=== PATIENT | female | born 1925 | race Caucasian/White ===

== ENCOUNTER 2016-10-21 22:19 | Inpatient (IN) | payer MEDICARE, OTHER ==
[~2016-10-21] VITALS: Ht 154.9 cm; Wt 77.6 kg
[~2016-10-21 22:19] MED LIST: ASPI-130 PO; CALC1TAB26 PO; CIPR500T4 PO; COZA50TA PO; ESTR3TAB PO; FISH100020 PO; FLAG500T PO; FLUO20TA20 PO; FURO1TAB93 PO; ONDA4; POTA-267 PO; TAB-TAB PO; TOPR50TA PO; VITA10002 PO; WAL-10TA2 PO
[2016-10-21] MEDS ORDERED: ONDANSETRON HCL 4 MG/2 ML VIAL ONE (22:27)
[2016-10-21 22:32] VITALS: BP 119/73; PULSE 74; RESP 16; TEMP 98.1; O2SAT 91; O2SAT 92
[2016-10-21 22:35] VITALS: RESP 18; O2SAT 98
[2016-10-21 22:35] LABS: AUTOMATED NEUTROPHIL # 11.1 TH/MM3 (1.8-7.7); BASOPHIL # 0.1 TH/MM3 (0-0.2); BASOPHIL % 0.7 % (0.0-2.0); EOSINOPHIL # 0.4 TH/MM3 (0-0.4); EOSINOPHIL % 2.7 % (0.0-4.0); HEMATOCRIT 38.2 % (35.0-46.0); HEMO FLAGS DIFF FINAL; LYMPH % 11.9 % (9.0-44.0); LYMPHOCYTE # 1.7 TH/MM3 (1.0-4.8); MEAN CELL VOLUME 91.9 FL (80.0-100.0); MEAN CORPUSCULAR HEMOGLOBIN 30.5 PG (27.0-34.0); MEAN CORPUSCULAR HGB CONC 33.2 % (32.0-36.0); NEUT % 76.7 % (16.0-70.0); PLATELET COUNT 303 TH/MM3 (150-450); RED BLOOD COUNT 4.16 MIL/MM3 (4.00-5.30); RED CELL DISTRIBUTION WIDTH 13.6 % (11.6-17.2); WHITE BLOOD COUNT 14.4 TH/MM3 (4.0-11.0)
[2016-10-21 22:38] LABS: I-STAT POTASSIUM 4.6 MMOL/L (3.5-4.9); I-STAT SODIUM 139 MMOL/L (138-146)
--- NOTE | 2016-10-21 22:38 | PD ---
HPI Chief Complaint: Cardiac Complaint Time Seen by Provider: 22:22 Travel History International Travel<30 days: No Contact w/Intl Traveler<30days: No Traveled to known affect area: No History of Present Illness HPI The patient is an 89 year old female who presents to the [facility] emergency department with a history of reportedly beginning to not feel well in the afternoon. She is unsure of the exact time. According to ambulance services the patient does have a history of mild dementia. The patient reported to them that she had chest pain and back pain. The patient was called as a STEMI prior to arrival due to ST segment elevation in V2, V3, V4, however the patient was then noted to have a paced rhythm. The patient is unsure why she has a pacemaker. She is unsure how long she has been experiencing chest pain. She reports that she does have shortness of breath and generalized weakness. The patient prior to arrival was given 162 mg of aspirin and nitroglycerin sublingual times one. The patient reports that her only symptom at this point his shortness of breath. She has O2 saturation on room air is 92- 93%. The patient is unsure whether she has any prior history of lung disease. The patient's electronic medical record will be reviewed regarding her chronic medical history. The patient reports feeling nauseated although she denies having any vomiting. 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 The patient additionally has a history of recently diagnosed dementia. Blood Disorders: No Anxiety: No Depression: No Heart Rhythm Problems: Yes (PACEMAKER) Cancer: No Cardiovascular Problems: Yes (PACEMAKER) High Cholesterol: No Chemotherapy: No Chest Pain: No Congestive Heart Failure: No Diabetes: No Diminished Hearing: No Endocrine: No Gastrointestinal Disorders: No GERD: No Glaucoma: No Genitourinary: No Headaches: Yes Hepatitis: No Hiatal Hernia: No Hypertension: Yes Immune Disorder: No Implanted Vascular Access Dvce: Yes Musculoskeletal: No Neurologic: Yes Psychiatric: No Reproductive: Yes (HYSTERECTOMY, RECTOCELE) Respiratory: Yes (SOB) Integumentary: No Myocardial Infarction: No Radiation Therapy: No Thyroid Disease: No Ulcer: No Past Surgical History Narrative Surgical The patient's past surgical history is significant for a hysterectomy, rectocele repair, pacemaker placement, colonoscopy. Abdominal Surgery: Yes (RECTO JAKOB SURGERY) AICD: No Appendectomy: Yes Arteriovenous Shunt: No Body Medical Devices: PACEMAKER Cardiac Surgery: Yes (PACEMAKER) Cholecystectomy: No Ear Surgery: No Endocrine Surgery: No Eye Surgery: No Genitourinary Surgery: No Gynecologic Surgery: Yes (HYSTERECTOMY) Hysterectomy: Yes Insulin Pump: No Joint Replacement: No Oral Surgery: No Pacemaker: Yes (1988) Thoracic Surgery: Yes (PACEMAKER) Other Surgery: Yes (LEFT BREAST CYST,RECTOCELE) Social History Alcohol Use: Yes (1 GLASS WINE WITH DINNER) Tobacco Use: No Substance Use: No Allergies-Medications (Allergen,Severity, Reaction): Coded Allergies: Amlodipine (Verified Allergy, Severe, 10/21/16) Benazepril (Verified Allergy, Severe, 10/21/16) Uncoded Allergies: LOTREL (Allergy, Severe, RASH, 02/17/08) Reported Meds & Prescriptions Reported Meds & Active Scripts Active Active Prescriptions or Reported Medications Unobtainable Review of Systems Except as stated in HPI: all other systems reviewed are Neg General / Constitutional: No: Fever Eyes: No: Visual changes HENT: No: Headaches, Rhinorrhea, Congestion Cardiovascular: Positive: Chest Pain or Discomfort, Dyspnea on exertion Respiratory: Positive: Shortness of Breath, No: Cough Gastrointestinal: Positive: Nausea, No: Vomiting, Diarrhea, Abdominal Pain Genitourinary: No: Dysuria Musculoskeletal: Positive: Myalgias, Pain Skin: No Rash Neurologic: Positive: Weakness (generalized weakness), No: Focal Abnormalities , Change in Mentation, Slurred Speech, Sensory Disturbance Psychiatric: No: Depression Endocrine: No: Polydipsia Hematologic/Lymphatic: No: Easy Bruising Physical Exam Narrative General: The patient is a well-developed well-nourished female, slightly pale appearing on examination, reportedly experiencing nausea. Head and Neck exam: Head is normocephalic atraumatic. Eyes: Pupils are equal round and reactive to light. Nose: Midline septum with pink mucous membranes Mouth: Dentition unremarkable. Moist mucus membranes. Posterior oropharynx is not erythematous. No tonsillar hypertrophy. Uvula midline. Airway patent. Neck: No palpable lymphadenopathy. No nuchal rigidity. No thyromegaly. Cardiovascular: Regular rate and rhythm without murmurs, gallops, or rubs. No pulse deficit to the extremities and simultaneous auscultation and palpation of her radial artery. Lungs: Clear to auscultation bilaterally. No wheezes, rhonchi, or rales. Abdomen: Soft, without tenderness to palpation in all 4 quadrants of the abdomen. No guarding, rebound, or rigidity. Normal bowel sounds are audible. No tenderness on McBurney's point. Negative Hunt's sign. Extremities: No calf tenderness on palpation. No clubbing, cyanosis, or edema. 2+ pulses in all 4 extremities. Back: No spinous process tenderness to palpation. No costovertebral angle tenderness to palpation. Neurologic Exam: Cranial nerves 2-12 were intact on exam. Strength is 5/5 in all 4 extremities. No sensory deficits noted. The patient is oriented to person and place, however not time or situation. Skin Exam: No rash noted. Intact skin that is warm and dry. Data Data Last Documented VS Vital Signs Date Time Temp Pulse Resp B/P Pulse Ox O2 Delivery O2 Flow Rate FiO2 10/21/16 22:35 72 20 96 Nasal Cannula 2 10/21/16 22:32 98.1 119/73 Orders Troponin I (10/21/16 22:22) Ckmb (Isoenzyme) Profile (10/21/16 22:22) Complete Blood Count With Diff (10/21/16 22:22) I-Stat Profile (10/21/16 22:22) I-Stat Creatinine (10/21/16 22:22) Calcium (10/21/16 22:22) Magnesium (Mg) (10/21/16 22:22) Prothrombin Time / Inr (Pt) (10/21/16 22:22) Act Partial Throm Time (Ptt) (10/21/16 22:22) B-Type Natriuretic Peptide (10/21/16 22:22) Chest, Single Ap (10/21/16 22:22) Electrocardiogram (10/21/16 22:22) Oxygen Administration (10/21/16 22:22) Iv Access Insert/Monitor (10/21/16 22:22) Oximetry (10/21/16 22:22) Ondansetron Inj (Zofran Inj) (10/21/16 22:27) Nitroglycerin 2% Oint (Nitroglycerin 2% (10/21/16 22:45) Nitroglycerin Sl (Nitrostat Sl) (10/21/16 22:45) Aspirin Chew (Aspirin Chew) (10/21/16 22:45) CKMB (10/21/16 22:25) CKMB% (10/21/16 22:25) Hepatic Functional Panel (10/21/16 22:25) Lipase (10/21/16 22:25) Ondansetron Inj (Zofran Inj) (10/22/16 00:00) Urinalysis - C+S If Indicated (10/21/16 23:59) Cath For Specimen (10/21/16 23:59) Sodium Chlor 0.9% 1000 Ml Inj (Ns 1000 M (10/22/16 00:00) Admit Order (Ed Use Only) (10/22/16 00:08) Labs Laboratory Tests Test 10/21/16 22:25 White Blood Count 14.4 TH/MM3 Red Blood Count 4.16 MIL/MM3 Hemoglobin 12.7 GM/DL Bedside Hemoglobin 12.9 G/DL Hematocrit 38.2 % Bedside Hematocrit 38.0 % Mean Corpuscular Volume 91.9 FL Mean Corpuscular Hemoglobin 30.5 PG Mean Corpuscular Hemoglobin 33.2 % Concent Red Cell Distribution Width 13.6 % Platelet Count 303 TH/MM3 Mean Platelet Volume 8.8 FL Neutrophils (%) (Auto) 76.7 % Lymphocytes (%) (Auto) 11.9 % Monocytes (%) (Auto) 8.0 % Eosinophils (%) (Auto) 2.7 % Basophils (%) (Auto) 0.7 % Neutrophils # (Auto) 11.1 TH/MM3 Lymphocytes # (Auto) 1.7 TH/MM3 Monocytes # (Auto) 1.2 TH/MM3 Eosinophils # (Auto) 0.4 TH/MM3 Basophils # (Auto) 0.1 TH/MM3 CBC Comment DIFF FINAL Differential Comment Prothrombin Time 10.0 SEC Prothromb Time International 0.9 RATIO Ratio Activated Partial 24.9 SEC Thromboplast Time Bedside Sodium 139 MMOL/L Bedside Potassium 4.6 MMOL/L Bedside Chloride 107 MMOL/L Bedside Blood Urea Nitrogen 22 MG/DL Bedside Creatinine 1.0 MG/DL Bedside Glucose 145 MG/DL Calcium Level 8.7 MG/DL Magnesium Level 2.2 MG/DL Total Bilirubin 0.2 MG/DL Direct Bilirubin 0.1 MG/DL Indirect Bilirubin 0.1 MG/DL Aspartate Amino Transf 24 U/L (AST/SGOT) Alanine Aminotransferase 22 U/L (ALT/SGPT) Alkaline Phosphatase 78 U/L Total Creatine Kinase 102 U/L Creatine Kinase MB 1.0 NG/ML Troponin I LESS THAN 0.02 NG/ML B-Type Natriuretic Peptide 269 PG/ML Total Protein 7.4 GM/DL Albumin 3.4 GM/DL Lipase 294 U/L MDM Medical Decision Making Medical Screen Exam Complete: Yes Emergency Medical Condition: Yes Medical Record Reviewed: Yes Interpretation(s) Last Impressions Chest X-Ray 10/21/162221 Signed Impressions: Service Date/Time: Friday, October 21, 2016 22:33 - CONCLUSION: No acute disease. No significant change has occurred. Tobi Mcginnis MD Differential Diagnosis Acute coronary syndrome, versus electrolyte abnormality, versus congestive heart failure exacerbation, versus COPD, versus pneumonia, versus pulmonary embolus Narrative Course During the course of the patients emergency department visit, the patients history, examination, and differential diagnosis were reviewed with the patient. The patient had IV access obtained and blood work sent for analysis. The patient was placed on a court monitor with oximetry and blood pressure monitoring. An EKG was done on arrival. The patient's EKG shows a paced rhythm , from reviewing the patient's prior EKG the patient has a history of paced rhythm previously. There does not appear to be any changes compared to her prior EKG done August 21, 2015. A chest x-ray has been ordered. The patient was placed on 2 L nasal cannula O2. The patient was provided aspirin 162 mg by mouth 1, nitroglycerin 1 inch to the chest wall. The patient had written for nitroglycerin sublingual every 5 minutes 3 when necessary chest pain. The patients laboratory studies were reviewed and remarkable for a CBC that shows a white count of 14.4, hemoglobin 12.7, platelets 303 with neutrophils 76.7, i-STAT with creatinine shows a glucose of 145 otherwise unremarkable. Initial set of cardiac enzymes showed a CPK of 102, troponin I less than 0.02. Radiology studies were reviewed and remarkable for a chest x-ray that showed no acute abnormality. The patients results were discussed with the patient, including the plan of care. I explained that further testing and/ or monitoring is indicated based on the patients history, examination, and/ or laboratory findings. Therefore, I recommended admission for additional evaluation. The patient expressed understanding and was agreeable with this plan. The patient was admitted to the hospital in stable condition and sent to a bed under the care of the [facility]. Physician Communication Physician Communication The patient's case was discussed with Dr. Cao who did agree to admit the patient for further evaluation and treatment at this time. Diagnosis Primary Impression: Shortness of breath Additional Impressions: Chest pain, rule out acute myocardial infarction History of coronary artery disease Admitting Information Admitting Physician Requests: Admit Scripts Unable to Obtain Active Prescriptions or Reported Meds Rebecca Medeiros MD Oct 21, 2016 22:38
[2016-10-21] MEDS ORDERED: NITROGLYCERIN 2% OINT 1 GM PACKET TOPICAL ONE (22:45)
[2016-10-21] MEDS ORDERED: ASPIRIN 81 MG CHEW TAB CHEW ONE (22:45)
[2016-10-21] MEDS ORDERED: NITROGLYCERIN 0.4 MG SL 25 TABS/BTL SL PRN (22:45)
[2016-10-21 22:58] LABS: MAGNESIUM 2.2 MG/DL (1.5-2.5)
--- NOTE | 2016-10-21 22:58 | RADRPT ---
EXAM DATE/TIME: 10/21/2016 22:33 [place] COMPARISON: CHEST SINGLE AP, August 21, 2015, 13:22. INDICATIONS : Shortness of breath, chest and back pain. MEDICAL HISTORY : Hypertension. SURGICAL HISTORY : Pacemaker. ENCOUNTER: Initial ACUITY: 1 day PAIN SCORE: 6/10 LOCATION: Bilateral chest FINDINGS: A single view of the chest demonstrates the lungs to be symmetrically aerated without evidence of mas s, infiltrate or effusion. The cardiomediastinal contours are unremarkable and stable. There is a pa cemaker overlying the left chest.. Osseous structures are intact. No significant changes. CONCLUSION: No acute disease. No significant change has occurred. Tobi Mcginnis MD on October 21, 2016 at 22:56 Board Certified Radiologist. This report was verified electronically.
[2016-10-21 23:01] LABS: CREATINE KINASE 102 U/L (26-192)
[2016-10-21 23:05] LABS: APTT (PATIENT) 24.9 SEC (24.3-30.1); INTERNATIONAL NORMALIZED RATIO 0.9 RATIO
[2016-10-21 23:37] LABS: ALT (GPT) 22 U/L (10-53); AST (GOT) 24 U/L (15-37)
[2016-10-21 23:39] LABS: ALKALINE PHOSPHATASE 78 U/L (45-117); INDIRECT BILIRUBIN 0.1 MG/DL (0.0-0.8); TOTAL BILIRUBIN ADULT 0.2 MG/DL (0.2-1.0)
[2016-10-22] VITALS (15 sets, daily range): BP systolic 80–114; BP diastolic 44–73; PULSE 68–120; RESP 16–18; TEMP 97.4–98.2; O2SAT 77–99
[2016-10-22] MEDS ORDERED: ONDANSETRON HCL 4 MG/2 ML VIAL IV ONE
[2016-10-22] MEDS: SODIUM CHLOR 0.9% 1000 ML INJ 1,000 ML IV SCH ×4 (00:13→20:12)
[2016-10-22] MEDS ORDERED: MORPHINE SULFATE 4 MG/ML INJ IV PUSH ONE (00:30)
[2016-10-22] MEDS ORDERED: BISACODYL 10 MG SUPP PR PRN (00:45)
[2016-10-22] MEDS ORDERED: ACETAMINOPHEN/HYDROcodone 325 MG/5 MG TAB PO PRN (00:45)
[2016-10-22] MEDS ORDERED: ONDANSETRON HCL 4 MG/2 ML VIAL IVP PRN (00:45)
[2016-10-22] MEDS ORDERED: ACETAMINOPHEN 325 MG TAB PO PRN (00:45)
[2016-10-22] MEDS ORDERED: SODIUM CHLORIDE 0.9% FLUSH 5 ML FLUSH FLUSH PRN (00:45)
--- NOTE | 2016-10-22 01:00 | HHI.HP ---
HPI [facility] Primary Care Physician Sofia Zepeda MD Admission Diagnosis CP RO TN, ho CAD Diagnoses: (1) Chest pain Diagnosis: Principal (2) Hypoxia Diagnosis: Principal (3) Leukocytosis Diagnosis: Principal Travel History International Travel<30 Days: No Contact w/Intl Traveler <30 Da: No Traveled to Known Affected Are: No History of Present Illness This is an 89-year-old female with a PMH of HTN, CAD, Pacemaker and Dementia who is brought to the ER secondary to complaints of chest pain and SOB starting earlier today. EKG per EMS noted to be abnormal, that time STEMI Alert, however EKG similar to previous and STEMI Alert cancelled. Pt poor historian, but reports generalized weakness w/ complaints of SOB x2 days. Denies fever or chills. Today had episode of chest pain, currently resolved. On arrival, BP 119/73, HR 74, O2 sat 92% on RA, Afebrile. WBC 14.4. Chemistry unremarkable. Troponin negative. BNP 269. CXR with no acute findings. UA pending. Review of Systems Other ROS: 14 point review of systems otherwise negative. Past Family Social History Past Medical History PMH: HTN, CAD, Pacemaker and Dementia Past Surgical History PAST SURGICAL HISTORY: Rectocele, Appendectomy, Pacemaker, Hysterectomy, Left Breast Cyst Allergies: Coded Allergies: Amlodipine (Verified Allergy, Severe, 10/21/16) Benazepril (Verified Allergy, Severe, 10/21/16) Uncoded Allergies: LOTREL (Allergy, Severe, RASH, 02/17/08) Family History PAST FAMILY HISTORY: Reviewed. No h/o DM or CAD Social History PAST SOCIAL HISTORY: Occasional alcohol. Negative for tobacco or drugs. Physical Exam Vital Signs Vital Signs Date Time Temp Pulse Resp B/P Pulse Ox O2 Delivery O2 Flow Rate FiO2 10/21/16 22:35 72 20 96 Nasal Cannula 2 10/21/16 22:35 97 Nasal Cannula 2 10/21/16 22:35 18 98 Room Air 2 10/21/16 22:32 98.1 74 16 119/73 91 10/21/16 22:32 92 3.00 10/21/16 22:32 92 Nasal Cannula 3.00 Physical Exam PE: GENERAL: Pleasant elderly white female in no acute distress. HEENT: PERRLA, EOMI. No scleral icterus or conjunctival pallor. No lid lag or facial droop. CARDIOVASCULAR: Regular rate and rhythm. No obvious murmurs to auscultation. No chest tenderness to palpation. RESPIRATORY: No obvious rhonchi or wheezing. Clear to auscultation. Breath sounds equal bilaterally. GASTROINTESTINAL: Abdomen soft, non-tender, nondistended. BS normal. MUSCULOSKELETAL: Extremities without clubbing, cyanosis, or edema. No obvious deformities. NEUROLOGICAL: Awake, alert. No focal neurologic deficits. Moving both upper and lower extremities spontaneously. Laboratory Laboratory Tests Test 10/21/16 22:25 White Blood Count 14.4 Red Blood Count 4.16 Hemoglobin 12.7 Bedside Hemoglobin 12.9 Hematocrit 38.2 Bedside Hematocrit 38.0 Mean Corpuscular Volume 91.9 Mean Corpuscular Hemoglobin 30.5 Mean Corpuscular Hemoglobin 33.2 Concent Red Cell Distribution Width 13.6 Platelet Count 303 Mean Platelet Volume 8.8 Neutrophils (%) (Auto) 76.7 Lymphocytes (%) (Auto) 11.9 Monocytes (%) (Auto) 8.0 Eosinophils (%) (Auto) 2.7 Basophils (%) (Auto) 0.7 Neutrophils # (Auto) 11.1 Lymphocytes # (Auto) 1.7 Monocytes # (Auto) 1.2 Eosinophils # (Auto) 0.4 Basophils # (Auto) 0.1 CBC Comment DIFF FINAL Differential Comment Prothrombin Time 10.0 Prothromb Time International 0.9 Ratio Activated Partial 24.9 Thromboplast Time Bedside Sodium 139 Bedside Potassium 4.6 Bedside Chloride 107 Bedside Blood Urea Nitrogen 22 Bedside Creatinine 1.0 Bedside Glucose 145 Calcium Level 8.7 Magnesium Level 2.2 Total Bilirubin 0.2 Direct Bilirubin 0.1 Indirect Bilirubin 0.1 Aspartate Amino Transf 24 (AST/SGOT) Alanine Aminotransferase 22 (ALT/SGPT) Alkaline Phosphatase 78 Total Creatine Kinase 102 Creatine Kinase MB 1.0 Troponin I LESS THAN 0.02 B-Type Natriuretic Peptide 269 Total Protein 7.4 Albumin 3.4 Lipase 294 Result Diagram: 10/21/166 Assessment and Plan Problem List: (1) Chest pain ICD Code: R07.9 Status: Acute (2) Hypoxia ICD Code: R09.02 Status: Acute (3) Leukocytosis ICD Code: D72.829 Status: Acute Assessment and Plan A/P: 1. Chest Pain: r/o ACS. Initial trop negative, EKG w/ paced rhythm similar in comparison to previous. Admit for Observation, place on telemetry, check serial cardiac enzymes for trend. Consult Cardiology as needed. Resume home ASA, Metoprolol. 2. Hypoxia: c/o SOB. O2 sat 92-93% on RA, unclear etiology. CXR w/ no acute findings, images reviewed by me. Currently O2 sat 96-98% on 2L NC, will continue to monitor. 3. Leukocytosis: WBC 14.4, afebrile. CXR negative. U/a pending. Repeat labs in am. 4. DVT Prophylaxis: SCD/Teds. 5. Social work for d/c planning as needed. 6. Case discussed w/ ER physician at length. Meredith Cao MD Oct 22, 2016 01:00
[2016-10-22] MEDS ORDERED: SODIUM CHLORID 0.9% 500 ML INJ 500 ML IV ONE (01:45)
[2016-10-22 03:48] LABS: BACTERIA, URINE RARE /hpf; BLOOD, URINE SMALL (NEG); COMMENT (UR) CULT NOT INDICATED; CULTURE IF INDICATED CULT NOT INDICATED; GLUCOSE,URINE NEG (NEG); HYALINE CAST, URINE 60 /lpf (RARE); KETONE, URINE NEG (NEG); MUCUS URINE FEW /lpf (OCC); NITRITE,URINE NEG (NEG); PH, URINE 5.5 (5.0-8.5); SQUAMOUS EPITHELIAL CELL URINE 2 /hpf (0-5); URINE COLOR YELLOW (YELLW/STRAW)
[2016-10-22 04:05] LABS: AUTOMATED NEUTROPHIL # 10.1 TH/MM3 (1.8-7.7); BASOPHIL % 0.3 % (0.0-2.0); EOSINOPHIL % 0.2 % (0.0-4.0); HEMATOCRIT 33.5 % (35.0-46.0); HEMO FLAGS DIFF FINAL; LYMPH % 6.9 % (9.0-44.0); LYMPHOCYTE # 0.8 TH/MM3 (1.0-4.8); MEAN CORPUSCULAR HEMOGLOBIN 29.9 PG (27.0-34.0); MEAN CORPUSCULAR HGB CONC 32.8 % (32.0-36.0); MONO % 4.9 % (0.0-8.0); NEUT % 87.7 % (16.0-70.0); PLATELET COUNT 254 TH/MM3 (150-450); RED BLOOD COUNT 3.68 MIL/MM3 (4.00-5.30); RED CELL DISTRIBUTION WIDTH 13.4 % (11.6-17.2); WHITE BLOOD COUNT 11.5 TH/MM3 (4.0-11.0)
[2016-10-22 04:35] LABS: ANION GAP 7 MEQ/L (5-15); AST (GOT) 60 U/L (15-37); BICARBONATE 21.8 MEQ/L (21.0-32.0); BLOOD UREA NITROGEN 19 MG/DL (7-18); CHLORIDE 112 MEQ/L (98-107); GLOMERULAR FILTRATION RATE 46 ML/MIN (>89); SODIUM (NA) 141 MEQ/L (136-145)
[2016-10-22 04:40] LABS: ALKALINE PHOSPHATASE 70 U/L (45-117); ALT (GPT) 23 U/L (10-53); TOTAL BILIRUBIN ADULT 0.2 MG/DL (0.2-1.0)
[2016-10-22] MEDS: MORPHINE SULFATE 4 MG/ML INJ IV PRN ×3 (06:30→13:13)
--- NOTE | 2016-10-22 08:43 | HHI.PR ---
Subjective Remarks Follow up for chest pain, SOB. Ms. Quiñones does not exactly know why she came to the hospital. Currently, she does not have any acute concerns. Denies any chest pain, SOB, fever, chills. Her son is coming from [place]. Objective Vitals Vital Signs Date Time Temp Pulse Resp B/P Pulse Ox O2 Delivery O2 Flow Rate FiO2 10/22/16 06:21 68 104/64 10/22/16 05:14 68 96/57 10/22/16 05:08 97.8 75 16 85/73 95 10/22/16 02:02 69 16 105/58 97 Nasal Cannula 2 10/22/16 01:36 76 18 91/50 98 Nasal Cannula 3 10/21/16 22:35 72 20 96 Nasal Cannula 2 10/21/16 22:35 97 Nasal Cannula 2 10/21/16 22:35 18 98 Room Air 2 10/21/16 22:32 98.1 74 16 119/73 91 10/21/16 22:32 92 3.00 10/21/16 22:32 92 Nasal Cannula 3.00 Result Diagram: 10/22/168 10/22/168 Imaging Last Impressions Chest X-Ray 10/21/162221 Signed Impressions: Service Date/Time: Friday, October 21, 2016 22:33 - CONCLUSION: No acute disease. No significant change has occurred. Tobi Mcginnis MD Objective Remarks GENERAL: Alert, NAD. SKIN: Warm and dry. HEAD: Normocephalic. EYES: No scleral icterus. No injection or drainage. NECK: Supple, trachea midline. No JVD or lymphadenopathy. CARDIOVASCULAR: Regular rate and rhythm without murmurs, gallops, or rubs. RESPIRATORY: Breath sounds equal bilaterally. No accessory muscle use. GASTROINTESTINAL: Abdomen soft, non-tender, nondistended. MUSCULOSKELETAL: No cyanosis, or edema. BACK: Nontender without obvious deformity. No CVA tenderness. Procedures None. A/P Problem List: (1) Chest pain ICD Code: R07.9 Status: Acute (2) Hypoxia ICD Code: R09.02 Status: Acute (3) Leukocytosis ICD Code: D72.829 Status: Acute Assessment and Plan This is an 89-year-old female with a PMH of HTN, CAD, Pacemaker and Dementia who is brought to the ER secondary to complaints of chest pain and SOB on 2016. EKG per EMS noted to be abnormal, that time STEMI Alert, however EKG similar to previous and STEMI Alert cancelled. On arrival, BP 119/73, HR 74, O2 sat 92% on RA, Afebrile. WBC 14.4. Chemistry unremarkable. Troponin negative. BNP 269. CXR with no acute findings. Initial troponin was 0.02. Second troponin was 0.61. - NSTEMI - Negative troponin initially, second troponin 0.61. - Will start patient on Heparin drip. She already received 162 mg of Aspirin. - Continue aspirin 81 mg, metoprolol 50 mg every 12. - Discontinue pravastatin and start Lipitor 40 mg daily at bedtime. - Consult cardiology - Dr. Seth. - Hypoxia - currently doing well on 2L of O2. We will try to wean her off O2 to keep O2 sat > 90%. Leukocytosis is improving. 14.4 --> 11.8. - Mild Acute kidney injury - Will monitor. Creatinine 1.0 --> 1.11. Full code. Heparin SQ. Pacheco Parnell DO Oct 22, 2016 08:43
[2016-10-22] MEDS ORDERED: HEPARIN SODIUM - IV 10,000 UNITS/10 ML VIAL IV ONE (08:45)
[2016-10-22] MEDS ORDERED: HEPARIN-D5W INJ 250 ML IV SCH (08:45)
[2016-10-22] MEDS: SODIUM CHLORIDE 0.9% FLUSH 5 ML FLUSH FLUSH SCH ×2 (08:53→21:00)
[2016-10-22] MEDS: ASPIRIN EC 81 MG TABEC PO SCH (08:53)
[2016-10-22] MEDS ORDERED: METOPROLOL TARTRATE 50 MG TAB PO SCH (09:00)
[2016-10-22 09:10] LABS: HEMATOCRIT 34.9 % (35.0-46.0); MEAN CELL VOLUME 92.2 FL (80.0-100.0); MEAN CORPUSCULAR HEMOGLOBIN 30.5 PG (27.0-34.0); PLATELET COUNT 254 TH/MM3 (150-450); RED BLOOD COUNT 3.78 MIL/MM3 (4.00-5.30); RED CELL DISTRIBUTION WIDTH 13.8 % (11.6-17.2); REVIEW FLAG FINAL; WHITE BLOOD COUNT 11.8 TH/MM3 (4.0-11.0)
[2016-10-22 09:30] LABS: APTT (PATIENT) 26.2 SEC (24.3-30.1); INTERNATIONAL NORMALIZED RATIO 0.9 RATIO; PROTHROMBIN TIME - PATIENT 10.3 SEC (9.8-11.6)
[2016-10-22] MEDS ORDERED: diphenhydrAMINE HCL 50 MG CAP PO SCH (10:15)
[2016-10-22] MEDS ORDERED: MIDAZOLAM HCL 2 MG/2 ML VIAL IV SCH (10:15)
[2016-10-22] MEDS ORDERED: PRAVASTATIN SOD 80 MG TAB PO SCH (11:00)
[2016-10-22] MEDS ORDERED: CLOPIDOGREL 75 MG TAB PO ONE (12:15)
--- NOTE | 2016-10-22 13:27 | MB ---
cc: KELSIE CALABRESE M.D., JOANNE D. M.D. DATE OF CONSULTATION: October 22, 2016 REASON FOR CONSULTATION Non-ST elevation myocardial infarction. HISTORY OF PRESENT ILLNESS Ms. Quiñones is a 89-year-old white female well-known to me with history of mild ASHD, carotid ASO, hypertensive heart disease, and symptomatic bradycardia, status post permanent pacemaker implant. She was doing reasonably well and had a regular scheduled appointment next month with me. She was not feeling well yesterday but she is very nonspecific about describing how she was feeling since her memory has been failing. According to the emergency room notes she was not feeling well and did admit to some chest discomfort. She tells me now that she has no chest discomfort but has had problems with shortness of breath. She has been taking all of her medication as directed. She lives alone and continues to drive. She is considering making a change in her living conditions to be closer to her family. MEDICATION Her medications here she is receivin. Intravenous heparin. 2. Aspirin. 3. Metoprolol tartrate. 4. Topical nitrates. At home her medication list is as follows: 1. Toprol XL 75 mg every evening. 2. Cozaar 50 mg b.i.d. 3. Enteric-coated aspirin 81 mg daily. 4. Lasix 40 mg daily. 5. Klor-Con 10 meq daily. 6. Fish oil 1000 mg daily. 7. Ranitidine p.r.n. 8. Fluoxetine 20 mg daily. 9. Estropipate 2.5 mg daily. 10. Budesonide inhaler daily. 11. Brovana inhaler daily. 12. Zyrtec p.r.n. PAST MEDICAL HISTORY Of as mentioned above. She denies previous history of myocardial infarction, stroke, diabetes, thyroid, liver or kidney disease. PAST SURGICAL HISTORY 1. Right oophorectomy and 2. Appendectomy in 1949, 3. Hysterectomy in 9, 4. Left breast cyst removed in 1950 and 5. Pacemaker implanted in 1988. ALLERGIES LOTREL - CAUSES RASH, LAURA INHIBITORS, INTOLERANCE TO LIPITOR DUE TO MYALGIAS. FAMILY HISTORY Father of lung cancer at age 75. Mother of diabetes age 60. Brother after a myocardial infarction at age 42. A brother had an angioplasty in the past, is alive in his late 70s. Sister alive in her early 80s. SOCIAL HISTORY The patient is living alone, retired nurse's aide. Denies tobacco use at this time. Was a cigarette smoker, quit about 50 years ago. Consumes occasional alcohol. Does some mild exercise. REVIEW OF SYSTEMS Denies lower extremity edema or claudication. Denies fevers, chills, night sweats, nausea, vomiting, diarrhea. Denies any bleeding or clotting disorders. Except for that mentioned in HPI her complete 12-point review of systems otherwise negative. PHYSICAL EXAMINATION GENERAL: Physical exam reveals an elderly, overweight white female lying in bed, weak appearing but in no distress. VITAL SIGNS: Blood pressure 107/72 mmHg, heart rate is 72 and regular, respiratory rate 18, temperature 97.4, oxygen saturation 96% on 2 liters nasal cannula. HEAD: Normocephalic and atraumatic. Pupils equal, round, reactive to light. Sclerae anicteric. Extraocular movements intact. NECK: The neck is supple. There is no adenopathy and no jugular venous distension at 45 degrees. Carotid upstrokes are normal. No bruits. Thyroid exam is normal. LUNGS: Lungs are clear with decreased breath sounds bilaterally. HEART: PMI is not displaced. S1-S2 are normal. No murmurs, gallops, clicks or rubs. ABDOMEN: Obese. Bowel sounds present, soft, nontender, no hepatosplenomegaly, masses or bruits. EXTREMITIES: No cyanosis, clubbing or edema. Pulses are intact in the upper and lower extremities. There are no femoral bruits. EKG Shows sinus rhythm with electronic ventricular paced rhythm 100% capture. IMAGING STUDIES Chest x-ray shows no acute disease. LABORATORY DATA CBC white count 11.8, hemoglobin 11.5, hematocrit 34.9, platelet count 254,000. Coags were normal. Chemistries sodium 141, potassium 5.0, chloride 112, BUN 19, creatinine 1.11, calcium 8.3, AST 60, CPK 102 on arrival yesterday with a BNP of 269. Initial troponin-I at 2225 last night was less than 0.02, on the second set at 0348 this morning it latisha to 0.61. Lipase 294. IMPRESSION 1. Chronic dyspnea and history of chest pain. 2. ASHD and suspected non-ST elevation myocardial infarction. 3. History of symptomatic bradycardia status post permanent pacemaker implant functioning normally. 4. Hypertensive heart disease, well-controlled. 5. Hypercholesterolemia with intolerance to Lipitor. 6. Overweight. RECOMMENDATIONS The patient will be continued on the current medications including beta adriel therapy, aspirin and heparin. I will add Atorvastatin to her regimen as tolerated. If her blood pressure tolerates we will add back her Losartan. I have discussed further workup with her in detail including continued conservative medical management as well as invasive evaluation with cardiac catheterization and possible PCI. I have recommended that approach to her and she agrees to proceed this afternoon, labor specialist scheduling permitting. I discussed the indications, benefits and risks of these procedures with her in detail including acute myocardial infarction, VT/VF, , arterial injury, bleeding, stroke, possible need for emergent open heart surgery. She understands and is wishing and willing to proceed as planned. Orders have been written and consent signed. I will try the right radial approach if technically possible, otherwise right femoral approach will be used. Further recommendations will follow, n.p.o. at this time. I have discussed the case with the nursing staff. MD HIEU Castro/LITTLE /10:26 AM /12:57 PM
[2016-10-22] MEDS ORDERED: HEPARIN-NS/PF INJ 500 ML ONE (14:08)
[2016-10-22] MEDS ORDERED: MIDAZOLAM HCL 2 MG/2 ML VIAL ONE (14:20)
[2016-10-22] MEDS ORDERED: DOPamine INJ PREMIX 500 ML ONE (14:31)
[2016-10-22] MEDS ORDERED: HEPARIN SODIUM - IV 10,000 UNITS/10 ML VIAL ONE (14:40)
[2016-10-22] MEDS ORDERED: HEPARIN SODIUM - IV 10,000 UNITS/10 ML VIAL IV PRN ×2 (14:45)
[2016-10-22] MEDS ORDERED: FUROSEMIDE 40 MG/4 ML VIAL ONE (15:12)
[2016-10-22] MEDS ORDERED: MIDAZOLAM HCL 5 MG/5 ML VIAL ONE (15:21)
[2016-10-22] MEDS ORDERED: fentaNYL CITRATE 250 MCG/5 ML AMP ONE (15:21)
[2016-10-22] MEDS ORDERED: TIROFIBAN INFUSION INJ 250 ML IV ONE (15:32)
[2016-10-22] MEDS ORDERED: CLOPIDOGREL 300 MG TAB ONE (15:32)
[2016-10-22] MEDS ORDERED: TIROFIBAN INFUSION INJ 250 ML IV SCH (15:59)
[2016-10-22] MEDS ORDERED: ATROPINE SULFATE 1 MG/ML VIAL IV PRN (16:00)
[2016-10-22] MEDS ORDERED: MISC INFORMATION XX ONE (16:00)
[2016-10-22] MEDS ORDERED: SODIUM CHLORIDE 0.9% FLUSH 5 ML FLUSH IVF PRN (16:00)
[2016-10-22] MEDS ORDERED: CLOPIDOGREL 300 MG TAB PO ONE (16:00)
[2016-10-22] MEDS ORDERED: BACITRACIN OINT 0.9 GM PKT TOP ONE (16:00)
[2016-10-22] MEDS ORDERED: DOPamine INJ PREMIX 500 ML IV ONE (16:15)
[2016-10-22] MEDS ORDERED: EPINEPHrine HCL (1:10,000) 1 MG/10 ML SYRINGE ONE (16:36)
[2016-10-22] MEDS ORDERED: PHENYLEPH/NS 1000 MCG/10 ML SYR ONE (16:50)
[2016-10-22] MEDS ORDERED: SODIUM BICARBONATE 8.4% INJ 50 ML ONE (16:56)
[2016-10-22] MEDS ORDERED: MIDAZOLAM HCL 2 MG/2 ML VIAL IV ONE (17:00)
--- NOTE | 2016-10-22 17:03 | EKG ---
Date Performed: 10/21/2016 Time Performed: 22:24:02 PTAGE: 89 years EKG: ELECTRONIC VENTRICULAR PACEMAKER Compared to prior tracing no significant change ABNORMAL R HYTHM ECG PREVIOUS TRACING : 08/21/2015 12.55 DOCTOR: Dion Cope Interpretating Date/Time 10/22/2016 17:00:58
--- NOTE | 2016-10-22 17:15 | RADRPT ---
EXAM DATE/TIME: 10/22/2016 16:45 [facility] COMPARISON: CHEST SINGLE AP, October 21, 2016, 22:33. INDICATIONS : Post heart surgery MEDICAL HISTORY : Hypertension. SURGICAL HISTORY : Pacemaker. ENCOUNTER: Initial ACUITY: 2 days PAIN SCORE: Non-responsive. LOCATION: Bilateral chest FINDINGS: Bipolar pacemaker again overlies the left hemithorax. There is nasogastric tube now passes to the mid line of the stomach and an ET tube terminating just above the pat. Mild homogeneous increased dens ity is noted in the lung garza representing either pulmonary vascular congestion or effusion. CONCLUSION: Post operative film single clip overlying the aortic knob. ET tube above the pat. Mild increased d ensity in both lung garza suggesting either pulmonary vascular congestion or effusions David Frank MD on October 22, 2016 at 17:12 Board Certified Radiologist. This report was verified electronically.
[2016-10-22] MEDS ORDERED: MIDAZOLAM HCL 5 MG/5 ML VIAL IV ONE (18:00)
[2016-10-22] MEDS ORDERED: fentaNYL DRIP 250 ML ONE (18:31)
[2016-10-22] MEDS ORDERED: DOBUTamine PREMIX DRIP 250 ML ONE (19:33)
--- NOTE | 2016-10-22 20:40 | PD.CARD.PN ---
Subjective Subjective Remarks Critical care visit for hypotension and groin oozing. Patient awake and able to answer yes and no questions on vent. Denies any pain. Objective Medications Current Medications Medications (Trade) Dose Ordered Sig/Izabella Route PRN Reason Start Time Stop Time Status Last Admin Dose Admin Nitroglycerin (Nitrostat Sl) 0.4 mg Q5M PRN SL CHEST PAIN 10/21/16 22:45 10/22/16 06:15 IV Flush (NS Flush) 2 ml UNSCH PRN FLUSH FLUSH AFTER USING IV ACCESS 10/22/16 00:45 IV Flush (NS Flush) 2 ml BID FLUSH 10/22/16 09:00 10/22/16 08:53 Ondansetron HCl (Zofran Inj) 4 mg Q6H PRN IVP NAUSEA OR VOMITING 10/22/16 00:45 10/22/16 05:37 Bisacodyl (Dulcolax Supp) 10 mg DAILY PRN DE CONSTIPATION 10/22/16 00:45 Acetaminophen (Tylenol) 650 mg Q6H PRN PO FEVER/PAIN SCALE 1 TO 2 10/22/16 00:45 Acetaminophen/ Hydrocodone Bitart ([place] 5-325 Mg) 1 tab Q4H PRN PO PAIN SCALE 3 TO 5 10/22/16 00:45 Morphine Sulfate (Morphine Inj) 2 mg Q3H PRN IV Pain 6-10 10/22/16 00:45 10/22/16 13:13 Aspirin 81 mg 81 mg DAILY PO 10/22/16 09:00 10/22/16 08:53 Sodium Chloride (NS 1000 ml Inj) 1,000 ml @ 100 mls/hr Q10H IV 10/22/16 10:12 10/27/16 10:11 10/22/16 10:12 Atorvastatin Calcium (Lipitor) 40 mg HS PO 10/22/16 21:00 Atropine Sulfate (Atropine Inj) 0.5 mg UNSCH PRN IV VAGAL REPONSE 10/22/16 16:00 Metoprolol Tartrate (Lopressor) 12.5 mg BID PO 10/22/16 21:00 Losartan Potassium (Cozaar) 12.5 mg DAILY PO 10/23/16 09:00 Miscellaneous (Pill Splitter) 1 ea UNSCH PRN OTHER SEE LABEL COMMENTS 10/22/16 21:00 Vital Signs / I&O Vital Signs Date Time Temp Pulse Resp B/P Pulse Ox O2 Delivery O2 Flow Rate FiO2 10/22/16 18:35 100 10/22/16 18:02 78/59 10/22/16 18:01 110 10/22/16 17:27 97.5 110 16 80/45 93 10/22/16 17:16 90/54 10/22/16 17:09 110 10/22/16 16:23 77 100 10/22/16 15:30 97 100 10/22/16 12:00 97.7 72 18 111/69 94 10/22/16 08:00 97.4 72 18 107/72 96 10/22/16 08:00 100 10/22/16 06:21 68 104/64 10/22/16 05:14 68 96/57 10/22/16 05:08 97.8 75 16 85/73 95 10/22/16 02:02 69 16 105/58 97 Nasal Cannula 2 10/22/16 01:36 76 18 91/50 98 Nasal Cannula 3 10/21/16 22:35 72 20 96 Nasal Cannula 2 10/21/16 22:35 97 Nasal Cannula 2 10/21/16 22:35 18 98 Room Air 2 10/21/16 22:32 98.1 74 16 119/73 91 10/21/16 22:32 92 3.00 10/21/16 22:32 92 Nasal Cannula 3.00 I/O 10/21/16 10/21/16 10/21/16 10/22/16 10/22/16 10/22/16 07:00 15:00 23:00 07:00 15:00 23:00 Intake Total 632 ml 500 ml Output Total 235 ml Balance 632 ml 265 ml Intake IV Total 632 ml 500 ml Output Urine Total 235 ml Stool Total 0 ml Physical Exam Patient on vent support. MAP 70's now on pressor support. Lungs basilar rales. Hear: tach S1/S2 no murmur. Ext: cool , well perfused. Pulses good.Severe oozing from left groin at IABP insertion site. No hematoma. Neuro intact. Laboratory Laboratory Tests Test 10/21/16 10/22/16 10/22/16 10/22/16 22:25 00:20 03:48 09:01 White Blood Count 14.4 TH/MM3 11.5 TH/MM3 11.8 TH/MM3 Red Blood Count 4.16 MIL/MM3 3.68 MIL/MM3 3.78 MIL/MM3 Hemoglobin 12.7 GM/DL 11.0 GM/DL 11.5 GM/DL Bedside Hemoglobin 12.9 G/DL Hematocrit 38.2 % 33.5 % 34.9 % Bedside Hematocrit 38.0 % Mean Corpuscular Volume 91.9 FL 91.0 FL 92.2 FL Mean Corpuscular Hemoglobin 30.5 PG 29.9 PG 30.5 PG Mean Corpuscular Hemoglobin 33.2 % 32.8 % 33.0 % Concent Red Cell Distribution Width 13.6 % 13.4 % 13.8 % Platelet Count 303 TH/MM3 254 TH/MM3 254 TH/MM3 Mean Platelet Volume 8.8 FL 8.9 FL 8.6 FL Neutrophils (%) (Auto) 76.7 % 87.7 % Lymphocytes (%) (Auto) 11.9 % 6.9 % Monocytes (%) (Auto) 8.0 % 4.9 % Eosinophils (%) (Auto) 2.7 % 0.2 % Basophils (%) (Auto) 0.7 % 0.3 % Neutrophils # (Auto) 11.1 TH/MM3 10.1 TH/MM3 Lymphocytes # (Auto) 1.7 TH/MM3 0.8 TH/MM3 Monocytes # (Auto) 1.2 TH/MM3 0.6 TH/MM3 Eosinophils # (Auto) 0.4 TH/MM3 0.0 TH/MM3 Basophils # (Auto) 0.1 TH/MM3 0.0 TH/MM3 CBC Comment DIFF FINAL DIFF FINAL Differential Comment Prothrombin Time 10.0 SEC 10.3 SEC Prothromb Time International 0.9 RATIO 0.9 RATIO Ratio Activated Partial 24.9 SEC 26.2 SEC Thromboplast Time Bedside Sodium 139 MMOL/L Bedside Potassium 4.6 MMOL/L Bedside Chloride 107 MMOL/L Bedside Blood Urea Nitrogen 22 MG/DL Bedside Creatinine 1.0 MG/DL Bedside Glucose 145 MG/DL Calcium Level 8.7 MG/DL 8.3 MG/DL Magnesium Level 2.2 MG/DL Total Bilirubin 0.2 MG/DL 0.2 MG/DL Direct Bilirubin 0.1 MG/DL Indirect Bilirubin 0.1 MG/DL Aspartate Amino Transf 24 U/L 60 U/L (AST/SGOT) Alanine Aminotransferase 22 U/L 23 U/L (ALT/SGPT) Alkaline Phosphatase 78 U/L 70 U/L Total Creatine Kinase 102 U/L Creatine Kinase MB 1.0 NG/ML Troponin I LESS THAN 0.02 0.61 NG/ML NG/ML B-Type Natriuretic Peptide 269 PG/ML Total Protein 7.4 GM/DL 6.5 GM/DL Albumin 3.4 GM/DL 2.8 GM/DL Lipase 294 U/L Urine Color YELLOW Urine Turbidity HAZY Urine pH 5.5 Urine Specific [place] 1.026 Urine Protein 30 mg/dL Urine Glucose (UA) NEG mg/dL Urine Ketones NEG mg/dL Urine Occult Blood SMALL Urine Nitrite NEG Urine Bilirubin NEG Urine Urobilinogen LESS THAN 2.0 MG/DL Urine Leukocyte Esterase NEG Urine RBC 14 /hpf Urine WBC 5 /hpf Urine Squamous Epithelial 2 /hpf Cells Urine Bacteria RARE /hpf Urine Hyaline Casts 60 /lpf Urine Mucus FEW /lpf Microscopic Urinalysis Comment CULT NOT INDICATED Sodium Level 141 MEQ/L Potassium Level 5.0 MEQ/L Chloride Level 112 MEQ/L Carbon Dioxide Level 21.8 MEQ/L Anion Gap 7 MEQ/L Blood Urea Nitrogen 19 MG/DL Creatinine 1.11 MG/DL Estimat Glomerular Filtration 46 ML/MIN Rate Random Glucose 134 MG/DL Test 10/22/16 12:00 Troponin I 4.30 NG/ML Imaging Last 48 hours Impressions Chest X-Ray 10/22/16 0000 Signed Impressions: Service Date/Time: Saturday, October 22, 2016 16:45 - CONCLUSION: Post operative film single clip overlying the aortic knob. ET tube above the pat. Mild increased density in both lung garza suggesting either pulmonary vascular congestion or effusions David Frank MD Chest X-Ray 10/21/162 Signed Impressions: Service Date/Time: Friday, October 21, 2016 22:33 - CONCLUSION: No acute disease. No significant change has occurred. Tobi Mcginnis MD Assessment and Plan Problem List: (1) NSTEMI (non-ST elevated myocardial infarction) (2) Cardiogenic shock (3) Respiratory failure (4) Acute pulmonary edema (5) Arteriosclerotic heart disease (ASHD) (6) Ischemic cardiomyopathy (7) Severe left ventricular systolic dysfunction (8) Stented coronary artery Assessment and Plan A stat echo was performed by the senior vice president to R/U pericardial tamponade. I reviewed those images personally and there is no pericardial effusion seen. LVEF 25-30% Anetrior -lateral and apical akinesis. Left groin severely oozing around IABP insertion site. Manual pressure held by me for 45 minutes and purse string suture places with 2-0 silk around site. Pressure dressed and sandbagged with good results. Aggrastat discontinued. Follow H&H every 2 hours tonight and transfuse if Hgb falls below 9 gm. Trial of Dobutamine failed due to worsening tachycardia and hypotension so was discontinued. Will continue Levophed and dopamine to maintain MAP if at least 70. Discussed plans with staff radiographer, and the senior vice president Dr. Landry. Impella placement considered but concerns with larger sheathes and bleeding since we are already having trouble with smaller punctures. We decided to pospone use of impella for now as long as MAP acceptable and adequate urine output. Prognosis remains guarded. 1.5 hours of face to face patient care ICU time spent. Alex Seth MD Oct 22, 2016 20:40
[2016-10-22 20:48] LABS: APTT (PATIENT) 72.4 SEC (24.3-30.1)
[2016-10-22] MEDS ORDERED: VASOPRESSIN INJ 20 UNITS/ML VIAL ONE (20:51)
[2016-10-22] MEDS: METOPROLOL TARTRATE 25 MG TAB PO SCH (21:00)
[2016-10-22] MEDS ORDERED: PILL SPLITTER OTHER PRN (21:00)
[2016-10-22] MEDS: VASOPRESSIN INJ 40 UNITS in DEXTROSE 5% IN WATER 100ML INJ 98 ML IV SCH ×2 (21:00)
[2016-10-22] MEDS ORDERED: SODIUM CHLORIDE 0.9% FLUSH 5 ML FLUSH IVF SCH (21:00)
[2016-10-22] MEDS: ATORVASTATIN 40 MG TAB PO SCH (21:00)
[2016-10-22 21:08] LABS: AUTOMATED NEUTROPHIL # 14.8 TH/MM3 (1.8-7.7); BASOPHIL # 0.1 TH/MM3 (0-0.2); BASOPHIL % 0.4 % (0.0-2.0); HEMO FLAGS DIFF FINAL; LYMPH % 5.3 % (9.0-44.0); LYMPHOCYTE # 0.9 TH/MM3 (1.0-4.8); MEAN CELL VOLUME 90.9 FL (80.0-100.0); MEAN CORPUSCULAR HEMOGLOBIN 30.8 PG (27.0-34.0); MEAN CORPUSCULAR HGB CONC 33.9 % (32.0-36.0); MONO % 11.7 % (0.0-8.0); NEUT % 82.6 % (16.0-70.0); PLATELET COUNT 243 TH/MM3 (150-450); RED BLOOD COUNT 2.75 MIL/MM3 (4.00-5.30); RED CELL DISTRIBUTION WIDTH 13.7 % (11.6-17.2); WHITE BLOOD COUNT 17.9 TH/MM3 (4.0-11.0)
[2016-10-22] MEDS ORDERED: VASOPRESSIN 40 U/100 ML D5W Titrate, Post Cardiac Surgery IV SCH ×2 (21:15)
[2016-10-22 21:33] LABS: CKMB 171.9 NG/ML (0.5-3.6)
--- NOTE | 2016-10-22 22:44 | PD.CONS ---
[facility] Service Critical Care Medicine Consult Requested By Dr. Seth Reason for Consult cardiogenic shock Primary Care Physician Sofia Zepeda MD History of Present Illness This is an 89-year-old female with a past medical history reportedly of hypertension coronary disease and pacemaker placement who was initially brought to the ER due to chest pain and shortness of breath. Cardiology was consulted and eventually took the patient to left heart catheterization today where she was noted to have a lesion in her mid LAD. She had bare metal stent 2 placed to the mid LAD. She was significantly hypotensive and hypoxic during the event and required emergent intubation by anesthesia. At the end of the left heart catheterization, a intra-arterial balloon pump was placed for assistance in her hypotension and presumed cardiogenic shock and she was taken to the CVICU. Critical-care medicine is consulted to evaluate and manage her cardiogenic shock and acute hypoxic respiratory failure. When I came to evaluate the patient, she was significantly hypoxic with SPO2 in the 70s. In addition she had a on augmented mean arterial pressure of 42 with an augmented mean arterial pressure of 58. She is on one-to-one IABP. I immediately added norepinephrine to the dopamine infusion that was already running. She had significant bleeding from the left groin IABP site. Additional compressive dressings were placed to this and a sandbag. A stat ABG with hemoglobin demonstrated hemoglobin of 10. She has significant acidosis with a base deficit of 10. She was given 3 A of bicarbonate emergently. Her hypotension persists and at that point I was very concerned about complications from her left heart catheterization including retroperitoneal hemorrhage, coronary artery dissection, aortic dissection, cardiogenic shock from [place], in- stent rethrombosis, pericardial tamponade. I ordered a stat echo. At bedside during a stat echo, there was concern for possible clotted blood and hematoma surrounding the right ventricle. I immediately called Dr. Smith to notify him so he could read the echo. In addition, Dr. Howe was at bedside with me and we decided given the patient's instability that a confirmation transesophageal echocardiogram was necessary to rule in or out pericardial tamponade. I performed a transesophageal echocardiogram (please see separate procedure note for details). Dr. Howe interpreted the echocardiogram. There was not evidence of tamponade or pericardial effusion on the transesophageal echocardiogram. There is ongoing evidence of significant myocardial dysfunction , including anterior lateral and apical akinesis/dyskinesis. I again talk to the pastoral ministries professor and he is driving in from home to evaluate the patient. We are discussing possible mechanical support with Impella. However, given the patient's age and other comorbidities, I'm not sure that additional invasive procedures are a good idea. We continue to trend her lactic acid as well as her urine output, and her urine output continues to be greater than 30 cc an hour and her lactate is less than 2. Review of Systems ROS Limitations: Clinical Condition, Intubated, Altered Mental Status Past Family Social History Allergies: Coded Allergies: Amlodipine (Verified Allergy, Severe, 10/21/16) Benazepril (Verified Allergy, Severe, 10/21/16) Uncoded Allergies: LOTREL (Allergy, Severe, RASH, 02/17/08) Past Medical History Unobtainable secondary to the patient's clinical condition. Per chart review: Hypertension Coronary artery disease Pacemaker Dementia Past Surgical History Unobtainable secondary to patient's clinical condition. Per chart review: Rectocele Appendectomy Pacemaker Hysterectomy Left breast cyst Reported Medications Unobtainable secondary to patient's clinical condition. Active Ordered Medications See MAR Family History Unobtainable secondary to patient's critical condition. Unlikely to be contributory to her acute illness. Social History Unobtainable secondary to the patient's clinical condition. Per chart review: Occasional EtOH. Negative for tobacco or drugs. Physical Exam Vital Signs Vital Signs Date Time Temp Pulse Resp B/P Pulse Ox O2 Delivery O2 Flow Rate FiO2 10/22/16 18:35 100 10/22/16 18:02 78/59 10/22/16 18:01 110 10/22/16 17:27 97.5 110 16 80/45 93 10/22/16 17:16 90/54 10/22/16 17:09 110 10/22/16 16:23 77 100 10/22/16 15:30 97 100 10/22/16 12:00 97.7 72 18 111/69 94 10/22/16 08:00 97.4 72 18 107/72 96 10/22/16 08:00 100 10/22/16 06:21 68 104/64 10/22/16 05:14 68 96/57 10/22/16 05:08 97.8 75 16 85/73 95 10/22/16 02:02 69 16 105/58 97 Nasal Cannula 2 10/22/16 01:36 76 18 91/50 98 Nasal Cannula 3 10/21/16 22:35 72 20 96 Nasal Cannula 2 10/21/16 22:35 97 Nasal Cannula 2 10/21/16 22:35 18 98 Room Air 2 10/21/16 22:32 98.1 74 16 119/73 91 10/21/16 22:32 92 3.00 10/21/16 22:32 92 Nasal Cannula 3.00 Physical Exam The patient is elderly female, intubated, sedated, critically ill. She does follow commands and open eyes to voice. She is significantly hypotensive. The IABP is one-to-one. On augmented mean of 48, augmented mean of 57. Frequent PVCs no peripheral edema. Extremities are very cool to the touch and poorly perfused. Laboratory Laboratory Tests Test 10/22/16 10/22/16 10/22/16 10/22/16 00:20 03:48 09:01 12:00 Urine Color YELLOW Urine Turbidity HAZY Urine pH 5.5 Urine Specific [place] 1.026 Urine Protein 30 Urine Glucose (UA) NEG Urine Ketones NEG Urine Occult Blood SMALL Urine Nitrite NEG Urine Bilirubin NEG Urine Urobilinogen LESS THAN 2.0 Urine Leukocyte Esterase NEG Urine RBC 14 Urine WBC 5 Urine Squamous Epithelial 2 Cells Urine Bacteria RARE Urine Hyaline Casts 60 Urine Mucus FEW Microscopic Urinalysis Comment CULT NOT INDICATED White Blood Count 11.5 11.8 Red Blood Count 3.68 3.78 Hemoglobin 11.0 11.5 Hematocrit 33.5 34.9 Mean Corpuscular Volume 91.0 92.2 Mean Corpuscular Hemoglobin 29.9 30.5 Mean Corpuscular Hemoglobin 32.8 33.0 Concent Red Cell Distribution Width 13.4 13.8 Platelet Count 254 254 Mean Platelet Volume 8.9 8.6 Neutrophils (%) (Auto) 87.7 Lymphocytes (%) (Auto) 6.9 Monocytes (%) (Auto) 4.9 Eosinophils (%) (Auto) 0.2 Basophils (%) (Auto) 0.3 Neutrophils # (Auto) 10.1 Lymphocytes # (Auto) 0.8 Monocytes # (Auto) 0.6 Eosinophils # (Auto) 0.0 Basophils # (Auto) 0.0 CBC Comment DIFF FINAL Differential Comment Sodium Level 141 Potassium Level 5.0 Chloride Level 112 Carbon Dioxide Level 21.8 Anion Gap 7 Blood Urea Nitrogen 19 Creatinine 1.11 Estimat Glomerular Filtration 46 Rate Random Glucose 134 Calcium Level 8.3 Total Bilirubin 0.2 Aspartate Amino Transf 60 (AST/SGOT) Alanine Aminotransferase 23 (ALT/SGPT) Alkaline Phosphatase 70 Troponin I 0.61 4.30 Total Protein 6.5 Albumin 2.8 Prothrombin Time 10.3 Prothromb Time International 0.9 Ratio Activated Partial 26.2 Thromboplast Time Test 10/22/16 10/22/16 20:08 20:47 Activated Partial 72.4 Thromboplast Time Total Creatine Kinase 2325 Creatine Kinase MB 171.9 Creatine Kinase MB % 7.4 Blood Type A POSITIVE Antibody Screen NEGATIVE White Blood Count 17.9 Red Blood Count 2.75 Hemoglobin 8.5 Hematocrit 25.0 Mean Corpuscular Volume 90.9 Mean Corpuscular Hemoglobin 30.8 Mean Corpuscular Hemoglobin 33.9 Concent Red Cell Distribution Width 13.7 Platelet Count 243 Mean Platelet Volume 9.2 Neutrophils (%) (Auto) 82.6 Lymphocytes (%) (Auto) 5.3 Monocytes (%) (Auto) 11.7 Eosinophils (%) (Auto) 0.0 Basophils (%) (Auto) 0.4 Neutrophils # (Auto) 14.8 Lymphocytes # (Auto) 0.9 Monocytes # (Auto) 2.1 Eosinophils # (Auto) 0.0 Basophils # (Auto) 0.1 CBC Comment DIFF FINAL Differential Comment Result Diagram: 10/22/16204610/22/16 0348 Assessment and Plan Assessment and Plan Assessment: This is an 89-year-old female with history of coronary artery disease now status post PCI with bare metal stent 2 to the mid LAD. She is in significant cardiogenic shock. She is very critically ill. I've spoken to her family that is adamant that she be DNR. We also discussed that we should be aggressive with her medical management at least tonight given her acute decompensation. If it is clear that she is not improving, then I agree with the family we need to transition to comfort measures. For now we will remain aggressive with the understanding that if her heart stopped and will not pursue CPR resuscitative efforts. For now, she does still remain very maximally critically ill. Active problems: NSTEMI Acute myocardial infarction cardiogenic shock severe acute left ventricular systolic dysfunction Pulmonary edema acute hypoxic respiratory failure Anemia of acute blood loss Plan: neuro: fent infusion and prn versed for goal RASS -2 resp: wean fio2 as tolerated for goal spo2 > 90%. keep PEEP at 11. Nebs. cv: will trial dobutamine, but may not tolerate due to hypotension. continue IABP. appreciate cardiology input. consider Impella, though this may not be a good idea given age and comorbidities. trend lactate, uop. gentle ivf hydration with ns at 100cc/hr given blood loss from sheath. formal echo results without evidence of tamponade. likely cardiogenic shock in origin. renal: khan. q1h uop. strict i/os. fen/gi: npo. fluids as above. ICU electrolyte protocol. am bmp. heme/id: trend h&h. no infectious etiology suspected. am cbc. endo: SSI prophy: heparin, aggrenox, plavix, scds, protonix. lines: bilateral groin sheaths. pivs dispo: remain in the icu. severely critically ill. This patient remains critically ill with one or more organ systems which are or may become a threat to life. I have spent in excess of 107 minutes discontinuously in the care and management of this patient. This includes all the time that I spent at bedside managing her while she remained hemodynamically unstable in severe cardiogenic shock. This time does not include the time I spent actively performing the transesophageal echocardiogram which is documented separately. This time is exclusive of procedures, and includes, but is not limited to, evaluation of the patient, review of the medical record, discussions with family, consultants, nursing staff, or respiratory therapy, and documentation in the medical record. Code Status DNR Discussed Condition With Dr. Seth, family Amber. Rodrick Landry MD Oct 22, 2016 22:44
--- NOTE | 2016-10-22 22:47 | PD.PROCEDR ---
Procedure Note Procedure Procedure: Transesophageal Echocardiography Diagnosis: Cardiogenic shock Indications: Cardiogenic shock with possible evidence of pericardial tamponade based on initial transthoracic echocardiogram images Consent: Consent is deemed emergent or medically necessary. Dr. Agnieszka Howe and I have both evaluated the patient and agree emergent DEMETRIO is warranted Anesthesia: Versed 2 mg IV Description of the Procedure: The patient was sedated and mechanically ventilated. The patient was placed on 100% FIO2. The echo probe was inserted easily and without resistance. At the conclusion of the procedure, the echo probe was removed. Please see detailed echocardiogram report for formal findings. Preliminary Findings (not confirmed): severe left ventricular systolic dysfunction. preserved RV function. no evidence of pericardial effusion. no evidence of tamponade. no aortic dissection. IABP terminates just inferior to the left subclavian artery with evidence of good color flow Doppler down the left subclavian. The patient tolerated the procedure well. There were no immediate complications noted. There was minimal EBL. I personally performed the procedure. Rodrick Landry MD Oct 22, 2016 22:47
[2016-10-23] VITALS (17 sets, daily range): BP systolic 86–145; BP diastolic 35–99; PULSE 69–111; RESP 16–17; TEMP 98–100.6; O2SAT 95–100
[2016-10-23] MEDS: NOREPINEPHRINE 4 MG/D5W 250 ML IV SCH ×7 (02:52→20:43)
[2016-10-23 04:52] LABS: AUTOMATED NEUTROPHIL # 13.2 TH/MM3 (1.8-7.7); BASOPHIL % 0.2 % (0.0-2.0); HEMATOCRIT 33.1 % (35.0-46.0); LYMPH % 6.1 % (9.0-44.0); MEAN CELL VOLUME 90.2 FL (80.0-100.0); MEAN CORPUSCULAR HEMOGLOBIN 30.2 PG (27.0-34.0); MEAN CORPUSCULAR HGB CONC 33.4 % (32.0-36.0); MONO % 12.5 % (0.0-8.0); NEUT % 81.2 % (16.0-70.0); PLATELET COUNT 187 TH/MM3 (150-450); RED BLOOD COUNT 3.67 MIL/MM3 (4.00-5.30); RED CELL DISTRIBUTION WIDTH 13.8 % (11.6-17.2); WHITE BLOOD COUNT 16.2 TH/MM3 (4.0-11.0)
[2016-10-23 04:54] LABS: HEMO FLAGS AUTO DIFF
[2016-10-23 05:36] LABS: BICARBONATE 20.2 MEQ/L (21.0-32.0); POTASSIUM 4.5 MEQ/L (3.5-5.1)
[2016-10-23] MEDS: SODIUM CHLOR 0.9% 1000 ML INJ 1,000 ML IV SCH ×2 (06:12→13:00)
[2016-10-23 06:23] LABS: CKMB 135.7 NG/ML (0.5-3.6)
[2016-10-23 06:36] LABS: CALCIUM-PROTEIN CORRECTED 7.1 MG/DL (8.5-10.1)
--- NOTE | 2016-10-23 07:08 | PD.CARD.PN ---
Subjective Subjective Remarks Awake and alert on vent. Follows commands. No distress. Denies any pain. Able to slightly wean vent and pressors last night after receiving PRBC's. No further bleeding left groin IABP site. Objective Medications Current Medications Medications (Trade) Dose Ordered Sig/Izabella Route PRN Reason Start Time Stop Time Status Last Admin Dose Admin Nitroglycerin (Nitrostat Sl) 0.4 mg Q5M PRN SL CHEST PAIN 10/21/16 22:45 10/22/16 06:15 IV Flush (NS Flush) 2 ml UNSCH PRN FLUSH FLUSH AFTER USING IV ACCESS 10/22/16 00:45 IV Flush (NS Flush) 2 ml BID FLUSH 10/22/16 09:00 10/22/16 08:53 Ondansetron HCl (Zofran Inj) 4 mg Q6H PRN IVP NAUSEA OR VOMITING 10/22/16 00:45 10/22/16 05:37 Bisacodyl (Dulcolax Supp) 10 mg DAILY PRN VT CONSTIPATION 10/22/16 00:45 Acetaminophen (Tylenol) 650 mg Q6H PRN PO FEVER/PAIN SCALE 1 TO 2 10/22/16 00:45 Acetaminophen/ Hydrocodone Bitart ([place] 5-325 Mg) 1 tab Q4H PRN PO PAIN SCALE 3 TO 5 10/22/16 00:45 Morphine Sulfate (Morphine Inj) 2 mg Q3H PRN IV Pain 6-10 10/22/16 00:45 10/22/16 13:13 Aspirin 81 mg 81 mg DAILY PO 10/22/16 09:00 10/22/16 08:53 Sodium Chloride (NS 1000 ml Inj) 1,000 ml @ 100 mls/hr Q10H IV 10/22/16 10:12 10/27/16 10:11 10/22/16 10:12 Atorvastatin Calcium (Lipitor) 40 mg HS PO 10/22/16 21:00 Atropine Sulfate (Atropine Inj) 0.5 mg UNSCH PRN IV VAGAL REPONSE 10/22/16 16:00 Metoprolol Tartrate (Lopressor) 12.5 mg BID PO 10/22/16 21:00 Losartan Potassium (Cozaar) 12.5 mg DAILY PO 10/23/16 09:00 Miscellaneous 1 ea 1 ea UNSCH PRN OTHER SEE LABEL COMMENTS 1/23/17 21:00 Vasopressin/ Dextrose (Pitressin Inj/ D5W 100 ml Inj) 100 ml @ 4.5 mls/hr [id number] IV 10/22/16 21:00 10/22/16 21:00 Clopidogrel Bisulfate 75 mg 75 mg DAILY PO 10/23/16 09:00 Norepinephrine Bitartrate (Levophed-Dextrose Drip) 250 ml @ 0 mls/hr TITRATE IV 10/23/16 00:15 10/23/16 06:28 Vital Signs / I&O Vital Signs Date Time Temp Pulse Resp B/P Pulse Ox O2 Delivery O2 Flow Rate FiO2 10/23/16 06:00 60/42 10/23/16 05:00 61/44 10/23/16 04:00 60 10/23/16 04:00 97 Mechanical Ventilator 60 10/23/16 04:00 63/40 10/23/16 03:45 98 60 10/23/16 03:00 71 10/23/16 03:00 112/58 119/35 10/23/16 03:00 69/49 10/23/16 02:00 69/49 10/23/16 01:00 99.4 111 16 97 10/23/16 01:00 50/35 10/23/16 00:28 100 70 10/23/16 00:00 97 Mechanical Ventilator 70 10/23/16 00:00 70 10/23/16 00:00 67/46 10/22/16 23:00 98.2 120 16 90/46 90 114/44 10/22/16 23:00 99 80 10/22/16 23:00 107 10/22/16 23:00 81/57 10/22/16 22:00 61/42 10/22/16 21:00 54/37 10/22/16 20:00 90 Mechanical Ventilator 100 10/22/16 20:00 57/40 10/22/16 20:00 100 10/22/16 19:30 97 90 10/22/16 19:00 84/59 Arterial Line 10/22/16 19:00 98.2 120 16 84/57 90 10/22/16 19:00 114 10/22/16 18:35 100 10/22/16 18:02 78/59 10/22/16 18:01 110 10/22/16 17:27 97.5 110 16 80/45 93 10/22/16 17:16 90/54 10/22/16 17:09 110 10/22/16 16:23 77 100 10/22/16 15:30 97 100 10/22/16 12:00 97.7 72 18 111/69 94 10/22/16 08:00 97.4 72 18 107/72 96 10/22/16 08:00 100 I/O 10/22/16 10/22/16 10/22/16 10/23/16 10/23/16 10/23/16 07:00 15:00 23:00 07:00 15:00 23:00 Intake Total 632 ml 500 ml 3793 ml Output Total 235 ml 300 ml Balance 632 ml 265 ml 3493 ml Intake IV Total 632 ml 500 ml 3293 ml Packed Cells 500 ml Output Urine Total 235 ml 200 ml Stool Total 0 ml Gastric Drainage Total 100 ml Physical Exam Patient on vent support. MAP 70's on pressor and IABP support. Lungs few basilar rales, mostly clear. Hear: tach S1/S2 no murmur. Ext: warm, well perfused. Pulses good. IABP left groin site stable and dry. Neuro intact. Laboratory Laboratory Tests Test 10/22/16 10/22/16 10/22/16 10/22/16 09:01 12:00 20:08 20:47 White Blood Count 11.8 TH/MM3 17.9 TH/MM3 Red Blood Count 3.78 MIL/MM3 2.75 MIL/MM3 Hemoglobin 11.5 GM/DL 8.5 GM/DL Hematocrit 34.9 % 25.0 % Mean Corpuscular Volume 92.2 FL 90.9 FL Mean Corpuscular Hemoglobin 30.5 PG 30.8 PG Mean Corpuscular Hemoglobin 33.0 % 33.9 % Concent Red Cell Distribution Width 13.8 % 13.7 % Platelet Count 254 TH/MM3 243 TH/MM3 Mean Platelet Volume 8.6 FL 9.2 FL Prothrombin Time 10.3 SEC Prothromb Time International 0.9 RATIO Ratio Activated Partial 26.2 SEC 72.4 SEC Thromboplast Time Troponin I 4.30 NG/ML Total Creatine Kinase 2325 U/L Creatine Kinase MB 171.9 NG/ML Creatine Kinase MB % 7.4 % Blood Type A POSITIVE Antibody Screen NEGATIVE Neutrophils (%) (Auto) 82.6 % Lymphocytes (%) (Auto) 5.3 % Monocytes (%) (Auto) 11.7 % Eosinophils (%) (Auto) 0.0 % Basophils (%) (Auto) 0.4 % Neutrophils # (Auto) 14.8 TH/MM3 Lymphocytes # (Auto) 0.9 TH/MM3 Monocytes # (Auto) 2.1 TH/MM3 Eosinophils # (Auto) 0.0 TH/MM3 Basophils # (Auto) 0.1 TH/MM3 CBC Comment DIFF FINAL Differential Comment Test 10/22/16 10/23/16 22:08 04:35 Crossmatch Leukocyte-Reduced Red Blood Cells Blood Bank Comment White Blood Count 16.2 TH/MM3 Red Blood Count 3.67 MIL/MM3 Hemoglobin 11.1 GM/DL Hematocrit 33.1 % Mean Corpuscular Volume 90.2 FL Mean Corpuscular Hemoglobin 30.2 PG Mean Corpuscular Hemoglobin 33.4 % Concent Red Cell Distribution Width 13.8 % Platelet Count 187 TH/MM3 Mean Platelet Volume 9.1 FL Neutrophils (%) (Auto) 81.2 % Lymphocytes (%) (Auto) 6.1 % Monocytes (%) (Auto) 12.5 % Eosinophils (%) (Auto) 0.0 % Basophils (%) (Auto) 0.2 % Neutrophils # (Auto) 13.2 TH/MM3 Lymphocytes # (Auto) 1.0 TH/MM3 Monocytes # (Auto) 2.0 TH/MM3 Eosinophils # (Auto) 0.0 TH/MM3 Basophils # (Auto) 0.0 TH/MM3 CBC Comment AUTO DIFF Sodium Level 143 MEQ/L Potassium Level 4.5 MEQ/L Chloride Level 111 MEQ/L Carbon Dioxide Level 20.2 MEQ/L Anion Gap 12 MEQ/L Blood Urea Nitrogen 26 MG/DL Creatinine 1.73 MG/DL Estimat Glomerular Filtration 28 ML/MIN Rate Random Glucose 170 MG/DL Calcium Level 6.2 MG/DL Protein Corrected Calcium 7.1 MG/DL Total Creatine Kinase 2332 U/L Creatine Kinase MB 135.7 NG/ML Creatine Kinase MB % 5.8 % Total Protein 5.2 GM/DL Imaging Last 48 hours Impressions Chest X-Ray 10/22/16 0000 Signed Impressions: Service Date/Time: Saturday, October 22, 2016 16:45 - CONCLUSION: Post operative film single clip overlying the aortic knob. ET tube above the pat. Mild increased density in both lung garza suggesting either pulmonary vascular congestion or effusions David Frank MD Chest X-Ray 10/21/166 Signed Impressions: Service Date/Time: Friday, October 21, 2016 22:33 - CONCLUSION: No acute disease. No significant change has occurred. Tobi Mcginnis MD Assessment and Plan Problem List: (1) NSTEMI (non-ST elevated myocardial infarction) (2) Cardiogenic shock (3) Respiratory failure (4) Acute pulmonary edema (5) Arteriosclerotic heart disease (ASHD) (6) Ischemic cardiomyopathy (7) Severe left ventricular systolic dysfunction (8) Stented coronary artery Assessment and Plan A stat echo was performed by the director of sustainability to R/U pericardial tamponade. I reviewed those images personally and there is no pericardial effusion seen. LVEF 25-30% Anetrior -lateral and apical akinesis. Left groin severely oozing around IABP insertion site. Manual pressure held by me for 45 minutes and purse string suture places with 2-0 silk around site. Pressure dressed and sandbagged with good results. Aggrastat discontinued. Follow H&H every 2 hours tonight and transfuse if Hgb falls below 9 gm. Trial of Dobutamine failed due to worsening tachycardia and hypotension so was discontinued. Will continue Levophed and dopamine to maintain MAP if at least 70. Currently: Dopamine at renal 2 mcg/kg/min. Levophed - weaning as tolerates. Vassopressin 0.03 u/min Holding metoprolol and cozaar for now due to low BP. Wean vent as tolerates. IABP for 24-48 hours. Discussed plans with medical staff specialist, and the director of sustainability Dr. Anguiano. Impella placement considered but concerns with larger sheathes and bleeding since we are already having trouble with smaller punctures. We decided to pospone use of impella for now as long as MAP acceptable and adequate urine output. Some family arrived late last night. Prognosis remains guarded. Alex Seth MD Oct 23, 2016 07:08
[2016-10-23 07:45] LABS: BANDS 16 % (0-6); BASOPHILS 1 % (0-2); NEUTROPHIL # MANUAL DIFF 13.6 TH/MM3 (1.8-7.7); POLYS (SEG NEUTROPHILS) 68 % (16-70); WBC DIFF SAMPLE 100
[2016-10-23 07:46] LABS: PLATELET ESTIMATE SMEAR NORMAL (NORMAL); PLATELET MORPHOLOGY NORMAL (NORMAL); SCAN/DIFF FINAL DIFF MANUAL
[2016-10-23] MEDS ORDERED: RAMIPRIL 1.25 MG CAP PO SCH (09:00)
[2016-10-23] MEDS: METOPROLOL TARTRATE 25 MG TAB PO SCH (09:00)
[2016-10-23] MEDS: LOSARTAN 25 MG TAB PO SCH (09:00)
[2016-10-23] MEDS: ASPIRIN EC 81 MG TABEC PO SCH (09:00)
[2016-10-23] MEDS: CLOPIDOGREL 75 MG TAB PO SCH (09:30)
[2016-10-23] MEDS: SODIUM CHLORIDE 0.9% FLUSH 5 ML FLUSH FLUSH SCH ×2 (09:31→20:47)
[2016-10-23] MEDS ORDERED: CALCIUM CHLORIDE INJ 1 GM in SODIUM CHLORIDE 0.9% INJ 100 ML IV ONE ×2 (12:30→20:00)
[2016-10-23] MEDS ORDERED: CALCIUM CHLORIDE 10% SOLN 1 GRAM/10 ML SYR ONE (12:30)
[2016-10-23] MEDS ORDERED: Vancomycin Consult Pharmacy 1 EA OTHER SCH (13:45)
[2016-10-23] MEDS ORDERED: PIPERACIL-TAZO 3.375 GM PREMIX 50 ML IV SCH (13:45)
--- NOTE | 2016-10-23 13:52 | HHI.CCPN ---
Subjective Remarks/Hospital Course Hospital Course: This is an 89-year-old female with a past medical history reportedly of hypertension coronary disease and pacemaker placement who was initially brought to the ER due to chest pain and shortness of breath. Cardiology was consulted and eventually took the patient to left heart catheterization today where she was noted to have a lesion in her mid LAD. She had bare metal stent 2 placed to the mid LAD. She was significantly hypotensive and hypoxic during the event and required emergent intubation by anesthesia. At the end of the left heart catheterization, a intra-arterial balloon pump was placed for assistance in her hypotension and presumed cardiogenic shock and she was taken to the CVICU. Critical-care medicine is consulted to evaluate and manage her cardiogenic shock and acute hypoxic respiratory failure. When I came to evaluate the patient, she was significantly hypoxic with SPO2 in the 70s. In addition she had a on augmented mean arterial pressure of 42 with an augmented mean arterial pressure of 58. She is on one-to-one IABP. I immediately added norepinephrine to the dopamine infusion that was already running. She had significant bleeding from the left groin IABP site. Additional compressive dressings were placed to this and a sandbag. A stat ABG with hemoglobin demonstrated hemoglobin of 10. She has significant acidosis with a base deficit of 10. She was given 3 A of bicarbonate emergently. Her hypotension persists and at that point I was very concerned about complications from her left heart catheterization including retroperitoneal hemorrhage, coronary artery dissection, aortic dissection, cardiogenic shock from [place], in- stent rethrombosis, pericardial tamponade. I ordered a stat echo. At bedside during a stat echo, there was concern for possible clotted blood and hematoma surrounding the right ventricle. I immediately called Dr. Smith to notify him so he could read the echo. In addition, Dr. Howe was at bedside with me and we decided given the patient's instability that a confirmation transesophageal echocardiogram was necessary to rule in or out pericardial tamponade. I performed a transesophageal echocardiogram (please see separate procedure note for details). Dr. Howe interpreted the echocardiogram. There was not evidence of tamponade or pericardial effusion on the transesophageal echocardiogram. There is ongoing evidence of significant myocardial dysfunction , including anterior lateral and apical akinesis/dyskinesis. I again talk to the engineering manager electronics and he is driving in from home to evaluate the patient. We are discussing possible mechanical support with Impella. However, given the patient's age and other comorbidities, I'm not sure that additional invasive procedures are a good idea. We continue to trend her lactic acid as well as her urine output, and her urine output continues to be greater than 30 cc an hour and her lactate is less than 2. Subjective: 10/23: clinically improving overnight. lactate clearing. BP stabilizing. awakens and follows commands. still on high vasopressor support. hypoxia improving. Objective Vital Signs Date Time Temp Pulse Resp B/P Pulse Ox O2 Delivery O2 Flow Rate FiO2 10/23/16 13:01 86/56 10/23/16 12:07 96 45 10/23/16 12:00 Mechanical Ventilator 10/23/16 11:00 100.2 96 16 10/22/16 02:02 2 Intake and Output 10/22/16 10/22/16 10/23/16 08:00 16:00 00:00 Intake Total 632 ml 500 ml Output Total 235 ml Balance 632 ml 265 ml Result Diagram: 10/23/16 0435 10/23/16 0435 Objective Remarks GENERAL: Elderly female, lying in bed, flat, critically ill, intubated HEENT: Pupils equal, round, conjugate, reactive. Mucous membranes are moist. NECK: Trachea is midline. JVD is difficult to assess secondary to body habitus. Orotracheally intubated. CHEST: Equal chest rise. Bilateral coarse rales. CARDIOVASCULAR: Normal rate, regular rhythm. IABP in place. 1:1. augmented mean 120 on my assessment. ABDOMEN: Soft, nontender, nondistended. No guarding. MUSCULOSKELETAL: Left groin hematoma is stable. No active bleeding or oozing from the balloon pump site. Bilateral right groin sheaths intact. NEUROLOGICAL: RASS -2. CAM -. Follows commands in all 4 extremities. Procedures None. A/P Assessment and Plan Assessment: 89yF with NSTEMI and PCI with BMS x 2 to mid LAD, course complicated by procedural hypoxia requiring intubation and post-procedural cardiogenic shock 2/2 NSTEMI. Certainly it is reassuring that her lactate is clearing and there are signs of improvement. However, she remains hypoxic and on multiple high dose vasopressors along with mechanical support. Her renal function also is slightly worse, likely secondary to her shock state yesterday. She remains critically ill, although for now slight improvements. We will remain cautiously aggressive with our goals. Plan by systems: Neurologic: Agitation associated with intubation Fentanyl infusion with when necessary Versed for RASS goal -2 Respiratory: Acute hypoxic respiratory failure Vent bundle Low tidal volume ventilation targeting 6 cc/kg ideal body weight Wean FiO2 for goal SPO2 greater than 90% Nebs every 6 and every 2 when necessary Does not meet SBT criteria today for hemodynamic instability Cardiovascular: Cardiogenic shock NSTEMI s/p PCI with BMS x 2 to mid-LAD Severe left ventricular systolic dysfunction -- continue vaspressor support with Levophed, Dopamine, Vasopressin for goal augmented mean > 110 mmHg. -- trend lactates -- trend uop Renal: Acute kidney injury Continue Garnica with hourly urine outputs -- Strict I/Os FEN/GI: Acute protein calorie malnutritionmoderate. Nothing by mouth given high vasopressor requirements ICU electrolyte protocol Daily BMP Heme/ID: Anemia secondary to acute blood loss Leukocytosis and fever Status post 2 units PRBCs 10/23 Daily CBC Does not meet transfusion triggers at this time currently. low grade fever and leukocytosis with ongoing pressor support. I will empirically start vancomycin and zosyn and calvert culture. we can de-escalate in 48h if culture data is negative, but while she is so critically ill, we will be aggressive initially. Endocrine: Hyperglycemia of critical illness -- SSI, every 6 hours, medium scale Prophylaxis: GI Prophylaxis Protonix 40 mg IV every 12 hours DVT Prophylaxis -- SCDs We'll start subcutaneous heparin today. Lines: Right femoral venous sheath 10/22 Right femoral arterial sheath 10/22 Left femoral IABP 10/22 Garnica We will keep all these lines today in the setting of ongoing shock. Dispo: Remain in the CVICU. She remains critically ill. This patient remains critically ill with one or more organ systems which are or may become a threat to life. I have spent in excess of 53 minutes discontinuously in the care and management of this patient. This time is exclusive of procedures, and includes, but is not limited to, evaluation of the patient, review of the medical record, discussions with family, consultants, nursing staff, or respiratory therapy, and documentation in the medical record. Rodrick Landry MD Oct 23, 2016 13:51
[2016-10-23] MEDS ORDERED: SODIUM BICARBONATE 8.4% INJ 50 ML ONE (14:06)
[2016-10-23] MEDS ORDERED: SODIUM BICARBONATE 8.4% INJ 50 MEQ/50 ML SYR IV ONE (14:15)
[2016-10-23] MEDS: POTASSIUM CHLOR 20 MEQ PREMIX 100 ML IV SCH ×4 (14:34→20:45)
[2016-10-23] MEDS: HEPARIN SODIUM - SQ 10,000 UNITS/ML VIAL SQ SCH ×2 (14:35→22:00)
[2016-10-23] MEDS ORDERED: VANCOMYCIN INJ 1,250 MG in SODIUM CHLOR 0.9% 250 ML INJ 250 ML IV ONE (16:00)
--- NOTE | 2016-10-23 16:30 | ETE ---
Study Study Date:10/22/2016 STUDY CONCLUSIONS SUMMARY LEFT VENTRICLE: The cavity size was normal. Wall thickness was normal. Systolic function was severely reduced. The estimated ejection fraction was in the range of 25% to 30%. Hypokinesis of the anterior myocardium. Akinesis of the anteroseptal myocardium. Hypokinesis of the anterolateral myocardium. Impressions: TDS with verylimited Doppler evaluation. Ischemic cardiomyopathy. If LV function is below 40, please consider prescribing an ACEI or ARB or document rationale for non-use. PROCEDURE DATA Procedure: Transthoracic echocardiography. Image quality was good. Scanning was performed from the parasternal, apical, and subcostal acoustic windows. Study completion: The patient tolerated the procedure well. Transthoracic echocardiography. M-mode, limited 2D, limited spectral Doppler, and color Doppler. CARDIAC ANATOMY LEFT VENTRICLE: The cavity size was normal. Wall thickness was normal. Systolic function was severely reduced. The estimated ejection fraction was in the range of 25% to 30%. Regional wall motion abnormalities: Hypokinesis of the anterior myocardium. Akinesis of the anteroseptal myocardium. Hypokinesis of the anterolateral myocardium. AORTIC VALVE: Trileaflet; mildly thickened leaflets. Doppler: No regurgitation. AORTA: Aortic root: The aortic root was normal in size. MITRAL VALVE: Structurally normal valve. Doppler: Transvalvular velocity was within the normal range. There was no evidence for stenosis. No regurgitation. LEFT ATRIUM: The atrium was normal in size. RIGHT VENTRICLE: The cavity size was normal. Wall thickness was normal. PULMONIC VALVE: Poorly visualized. Doppler: No regurgitation. TRICUSPID VALVE: Structurally normal valve. Doppler: Transvalvular velocity was within the normal range. No regurgitation. PULMONARY ARTERY: The main pulmonary artery was normal-sized. Systolic pressure was within the normal range. RIGHT ATRIUM: The atrium was normal in size. PERICARDIUM: There was no pericardial effusion. SYSTEMIC VEINS: Inferior vena cava: The vessel was normal in size. Prepared and signed by Alex Seth [id number]
[2016-10-23 16:58] LABS: BACTERIA, URINE RARE /hpf; BLOOD, URINE MOD (NEG); COMMENT (UR) CATH-CULTURE IND; CULTURE IF INDICATED CATH CULTURE IND; GLUCOSE,URINE NEG (NEG); KETONE, URINE NEG (NEG); NITRITE,URINE NEG (NEG); PH, URINE 6.5 (5.0-8.5); URINE COLOR YELLOW (YELLW/STRAW)
[2016-10-23] MEDS: VANCOMYCIN INJ 1,250 MG in SODIUM CHLOR 0.9% 250 ML INJ 250 ML IV SCH (17:13)
[2016-10-23] MEDS: VASOPRESSIN INJ 40 UNITS in DEXTROSE 5% IN WATER 100ML INJ 98 ML IV SCH ×2 (19:14)
[2016-10-23] MEDS: PIPERACIL-TAZO 2.25 GM PREMIX 50 ML IV SCH (20:48)
[2016-10-23] MEDS: ATORVASTATIN 40 MG TAB PO SCH (20:49)
[2016-10-24] VITALS (14 sets, daily range): BP systolic 82–114; BP diastolic 35–67; PULSE 69–102; RESP 12–18; TEMP 97.8–99.9; O2SAT 93–98
[2016-10-24] MEDS: PIPERACIL-TAZO 2.25 GM PREMIX 50 ML IV SCH ×3 (02:02→17:00)
[2016-10-24] MEDS: NOREPINEPHRINE 4 MG/D5W 250 ML IV SCH (02:02)
[2016-10-24] MEDS: SODIUM CHLOR 0.9% 1000 ML INJ 1,000 ML IV SCH (03:39)
[2016-10-24 05:26] LABS: AUTOMATED NEUTROPHIL # 13.6 TH/MM3 (1.8-7.7); BASOPHIL # 0.1 TH/MM3 (0-0.2); BASOPHIL % 0.4 % (0.0-2.0); EOSINOPHIL % 0.2 % (0.0-4.0); HEMATOCRIT 27.5 % (35.0-46.0); HEMO FLAGS DIFF FINAL; LYMPH % 7.3 % (9.0-44.0); LYMPHOCYTE # 1.2 TH/MM3 (1.0-4.8); MEAN CELL VOLUME 89.7 FL (80.0-100.0); MEAN CORPUSCULAR HEMOGLOBIN 30.8 PG (27.0-34.0); MEAN CORPUSCULAR HGB CONC 34.4 % (32.0-36.0); NEUT % 83.1 % (16.0-70.0); PLATELET COUNT 151 TH/MM3 (150-450); RED BLOOD COUNT 3.06 MIL/MM3 (4.00-5.30); RED CELL DISTRIBUTION WIDTH 14.1 % (11.6-17.2); WHITE BLOOD COUNT 16.4 TH/MM3 (4.0-11.0)
[2016-10-24 05:53] LABS: ALKALINE PHOSPHATASE 53 U/L (45-117); ALT (GPT) 38 U/L (10-53); ANION GAP 11 MEQ/L (5-15); AST (GOT) 194 U/L (15-37); BICARBONATE 22.3 MEQ/L (21.0-32.0); BLOOD UREA NITROGEN 27 MG/DL (7-18); CALCIUM-PROTEIN CORRECTED 8.7 MG/DL (8.5-10.1); CHLORIDE 110 MEQ/L (98-107); CREATINE KINASE 928 U/L (26-192); GLOMERULAR FILTRATION RATE 34 ML/MIN (>89); POTASSIUM 4.2 MEQ/L (3.5-5.1); SODIUM (NA) 143 MEQ/L (136-145); TOTAL BILIRUBIN ADULT 0.9 MG/DL (0.2-1.0)
[2016-10-24] MEDS: HEPARIN SODIUM - SQ 10,000 UNITS/ML VIAL SQ SCH ×3 (06:00→23:26)
[2016-10-24 06:07] LABS: CKMB 19.5 NG/ML (0.5-3.6)
--- NOTE | 2016-10-24 07:35 | HHI.CCPN ---
Subjective Remarks/Hospital Course Hospital Course: This is an 89-year-old female with a past medical history reportedly of hypertension coronary disease and pacemaker placement who was initially brought to the ER due to chest pain and shortness of breath. Cardiology was consulted and eventually took the patient to left heart catheterization today where she was noted to have a lesion in her mid LAD. She had bare metal stent 2 placed to the mid LAD. She was significantly hypotensive and hypoxic during the event and required emergent intubation by anesthesia. At the end of the left heart catheterization, a intra-arterial balloon pump was placed for assistance in her hypotension and presumed cardiogenic shock and she was taken to the CVICU. Critical-care medicine is consulted to evaluate and manage her cardiogenic shock and acute hypoxic respiratory failure. When I came to evaluate the patient, she was significantly hypoxic with SPO2 in the 70s. In addition she had a on augmented mean arterial pressure of 42 with an augmented mean arterial pressure of 58. She is on one-to-one IABP. I immediately added norepinephrine to the dopamine infusion that was already running. She had significant bleeding from the left groin IABP site. Additional compressive dressings were placed to this and a sandbag. A stat ABG with hemoglobin demonstrated hemoglobin of 10. She has significant acidosis with a base deficit of 10. She was given 3 A of bicarbonate emergently. Her hypotension persists and at that point I was very concerned about complications from her left heart catheterization including retroperitoneal hemorrhage, coronary artery dissection, aortic dissection, cardiogenic shock from [place], in- stent rethrombosis, pericardial tamponade. I ordered a stat echo. At bedside during a stat echo, there was concern for possible clotted blood and hematoma surrounding the right ventricle. I immediately called Dr. Smith to notify him so he could read the echo. In addition, Dr. Howe was at bedside with me and we decided given the patient's instability that a confirmation transesophageal echocardiogram was necessary to rule in or out pericardial tamponade. I performed a transesophageal echocardiogram (please see separate procedure note for details). Dr. Howe interpreted the echocardiogram. There was not evidence of tamponade or pericardial effusion on the transesophageal echocardiogram. There is ongoing evidence of significant myocardial dysfunction , including anterior lateral and apical akinesis/dyskinesis. I again talk to the button spindler and he is driving in from home to evaluate the patient. We are discussing possible mechanical support with Impella. However, given the patient's age and other comorbidities, I'm not sure that additional invasive procedures are a good idea. We continue to trend her lactic acid as well as her urine output, and her urine output continues to be greater than 30 cc an hour and her lactate is less than 2. Subjective: 10/23: clinically improving overnight. lactate clearing. BP stabilizing. awakens and follows commands. still on high vasopressor support. hypoxia improving. 10/24: clinically improving, although remains on high norepinephrine requirements. lactate still clearing. uop marginal, but Cr improving today. Objective Vital Signs Date Time Temp Pulse Resp B/P Pulse Ox O2 Delivery O2 Flow Rate FiO2 10/24/16 06:49 71/41 Arterial Line 10/24/16 03:49 95 40 10/24/16 03:10 Mechanical Ventilator 10/24/16 03:10 98.5 69 16 10/22/16 02:02 2 Intake and Output 10/23/16 10/23/16 10/24/16 08:00 16:00 00:00 Intake Total 3793 ml 2216 ml Output Total 300 ml 275 ml Balance 3493 ml 1941 ml Result Diagram: 10/24/16 0438 10/24/16 0438 Objective Remarks GENERAL: Elderly female, lying in bed, flat, critically ill, intubated HEENT: Pupils equal, round, conjugate, reactive. Mucous membranes are moist. NECK: Trachea is midline. JVD is difficult to assess secondary to body habitus. Orotracheally intubated. CHEST: Equal chest rise. Bilateral coarse rales. CARDIOVASCULAR: Normal rate, regular rhythm. IABP in place. 1:1. augmented mean 115 on my assessment. ABDOMEN: Soft, nontender, nondistended. No guarding. MUSCULOSKELETAL: Left groin hematoma is stable. No active bleeding or oozing from the balloon pump site. Bilateral right groin sheaths intact. NEUROLOGICAL: RASS -2. CAM -. Follows commands in all 4 extremities. Procedures None. A/P Assessment and Plan Assessment: 89yF with NSTEMI and PCI with BMS x 2 to mid LAD, course complicated by procedural hypoxia requiring intubation and post-procedural cardiogenic shock 2/2 NSTEMI. Certainly it is reassuring that her lactate is clearing and there are signs of improvement. She still requires significant vasopressor support, although this is improving. We will try to wean mechanical support today and re-evaluate. If she needs pharmacologic inotropic support, I think we should try epinephrine or dopamine, as dobutamine had significant hypotension a few days ago. She remains critically ill, although for now slight improvements. We will remain cautiously aggressive with our goals. Plan by systems: Neurologic: Agitation associated with intubation Fentanyl infusion with when necessary Versed for RASS goal -2 Respiratory: Acute hypoxic respiratory failure Vent bundle Low tidal volume ventilation targeting 6 cc/kg ideal body weight Wean FiO2 for goal SPO2 greater than 90% Nebs every 6 and every 2 when necessary Does not meet SBT criteria today for hemodynamic instability Cardiovascular: Cardiogenic shock NSTEMI s/p PCI with BMS x 2 to mid-LAD Severe left ventricular systolic dysfunction -- continue vaspressor support with Levophed, Dopamine for goal augmented mean > 90 mmHg. -- trend lactates -- trend uop Renal: Acute kidney injury- resolving. Continue Garnica with hourly urine outputs -- Strict I/Os FEN/GI: Acute protein calorie malnutritionmoderate. Nothing by mouth given high vasopressor requirements ICU electrolyte protocol Daily BMP Heme/ID: Anemia secondary to acute blood loss Leukocytosis and fever Status post 2 units PRBCs 10/23 Daily CBC Does not meet transfusion triggers at this time currently. fevers have resolved. leukocytosis persists. follow up cultures. continue vanc/ zosyn. Endocrine: Hyperglycemia of critical illness -- SSI, every 6 hours, medium scale Prophylaxis: GI Prophylaxis Protonix 40 mg IV every 12 hours DVT Prophylaxis -- SCDs SQH Lines: Right femoral venous sheath 10/22 Right femoral arterial sheath 10/22 Left femoral IABP 10/22 Garnica we will plan to remove right femoral sheaths and place upper extremity central and arterial access for improved mobility. We will wean the IABP to 1:2 this morning and consider discontinuing mechanical support later today. Dispo: Remain in the CVICU. She remains critically ill. This patient remains critically ill with one or more organ systems which are or may become a threat to life. I have spent in excess of 49 minutes discontinuously in the care and management of this patient. This time is exclusive of procedures, and includes, but is not limited to, evaluation of the patient, review of the medical record, discussions with family, consultants, nursing staff, or respiratory therapy, and documentation in the medical record. Rodrick Landry MD Oct 24, 2016 07:35
--- NOTE | 2016-10-24 08:40 | RADRPT ---
EXAM DATE/TIME: 10/24/2016 07:51 [facility] COMPARISON: CHEST SINGLE AP, October 22, 2016, 16:45. INDICATIONS : Evaluate heart and lungs post intubation. MEDICAL HISTORY : Hypertension. Congestive heart failure. SURGICAL HISTORY : Pacemaker. ENCOUNTER: Subsequent ACUITY: 3 days PAIN SCORE: 0/10 LOCATION: chest FINDINGS: Endotracheal tube tip is stable in good position. Nasogastric tube coils in the stomach. Pacemaker de vice is noted with control pack over the left chest. There has been improvement in aeration with mini mal residual parenchymal opacity in the bases and likely small effusions. Ardiomediastinal contours a re satisfactory. CONCLUSION: Improved aeration Shyam Sky MD on October 24, 2016 at 8:35 Board Certified Radiologist. This report was verified electronically.
[2016-10-24] MEDS: SODIUM CHLORIDE 0.9% FLUSH 5 ML FLUSH FLUSH SCH ×2 (08:43→21:00)
[2016-10-24] MEDS: ASPIRIN EC 81 MG TABEC PO SCH (08:43)
[2016-10-24] MEDS: CLOPIDOGREL 75 MG TAB PO SCH (08:44)
[2016-10-24] MEDS ORDERED: FUROSEMIDE 40 MG/4 ML VIAL IV PUSH ONE ×2 (09:00→17:30)
--- NOTE | 2016-10-24 09:06 | PD.CARD.PN ---
Subjective Subjective Remarks Progressing well. Hemodynamics improving slowly. Weaning Levophed. Awake , alert and no distress. Denies pain. Objective Medications Current Medications Medications (Trade) Dose Ordered Sig/Izabella Route PRN Reason Start Time Stop Time Status Last Admin Dose Admin Nitroglycerin (Nitrostat Sl) 0.4 mg Q5M PRN SL CHEST PAIN 10/21/16 22:45 10/22/16 06:15 IV Flush (NS Flush) 2 ml UNSCH PRN FLUSH FLUSH AFTER USING IV ACCESS 10/22/16 00:45 IV Flush (NS Flush) 2 ml BID FLUSH 10/22/16 09:00 10/23/16 20:47 Ondansetron HCl (Zofran Inj) 4 mg Q6H PRN IVP NAUSEA OR VOMITING 10/22/16 00:45 10/22/16 05:37 Bisacodyl (Dulcolax Supp) 10 mg DAILY PRN MD CONSTIPATION 10/22/16 00:45 Acetaminophen (Tylenol) 650 mg Q6H PRN PO FEVER/PAIN SCALE 1 TO 2 10/22/16 00:45 Acetaminophen/ Hydrocodone Bitart ([place] 5-325 Mg) 1 tab Q4H PRN PO PAIN SCALE 3 TO 5 10/22/16 00:45 Morphine Sulfate (Morphine Inj) 2 mg Q3H PRN IV Pain 6-10 10/22/16 00:45 10/22/16 13:13 Aspirin (Ecotrin Ec) 81 mg DAILY PO 10/22/16 09:00 10/24/16 08:43 Atorvastatin Calcium (Lipitor) 40 mg HS PO 10/22/16 21:00 Atropine Sulfate (Atropine Inj) 0.5 mg UNSCH PRN IV VAGAL REPONSE 10/22/16 16:00 Metoprolol Tartrate (Lopressor) 12.5 mg BID PO 10/22/16 21:00 Hold Losartan Potassium (Cozaar) 12.5 mg DAILY PO 10/23/16 09:00 Hold Miscellaneous 1 ea 1 ea UNSCH PRN OTHER SEE LABEL COMMENTS 10/22/16 21:00 Vasopressin/ Dextrose (Pitressin Inj/ D5W 100 ml Inj) 100 ml @ 4.5 mls/hr [id number] IV 10/22/16 21:00 10/22/16 21:00 Clopidogrel Bisulfate 75 mg 75 mg DAILY PO 10/23/16 09:00 10/24/16 08:44 Norepinephrine Bitartrate 250 ml @ 0 mls/hr TITRATE IV 10/23/16 09:15 10/24/16 02:02 Pharmacy Profile Note (Vancomycin Consult Pharmacy) 0 ml @ 0 mls/hr UNSCH OTHER 10/23/16 13:45 Heparin Sodium (Porcine) 5000 units 5,000 units Q8HR SQ 10/23/16 14:00 10/23/16 14:35 Piperacillin Sod/ Tazobactam Sod 50 ml @ 100 mls/hr Q8H IV 10/23/16 17:00 10/24/16 08:43 Vancomycin HCl/ Sodium Chloride (Vancomycin Inj/ NS 250 ml Inj) 262.5 ml @ 250 mls/hr Q24H IV 10/23/16 16:00 10/23/16 17:13 Miscellaneous Information SPECIFIC LAB TO BE DRAWN:VANCOMYCIN TROUGH DATE TO... ONCE ONCE XX 10/26/16 15:45 10/26/16 15:46 Furosemide (Lasix Inj) 40 mg ONCE ONCE IV PUSH 10/24/16 09:00 10/24/16 09:01 UNV Vital Signs / I&O Vital Signs Date Time Temp Pulse Resp B/P Pulse Ox O2 Delivery O2 Flow Rate FiO2 10/24/16 07:26 97 40 10/24/16 07:00 70 10/24/16 07:00 99.9 70 16 107/67 97 10/24/16 07:00 40 10/24/16 07:00 97 Mechanical Ventilator 40 10/24/16 07:00 68/39 10/24/16 06:49 71/41 Arterial Line 10/24/16 06:00 73/42 10/24/16 05:00 77/57 10/24/16 04:00 64/39 10/24/16 03:49 95 40 10/24/16 03:10 40 10/24/16 03:10 95 Mechanical Ventilator 40 10/24/16 03:10 98.5 69 16 113/66 96 106/35 10/24/16 03:10 69 10/24/16 03:00 65/38 10/24/16 02:00 64/36 10/24/16 01:00 96 40 10/24/16 01:00 60/34 10/24/16 00:34 64/39 10/23/16 23:10 98.0 69 16 86/53 95 107/38 10/23/16 23:10 69 10/23/16 23:10 95 Mechanical Ventilator 40 10/23/16 23:10 40 10/23/16 23:00 67/39 10/23/16 22:15 99 40 10/23/16 22:00 66/52 10/23/16 21:00 63/74 10/23/16 20:00 57/45 10/23/16 19:21 67/51 10/23/16 19:21 95 Mechanical Ventilator 40 10/23/16 19:21 99.2 95 16 92/56 95 109/47 10/23/16 19:10 99 40 10/23/16 19:00 40 10/23/16 19:00 95 10/23/16 18:00 60/30 10/23/16 17:00 88/59 10/23/16 16:00 98 Mechanical Ventilator 40 10/23/16 16:00 40 10/23/16 16:00 98/46 10/23/16 15:50 98 40 10/23/16 15:00 101 10/23/16 15:00 100.4 101 17 91/56 98 10/23/16 15:00 91/56 10/23/16 14:00 74/46 10/23/16 13:01 86/56 10/23/16 12:07 96 45 10/23/16 12:00 78/43 10/23/16 12:00 50 10/23/16 12:00 95 Mechanical Ventilator 50 10/23/16 11:00 100.2 96 16 86/53 97 10/23/16 11:00 96 10/23/16 11:00 86/53 10/23/16 10:15 96 50 10/23/16 10:00 95/54 I/O 10/23/16 10/23/16 10/23/16 10/24/16 10/24/16 10/24/16 07:00 15:00 23:00 07:00 15:00 23:00 Intake Total 3793 ml 2216 ml 2516 ml Output Total 300 ml 275 ml 420 ml Balance 3493 ml 1941 ml 2096 ml Intake IV Total 3293 ml 2156 ml 2516 ml Packed Cells 500 ml Tube Irrigant 60 ml Output Urine Total 200 ml 275 ml 220 ml Gastric Drainage Total 100 ml 200 ml Physical Exam Patient on vent support. MAP 70's now on pressor support. Lungs: CTA. Hear: tach S1/S2 no murmur. Ext: cool , well perfused. Pulses good.Severe oozing from left groin at IABP insertion site. No hematoma. Neuro intact. Laboratory Laboratory Tests Test 10/23/16 10/24/16 15:00 04:38 Urine Color YELLOW Urine Turbidity CLEAR Urine pH 6.5 Urine Specific [place] 1.032 Urine Protein TRACE mg/dL Urine Glucose (UA) NEG mg/dL Urine Ketones NEG mg/dL Urine Occult Blood MOD Urine Nitrite NEG Urine Bilirubin NEG Urine Urobilinogen LESS THAN 2.0 MG/DL Urine Leukocyte Esterase TRACE Urine RBC 4 /hpf Urine WBC 1 /hpf Urine Bacteria RARE /hpf Microscopic Urinalysis Comment CATH-CULTURE IND White Blood Count 16.4 TH/MM3 Red Blood Count 3.06 MIL/MM3 Hemoglobin 9.4 GM/DL Hematocrit 27.5 % Mean Corpuscular Volume 89.7 FL Mean Corpuscular Hemoglobin 30.8 PG Mean Corpuscular Hemoglobin 34.4 % Concent Red Cell Distribution Width 14.1 % Platelet Count 151 TH/MM3 Mean Platelet Volume 9.4 FL Neutrophils (%) (Auto) 83.1 % Lymphocytes (%) (Auto) 7.3 % Monocytes (%) (Auto) 9.0 % Eosinophils (%) (Auto) 0.2 % Basophils (%) (Auto) 0.4 % Neutrophils # (Auto) 13.6 TH/MM3 Lymphocytes # (Auto) 1.2 TH/MM3 Monocytes # (Auto) 1.5 TH/MM3 Eosinophils # (Auto) 0.0 TH/MM3 Basophils # (Auto) 0.1 TH/MM3 CBC Comment DIFF FINAL Differential Comment Sodium Level 143 MEQ/L Potassium Level 4.2 MEQ/L Chloride Level 110 MEQ/L Carbon Dioxide Level 22.3 MEQ/L Anion Gap 11 MEQ/L Blood Urea Nitrogen 27 MG/DL Creatinine 1.46 MG/DL Estimat Glomerular Filtration 34 ML/MIN Rate Random Glucose 139 MG/DL Calcium Level 7.6 MG/DL Protein Corrected Calcium 8.7 MG/DL Total Bilirubin 0.9 MG/DL Aspartate Amino Transf 194 U/L (AST/SGOT) Alanine Aminotransferase 38 U/L (ALT/SGPT) Alkaline Phosphatase 53 U/L Total Creatine Kinase 928 U/L Creatine Kinase MB 19.5 NG/ML Creatine Kinase MB % 2.1 % Troponin I 6.65 NG/ML Total Protein 5.1 GM/DL Albumin 2.0 GM/DL Imaging Last 48 hours Impressions Chest X-Ray 10/24/16 0000 Signed Impressions: Service Date/Time: Monday, October 24, 2016 07:51 - CONCLUSION: Improved aeration Shyam Sky MD Assessment and Plan Problem List: (1) NSTEMI (non-ST elevated myocardial infarction) (2) Cardiogenic shock (3) Respiratory failure (4) Acute pulmonary edema (5) Arteriosclerotic heart disease (ASHD) (6) Ischemic cardiomyopathy (7) Severe left ventricular systolic dysfunction (8) Stented coronary artery Assessment and Plan Currently: Continue dopamine at renal 2 mcg/kg/min. Levophed - D/C now. Off vasopressin Holding metoprolol and cozaar for now due to low BP. Lasix 40 mg IVP X 1 Agree with CaCl replacement. ABG's look good. Not acidotic. Wean vent as tolerates. Plan extubation after removal of IABP tomorrow. Check CXR this AM. IABP for 24 hours. Now down to 1:2. Plan 1: AM and then removal 10/25 AM. Need central line access so right groin sheaths can be removed today. Discussed plans with residential treatment staff, and the bioengineer . Spoke with the patient's granddaughter by phone last night and discussed plans. Prognosis remains guarded. Alex Seth MD Oct 24, 2016 09:06
[2016-10-24] MEDS ORDERED: CALCIUM CHLORIDE INJ 1 GM in SODIUM CHLORIDE 0.9% INJ 100 ML IV ONE (10:00)
--- NOTE | 2016-10-24 10:30 | PD.PROCEDR ---
Procedure Note Procedure Procedure: Arterial Line Placement Right radial arterial line Diagnosis: Cardiogenic shock Indications: Need for beat to beat hemodynamic monitoring. Consent: Consent is deemed emergent or medically necessary. Description of the Procedure: The right wrist was prepped and draped sterilely. 1% lidocaine was used for local anesthesia. The pulse was located and a needle was advanced into the artery. A 20 gauge, 12 cm catheter was advanced into the artery using a modified Seldinger technique. The catheter was sutured to the skin and a sterile dressing was applied. The catheter was connected to a pressure transducer and an arterial waveform was noted. Ultrasound guidance: Ultrasound guidance was used for this procedure. The ultrasound, the right radial artery was located. Vascular anatomy of the right wrist was deemed normal. Under direct ultrasound visualization, the needle was advanced into the artery. There were no immediate complications noted. There was minimal EBL. I personally performed the procedure. Rodrick Landry MD Oct 24, 2016 10:30
--- NOTE | 2016-10-24 10:32 | PD.PROCEDR ---
Procedure Note Procedure Central Line Procedure Note Right IJ 7 [place], 20 cm triple-lumen catheter Diagnosis: Cardiogenic shock Indications: need for highly potent vasoactive substances Consent: Consent is deemed emergent or medically necessary Anesthesia: 1% lidocaine locally, fentanyl IV Description of the Procedure: The patient was placed in the supine, mild- Trendelenburg position. The area was prepped and draped sterilely. A 19g needle was inserted under negative pressure aspiration and dark venous blood was obtained. A guidewire was inserted easily without resistance. A small incision was made using a #11 blade. Using a modified Seldinger technique, the dilator and 7 [place], 20 cm catheter were advanced over the guidewire without resistance. All ports were aspirated and flushed, and had brisk blood return. The line was secured at 18 cm at the skin using 2-0 silk interrupted sutures. A Biopatch and Transparent sterile dressing were applied. There were no immediate complications noted. There was minimal EBL. The patient tolerated the procedure well. Ultrasound Guidance: Ultrasound guidance was used to identify the right internal jugular vein. The vascular anatomy of the right anterior neck was normal. The vessel was cannulated under direct, real-time ultrasound visualization. After placement of the guidewire, confirmation of the guidewire in the lumen of the vessel was made using ultrasound visualization, before dilation of the tract. A Chest x-ray has been ordered. I personally performed the procedure. Rodrick Landry MD Oct 24, 2016 10:32
--- NOTE | 2016-10-24 11:19 | RADRPT ---
EXAM DATE/TIME: 10/24/2016 10:20 [facility] COMPARISON: CHEST SINGLE AP, October 24, 2016, 7:51. INDICATIONS : Central line placement. MEDICAL HISTORY : Hypertension. Congestive heart failure. SURGICAL HISTORY : Pacemaker. ENCOUNTER: Initial ACUITY: 1 day PAIN SCORE: Non-responsive. LOCATION: Bilateral chest FINDINGS: Pacemaker device is noted with control pack over the left chest. Endotracheal tube is stable with tip just above pat. Right neck central line is in good position. No pneumothorax. There has been incr ease in hazy opacity of the lung bases, likely increasing effusions and basilar parenchymal disease. Cardiac contours are grossly stable. CONCLUSION: No evidence of pneumothorax. Central line in good position. Slight worsening aeration. Shyam Sky MD on October 24, 2016 at 11:15 Board Certified Radiologist. This report was verified electronically.
[2016-10-24] MEDS ORDERED: BACITRACIN OINT 0.9 GM PKT ONE ×2 (13:29→17:01)
[2016-10-24] MEDS: VANCOMYCIN INJ 1,250 MG in SODIUM CHLOR 0.9% 250 ML INJ 250 ML IV SCH (16:19)
[2016-10-24] MEDS ORDERED: LIDOCAINE HCL 1% 20 ML VIAL ONE (16:25)
[2016-10-24] MEDS ORDERED: LIDOCAINE HCL 1% 20 ML VIAL INFIL ONE (17:15)
--- NOTE | 2016-10-24 17:17 | PD.CARD ---
Cardiology Procedure Note Procedure Name: IABP removal Procedure Date: Oct 24, 2016 Procedure Note: Retaining surtures removed left groin and IABP removed. Manual pressure held for hemostasis X 30 minutes. Tolerated well. +2 PT/DP pulses. No hematoma. Alex Seth MD Oct 24, 2016 17:17
[2016-10-24] MEDS ORDERED: FUROSEMIDE 40 MG/4 ML VIAL ONE (17:19)
[2016-10-24] MEDS: ATORVASTATIN 40 MG TAB PO SCH (21:00)
[2016-10-25] VITALS (12 sets, daily range): BP systolic 81–111; BP diastolic 49–73; PULSE 69–100; RESP 12–18; TEMP 97.6–99.4; O2SAT 88–99
[2016-10-25] MEDS: PIPERACIL-TAZO 2.25 GM PREMIX 50 ML IV SCH ×3 (00:34→16:11)
[2016-10-25 05:14] LABS: AUTOMATED NEUTROPHIL # 9.5 TH/MM3 (1.8-7.7); BASOPHIL # 0.1 TH/MM3 (0-0.2); BASOPHIL % 0.8 % (0.0-2.0); EOSINOPHIL # 0.1 TH/MM3 (0-0.4); EOSINOPHIL % 0.9 % (0.0-4.0); HEMATOCRIT 23.9 % (35.0-46.0); HEMO FLAGS DIFF FINAL; LYMPH % 7.6 % (9.0-44.0); LYMPHOCYTE # 0.9 TH/MM3 (1.0-4.8); MEAN CELL VOLUME 91.8 FL (80.0-100.0); MEAN CORPUSCULAR HGB CONC 33.7 % (32.0-36.0); MONO % 8.7 % (0.0-8.0); PLATELET COUNT 129 TH/MM3 (150-450); RED BLOOD COUNT 2.61 MIL/MM3 (4.00-5.30); RED CELL DISTRIBUTION WIDTH 13.8 % (11.6-17.2); WHITE BLOOD COUNT 11.6 TH/MM3 (4.0-11.0)
[2016-10-25] MEDS: HEPARIN SODIUM - SQ 10,000 UNITS/ML VIAL SQ SCH ×3 (05:38→23:10)
[2016-10-25 05:40] LABS: BICARBONATE 26.3 MEQ/L (21.0-32.0); MAGNESIUM 1.7 MG/DL (1.5-2.5); POTASSIUM 3.8 MEQ/L (3.5-5.1)
[2016-10-25] MEDS ORDERED: CHLORHEXIDINE GLUCONATE 2 % 1 PACK (2 CLOTHS) TOP PRN (07:30)
[2016-10-25] MEDS ORDERED: ACETAMINOPHEN 325 MG TAB PO PRN (07:30)
[2016-10-25] MEDS ORDERED: POTASSIUM CHLORIDE 20 MEQ CONTROLLED RELEASE TAB PO ONE (07:30)
[2016-10-25] MEDS ORDERED: ONDANSETRON HCL 4 MG/2 ML VIAL IV PRN (07:30)
[2016-10-25] MEDS ORDERED: SENNOSIDES 8.6 MG TAB PO PRN (07:30)
[2016-10-25] MEDS ORDERED: FUROSEMIDE 20 MG/2 ML VIAL IV PUSH ONE (07:30)
[2016-10-25] MEDS ORDERED: MISCELLANEOUS NURSING INFORMATION XX SCH (07:30)
[2016-10-25] MEDS ORDERED: SODIUM CHLORIDE 0.9% FLUSH 5 ML FLUSH IV FLUSH PRN (07:30)
--- NOTE | 2016-10-25 07:33 | HHI.CCPN ---
Subjective Remarks/Hospital Course 89-year-old female with a past medical history reportedly of hypertension coronary disease and pacemaker placement who was initially brought to the ER due to chest pain and shortness of breath. Cardiology was consulted and eventually took the patient to left heart catheterization today where she was noted to have a lesion in her mid LAD. She had bare metal stent 2 placed to the mid LAD. She was significantly hypotensive and hypoxic during the event and required emergent intubation by anesthesia. At the end of the left heart catheterization, a intra-arterial balloon pump was placed for assistance in her hypotension and presumed cardiogenic shock and she was taken to the CVICU. Critical-care medicine is consulted to evaluate and manage her cardiogenic shock and acute hypoxic respiratory failure. When I came to evaluate the patient, she was significantly hypoxic with SPO2 in the 70s. In addition she had a on augmented mean arterial pressure of 42 with an augmented mean arterial pressure of 58. She is on one-to-one IABP. I immediately added norepinephrine to the dopamine infusion that was already running. She had significant bleeding from the left groin IABP site. Additional compressive dressings were placed to this and a sandbag. A stat ABG with hemoglobin demonstrated hemoglobin of 10. She has significant acidosis with a base deficit of 10. She was given 3 A of bicarbonate emergently. Her hypotension persists and at that point I was very concerned about complications from her left heart catheterization including retroperitoneal hemorrhage, coronary artery dissection, aortic dissection, cardiogenic shock from AR, in- stent rethrombosis, pericardial tamponade. I ordered a stat echo. At bedside during a stat echo, there was concern for possible clotted blood and hematoma surrounding the right ventricle. I immediately called Dr. Smith to notify him so he could read the echo. In addition, Dr. Howe was at bedside with me and we decided given the patient's instability that a confirmation transesophageal echocardiogram was necessary to rule in or out pericardial tamponade. I performed a transesophageal echocardiogram (please see separate procedure note for details). Dr. Howe interpreted the echocardiogram. There was not evidence of tamponade or pericardial effusion on the transesophageal echocardiogram. There is ongoing evidence of significant myocardial dysfunction , including anterior lateral and apical akinesis/dyskinesis. I again talk to the state director and he is driving in from home to evaluate the patient. We are discussing possible mechanical support with Impella. However, given the patient's age and other comorbidities, I'm not sure that additional invasive procedures are a good idea. We continue to trend her lactic acid as well as her urine output, and her urine output continues to be greater than 30 cc an hour and her lactate is less than 2. 10/23: clinically improving overnight. lactate clearing. BP stabilizing. awakens and follows commands. still on high vasopressor support. hypoxia improving. 10/24: clinically improving, although remains on high norepinephrine requirements. lactate still clearing. uop marginal, but Cr improving today. Subjective: 10/25: Afebrile. Approximately 1100 cc urine overnight. Off all vasopressors overnight. Hemoglobin currently around 8. Denies chest pain, shortness of breath. No hematoma in inguinal region. Objective Vital Signs Date Time Temp Pulse Resp B/P Pulse Ox O2 Delivery O2 Flow Rate FiO2 10/25/16 03:00 97 Nasal Cannula 4.00 10/25/16 03:00 94 10/25/16 03:00 98.6 12 81/58 104/50 10/24/16 15:45 40 Intake and Output 10/24/16 10/24/16 10/25/16 08:00 16:00 00:00 Intake Total 2516 ml 1355 ml Output Total 420 ml 1405 ml Balance 2096 ml -50 ml Result Diagram: 10/25/16 0455 10/25/16 0455 Other Results Microbiology Date/Time Procedure Status Source Growth 10/23/16 21:48 Aerobic Blood Culture - Preliminary Resulted Blood Peripheral NO GROWTH IN 1 DAY 10/23/16 21:48 Anaerobic Blood Culture - Final Resulted Blood Peripheral QNS - SEE AEROBE REPORT 10/23/16 15:00 Urine Culture - Preliminary Resulted Urine Catheterized Urine NO GROWTH IN 24 HOURS. 10/23/16 14:10 Gram Stain - Final Resulted Sputum Endotracheal 10/23/16 14:10 Sputum Culture - Preliminary Resulted Sputum Endotracheal MODERATE GROWTH NORMAL RESPIRATORY FL... Imaging Last Impressions Chest X-Ray 10/24/16 0000 Signed Impressions: Service Date/Time: Monday, October 24, 2016 10:20 - CONCLUSION: No evidence of pneumothorax. Central line in good position. Slight worsening aeration. Shyam Sky MD Objective Remarks GENERAL: 89-year-old female, appears stated age, lying in bed currently on nasal cannula distress HEENT: Pupils equal, round about 3 mm's bilaterally and reactive. Positive arcus senilis.. Mucous membranes are moist and pink. Oropharyngeal without erythema. NECK: Trachea is midline. Right IJ is clean dry and intact. CHEST: Few crackles appreciated bases bilateral. Essentially clear anteriorly. No wheezing CARDIOVASCULAR: RRR. S1, S2. No S4. No murmur ABDOMEN: Soft, nontender, nondistended. Positive bowel sounds are appreciated. MUSCULOSKELETAL: 1+ lower extremity edema noted. NEUROLOGICAL: Cranial nerves II through XII grossly intact. Strength is equal and symmetric bilaterally. Normal sensation. Procedures None. Urinary Catheter: Yes Assessment to: Continue Garnica insert reason: ICU Pt Getting Diuretics Vascular Central Line Catheter: Yes Assessment to: Continue Date of Insertion: Oct 24, 2016 Line: Central Venous Catheter Side: Right Location: Internal, Jugular A/P Assessment and Plan Neuro/Psych: History dementia? Acetaminophen for fever. --Morphine as needed for pain management Respiratory: Acute hypoxic respiratory failure - resolving Nasal cannula currently at 3 L to maintain saturations greater than equal 92% - Incentive spirometry while awake As needed duo nebs Cardiovascular: Cardiogenic shock - resolving NSTEMI s/p PCI with BMS x 2 to mid-LAD Severe left ventricular systolic dysfunction -- Status post cardiac catheterization which revealed 100% stenosis LAD with PCI 2 -- DEMETRIO 10/22 revealed EF 25-30%. Hypokinesis of the anterior and anterior lateral myocardium. -- Currently on aspirin 81 mg daily and Plavix 75 mg daily. Continue -- On Lipitor 40 mg per daily for dyslipidemia. Check lipid panel in a.m. -- Currently off all vasopressor support. IABP removed yesterday 10/24 Renal: Acute kidney injury- resolving. Continue Garnica with hourly urine outputs -- Strict I/Os -- Diuresed with 80 mg of Lasix yesterday total. -1 L past 24 hours. FEN/GI: Acute protein calorie malnutritionmoderate. Hypo-magnesium Heart healthy diet ICU electrolyte protocol Daily BMP -- We'll give 2 g mag sulfate and 20 mEq KCl 1. Recheck in a.m. Heme/ID: Anemia secondary to acute blood loss Leukocytosis and fever Status post 2 units PRBCs 10/23 We'll give 1 unit RBC study with hemoglobin currently 8.1 for cardiac Daily CBC Pertinent cultures 10/23 - sputum - no growth 10/23 - urine - no growth 1/24 - blood cultures 2 - no growth Currently in Zosyn/vancomycin day #3?. Likely de-escalate the next 24-48 hours. Endocrine: Hyperglycemia of critical illness -- SSI if needed to maintain euglycemia Prophylaxis: GI Prophylaxis Pepcid 20 mg by mouth daily DVT Prophylaxis -- SCDs Heparin subcutaneous Lines: Right IJ CVL day #2 --Right radial arterial line day #2 Critical Care: The total critical care time was 35 minutes. Time to perform other separately billable procedures was not included in the critical care time. Addendum Called to see patient regarding acute hypoxic event. Patient was placed on BiPAP 16/600% with improvement of saturations. Possibly worsening of right lower lobe posterior. Patient did receive 1 unit PRBCs today. We'll give 40 mg IV Lasix 1 now and reassess. Patient is currently awake and following commands. She states she is less short of breath with the BiPAP on. FiO2 is now down to 50%. Av Sweet MD Oct 25, 2016 07:33
[2016-10-25] MEDS: CLOPIDOGREL 75 MG TAB PO SCH (08:26)
[2016-10-25] MEDS: MAGNESIUM SULFATE 1 GM PREMIX 100 ML IV SCH ×2 (08:26→09:05)
[2016-10-25] MEDS: ASPIRIN EC 81 MG TABEC PO SCH (08:27)
[2016-10-25] MEDS: DOCUSATE SODIUM 100 MG CAP PO SCH ×2 (08:27→20:13)
[2016-10-25] MEDS: SODIUM CHLORIDE 0.9% FLUSH 5 ML FLUSH FLUSH SCH ×2 (08:27→20:14)
[2016-10-25] MEDS: FAMOTIDINE 20 MG TAB PO SCH (08:27)
[2016-10-25] MEDS ORDERED: SODIUM CHLORIDE 0.9% FLUSH 5 ML FLUSH IV FLUSH SCH (09:00)
--- NOTE | 2016-10-25 09:02 | PD.CARD.PN ---
Subjective Subjective Remarks IABP out and extubated last PM. Doing well overnight. Denies CP. Mild SOB with any activity. Objective Medications Current Medications Medications (Trade) Dose Ordered Sig/Izabella Route PRN Reason Start Time Stop Time Status Last Admin Dose Admin Nitroglycerin (Nitrostat Sl) 0.4 mg Q5M PRN SL CHEST PAIN 10/21/16 22:45 10/22/16 06:15 IV Flush (NS Flush) 2 ml UNSCH PRN FLUSH FLUSH AFTER USING IV ACCESS 10/22/16 00:45 IV Flush (NS Flush) 2 ml BID FLUSH 10/22/16 09:00 10/25/16 08:27 Ondansetron HCl (Zofran Inj) 4 mg Q6H PRN IVP NAUSEA OR VOMITING 10/22/16 00:45 10/22/16 05:37 Bisacodyl (Dulcolax Supp) 10 mg DAILY PRN DC CONSTIPATION 10/22/16 00:45 Acetaminophen/ Hydrocodone Bitart (Hospers 5-325 Mg) 1 tab Q4H PRN PO PAIN SCALE 3 TO 5 10/22/16 00:45 Morphine Sulfate (Morphine Inj) 2 mg Q3H PRN IV Pain 6-10 10/22/16 00:45 10/22/16 13:13 Aspirin (Ecotrin Ec) 81 mg DAILY PO 10/22/16 09:00 10/25/16 08:27 Atorvastatin Calcium (Lipitor) 40 mg HS PO 10/22/16 21:00 Atropine Sulfate (Atropine Inj) 0.5 mg UNSCH PRN IV VAGAL REPONSE 10/22/16 16:00 Metoprolol Tartrate (Lopressor) 12.5 mg BID PO 10/22/16 21:00 Hold Losartan Potassium (Cozaar) 12.5 mg DAILY PO 10/23/16 09:00 Hold Miscellaneous (Pill Splitter) 1 ea UNSCH PRN OTHER SEE LABEL COMMENTS 10/22/16 21:00 Clopidogrel Bisulfate 75 mg 75 mg DAILY PO 10/23/16 09:00 10/25/16 08:26 Pharmacy Profile Note (Vancomycin Consult Pharmacy) 0 ml @ 0 mls/hr UNSCH OTHER 10/23/16 13:45 Heparin Sodium (Porcine) 5000 units 5,000 units Q8HR SQ 10/23/16 14:00 10/25/16 05:38 Piperacillin Sod/ Tazobactam Sod 50 ml @ 100 mls/hr Q8H IV 10/23/16 17:00 10/25/16 08:26 Vancomycin HCl/ Sodium Chloride (Vancomycin Inj/ NS 250 ml Inj) 262.5 ml @ 250 mls/hr Q24H IV 10/23/16 16:00 10/24/16 16:19 Miscellaneous Information SPECIFIC LAB TO BE DRAWN:VANCOMYCIN TROUGH DATE TO... ONCE ONCE XX 10/26/16 15:45 10/26/16 15:46 Magnesium Sulfate/ Dextrose (Magnesium Sulfate 1 Gm Premix) 100 ml @ 100 mls/hr Q1H IV 10/25/16 07:30 10/25/16 09:29 10/25/16 08:26 Acetaminophen (Tylenol) 650 mg Q6H PRN PO FEVER >100F 10/25/16 07:30 Docusate Sodium (Colace) 100 mg BID PO 10/25/16 09:00 10/25/16 08:27 Sennosides (Senokot) 17.2 mg Q12H PRN PO CONSTIPATION 10/25/16 07:30 Miscellaneous Information 1 Q361D XX 10/25/16 07:30 Chlorhexidine Gluconate (Chlorhexidine 2% Cloth) 3 pack Taper DAILY@04 TOP 10/26/16 04:00 10/22/17 03:59 Chlorhexidine Gluconate (Chlorhexidine 2% Cloth) 3 pack UNSCH PRN TOP HYGIENIC CARE 10/25/16 07:30 Famotidine (Pepcid) 20 mg DAILY PO 10/25/16 09:00 10/25/16 08:27 Vital Signs / I&O Vital Signs Date Time Temp Pulse Resp B/P Pulse Ox O2 Delivery O2 Flow Rate FiO2 10/25/16 07:28 98 Nasal Cannula 3.00 10/25/16 03:00 97 Nasal Cannula 4.00 10/25/16 03:00 94 10/25/16 03:00 98.6 97 12 81/58 97 104/50 10/24/16 23:00 100 10/24/16 23:00 98.8 97 12 87/45 95 102/49 10/24/16 23:00 94 Nasal Cannula 4.00 10/24/16 19:30 97.8 102 16 82/54 98 95/48 10/24/16 19:15 95 Nasal Cannula 4.00 10/24/16 19:15 95 10/24/16 17:48 98 Nasal Cannula 4.00 10/24/16 17:35 97 Nasal Cannula 4.00 10/24/16 16:35 98 Nasal Cannula 4 10/24/16 16:00 74/46 10/24/16 15:45 93 40 10/24/16 15:00 98 10/24/16 15:00 99.2 94 18 94 114/37 10/24/16 15:00 40 10/24/16 15:00 74/46 10/24/16 15:00 94 Mechanical Ventilator 40 10/24/16 14:00 73/45 10/24/16 13:00 90/60 10/24/16 12:00 65/48 10/24/16 11:00 40 10/24/16 11:00 67/44 10/24/16 11:00 96 10/24/16 11:00 95 Mechanical Ventilator 40 10/24/16 11:00 99.2 96 16 97 10/24/16 10:36 96 40 10/24/16 10:00 72/45 10/24/16 09:00 72/51 I/O 10/24/16 10/24/16 10/24/16 10/25/16 10/25/16 10/25/16 07:00 15:00 23:00 07:00 15:00 23:00 Intake Total 2516 ml 1355 ml 290 ml Output Total 420 ml 1405 ml 1350 ml Balance 2096 ml -50 ml -1060 ml Intake Oral 240 ml IV Total 2516 ml 1355 ml 50 ml Output Urine Total 220 ml 1155 ml 1350 ml Gastric Drainage Total 200 ml 250 ml # Bowel Movements 0 0 Physical Exam Awake and alert. No distress. Lungs: few basilar crackles. Hear: S1/S2 no murmur. Ext: Warm , well perfused. Both groins stable. No hematoma. Neuro intact. Laboratory Laboratory Tests Test 10/24/16 10/25/16 21:21 04:55 Potassium Level 3.8 MEQ/L 3.8 MEQ/L White Blood Count 11.6 TH/MM3 Red Blood Count 2.61 MIL/MM3 Hemoglobin 8.1 GM/DL Hematocrit 23.9 % Mean Corpuscular Volume 91.8 FL Mean Corpuscular Hemoglobin 31.0 PG Mean Corpuscular Hemoglobin 33.7 % Concent Red Cell Distribution Width 13.8 % Platelet Count 129 TH/MM3 Mean Platelet Volume 9.4 FL Neutrophils (%) (Auto) 82.0 % Lymphocytes (%) (Auto) 7.6 % Monocytes (%) (Auto) 8.7 % Eosinophils (%) (Auto) 0.9 % Basophils (%) (Auto) 0.8 % Neutrophils # (Auto) 9.5 TH/MM3 Lymphocytes # (Auto) 0.9 TH/MM3 Monocytes # (Auto) 1.0 TH/MM3 Eosinophils # (Auto) 0.1 TH/MM3 Basophils # (Auto) 0.1 TH/MM3 CBC Comment DIFF FINAL Differential Comment Sodium Level 144 MEQ/L Chloride Level 110 MEQ/L Carbon Dioxide Level 26.3 MEQ/L Anion Gap 8 MEQ/L Blood Urea Nitrogen 31 MG/DL Creatinine 1.42 MG/DL Estimat Glomerular Filtration 35 ML/MIN Rate Random Glucose 87 MG/DL Calcium Level 7.6 MG/DL Phosphorus Level 4.0 MG/DL Magnesium Level 1.7 MG/DL Imaging Last 48 hours Impressions Chest X-Ray 10/24/16 0000 Signed Impressions: Service Date/Time: Monday, October 24, 2016 10:20 - CONCLUSION: No evidence of pneumothorax. Central line in good position. Slight worsening aeration. Shyam Sky MD Chest X-Ray 10/24/16 0000 Signed Impressions: Service Date/Time: Monday, October 24, 2016 07:51 - CONCLUSION: Improved aeration Shyam Sky MD Assessment and Plan Problem List: (1) NSTEMI (non-ST elevated myocardial infarction) (2) Cardiogenic shock (3) Respiratory failure (4) Acute pulmonary edema (5) Arteriosclerotic heart disease (ASHD) (6) Ischemic cardiomyopathy (7) Severe left ventricular systolic dysfunction (8) Stented coronary artery Assessment and Plan Off IABP, vent and all pressors and hemodynamics are stable. Holding metoprolol and cozaar until BP will tolerate. Lasix 40 mg IVP X 1 Agree with CaCl and Mg replacement. ABG's look good. Not acidotic. Would D/C IV antibiotics if cultures remain negative today. OOB to chair today if tolerates. Start PT. Spoke with family last nigh here in unit. Prognosis remains guarded. Dr. Glez will be covering me tomorrow. Alex Seth MD Oct 25, 2016 09:02
[2016-10-25] MEDS: RESP: ALBUTEROL 2.5 MG/IPRATROPIUM 0.5 MG NEB (PRN) INH ×2 (10:28→21:57)
[2016-10-25] MEDS: VANCOMYCIN INJ 1,250 MG in SODIUM CHLOR 0.9% 250 ML INJ 250 ML IV SCH (16:05)
[2016-10-25] MEDS ORDERED: ETOMIDATE 40 MG/20 ML VIAL ONE (17:03)
[2016-10-25] MEDS ORDERED: fentaNYL DRIP 250 ML IV SCH (17:15)
[2016-10-25] MEDS ORDERED: PROPOFOL 1000 MG/100 ML INJ 100 ML IV SCH (17:15)
[2016-10-25] MEDS ORDERED: FUROSEMIDE 40 MG/4 ML VIAL IV PUSH ONE (17:15)
[2016-10-25 17:29] LABS: BLOOD GAS BASE EXCESS -7.1 mmol/L (-2-2); BLOOD GAS CARBOXYHEMOGLOBIN 1.4 % (0-4); BLOOD GAS HCO3 18 mmol/L (22-26); BLOOD GAS O2 HGB SATURATION 97 % (90-100); BLOOD GAS OXYGEN CONTENT 15.3 Vol % (12.0-20.0); BLOOD GAS PCO2 34 mmHg (38-42); BLOOD GAS PO2 310 mmHg (61-120); BLOOD GAS TOTAL HGB 10.6 G/DL (12.0-16.0); TEMP CORR TO 98.6
[2016-10-25 17:30] LABS: CRITICAL VALUE NO; DRAW SITE RT BRACHIAL; FIO2 100 %; NUMBER OF ARTERIAL PUNCTURES 1; OXYGEN DEVICE BiPAP; STAT YES; VENT SETTINGS IPAP16/EPAP6
--- NOTE | 2016-10-25 17:43 | RADRPT ---
EXAM DATE/TIME: 10/25/2016 17:16 [facility] COMPARISON: CHEST SINGLE AP, October 24, 2016, 10:20. INDICATIONS : Desaturation. MEDICAL HISTORY : Hypertension. Congestive heart failure. SURGICAL HISTORY : Pacemaker. ENCOUNTER: Subsequent ACUITY: 1 day PAIN SCORE: Non-responsive. LOCATION: chest FINDINGS: Single view of the chest demonstrates interval removal of orogastric and nasogastric tubing. There is a stable right-sided central line with the tip projecting over the SVC. The heart size appears miranda l. Cardiac device noted. Stable appearance of right well-defined airspace consolidation and density c onsistent with pleural effusion. Left basilar atelectasis. CONCLUSION: Interval removal of NG and an NG tube. Stable appearance of right-sided air space consolidation or pl eural fluid. Left basilar atelectasis.. Korin Kirkpatrick MD on October 25, 2016 at 17:40 Board Certified Radiologist. This report was verified electronically.
[2016-10-25] MEDS: CHLORHEXIDINE 0.12% (ORAL KIT) 15 ML CUP MT SCH (19:52)
[2016-10-25] MEDS: ATORVASTATIN 40 MG TAB PO SCH (20:14)
[2016-10-26] VITALS (15 sets, daily range): BP systolic 91–108; BP diastolic 58–73; PULSE 77–98; RESP 14–20; TEMP 98.1–99.2; O2SAT 77–99
[2016-10-26] MEDS: PIPERACIL-TAZO 2.25 GM PREMIX 50 ML IV SCH (01:20)
[2016-10-26] MEDS: CHLORHEXIDINE GLUCONATE 2 % 1 PACK (2 CLOTHS) TOP SCH (04:00)
[2016-10-26 04:55] LABS: AUTOMATED NEUTROPHIL # 8.3 TH/MM3 (1.8-7.7); BASOPHIL % 0.4 % (0.0-2.0); EOSINOPHIL # 0.1 TH/MM3 (0-0.4); EOSINOPHIL % 0.6 % (0.0-4.0); HEMATOCRIT 28.3 % (35.0-46.0); HEMO FLAGS DIFF FINAL; LYMPH % 9.3 % (9.0-44.0); MEAN CELL VOLUME 90.1 FL (80.0-100.0); MEAN CORPUSCULAR HEMOGLOBIN 30.9 PG (27.0-34.0); MEAN CORPUSCULAR HGB CONC 34.3 % (32.0-36.0); MONO % 10.5 % (0.0-8.0); NEUT % 79.2 % (16.0-70.0); PLATELET COUNT 155 TH/MM3 (150-450); RED BLOOD COUNT 3.14 MIL/MM3 (4.00-5.30); WHITE BLOOD COUNT 10.5 TH/MM3 (4.0-11.0)
[2016-10-26 05:35] LABS: ANION GAP 10 MEQ/L (5-15); BICARBONATE 24.1 MEQ/L (21.0-32.0); BLOOD UREA NITROGEN 31 MG/DL (7-18); CHLORIDE 107 MEQ/L (98-107); GLOMERULAR FILTRATION RATE 36 ML/MIN (>89); HDL CHOLESTEROL 32.6 MG/DL (40.0-60.0); LDL CHOLESTEROL 69 MG/DL (0-99); MAGNESIUM 2.1 MG/DL (1.5-2.5); POTASSIUM 3.6 MEQ/L (3.5-5.1); SODIUM (NA) 141 MEQ/L (136-145)
[2016-10-26] MEDS ORDERED: ALBUMIN HUMAN 25% 25 GM/100 ML BAGP IV ONE (06:45)
[2016-10-26] MEDS: HEPARIN SODIUM - SQ 10,000 UNITS/ML VIAL SQ SCH ×3 (06:49→21:55)
--- NOTE | 2016-10-26 06:56 | RADRPT ---
EXAM DATE/TIME: 10/26/2016 06:37 [facility] COMPARISON: CHEST SINGLE AP, October 25, 2016, 17:16. INDICATIONS : Shortness of breath. MEDICAL HISTORY : Hypertension. Congestive heart failure. SURGICAL HISTORY : Pacemaker. ENCOUNTER: Subsequent ACUITY: 4 - 6 days PAIN SCORE: Non-responsive. LOCATION: Bilateral chest FINDINGS: Cardiomegaly line again seen. Bilateral effusions and basilar airspace disease unchanged. Degenerativ e changes of the spine. Dual-lead pacer device from a left subclavian transvenous approach again note d. CONCLUSION: No significant change has occurred. Amrik Florence MD on October 26, 2016 at 6:54 Board Certified Radiologist. This report was verified electronically.
--- NOTE | 2016-10-26 07:03 | HHI.CCPN ---
Subjective Remarks/Hospital Course 89-year-old female with a past medical history reportedly of hypertension coronary disease and pacemaker placement who was initially brought to the ER due to chest pain and shortness of breath. Cardiology was consulted and eventually took the patient to left heart catheterization today where she was noted to have a lesion in her mid LAD. She had bare metal stent 2 placed to the mid LAD. She was significantly hypotensive and hypoxic during the event and required emergent intubation by anesthesia. At the end of the left heart catheterization, a intra-arterial balloon pump was placed for assistance in her hypotension and presumed cardiogenic shock and she was taken to the CVICU. Critical-care medicine is consulted to evaluate and manage her cardiogenic shock and acute hypoxic respiratory failure. When I came to evaluate the patient, she was significantly hypoxic with SPO2 in the 70s. In addition she had a on augmented mean arterial pressure of 42 with an augmented mean arterial pressure of 58. She is on one-to-one IABP. I immediately added norepinephrine to the dopamine infusion that was already running. She had significant bleeding from the left groin IABP site. Additional compressive dressings were placed to this and a sandbag. A stat ABG with hemoglobin demonstrated hemoglobin of 10. She has significant acidosis with a base deficit of 10. She was given 3 A of bicarbonate emergently. Her hypotension persists and at that point I was very concerned about complications from her left heart catheterization including retroperitoneal hemorrhage, coronary artery dissection, aortic dissection, cardiogenic shock from SC, in- stent rethrombosis, pericardial tamponade. I ordered a stat echo. At bedside during a stat echo, there was concern for possible clotted blood and hematoma surrounding the right ventricle. I immediately called Dr. Smith to notify him so he could read the echo. In addition, Dr. Howe was at bedside with me and we decided given the patient's instability that a confirmation transesophageal echocardiogram was necessary to rule in or out pericardial tamponade. I performed a transesophageal echocardiogram (please see separate procedure note for details). Dr. Howe interpreted the echocardiogram. There was not evidence of tamponade or pericardial effusion on the transesophageal echocardiogram. There is ongoing evidence of significant myocardial dysfunction , including anterior lateral and apical akinesis/dyskinesis. I again talk to the telecommunications network engineer and he is driving in from home to evaluate the patient. We are discussing possible mechanical support with Impella. However, given the patient's age and other comorbidities, I'm not sure that additional invasive procedures are a good idea. We continue to trend her lactic acid as well as her urine output, and her urine output continues to be greater than 30 cc an hour and her lactate is less than 2. 10/23: clinically improving overnight. lactate clearing. BP stabilizing. awakens and follows commands. still on high vasopressor support. hypoxia improving. 10/24: clinically improving, although remains on high norepinephrine requirements. lactate still clearing. uop marginal, but Cr improving today. 10/25: Afebrile. Approximately 1100 cc urine overnight. Off all vasopressors overnight. Hemoglobin currently around 8. Denies chest pain, shortness of breath. No hematoma in inguinal region. Subjective: 10/26: Incident yesterday at 5 PM when lying flat with patient became acutely short of breath requiring BiPAP. Attempted to remove BiPAP at 2 AM this morning however when lies flat patient becomes more short of breath. Appears very comfortable on BiPAP currently. Stable appearance of right-sided infiltrate/small pleural effusion. Increasing diuretics this a.m. Potassium has been replaced. No bowel movement since admission. Objective Vital Signs Date Time Temp Pulse Resp B/P Pulse Ox O2 Delivery O2 Flow Rate FiO2 10/26/16 03:00 94 10/26/16 03:00 98.7 14 108/73 99 10/26/16 03:00 Bi-Pap 50 10/25/16 15:27 3.00 Intake and Output 10/25/16 10/25/16 10/26/16 08:00 16:00 00:00 Intake Total 290 ml 1370 ml Output Total 1350 ml 770 ml Balance -1060 ml 600 ml Result Diagram: 10/26/16 0435 10/26/16 0435 Other Results Microbiology Date/Time Procedure Status Source Growth 10/23/16 21:48 Aerobic Blood Culture - Preliminary Resulted Blood Peripheral NO GROWTH IN 2 DAYS 10/23/16 21:48 Anaerobic Blood Culture - Final Resulted Blood Peripheral QNS - SEE AEROBE REPORT 10/23/16 15:00 Urine Culture - Final Complete Urine Catheterized Urine NO GROWTH IN 48 HOURS. 10/23/16 14:10 Gram Stain - Final Complete Sputum Endotracheal 10/23/16 14:10 Sputum Culture - Final Complete Sputum Endotracheal MODERATE GROWTH NORMAL RESPIRATORY [facility] Imaging Last Impressions Chest X-Ray 10/25/16 0000 Signed Impressions: Service Date/Time: September 17:16 - CONCLUSION: Interval removal of NG and an NG tube. Stable appearance of right-sided air space consolidation or pleural fluid. Left basilar atelectasis.. Korin Kirkpatrick MD Objective Remarks GENERAL: 89-year-old female, appears stated age, lying in bed currently on BiPAP currently no acute distress HEENT: Pupils equal, round about 3 mm's bilaterally and reactive. Positive arcus senilis.. Mucous membranes are moist and pink. Oropharyngeal without erythema. NECK: Trachea is midline. Right IJ is clean dry and intact. CHEST: Few crackles appreciated bases right greater than left. Essentially clear anteriorly. No wheezing CARDIOVASCULAR: RRR. S1, S2. No S4. No murmur ABDOMEN: Soft, nontender, nondistended. Positive bowel sounds are appreciated. MUSCULOSKELETAL: 1+ upper and lower extremity edema noted. NEUROLOGICAL: Cranial nerves II through XII grossly intact. Strength is equal and symmetric bilaterally. Normal sensation. Procedures None. Urinary Catheter: Yes Assessment to: Continue Garnica insert reason: ICU Pt Getting Diuretics Vascular Central Line Catheter: Yes Assessment to: Continue Date of Insertion: Oct 24, 2016 Line: Central Venous Catheter Side: Right Location: Internal, Jugular A/P Assessment and Plan Neuro/Psych: History dementia? Acetaminophen for fever. --Morphine as needed for pain management Respiratory: Acute hypoxic respiratory failure - Chest x-ray 10/26 reveals stable appearance of right-sided infiltrate/small pleural effusion. -- Will increase diuretic dose 40 mg IV every 6 hours Lasix. Patient still approximately 8 L positive since admission. - BiPAP / at 40%. - Attempt to wean off BiPAP by this afternoon with increasing Lasix dosage. As needed duo nebs Cardiovascular: Cardiogenic shock - resolving NSTEMI s/p PCI with BMS x 2 to mid-LAD Severe left ventricular systolic dysfunction Elevated triglycerides Low HDL -- Status post cardiac catheterization which revealed 100% stenosis LAD with PCI 2 -- DEMETRIO 10/22 revealed EF 25-30%. Hypokinesis of the anterior and anterior lateral myocardium. -- Currently on aspirin 81 mg daily and Plavix 75 mg daily. Continue -- On Lipitor 40 mg per daily for dyslipidemia. Elevated triglyceride/low HDL lipid panel -- Currently off all vasopressor support. IABP removed 10/24 Renal: Acute kidney injury- resolving. Continue Garnica with hourly urine outputs -- Strict I/Os -- Diuresed with 40 mg of Lasix yesterday total. -500 cc L past 24 hours. Increase Lasix to 40 mg IV every 6 hours. Monitor. Might require Lasix drip at some point today FEN/GI: Acute protein calorie malnutritionmoderate. Hypopotassemia Heart healthy diet ICU electrolyte protocol Daily BMP -- We'll give 30 mEq KCl 1. Recheck in a.m. Heme/ID: Anemia secondary to acute blood loss Leukocytosis and fever Status post 3 units PRBCs since admission Daily CBC -- WBC platelets have normalized Pertinent cultures / - sputum - no growth / - urine - no growth /24 - blood cultures 2 - no growth Currently in Zosyn/vancomycin day #4?. Discontinued 10/26. Endocrine: Hyperglycemia of critical illness -- SSI if needed to maintain euglycemia Prophylaxis: GI Prophylaxis Pepcid 20 mg by mouth daily DVT Prophylaxis -- SCDs Heparin subcutaneous Lines: Right IJ CVL day #3 Critical Care: The total critical care time was 35 minutes. Time to perform other separately billable procedures was not included in the critical care time. Av Sweet MD Oct 26, 2016 07:03
[2016-10-26] MEDS: RESP: ALBUTEROL 2.5 MG/IPRATROPIUM 0.5 MG NEB (PRN) INH ×2 (07:56→10:52)
[2016-10-26] MEDS: CHLORHEXIDINE 0.12% (ORAL KIT) 15 ML CUP MT SCH ×2 (08:00→20:00)
[2016-10-26] MEDS ORDERED: POTASSIUM CHLORIDE INJ 30 MEQ in SODIUM CHLORIDE 0.9% INJ 100 ML IV-CENTRAL ONE (08:00)
[2016-10-26] MEDS: POLYETHYLENE GLYCOL 17 GM PKG PO SCH (08:18)
[2016-10-26] MEDS: SODIUM CHLORIDE 0.9% FLUSH 5 ML FLUSH FLUSH SCH ×2 (08:18→21:54)
[2016-10-26] MEDS: FUROSEMIDE 40 MG/4 ML VIAL IV PUSH SCH ×2 (08:34→14:06)
[2016-10-26] MEDS ORDERED: GLYCERIN ADULT 2 GM SUPP RECTAL PRN (09:00)
[2016-10-26 09:19] LABS: BLOOD GAS BASE EXCESS -2.8 mmol/L (-2-2); BLOOD GAS CARBOXYHEMOGLOBIN 1.4 % (0-4); BLOOD GAS HCO3 22 mmol/L (22-26); BLOOD GAS METHEMOGLOBIN 1.1 % (0-2); BLOOD GAS O2 HGB SATURATION 97 % (90-100); BLOOD GAS OXYGEN CONTENT 14.1 Vol % (12.0-20.0); BLOOD GAS PCO2 37 mmHg (38-42); BLOOD GAS PO2 163 mmHg (61-120); BLOOD GAS TOTAL HGB 10.1 G/DL (12.0-16.0); CRITICAL VALUE NO; FIO2 40 %; OXYGEN DEVICE BiPAP; TEMP CORR TO 98.6; VENT SETTINGS IPAP16/EPAP6
[2016-10-26 09:20] LABS: DRAW SITE RT RADIAL; NUMBER OF ARTERIAL PUNCTURES 2; STAT NO; ULNAR PULSE PRESENT
[2016-10-26] MEDS: FAMOTIDINE 20 MG TAB PO SCH (09:47)
[2016-10-26] MEDS: SENNOSIDES 8.6 MG TAB PO SCH ×2 (09:47→21:55)
[2016-10-26] MEDS: DOCUSATE SODIUM 100 MG CAP PO SCH ×2 (09:47→21:54)
[2016-10-26] MEDS: ASPIRIN EC 81 MG TABEC PO SCH (09:47)
[2016-10-26] MEDS: CLOPIDOGREL 75 MG TAB PO SCH (09:49)
[2016-10-26 13:43] LABS: HEMOGLOBIN A1b 1.7 %; HEMOGLOBIN Ao 85.1 %
[2016-10-26] MEDS ORDERED: PHARMACY ORDERED LAB XX ONE (15:45)
[2016-10-26 16:40] LABS: BICARBONATE 24.4 MEQ/L (21.0-32.0); POTASSIUM 3.3 MEQ/L (3.5-5.1)
[2016-10-26] MEDS ORDERED: POTASSIUM CHLOR 20 MEQ PREMIX 100 ML IV PRN (17:45)
[2016-10-26] MEDS ORDERED: POTASSIUM CL 40 MEQ/30 ML LIQ UDC PO/TUBE PRN ×2 (17:45)
[2016-10-26] MEDS ORDERED: MAGNESIUM OXIDE 400 MG TAB PO PRN (17:45)
[2016-10-26] MEDS ORDERED: POTASSIUM PHOSPHATE INJ 30 MMOL in SODIUM CHLOR 0.9% 250 ML INJ 250 ML IV PRN (17:45)
[2016-10-26] MEDS ORDERED: MAGNESIUM SULFATE INJ 4 GM in SODIUM CHLORIDE 0.9% INJ 92 ML IV PRN (17:45)
[2016-10-26] MEDS ORDERED: POTASSIUM CHLOR 40 MEQ PREMIX 100 ML IV PRN (17:45)
[2016-10-26] MEDS ORDERED: POTASSIUM PHOSPHATE MONOBASIC 500 MG TAB PO/TUBE PRN (17:45)
[2016-10-26] MEDS ORDERED: POTASSIUM PHOSPHATE MONOBASIC 500 MG TAB PO PRN (17:45)
[2016-10-26] MEDS ORDERED: MAGNESIUM SULFATE INJ 2 GM in SODIUM CHLORIDE 0.9% INJ 96 ML IV PRN (17:45)
[2016-10-26] MEDS ORDERED: POTASSIUM CHLOR 40 MEQ PREMIX 100 ML IV ONE (17:45)
[2016-10-26] MEDS ORDERED: SODIUM PHOSPHATE INJ 30 MMOL in SODIUM CHLOR 0.9% 250 ML INJ 240 ML IV PRN (17:45)
[2016-10-26] MEDS: BUMETANIDE INJ 100 ML IV SCH (18:22)
[2016-10-26 18:26] LABS: BLOOD GAS BASE EXCESS -2.9 mmol/L (-2-2); BLOOD GAS CARBOXYHEMOGLOBIN 1.4 % (0-4); BLOOD GAS HCO3 21 mmol/L (22-26); BLOOD GAS METHEMOGLOBIN 1.2 % (0-2); BLOOD GAS O2 HGB SATURATION 95 % (90-100); BLOOD GAS OXYGEN CONTENT 14.7 Vol % (12.0-20.0); BLOOD GAS PCO2 36 mmHg (38-42); BLOOD GAS PO2 105 mmHg (61-120); BLOOD GAS TOTAL HGB 10.9 G/DL (12.0-16.0); CRITICAL VALUE NO; OXYGEN DEVICE BIPAP; TEMP CORR TO 98.6
[2016-10-26 18:27] LABS: DRAW SITE LT RADIAL; FIO2 40 %; NUMBER OF ARTERIAL PUNCTURES 1; STAT NO; ULNAR PULSE PRESENT; VENT SETTINGS 16/6
--- NOTE | 2016-10-26 18:48 | RADRPT ---
EXAM DATE/TIME: 10/26/2016 18:12 [facility] COMPARISON: CHEST SINGLE AP, October 26, 2016, 6:37. INDICATIONS : Congestion. MEDICAL HISTORY : Hypertension. Congestive heart failure. SURGICAL HISTORY : Pacemaker. ENCOUNTER: Subsequent ACUITY: 4 - 6 days PAIN SCORE: 0/10 LOCATION: Bilateral chest FINDINGS: Right IJ line is present with tip overlapping the expected region of the SVC. Left subclavian pacer w ires are present with tips in the right atrium and right ventricle. Bilateral pleural effusions have not changed. Left lung base consolidation may also be present. Mild case of perivascular pulmonary ed polina is also suspected. CONCLUSION: No appreciable change. Raleigh Villanueva MD on October 26, 2016 at 18:45 Board Certified Radiologist. This report was verified electronically.
[2016-10-26] MEDS ORDERED: FUROSEMIDE 40 MG/4 ML VIAL IV PUSH SCH (20:00)
[2016-10-26] MEDS: ATORVASTATIN 40 MG TAB PO SCH (21:54)
[2016-10-27] VITALS (13 sets, daily range): BP systolic 97–110; BP diastolic 64–75; PULSE 96–115; RESP 18–26; TEMP 98.2–98.8; O2SAT 89–98
[2016-10-27] MEDS: LORazepam 2 MG/ML VIAL IV PRN ×3 (00:28→18:00)
[2016-10-27] MEDS: CHLORHEXIDINE GLUCONATE 2 % 1 PACK (2 CLOTHS) TOP SCH (04:00)
--- NOTE | 2016-10-27 04:25 | RADRPT ---
EXAM DATE/TIME: 10/27/2016 03:28 [facility] COMPARISON: CHEST SINGLE AP, October 26, 2016, 18:12. INDICATIONS : Shortness of breath, possible pulmonary disease. MEDICAL HISTORY : Hypertension. Congestive heart failure. SURGICAL HISTORY : Pacemaker. ENCOUNTER: Subsequent ACUITY: 4 - 6 days PAIN SCORE: 0/10 LOCATION: Bilateral chest FINDINGS: There are bilateral pleural effusions and lower lobe consolidation. Right jugular line tip overlies t he SVC. Degenerative changes of the spine are noted. Cardiac pacer device again seen. CONCLUSION: No significant change has occurred. Amrik Florence MD on October 27, 2016 at 4:23 Board Certified Radiologist. This report was verified electronically.
[2016-10-27 05:41] LABS: ALT (GPT) 29 U/L (10-53); ANION GAP 7 MEQ/L (5-15); AST (GOT) 62 U/L (15-37); BICARBONATE 29.7 MEQ/L (21.0-32.0); BLOOD UREA NITROGEN 30 MG/DL (7-18); CHLORIDE 107 MEQ/L (98-107); GLOMERULAR FILTRATION RATE 43 ML/MIN (>89); MAGNESIUM 2.1 MG/DL (1.5-2.5); POTASSIUM 3.2 MEQ/L (3.5-5.1); SODIUM (NA) 144 MEQ/L (136-145)
[2016-10-27 05:47] LABS: CREATINE KINASE 270 U/L (26-192)
[2016-10-27 05:49] LABS: ALKALINE PHOSPHATASE 69 U/L (45-117); TOTAL BILIRUBIN ADULT 0.9 MG/DL (0.2-1.0)
[2016-10-27 05:50] LABS: AUTOMATED NEUTROPHIL # 6.6 TH/MM3 (1.8-7.7); BASOPHIL % 0.5 % (0.0-2.0); EOSINOPHIL # 0.2 TH/MM3 (0-0.4); EOSINOPHIL % 1.8 % (0.0-4.0); HEMATOCRIT 27.4 % (35.0-46.0); HEMO FLAGS DIFF FINAL; LYMPH % 13.5 % (9.0-44.0); LYMPHOCYTE # 1.2 TH/MM3 (1.0-4.8); MEAN CELL VOLUME 91.2 FL (80.0-100.0); MEAN CORPUSCULAR HEMOGLOBIN 31.4 PG (27.0-34.0); MEAN CORPUSCULAR HGB CONC 34.4 % (32.0-36.0); MONO % 12.2 % (0.0-8.0); PLATELET COUNT 183 TH/MM3 (150-450); RED CELL DISTRIBUTION WIDTH 13.6 % (11.6-17.2); WHITE BLOOD COUNT 9.1 TH/MM3 (4.0-11.0)
[2016-10-27 06:08] LABS: CKMB 5.7 NG/ML (0.5-3.6)
[2016-10-27] MEDS: POTASSIUM CHLOR 40 MEQ PREMIX 100 ML IV PRN ×2 (06:23→08:58)
[2016-10-27] MEDS: HEPARIN SODIUM - SQ 10,000 UNITS/ML VIAL SQ SCH ×3 (06:23→22:00)
--- NOTE | 2016-10-27 07:49 | HHI.CCPN ---
Subjective Remarks/Hospital Course 89-year-old female with a past medical history reportedly of hypertension coronary disease and pacemaker placement who was initially brought to the ER due to chest pain and shortness of breath. Cardiology was consulted and eventually took the patient to left heart catheterization today where she was noted to have a lesion in her mid LAD. She had bare metal stent 2 placed to the mid LAD. She was significantly hypotensive and hypoxic during the event and required emergent intubation by anesthesia. At the end of the left heart catheterization, a intra-arterial balloon pump was placed for assistance in her hypotension and presumed cardiogenic shock and she was taken to the CVICU. Critical-care medicine is consulted to evaluate and manage her cardiogenic shock and acute hypoxic respiratory failure. When I came to evaluate the patient, she was significantly hypoxic with SPO2 in the 70s. In addition she had a on augmented mean arterial pressure of 42 with an augmented mean arterial pressure of 58. She is on one-to-one IABP. I immediately added norepinephrine to the dopamine infusion that was already running. She had significant bleeding from the left groin IABP site. Additional compressive dressings were placed to this and a sandbag. A stat ABG with hemoglobin demonstrated hemoglobin of 10. She has significant acidosis with a base deficit of 10. She was given 3 A of bicarbonate emergently. Her hypotension persists and at that point I was very concerned about complications from her left heart catheterization including retroperitoneal hemorrhage, coronary artery dissection, aortic dissection, cardiogenic shock from MO, in- stent rethrombosis, pericardial tamponade. I ordered a stat echo. At bedside during a stat echo, there was concern for possible clotted blood and hematoma surrounding the right ventricle. I immediately called Dr. Smith to notify him so he could read the echo. In addition, Dr. Howe was at bedside with me and we decided given the patient's instability that a confirmation transesophageal echocardiogram was necessary to rule in or out pericardial tamponade. I performed a transesophageal echocardiogram (please see separate procedure note for details). Dr. Howe interpreted the echocardiogram. There was not evidence of tamponade or pericardial effusion on the transesophageal echocardiogram. There is ongoing evidence of significant myocardial dysfunction , including anterior lateral and apical akinesis/dyskinesis. I again talk to the hall supervisor and he is driving in from home to evaluate the patient. We are discussing possible mechanical support with Impella. However, given the patient's age and other comorbidities, I'm not sure that additional invasive procedures are a good idea. We continue to trend her lactic acid as well as her urine output, and her urine output continues to be greater than 30 cc an hour and her lactate is less than 2. 10/23: clinically improving overnight. lactate clearing. BP stabilizing. awakens and follows commands. still on high vasopressor support. hypoxia improving. 10/24: clinically improving, although remains on high norepinephrine requirements. lactate still clearing. uop marginal, but Cr improving today. 10/25: Afebrile. Approximately 1100 cc urine overnight. Off all vasopressors overnight. Hemoglobin currently around 8. Denies chest pain, shortness of breath. No hematoma in inguinal region. Subjective: 10/26: Incident yesterday at 5 PM when lying flat with patient became acutely short of breath requiring BiPAP. Attempted to remove BiPAP at 2 AM this morning however when lies flat patient becomes more short of breath. Appears very comfortable on BiPAP currently. Stable appearance of right-sided infiltrate/small pleural effusion. Increasing diuretics this a.m. Potassium has been replaced. No bowel movement since admission. 10/27: Currently remains on BiPAP, according to the bedside RN did not tolerate even few minutes off BiPAP. On Bumex infusion 0.5 mg per hour with excellent urine output 4.3 L in 24 hours. Chest x-ray remains unchanged Objective Vital Signs Date Time Temp Pulse Resp B/P Pulse Ox O2 Delivery O2 Flow Rate FiO2 10/27/16 07:23 98 40 10/27/16 07:23 BiPAP 10/27/16 04:00 98.2 96 18 106/75 10/26/16 22:00 30.00 Intake and Output 10/26/16 10/26/16 10/27/16 08:00 16:00 00:00 Intake Total 50 ml 600 ml Output Total 1000 ml 1475 ml Balance -950 ml -875 ml Result Diagram: 10/27/16 0445 10/27/16 0445 Other Results Laboratory Tests Test 10/26/16 10/26/16 09:06 17:58 Blood Gas Puncture Site RT RADIAL LT RADIAL Blood Gas Patient Temperature 98.6 98.6 Blood Gas HCO3 22 mmol/L 21 mmol/L (22-26) (22-26) Blood Gas Base Excess -2.8 mmol/L -2.9 mmol/L (-2-2) (-2-2) Blood Gas Oxygen Saturation 97 % (90-100) 95 % (90-100) Arterial Blood pH 7.38 7.39 (7.380-7.420) (7.380-7.420) Arterial Blood Partial 37 mmHg (38-42) 36 mmHg (38-42) Pressure CO2 Arterial Blood Partial 163 mmHg 105 mmHg Pressure O2 (61-120) (61-120) Arterial Blood Oxygen Content 14.1 Vol % 14.7 Vol % (12.0-20.0) (12.0-20.0) Arterial Blood 1.4 % (0-4) 1.4 % (0-4) Carboxyhemoglobin Arterial Blood Methemoglobin 1.1 % (0-2) 1.2 % (0-2) Blood Gas Hemoglobin 10.1 G/DL 10.9 G/DL (12.0-16.0) (12.0-16.0) Oxygen Delivery Device BiPAP BIPAP Blood Gas Ventilator Setting [id number] 16/6 Blood Gas Inspired Oxygen 40 % 40 % Imaging Last Impressions Chest X-Ray 10/25/16 0000 Signed Impressions: Service Date/Time: September 17:16 - CONCLUSION: Interval removal of NG and an NG tube. Stable appearance of right-sided air space consolidation or pleural fluid. Left basilar atelectasis.. Korin Kirkpatrick MD Objective Remarks GENERAL: 89-year-old female, appears stated age, lying in bed currently on BiPAP -does not tolerate weaning BiPAP HEENT: Pupils equal, round about 3 mm's bilaterally and reactive. Positive arcus senilis.. Mucous membranes are moist and pink-BiPAP mask limits exam NECK: Trachea is midline. Right IJ is clean dry and intact. CHEST: Few crackles appreciated bases right greater than left. Essentially clear anteriorly. No wheezing CARDIOVASCULAR: RRR. S1, S2. No S4. No murmur ABDOMEN: Soft, nontender, nondistended. Positive bowel sounds are appreciated. MUSCULOSKELETAL: 1+ upper and lower extremity edema noted. NEUROLOGICAL: Cranial nerves grossly intact. Strength is equal and symmetric bilaterally. Normal sensation. Procedures None. Date of Insertion: Oct 24, 2016 Line: Central Venous Catheter Side: Right Location: Internal, Jugular A/P Assessment and Plan Neuro/Psych: History dementia? Acetaminophen for fever. --Morphine as needed for pain management Respiratory: Acute hypoxic respiratory failure - Chest x-ray 10/26 reveals stable appearance of right-sided infiltrate/small pleural effusion. -- Continue Bumex at 0.5 mg per, target negative balance - BiPAP 15/03 at 40%. - Attempt to wean off BiPAP today As needed duo nebs Cardiovascular: Cardiogenic shock -resolved NSTEMI s/p PCI with BMS x 2 to mid-LAD Severe left ventricular systolic dysfunction Elevated triglycerides Low HDL -- Status post cardiac catheterization which revealed 100% stenosis LAD with PCI 2 -- DEMETRIO 10/22 revealed EF 25-30%. Hypokinesis of the anterior and anterior lateral myocardium. -- Currently on aspirin 81 mg daily and Plavix 75 mg daily. Continue -- On Lipitor 40 mg per daily for dyslipidemia. Elevated triglyceride/low HDL lipid panel -- Currently off all vasopressor support. IABP removed 10/24 -- Start Coreg and LAURA-I if ok with cardiology 10/27/16 Renal: Acute kidney injury- resolving. Continue Garnica with hourly urine outputs -- Strict I/Os -- Bumex 0.5 mg per hour started 10/26/15 FEN/GI: Acute protein calorie malnutritionmoderate. Hypopotassemia Heart healthy diet ICU electrolyte protocol Daily BMP Heme/ID: Anemia secondary to acute blood loss Leukocytosis and fever Status post 3 units PRBCs since admission Daily CBC --WBC platelets have normalized Pertinent cultures 10/23 - sputum - no growth 10/23 - urine - no growth 10/23 - blood cultures 2 - no growth Zosyn/vancomycin Discontinued 10/26. Endocrine: Hyperglycemia of critical illness -- SSI if needed to maintain euglycemia Prophylaxis: GI Prophylaxis Pepcid 20 mg by mouth daily DVT Prophylaxis -- SCDs Heparin subcutaneous Lines: Right IJ CVL day #4 Critical Care: The total critical care time was 35 minutes. Time to perform other separately billable procedures was not included in the critical care time. Agnieszka Howe MD Oct 27, 2016 07:49
[2016-10-27] MEDS: CHLORHEXIDINE 0.12% (ORAL KIT) 15 ML CUP MT SCH ×2 (08:00→20:00)
[2016-10-27] MEDS: POLYETHYLENE GLYCOL 17 GM PKG PO SCH (08:57)
[2016-10-27] MEDS: DOCUSATE SODIUM 100 MG CAP PO SCH ×2 (08:58→21:00)
[2016-10-27] MEDS: FAMOTIDINE 20 MG TAB PO SCH (08:58)
[2016-10-27] MEDS: SENNOSIDES 8.6 MG TAB PO SCH ×2 (08:58→21:00)
[2016-10-27] MEDS: CLOPIDOGREL 75 MG TAB PO SCH (08:58)
[2016-10-27] MEDS: ASPIRIN EC 81 MG TABEC PO SCH (08:58)
[2016-10-27] MEDS: SODIUM CHLORIDE 0.9% FLUSH 5 ML FLUSH FLUSH SCH ×2 (08:59→21:00)
[2016-10-27] MEDS: RESP: ALBUTEROL 2.5 MG/IPRATROPIUM 0.5 MG NEB (PRN) INH ×2 (09:29→15:05)
--- NOTE | 2016-10-27 17:18 | MP ---
cc: KELSIE CALABRESE DATE OF SURGERY 10/22/16 PROCEDURE PERFORMED 1. Left heart catheterization. 2. Coronary arteriography. 3. Left ventriculography. 4. Percutaneous transluminal coronary angioplasty with drug eluting stent implant mid left anterior descending artery. 5. Intra-aortic balloon pump placement. 6. Resuscitation from respiratory failure and persistent hypotension with intravenous pressors. PROCEDURE TECHNIQUE The patient was brought to the cardiac catheterization laboratory and the area of the right radial artery and right groin were prepped and draped in usual sterile manner. It was decided not to use the right radial artery because of poor collateral perfusion of the hand from the ulnar artery. The right femoral artery was entered with an 18-gauge Cook needle for placement of a floppy guidewire without difficulty. A short 6-Vincentian introducer sheath was placed via the modified Seldinger technique. Through this introducer sheath, a 6-Vincentian diagnostic catheter system including a JL-4, 3DRC, and straight pigtail were used for a left heart study. Multiple projections of the left and right coronaries were taken and left ventriculogram was done in the GAYTAN 30 degree projection only. The patient presented with mild hypotension with blood pressure in the low 90s and her blood pressure progressively decreased during the procedure. After the diagnostic procedure was completed, the patient was started on intravenous dopamine for blood pressure support. This was still inadequate and she required an intravenous bolus of phenylephrine. Because her oxygen saturations began falling and she was felt to be going into acute pulmonary edema and cardiogenic shock, it was decided to support her with intravenous inotropes and attempt recanalization of the totally occluded left anterior descending artery. The diagnostic catheters were removed and replaced by a 6-Vincentian XB 3.5 guiding catheter. This was passed to the left coronary artery and guiding shots taken. The patient was given multiple doses of intravenous heparin to maintain an ACT of 250-300 seconds. Through the guidewire, a BMW 0.014 floppy wire was passed into the LAD and was unable to cross the total occlusion in the mid segment. A Euphora 2.0 x 10-mm balloon was used for backup support with success and the guidewire was then placed distally in the LAD at the apex without difficulty. Euphora was utilized and inflated multiple times across the total occluded area in the mid LAD with moderate improvement. It appeared the stenosis was at least 20 mm. When an adequate lumen was obtained, the balloon catheter was removed and an integrity Resolute 2.5 x 26 mm stent was deployed across the stenosis at a maximum pressure of 12 atmospheres for 45 seconds. The balloon catheter was deflated and removed. An excellent result was seen with a negative 10% residual lumen result and distal flow RANDELL grade 3 at completion of the procedure after intracoronary nitroglycerin 100 mcg was given. The guidewire was removed and final pictures were taken. The patient was unstable hemodynamically throughout the procedure and, prior to the intervention, required placement of an intra-aortic balloon pump. This was placed via the left femoral approach and was done sheeplessly. The patient had an excellent Hemodynamic result after intra-aortic balloon pumping and was initially on 20 micrograms per kilogram per minute of dopamine, which subsequently was able to be reduced to 10 mcg infusion at completion of the procedure for transferring her to the Intensive Care Unit. Balloon pump was placed one-to-one. An NG tube was placed and the patient was given 600 mg of Plavix and she was placed, in the interim, on Aggrastat infusion. ANGIOGRAPHIC FINDINGS LEFT VENTRICLE Left ventricle demonstrates increased end-systolic and diastolic dimensions. There is severe hypokinesis of the entire anterior wall with akinesis of the apex and distal inferior wall. Overall left ventricular systolic function is severely impaired. Estimated left ventricular ejection fraction is 25%. No mitral regurgitation is seen. The aortic valve is trileaflet and opens normally. The aortic root is normal. LEFT CORONARY ARTERY LEFT MAIN TRUNK Left main trunk arises normally from the left coronary sinus. This is a normal vessel. LEFT ANTERIOR DESCENDING ARTERY The LAD is a small to medium-sized vessel and gives rise to one major septal and one diagonal branch. The LAD has tubular narrowing of up to 15-20% throughout the proximal segment followed by 100% occlusion in the mid segment just beyond the major septal perforating branch. No distal flow is seen either antegrade or via any collaterals. CIRCUMFLEX Nondominant. The main circumflex gives rise to a posterolateral branch and a posterior ventricular branch. The main circumflex has mild irregularities and the branches are moderate to large in caliber and otherwise normal. RIGHT CORONARY ARTERY Dominant. Right coronary artery gives rise to right ventricular marginal branch, posterior descending branch and a posterior ventricular branch. There are mild to moderate luminal irregularities with up to 10-15% stenosis. No significant obstructive disease is seen in the right coronary artery or its branches. ANGIOGRAPHIC RESULTS In the mid-LAD a vessel of approximately 2.5 mm in caliber. There is a type C lesion obstructing the lumen by 100% of its diameter. Following recanalization, balloon inflations and subsequent stent implant, there is less than 0% residual lumen diameter stenosis. No intimal disruption is seen and distal flow is RANDELL grade 3 at completion of the procedure. HEMODYNAMIC RESULTS Left ventricular end-diastolic pressure was near 30 during the procedure and the patient was given intravenous furosemide 40 mg. There was no gradient recorded across the aortic valve. For complete hemodynamic details, please see accompanying paperwork. DIAGNOSIS 1. Severe single-vessel coronary atherosclerosis. 2. Cardiogenic shock with acute pulmonary edema. 3. Severe left ventricular dysfunction. 4. Subacute anterior wall myocardial infarction. 5. Successful PCI/drug eluting stent implant mid LAD. 6. Successful placement of intra-aortic balloon pump counterpulsation. COMMENT/RECOMMENDATIONS Angiographically, this patient had an excellent result today. She will require maximal hemodynamic and supportive measures and pulmonary supportive measures for the next 24-48 hours and hopefully her condition will improve. Her prognosis is guarded at this time. The patient's family members are not currently available and on the way here from out of town and should arrive later tonight or in the morning, but I spoke with her neighbor, Farida, who is here with her and was with her last night and she will attempt to contact the family during their travels here. MD HIEU Castro/ /5:02 PM /4:55 PM
[2016-10-27] MEDS: ATORVASTATIN 40 MG TAB PO SCH (21:00)
[2016-10-27] MEDS: CARVEDILOL 3.125 MG TAB PO SCH (21:00)
[2016-10-28] VITALS (11 sets, daily range): BP systolic 94–115; BP diastolic 57–74; PULSE 77–103; RESP 18–26; TEMP 97.6–98; O2SAT 92–100
[2016-10-28] MEDS: DEXMEDETOMIDINE INJ 50 ML IV SCH ×2 (00:38→02:47)
[2016-10-28] MEDS: CHLORHEXIDINE GLUCONATE 2 % 1 PACK (2 CLOTHS) TOP SCH (04:00)
--- NOTE | 2016-10-28 04:34 | RADRPT ---
EXAM DATE/TIME: 10/28/2016 03:41 [facility] COMPARISON: CHEST SINGLE AP, October 27, 2016, 3:28. INDICATIONS : Shortness of breath, possible pulmonary disease. MEDICAL HISTORY : Hypertension. Congestive heart failure. SURGICAL HISTORY : Pacemaker. ENCOUNTER: Subsequent ACUITY: 1 week PAIN SCORE: 0/10 LOCATION: Bilateral chest FINDINGS: There is been no significant interval change in appearance of the chest with bilateral consolidation and effusions. Degenerative changes of the spine are noted. Right jugular line present. Pacer device from a left subclavian transvenous approach identified. CONCLUSION: No significant change has occurred. Amrik Florence MD on October 28, 2016 at 4:32 Board Certified Radiologist. This report was verified electronically.
[2016-10-28 05:38] LABS: BASOPHIL # 0.1 TH/MM3 (0-0.2); BASOPHIL % 0.9 % (0.0-2.0); EOSINOPHIL # 0.2 TH/MM3 (0-0.4); EOSINOPHIL % 2.1 % (0.0-4.0); HEMATOCRIT 27.9 % (35.0-46.0); HEMO FLAGS DIFF FINAL; LYMPH % 12.5 % (9.0-44.0); LYMPHOCYTE # 1.2 TH/MM3 (1.0-4.8); MEAN CELL VOLUME 91.5 FL (80.0-100.0); MEAN CORPUSCULAR HEMOGLOBIN 31.4 PG (27.0-34.0); MEAN CORPUSCULAR HGB CONC 34.3 % (32.0-36.0); MONO % 10.9 % (0.0-8.0); NEUT % 73.6 % (16.0-70.0); PLATELET COUNT 221 TH/MM3 (150-450); RED BLOOD COUNT 3.05 MIL/MM3 (4.00-5.30); RED CELL DISTRIBUTION WIDTH 13.7 % (11.6-17.2); WHITE BLOOD COUNT 9.5 TH/MM3 (4.0-11.0)
[2016-10-28 05:39] LABS: ALKALINE PHOSPHATASE 70 U/L (45-117); ALT (GPT) 27 U/L (10-53); ANION GAP 7 MEQ/L (5-15); AST (GOT) 46 U/L (15-37); BICARBONATE 33.3 MEQ/L (21.0-32.0); BLOOD UREA NITROGEN 29 MG/DL (7-18); CHLORIDE 104 MEQ/L (98-107); GLOMERULAR FILTRATION RATE 39 ML/MIN (>89); MAGNESIUM 2.1 MG/DL (1.5-2.5); POTASSIUM 3.5 MEQ/L (3.5-5.1); SODIUM (NA) 144 MEQ/L (136-145); TOTAL BILIRUBIN ADULT 0.8 MG/DL (0.2-1.0)
[2016-10-28] MEDS: HEPARIN SODIUM - SQ 10,000 UNITS/ML VIAL SQ SCH ×3 (06:00→20:45)
[2016-10-28] MEDS: POTASSIUM CHLOR 20 MEQ PREMIX 100 ML IV PRN ×3 (06:09→18:59)
[2016-10-28] MEDS: CHLORHEXIDINE 0.12% (ORAL KIT) 15 ML CUP MT SCH ×2 (08:00→20:00)
[2016-10-28] MEDS ORDERED: HALOPERIDOL LACTATE 5 MG/ML AMP IV PRN (09:00)
[2016-10-28] MEDS: BUMETANIDE INJ 100 ML IV SCH (09:37)
[2016-10-28] MEDS: DOCUSATE SODIUM 100 MG CAP PO SCH ×2 (09:37→20:44)
[2016-10-28] MEDS: CLOPIDOGREL 75 MG TAB PO SCH (09:37)
[2016-10-28] MEDS: ASPIRIN EC 81 MG TABEC PO SCH (09:37)
[2016-10-28] MEDS: POLYETHYLENE GLYCOL 17 GM PKG PO SCH (09:37)
[2016-10-28] MEDS: FAMOTIDINE 20 MG TAB PO SCH (09:38)
[2016-10-28] MEDS: SENNOSIDES 8.6 MG TAB PO SCH ×2 (09:38→20:44)
[2016-10-28] MEDS: SODIUM CHLORIDE 0.9% FLUSH 5 ML FLUSH FLUSH SCH ×2 (09:39→20:44)
--- NOTE | 2016-10-28 10:19 | HHI.CCPN ---
Subjective Remarks/Hospital Course 89-year-old female with a past medical history reportedly of hypertension coronary disease and pacemaker placement who was initially brought to the ER due to chest pain and shortness of breath. Cardiology was consulted and eventually took the patient to left heart catheterization today where she was noted to have a lesion in her mid LAD. She had bare metal stent 2 placed to the mid LAD. She was significantly hypotensive and hypoxic during the event and required emergent intubation by anesthesia. At the end of the left heart catheterization, a intra-arterial balloon pump was placed for assistance in her hypotension and presumed cardiogenic shock and she was taken to the CVICU. Critical-care medicine is consulted to evaluate and manage her cardiogenic shock and acute hypoxic respiratory failure. When I came to evaluate the patient, she was significantly hypoxic with SPO2 in the 70s. In addition she had a on augmented mean arterial pressure of 42 with an augmented mean arterial pressure of 58. She is on one-to-one IABP. I immediately added norepinephrine to the dopamine infusion that was already running. She had significant bleeding from the left groin IABP site. Additional compressive dressings were placed to this and a sandbag. A stat ABG with hemoglobin demonstrated hemoglobin of 10. She has significant acidosis with a base deficit of 10. She was given 3 A of bicarbonate emergently. Her hypotension persists and at that point I was very concerned about complications from her left heart catheterization including retroperitoneal hemorrhage, coronary artery dissection, aortic dissection, cardiogenic shock from [place], in- stent rethrombosis, pericardial tamponade. I ordered a stat echo. At bedside during a stat echo, there was concern for possible clotted blood and hematoma surrounding the right ventricle. I immediately called Dr. Smith to notify him so he could read the echo. In addition, Dr. Howe was at bedside with me and we decided given the patient's instability that a confirmation transesophageal echocardiogram was necessary to rule in or out pericardial tamponade. I performed a transesophageal echocardiogram (please see separate procedure note for details). Dr. Howe interpreted the echocardiogram. There was not evidence of tamponade or pericardial effusion on the transesophageal echocardiogram. There is ongoing evidence of significant myocardial dysfunction , including anterior lateral and apical akinesis/dyskinesis. I again talk to the billing associate and he is driving in from home to evaluate the patient. We are discussing possible mechanical support with Impella. However, given the patient's age and other comorbidities, I'm not sure that additional invasive procedures are a good idea. We continue to trend her lactic acid as well as her urine output, and her urine output continues to be greater than 30 cc an hour and her lactate is less than 2. 10/23: clinically improving overnight. lactate clearing. BP stabilizing. awakens and follows commands. still on high vasopressor support. hypoxia improving. 10/24: clinically improving, although remains on high norepinephrine requirements. lactate still clearing. uop marginal, but Cr improving today. 10/25: Afebrile. Approximately 1100 cc urine overnight. Off all vasopressors overnight. Hemoglobin currently around 8. Denies chest pain, shortness of breath. No hematoma in inguinal region. Subjective: 10/26: Incident yesterday at 5 PM when lying flat with patient became acutely short of breath requiring BiPAP. Attempted to remove BiPAP at 2 AM this morning however when lies flat patient becomes more short of breath. Appears very comfortable on BiPAP currently. Stable appearance of right-sided infiltrate/small pleural effusion. Increasing diuretics this a.m. Potassium has been replaced. No bowel movement since admission. 10/27: Currently remains on BiPAP, according to the bedside RN did not tolerate even few minutes off BiPAP. On Bumex infusion 0.5 mg per hour with excellent urine output 4.3 L in 24 hours. Chest x-ray remains unchanged 10/28: Overnight had confusion, after receiving Ativan. Placed on Precedex with improvement. I have DC Precedex use Haldol when necessary. Son was updated today. Urine output excellent with slight increase in creatinine to 1.3. Bumex infusion discontinued and Bumex 1 mg IV every 12 started Objective Vital Signs Date Time Temp Pulse Resp B/P Pulse Ox O2 Delivery O2 Flow Rate FiO2 10/28/16 07:13 95 BiPAP 35 10/28/16 07:00 97.6 77 23 106/74 10/26/16 22:00 30.00 Intake and Output 10/27/16 10/27/16 10/28/16 08:00 16:00 00:00 Intake Total 224 ml 973 ml Output Total 2800 ml 2000 ml Balance -2576 ml -1027 ml Result Diagram: 10/28/16 0500 10/28/16 0500 Imaging Last Impressions Chest X-Ray 10/25/16 0000 Signed Impressions: Service Date/Time: September 17:16 - CONCLUSION: Interval removal of NG and an NG tube. Stable appearance of right-sided air space consolidation or pleural fluid. Left basilar atelectasis.. Korin Kirkpatrick MD Objective Remarks GENERAL: 89-year-old female, appears stated age, lying in bed currently on VM HEENT: Pupils equal, round about 3 mm's bilaterally and reactive. Positive arcus senilis.. Mucous membranes are moist and pink NECK: Trachea is midline. Right IJ is clean dry and intact. CHEST: Few crackles appreciated bases right greater than left. Essentially clear anteriorly. No wheezing CARDIOVASCULAR: RRR. S1, S2. No S4. No murmur ABDOMEN: Soft, nontender, nondistended. Positive bowel sounds are appreciated. MUSCULOSKELETAL: 1+ upper and lower extremity edema noted. NEUROLOGICAL: Cranial nerves grossly intact. Strength is equal and symmetric bilaterally. Normal sensation. Procedures None. Date of Insertion: Oct 24, 2016 Line: Central Venous Catheter Side: Right Location: Internal, Jugular A/P Assessment and Plan Neuro/Psych: History dementia? Delirium Acetaminophen for fever. --Morphine as needed for pain management Respiratory: Acute hypoxic respiratory failure - improving Chest x-ray 10/26 reveals stable appearance of right-sided infiltrate/small pleural effusion. --DC Bumex at 0.5 mg per hour. Start Bumex 1 mg IV q12 - BiPAP PRN As needed duo nebs - IS, EzPAP, Acapella Cardiovascular: Cardiogenic shock -resolved NSTEMI s/p PCI with BMS x 2 to mid-LAD Severe left ventricular systolic dysfunction Elevated triglycerides Low HDL -- Status post cardiac catheterization which revealed 100% stenosis LAD with PCI 2 -- DEMETRIO 10/22 revealed EF 25-30%. Hypokinesis of the anterior and anterior lateral myocardium. -- Currently on aspirin 81 mg daily and Plavix 75 mg daily. -- On Lipitor 40 mg per daily for dyslipidemia. Elevated triglyceride/low HDL lipid panel -- Currently off all vasopressor support. IABP removed 10/24 --Started on Coreg 3.125 BID. Hold LAURA inhibitor due to concurrent IV diuretic use Renal: Acute kidney injury- resolving. Continue Garnica with hourly urine outputs -- Strict I/Os -- Bumex 0.5 mg per hour started 10/26/15-10/28. DC today and start Bumex 1 mg IV every 12 FEN/GI: Acute protein calorie malnutritionmoderate. Hypopotassemia Heart healthy diet ICU electrolyte protocol Daily BMP Heme/ID: Anemia secondary to acute blood loss Leukocytosis and fever Status post 3 units PRBCs since admission Daily CBC --WBC platelets have normalized Pertinent cultures 10/23 - sputum - no growth 10/23 - urine - no growth 10/23 - blood cultures 2 - no growth Zosyn/vancomycin Discontinued 10/26. Endocrine: Hyperglycemia of critical illness -- SSI if needed to maintain euglycemia Prophylaxis: GI Prophylaxis Pepcid 20 mg by mouth daily DVT Prophylaxis -- SCDs Heparin subcutaneous Lines: Right IJ CVL day #5 Critical Care: Level 3 PT up to [employer] chair Agnieszka Howe MD Oct 28, 2016 10:19
[2016-10-28] MEDS: CARVEDILOL 3.125 MG TAB PO SCH ×2 (13:18→20:45)
[2016-10-28] MEDS: BUMETANIDE INJ 1 MG/4 ML VIAL IV PUSH SCH (17:33)
[2016-10-28] MEDS: ATORVASTATIN 40 MG TAB PO SCH (20:44)
[2016-10-29] VITALS (12 sets, daily range): BP systolic 98–110; BP diastolic 46–78; PULSE 84–99; RESP 16–22; TEMP 97.5–98.2; O2SAT 92–100
[2016-10-29] MEDS: CHLORHEXIDINE GLUCONATE 2 % 1 PACK (2 CLOTHS) TOP SCH (04:00)
[2016-10-29 05:31] LABS: BASOPHIL # 0.1 TH/MM3 (0-0.2); BASOPHIL % 0.6 % (0.0-2.0); EOSINOPHIL # 0.5 TH/MM3 (0-0.4); EOSINOPHIL % 4.4 % (0.0-4.0); HEMATOCRIT 28.2 % (35.0-46.0); HEMO FLAGS DIFF FINAL; LYMPH % 12.7 % (9.0-44.0); LYMPHOCYTE # 1.4 TH/MM3 (1.0-4.8); MEAN CELL VOLUME 91.7 FL (80.0-100.0); MEAN CORPUSCULAR HEMOGLOBIN 31.4 PG (27.0-34.0); MEAN CORPUSCULAR HGB CONC 34.3 % (32.0-36.0); NEUT % 72.3 % (16.0-70.0); PLATELET COUNT 238 TH/MM3 (150-450); RED BLOOD COUNT 3.08 MIL/MM3 (4.00-5.30); RED CELL DISTRIBUTION WIDTH 13.3 % (11.6-17.2); WHITE BLOOD COUNT 11.1 TH/MM3 (4.0-11.0)
[2016-10-29 05:57] LABS: ANION GAP 5 MEQ/L (5-15); AST (GOT) 41 U/L (15-37); BICARBONATE 34.4 MEQ/L (21.0-32.0); BLOOD UREA NITROGEN 27 MG/DL (7-18); CHLORIDE 101 MEQ/L (98-107); GLOMERULAR FILTRATION RATE 44 ML/MIN (>89); POTASSIUM 3.8 MEQ/L (3.5-5.1); SODIUM (NA) 140 MEQ/L (136-145)
[2016-10-29 06:04] LABS: ALKALINE PHOSPHATASE 65 U/L (45-117); ALT (GPT) 27 U/L (10-53); TOTAL BILIRUBIN ADULT 0.7 MG/DL (0.2-1.0)
[2016-10-29] MEDS: HEPARIN SODIUM - SQ 10,000 UNITS/ML VIAL SQ SCH ×3 (06:13→21:27)
--- NOTE | 2016-10-29 07:45 | PD.CARD.PN ---
Subjective Subjective Remarks A & O. No distress. Progressing well. Still mild hypoxemia requiring higher dose O2 on venturi mask. Diuresing well. Hemodynamics improving. Objective Medications Current Medications Medications (Trade) Dose Ordered Sig/Izabella Route PRN Reason Start Time Stop Time Status Last Admin Dose Admin Nitroglycerin (Nitrostat Sl) 0.4 mg Q5M PRN SL CHEST PAIN 10/21/16 22:45 10/22/16 06:15 IV Flush (NS Flush) 2 ml UNSCH PRN FLUSH FLUSH AFTER USING IV ACCESS 10/22/16 00:45 IV Flush (NS Flush) 2 ml BID FLUSH 10/22/16 09:00 10/28/16 20:44 Ondansetron HCl (Zofran Inj) 4 mg Q6H PRN IVP NAUSEA OR VOMITING 10/22/16 00:45 10/22/16 05:37 Bisacodyl (Dulcolax Supp) 10 mg DAILY PRN SC CONSTIPATION 10/22/16 00:45 Acetaminophen/ Hydrocodone Bitart (Treynor 5-325 Mg) 1 tab Q4H PRN PO PAIN SCALE 3 TO 5 10/22/16 00:45 Morphine Sulfate (Morphine Inj) 2 mg Q3H PRN IV Pain 6-10 10/22/16 00:45 10/22/16 13:13 Aspirin (Ecotrin Ec) 81 mg DAILY PO 10/22/16 09:00 10/28/16 09:37 Atorvastatin Calcium (Lipitor) 40 mg HS PO 10/22/16 21:00 10/28/16 20:44 Losartan Potassium (Cozaar) 12.5 mg DAILY PO 10/23/16 09:00 Hold Miscellaneous (Pill Splitter) 1 ea UNSCH PRN OTHER SEE LABEL COMMENTS 10/22/16 21:00 Clopidogrel Bisulfate (Plavix) 75 mg DAILY PO 10/23/16 09:00 10/28/16 09:37 Heparin Sodium (Porcine) (Heparin Inj) 5,000 units Q8HR SQ 10/23/16 14:00 10/29/16 06:13 Acetaminophen (Tylenol) 650 mg Q6H PRN PO FEVER >100F 10/25/16 07:30 Docusate Sodium (Colace) 100 mg BID PO 10/25/16 09:00 10/28/16 20:44 Miscellaneous Information 1 Q361D XX 10/25/16 07:30 Chlorhexidine Gluconate (Chlorhexidine 2% Cloth) 3 pack Taper DAILY@04 TOP 10/26/16 04:00 10/22/17 03:59 10/28/16 04:00 Chlorhexidine Gluconate (Chlorhexidine 2% Cloth) 3 pack UNSCH PRN TOP HYGIENIC CARE 10/25/16 07:30 Famotidine (Pepcid) 20 mg DAILY PO 10/25/16 09:00 10/28/16 09:38 Chlorhexidine Gluconate (Peridex 0.12% Liq) 15 ml BID@08,20 MT 10/25/16 20:00 Sennosides (Senokot) 17.2 mg Q12HR PO 10/26/16 09:00 10/28/16 20:44 Polyethylene Glycol (Miralax) 17 gm DAILY PO 10/26/16 09:00 10/28/16 09:37 Glycerin 2 gm 2 gm DAILY PRN RECTAL CONSTIPATION 10/26/16 09:00 Potassium Chloride 100 ml @ 50 mls/hr Q2H PRN IV For Potassium 2.8 - 3.2 mEq/L 10/26/16 17:45 10/27/16 08:58 Potassium Chloride (KCl 20 Meq Premix Inj) 100 ml @ 50 mls/hr Q2H PRN IV For Potassium 2.8 - 3.2 mEq/L 10/26/16 17:45 Potassium Chloride 40 meq 40 meq UNSCH PRN PO/TUBE For Potassium 3.3 - 3.5 mEq/L 10/26/16 17:45 Potassium Chloride 100 ml @ 25 mls/hr UNSCH PRN IV For Potassium 3.3 - 3.5 mEq/L 10/26/16 17:45 Potassium Chloride 100 ml @ 50 mls/hr Q2H PRN IV For Potassium 3.3 - 3.5 mEq/L 10/26/16 17:45 10/28/16 18:59 Magnesium Sulfate/ Sodium Chloride (Magnesium Sulfate Inj/NS Inj) 100 ml @ 50 mls/hr UNSCH PRN IV For Magnesium 0.9 - 1.1 mg/dL 10/26/16 17:45 Magnesium Oxide 800 mg 800 mg UNSCH PRN PO For Magnesium 1.2 - 1.6 mg/dL 10/26/16 17:45 Magnesium Sulfate/ Sodium Chloride (Magnesium Sulfate Inj/NS Inj) 100 ml @ 50 mls/hr UNSCH PRN IV For Magnesium 1.2 - 1.6 mg/dL 10/26/16 17:45 Potassium Phosphate 2000 mg 2,000 mg Q4H PRN PO For Phosphorus < 2.5 mg/dL 10/26/16 17:45 Sodium Phosphate/ Sodium Chloride (Sodium Phosphate Inj/NS 250 ml Inj) 250 ml @ 42 mls/hr UNSCH PRN IV For Phosphorus < 2.5 mg/dL 10/26/16 17:45 Potassium Chloride (KCl 40 Meq/30 ml Liq) 40 meq UNSCH PRN PO/TUBE SEE LABEL COMMENTS 10/26/16 17:45 Potassium Phosphate 2000 mg 2,000 mg UNSCH PRN PO/TUBE SEE LABEL COMMENTS 10/26/16 17:45 Potassium Phosphate/Sodium Chloride (Potassium Phosphate Inj/NS 250 ml Inj) 260 ml @ 42 mls/hr UNSCH PRN IV SEE LABEL COMMENTS 10/26/16 17:45 Lorazepam (Ativan Inj) 0.5 mg Q4H PRN IV ANXIETY 10/27/16 00:15 10/27/16 18:00 Carvedilol 3.125 mg 3.125 mg Q12HR PO 10/27/16 21:00 10/28/16 20:45 Dexmedetomidine HCl (Precedex Inj) 50 ml @ 0 mls/hr TITRATE IV 10/27/16 23:30 10/28/16 02:47 Haloperidol Lactate (Haldol Inj) 2 mg Q6H PRN IV agitation 10/28/16 09:00 Bumetanide (Bumex Inj) 1 mg BID@,18 IV PUSH 10/28/16 18:00 10/28/16 17:33 Vital Signs / I&O Vital Signs Date Time Temp Pulse Resp B/P Pulse Ox O2 Delivery O2 Flow Rate FiO2 10/29/16 04:00 88 10/29/16 04:00 92 Venturi Mask 50 10/29/16 04:00 98.2 88 16 98/63 92 10/29/16 01:30 96 Venturi Mask 40 10/29/16 01:00 98 Venturi Mask 50 10/29/16 00:00 99 18 100/64 95 10/29/16 00:00 98 10/28/16 23:10 95 35 10/28/16 23:00 93 Bi-Pap 35 10/28/16 20:00 98.0 102 18 115/73 95 10/28/16 20:00 95 Venturi Mask 50 10/28/16 20:00 100 10/28/16 15:00 97 Venturi Mask 40 10/28/16 15:00 97.7 102 26 108/57 97 10/28/16 15:00 102 10/28/16 11:00 97.8 100 25 94/70 96 10/28/16 11:00 100 10/28/16 11:00 96 Venturi Mask 40 I/O 10/28/16 10/28/16 10/28/16 10/29/16 10/29/16 10/29/16 07:00 15:00 23:00 07:00 15:00 23:00 Intake Total 114 ml 1410 ml 580 ml Output Total 2050 ml 1400 ml 1200 ml Balance -1936 ml 10 ml -620 ml Intake Oral 50 ml 1200 ml 480 ml IV Total 64 ml 210 ml 100 ml Output Urine Total 2050 ml 1400 ml 1200 ml # Bowel Movements 1 1 1 Physical Exam Awake and alert. No distress. Lungs: few basilar crackles. Hear: S1/S2 no murmur. Ext: Warm , well perfused. Both groins stable. No hematoma. Neuro intact. Laboratory Laboratory Tests Test 10/28/16 10/29/16 17:30 05:14 Potassium Level 3.4 MEQ/L 3.8 MEQ/L White Blood Count 11.1 TH/MM3 Red Blood Count 3.08 MIL/MM3 Hemoglobin 9.7 GM/DL Hematocrit 28.2 % Mean Corpuscular Volume 91.7 FL Mean Corpuscular Hemoglobin 31.4 PG Mean Corpuscular Hemoglobin 34.3 % Concent Red Cell Distribution Width 13.3 % Platelet Count 238 TH/MM3 Mean Platelet Volume 9.4 FL Neutrophils (%) (Auto) 72.3 % Lymphocytes (%) (Auto) 12.7 % Monocytes (%) (Auto) 10.0 % Eosinophils (%) (Auto) 4.4 % Basophils (%) (Auto) 0.6 % Neutrophils # (Auto) 8.0 TH/MM3 Lymphocytes # (Auto) 1.4 TH/MM3 Monocytes # (Auto) 1.1 TH/MM3 Eosinophils # (Auto) 0.5 TH/MM3 Basophils # (Auto) 0.1 TH/MM3 CBC Comment DIFF FINAL Differential Comment Sodium Level 140 MEQ/L Chloride Level 101 MEQ/L Carbon Dioxide Level 34.4 MEQ/L Anion Gap 5 MEQ/L Blood Urea Nitrogen 27 MG/DL Creatinine 1.16 MG/DL Estimat Glomerular Filtration 44 ML/MIN Rate Random Glucose 96 MG/DL Calcium Level 8.6 MG/DL Magnesium Level 2.0 MG/DL Total Bilirubin 0.7 MG/DL Aspartate Amino Transf 41 U/L (AST/SGOT) Alanine Aminotransferase 27 U/L (ALT/SGPT) Alkaline Phosphatase 65 U/L Total Protein 5.9 GM/DL Albumin 2.6 GM/DL Imaging Last 48 hours Impressions Chest X-Ray 10/28/16 0600 Signed Impressions: Service Date/Time: Friday, October 28, 2016 03:41 - CONCLUSION: No significant change has occurred. Amrik Florence MD Assessment and Plan Problem List: (1) NSTEMI (non-ST elevated myocardial infarction) (2) Cardiogenic shock (3) Respiratory failure (4) Acute pulmonary edema (5) Arteriosclerotic heart disease (ASHD) (6) Ischemic cardiomyopathy (7) Severe left ventricular systolic dysfunction (8) Stented coronary artery Assessment and Plan Excellent UO. Continue judicious IV diuresis. Will try to add low dose ARB today as BP tolerates. PT and plans to tranfer to step down tomorrow if stable. Discussed plans with staff certified nurse midwife, and the patient.. Prognosis remains guarded. Alex Seth MD Oct 29, 2016 07:45
[2016-10-29] MEDS: CHLORHEXIDINE 0.12% (ORAL KIT) 15 ML CUP MT SCH ×2 (08:00→20:00)
--- NOTE | 2016-10-29 08:02 | HHI.CCPN ---
Subjective Remarks/Hospital Course 89-year-old female with a past medical history reportedly of hypertension coronary disease and pacemaker placement who was initially brought to the ER due to chest pain and shortness of breath. Cardiology was consulted and eventually took the patient to left heart catheterization today where she was noted to have a lesion in her mid LAD. She had bare metal stent 2 placed to the mid LAD. She was significantly hypotensive and hypoxic during the event and required emergent intubation by anesthesia. At the end of the left heart catheterization, a intra-arterial balloon pump was placed for assistance in her hypotension and presumed cardiogenic shock and she was taken to the CVICU. Critical-care medicine is consulted to evaluate and manage her cardiogenic shock and acute hypoxic respiratory failure. When I came to evaluate the patient, she was significantly hypoxic with SPO2 in the 70s. In addition she had a on augmented mean arterial pressure of 42 with an augmented mean arterial pressure of 58. She is on one-to-one IABP. I immediately added norepinephrine to the dopamine infusion that was already running. She had significant bleeding from the left groin IABP site. Additional compressive dressings were placed to this and a sandbag. A stat ABG with hemoglobin demonstrated hemoglobin of 10. She has significant acidosis with a base deficit of 10. She was given 3 A of bicarbonate emergently. Her hypotension persists and at that point I was very concerned about complications from her left heart catheterization including retroperitoneal hemorrhage, coronary artery dissection, aortic dissection, cardiogenic shock from [place], in- stent rethrombosis, pericardial tamponade. I ordered a stat echo. At bedside during a stat echo, there was concern for possible clotted blood and hematoma surrounding the right ventricle. I immediately called Dr. Smith to notify him so he could read the echo. In addition, Dr. Howe was at bedside with me and we decided given the patient's instability that a confirmation transesophageal echocardiogram was necessary to rule in or out pericardial tamponade. I performed a transesophageal echocardiogram (please see separate procedure note for details). Dr. Howe interpreted the echocardiogram. There was not evidence of tamponade or pericardial effusion on the transesophageal echocardiogram. There is ongoing evidence of significant myocardial dysfunction , including anterior lateral and apical akinesis/dyskinesis. I again talk to the regulatory compliance coordinator and he is driving in from home to evaluate the patient. We are discussing possible mechanical support with Impella. However, given the patient's age and other comorbidities, I'm not sure that additional invasive procedures are a good idea. We continue to trend her lactic acid as well as her urine output, and her urine output continues to be greater than 30 cc an hour and her lactate is less than 2. 10/23: clinically improving overnight. lactate clearing. BP stabilizing. awakens and follows commands. still on high vasopressor support. hypoxia improving. 10/24: clinically improving, although remains on high norepinephrine requirements. lactate still clearing. uop marginal, but Cr improving today. 10/25: Afebrile. Approximately 1100 cc urine overnight. Off all vasopressors overnight. Hemoglobin currently around 8. Denies chest pain, shortness of breath. No hematoma in inguinal region. Subjective: 10/26: Incident yesterday at 5 PM when lying flat with patient became acutely short of breath requiring BiPAP. Attempted to remove BiPAP at 2 AM this morning however when lies flat patient becomes more short of breath. Appears very comfortable on BiPAP currently. Stable appearance of right-sided infiltrate/small pleural effusion. Increasing diuretics this a.m. Potassium has been replaced. No bowel movement since admission. 10/27: Currently remains on BiPAP, according to the bedside RN did not tolerate even few minutes off BiPAP. On Bumex infusion 0.5 mg per hour with excellent urine output 4.3 L in 24 hours. Chest x-ray remains unchanged 10/28: Overnight had confusion, after receiving Ativan. Placed on Precedex with improvement. I have DC Precedex use Haldol when necessary. Son was updated today. Urine output excellent with slight increase in creatinine to 1.3. Bumex infusion discontinued and Bumex 1 mg IV every 12 started 10/29: Orientation is better now confusion overnight. Remains off BiPAP yesterday. Currently on Ventimask 50% appears to be breathing comfortably, good urine output on IV Bumex. Objective Vital Signs Date Time Temp Pulse Resp B/P Pulse Ox O2 Delivery O2 Flow Rate FiO2 10/29/16 04:00 88 10/29/16 04:00 92 Venturi Mask 50 10/29/16 04:00 98.2 16 98/63 10/26/16 22:00 30.00 Intake and Output 10/28/16 10/28/16 10/29/16 08:00 16:00 00:00 Intake Total 114 ml 1410 ml Output Total 2050 ml 1400 ml Balance -1936 ml 10 ml Result Diagram: 10/29/16 0514 10/29/16 0514 Imaging Last Impressions Chest X-Ray 10/25/16 0000 Signed Impressions: Service Date/Time: September 17:16 - CONCLUSION: Interval removal of NG and an NG tube. Stable appearance of right-sided air space consolidation or pleural fluid. Left basilar atelectasis.. Korin Kirkpatrick MD Objective Remarks GENERAL: 89-year-old female, appears stated age, lying in bed currently on VM HEENT: Pupils equal, round about 3 mm's bilaterally and reactive. Positive arcus senilis.. Mucous membranes are moist and pink NECK: Trachea is midline. Right IJ is clean dry and intact. CHEST: Few crackles appreciated right greater than left. No wheezing CARDIOVASCULAR: RRR. S1, S2. No S4. No murmur ABDOMEN: Soft, nontender, nondistended. Positive bowel sounds are appreciated. MUSCULOSKELETAL: 1+ upper and lower extremity edema noted. NEUROLOGICAL: Cranial nerves grossly intact. Strength is equal and symmetric bilaterally. Normal sensation. Procedures None. Date of Insertion: Oct 24, 2016 Line: Central Venous Catheter Side: Right Location: Internal, Jugular A/P Assessment and Plan Neuro/Psych: History dementia? Delirium Acetaminophen for fever. --Morphine as needed for pain management Respiratory: Acute hypoxic respiratory failure - improving Chest x-ray pending today --Continue Bumex 1 mg IV q12 --BiPAP PRN As needed duo nebs --IS, EzPAP, Acapella Cardiovascular: Cardiogenic shock -resolved NSTEMI s/p PCI with BMS x 2 to mid-LAD Severe left ventricular systolic dysfunction Elevated triglycerides Low HDL -- Status post cardiac catheterization which revealed 100% stenosis LAD with PCI 2 -- DEMETRIO 10/22 revealed EF 25-30%. Hypokinesis of the anterior and anterior lateral myocardium. -- Currently on aspirin 81 mg daily and Plavix 75 mg daily. -- On Lipitor 40 mg per daily for dyslipidemia. Elevated triglyceride/low HDL lipid panel -- Currently off all vasopressor support. IABP removed 10/24 --Started on Coreg 3.125 BID 10/27, increase to 6.25 twice a day. Start losartan 12.5 mg daily. Consider adding Aldactone if remains hemodynamically stable Renal: Acute kidney injury- resolving. Continue Garnica with hourly urine outputs -- Strict I/Os -- Bumex 1 mg IV every 12 FEN/GI: Acute protein calorie malnutritionmoderate. Hypopotassemia Heart healthy diet ICU electrolyte protocol Daily BMP Heme/ID: Anemia secondary to acute blood loss Leukocytosis and fever Status post 3 units PRBCs since admission Daily CBC --WBC platelets have normalized Pertinent cultures 10/23 - sputum - no growth 10/23 - urine - no growth /24 - blood cultures 2 - no growth Zosyn/vancomycin Discontinued 10/26. Endocrine: Hyperglycemia of critical illness -- SSI if needed to maintain euglycemia Prophylaxis: GI Prophylaxis Pepcid 20 mg by mouth daily DVT Prophylaxis -- SCDs Heparin subcutaneous Lines: Right IJ CVL Critical Care: Level 3 PT up to stretcher chair [facility] consulted to assume care in am Agnieszka Howe MD Oct 29, 2016 08:02
--- NOTE | 2016-10-29 08:58 | RADRPT ---
EXAM DATE/TIME: 10/29/2016 08:10 [place] COMPARISON: CHEST SINGLE AP, October 28, 2016, 3:41. INDICATIONS : Respiratory disease. MEDICAL HISTORY : Congestive heart failure. Stroke. Hypertension SURGICAL HISTORY : Pacemaker. ENCOUNTER: Subsequent ACUITY: 1 week PAIN SCORE: 3/10 LOCATION: Bilateral chest FINDINGS: Central line and pacer are in good position. Moderate bibasilar parenchymal changes noted with small bilateral pleural effusions. Pulmonary vascularity is normal. CONCLUSION: Stable chest with minimal bilateral pleural effusions. Ralf Payne MD FACR on October 29, 2016 at 8:48 Board Certified Radiologist. This report was verified electronically.
[2016-10-29] MEDS: POLYETHYLENE GLYCOL 17 GM PKG PO SCH (09:00)
[2016-10-29] MEDS: CARVEDILOL 6.25 MG TAB PO SCH ×2 (09:00→21:27)
[2016-10-29] MEDS: SENNOSIDES 8.6 MG TAB PO SCH ×2 (09:00→21:26)
[2016-10-29] MEDS: CLOPIDOGREL 75 MG TAB PO SCH (09:01)
[2016-10-29] MEDS: DOCUSATE SODIUM 100 MG CAP PO SCH ×2 (09:01→21:27)
[2016-10-29] MEDS: ASPIRIN EC 81 MG TABEC PO SCH (09:01)
[2016-10-29] MEDS: SODIUM CHLORIDE 0.9% FLUSH 5 ML FLUSH FLUSH SCH ×2 (09:01→21:29)
[2016-10-29] MEDS: FAMOTIDINE 20 MG TAB PO SCH (09:01)
[2016-10-29] MEDS: BUMETANIDE INJ 1 MG/4 ML VIAL IV PUSH SCH ×2 (10:09→17:52)
[2016-10-29] MEDS: LOSARTAN 25 MG TAB PO SCH (15:11)
[2016-10-29] MEDS: ATORVASTATIN 40 MG TAB PO SCH (21:27)
[2016-10-30] VITALS (14 sets, daily range): BP systolic 83–117; BP diastolic 46–83; PULSE 81–110; RESP 17–20; TEMP 97.7–98.3; O2SAT 9–100
[2016-10-30] MEDS: CHLORHEXIDINE GLUCONATE 2 % 1 PACK (2 CLOTHS) TOP SCH (04:00)
[2016-10-30] MEDS: HEPARIN SODIUM - SQ 10,000 UNITS/ML VIAL SQ SCH ×3 (06:04→23:09)
[2016-10-30 06:26] LABS: AUTOMATED NEUTROPHIL # 7.2 TH/MM3 (1.8-7.7); BASOPHIL # 0.1 TH/MM3 (0-0.2); BASOPHIL % 0.6 % (0.0-2.0); EOSINOPHIL # 0.3 TH/MM3 (0-0.4); EOSINOPHIL % 3.1 % (0.0-4.0); HEMATOCRIT 27.6 % (35.0-46.0); HEMO FLAGS DIFF FINAL; LYMPH % 12.3 % (9.0-44.0); LYMPHOCYTE # 1.2 TH/MM3 (1.0-4.8); MEAN CELL VOLUME 91.6 FL (80.0-100.0); MEAN CORPUSCULAR HEMOGLOBIN 31.3 PG (27.0-34.0); MEAN CORPUSCULAR HGB CONC 34.2 % (32.0-36.0); MONO % 11.2 % (0.0-8.0); NEUT % 72.8 % (16.0-70.0); PLATELET COUNT 262 TH/MM3 (150-450); RED BLOOD COUNT 3.01 MIL/MM3 (4.00-5.30); RED CELL DISTRIBUTION WIDTH 13.5 % (11.6-17.2); WHITE BLOOD COUNT 9.8 TH/MM3 (4.0-11.0)
[2016-10-30 06:46] LABS: ALT (GPT) 23 U/L (10-53); ANION GAP 6 MEQ/L (5-15); AST (GOT) 30 U/L (15-37); BICARBONATE 35.5 MEQ/L (21.0-32.0); BLOOD UREA NITROGEN 23 MG/DL (7-18); CHLORIDE 98 MEQ/L (98-107); GLOMERULAR FILTRATION RATE 47 ML/MIN (>89); MAGNESIUM 2.1 MG/DL (1.5-2.5); POTASSIUM 3.4 MEQ/L (3.5-5.1); SODIUM (NA) 139 MEQ/L (136-145)
[2016-10-30 06:49] LABS: ALKALINE PHOSPHATASE 65 U/L (45-117); TOTAL BILIRUBIN ADULT 0.7 MG/DL (0.2-1.0)
[2016-10-30] MEDS: CHLORHEXIDINE 0.12% (ORAL KIT) 15 ML CUP MT SCH ×2 (07:15→20:00)
[2016-10-30] MEDS ORDERED: POTASSIUM CHLORIDE 20 MEQ CONTROLLED RELEASE TAB PO ONE (07:15)
--- NOTE | 2016-10-30 08:07 | PD.CARD.PN ---
Subjective Subjective Remarks Feeling stronger sitting up in chair. Denies SOB or CP. Objective Medications Current Medications Medications (Trade) Dose Ordered Sig/Izabella Route PRN Reason Start Time Stop Time Status Last Admin Dose Admin Nitroglycerin (Nitrostat Sl) 0.4 mg Q5M PRN SL CHEST PAIN 10/21/16 22:45 10/22/16 06:15 IV Flush (NS Flush) 2 ml UNSCH PRN FLUSH FLUSH AFTER USING IV ACCESS 10/22/16 00:45 10/29/16 10:09 IV Flush (NS Flush) 2 ml BID FLUSH 10/22/16 09:00 10/29/16 21:29 Ondansetron HCl (Zofran Inj) 4 mg Q6H PRN IVP NAUSEA OR VOMITING 10/22/16 00:45 10/22/16 05:37 Bisacodyl (Dulcolax Supp) 10 mg DAILY PRN HI CONSTIPATION 10/22/16 00:45 Acetaminophen/ Hydrocodone Bitart ([place] 5-325 Mg) 1 tab Q4H PRN PO PAIN SCALE 3 TO 5 10/22/16 00:45 Morphine Sulfate (Morphine Inj) 2 mg Q3H PRN IV Pain 6-10 10/22/16 00:45 10/22/16 13:13 Aspirin (Ecotrin Ec) 81 mg DAILY PO 10/22/16 09:00 10/29/16 09:01 Atorvastatin Calcium (Lipitor) 40 mg HS PO 10/22/16 21:00 10/29/16 21:27 Losartan Potassium (Cozaar) 12.5 mg DAILY PO 10/23/16 09:00 10/29/16 15:11 Miscellaneous (Pill Splitter) 1 ea UNSCH PRN OTHER SEE LABEL COMMENTS 10/22/16 21:00 Clopidogrel Bisulfate (Plavix) 75 mg DAILY PO 10/23/16 09:00 10/29/16 09:01 Heparin Sodium (Porcine) (Heparin Inj) 5,000 units Q8HR SQ 10/23/16 14:00 10/30/16 06:04 Acetaminophen (Tylenol) 650 mg Q6H PRN PO FEVER >100F 10/25/16 07:30 Docusate Sodium (Colace) 100 mg BID PO 10/25/16 09:00 10/29/16 21:27 Miscellaneous Information 1 Q361D XX 1/26/17 07:30 Chlorhexidine Gluconate (Chlorhexidine 2% Cloth) 3 pack Taper DAILY@04 TOP 10/26/16 04:00 10/22/17 03:59 10/30/16 04:00 Chlorhexidine Gluconate (Chlorhexidine 2% Cloth) 3 pack UNSCH PRN TOP HYGIENIC CARE 10/25/16 07:30 Famotidine (Pepcid) 20 mg DAILY PO 10/25/16 09:00 10/29/16 09:01 Chlorhexidine Gluconate (Peridex 0.12% Liq) 15 ml BID@08,20 MT 10/25/16 20:00 Sennosides (Senokot) 17.2 mg Q12HR PO 10/26/16 09:00 10/29/16 21:26 Polyethylene Glycol (Miralax) 17 gm DAILY PO 10/26/16 09:00 10/28/16 09:37 Glycerin 2 gm 2 gm DAILY PRN RECTAL CONSTIPATION 10/26/16 09:00 Magnesium Sulfate/ Sodium Chloride (Magnesium Sulfate Inj/NS Inj) 100 ml @ 50 mls/hr UNSCH PRN IV For Magnesium 0.9 - 1.1 mg/dL 10/26/16 17:45 Magnesium Oxide (Mag-Ox) 800 mg UNSCH PRN PO For Magnesium 1.2 - 1.6 mg/dL 10/26/16 17:45 Potassium Phosphate (K-Phos) 2,000 mg Q4H PRN PO For Phosphorus < 2.5 mg/dL 10/26/16 17:45 Potassium Phosphate (K-Phos) 2,000 mg UNSCH PRN PO/TUBE SEE LABEL COMMENTS 10/26/16 17:45 Haloperidol Lactate (Haldol Inj) 2 mg Q6H PRN IV agitation 10/28/16 09:00 Spironolactone (Aldactone) 25 mg DAILY PO 10/30/16 09:00 Carvedilol (Coreg) 3.125 mg Q12HR PO 10/30/16 09:00 Vital Signs / I&O Vital Signs Date Time Temp Pulse Resp B/P Pulse Ox O2 Delivery O2 Flow Rate FiO2 10/30/16 07:00 83 10/30/16 04:00 97.7 81 20 83/46 9 10/30/16 04:00 81 10/30/16 03:30 99 Nasal Cannula 4.00 Humidified 10/30/16 00:00 99 Nasal Cannula 4.00 Humidified 10/30/16 00:00 98.2 95 20 101/58 94 10/29/16 23:00 96 10/29/16 20:35 98 Nasal Cannula 5.00 10/29/16 20:00 99 Nasal Cannula 5.00 Humidified 10/29/16 20:00 95 10/29/16 20:00 98.0 95 18 100/57 99 10/29/16 15:32 99 Nasal Cannula 5.00 Humidified 10/29/16 15:31 98.0 99 16 110/78 100 10/29/16 15:00 99 10/29/16 11:52 92 Room Air 10/29/16 11:00 93 22 99/46 92 10/29/16 09:51 96 Nasal Cannula 6.00 I/O 10/29/16 10/29/16 10/29/16 10/30/16 10/30/16 10/30/16 07:00 15:00 23:00 07:00 15:00 23:00 Intake Total 580 ml 650 ml 420 ml Output Total 1200 ml 610 ml 950 ml Balance -620 ml 40 ml -530 ml Intake Oral 480 ml 650 ml 420 ml IV Total 100 ml Output Urine Total 1200 ml 610 ml 950 ml # Bowel Movements 1 4 0 Physical Exam Awake and alert. No distress. Lungs:CTA. Hear: S1/S2 no murmur. Ext: Warm , well perfused. Both groins stable. No hematoma. Neuro intact. Laboratory Laboratory Tests Test 10/30/16 05:58 White Blood Count 9.8 TH/MM3 Red Blood Count 3.01 MIL/MM3 Hemoglobin 9.4 GM/DL Hematocrit 27.6 % Mean Corpuscular Volume 91.6 FL Mean Corpuscular Hemoglobin 31.3 PG Mean Corpuscular Hemoglobin 34.2 % Concent Red Cell Distribution Width 13.5 % Platelet Count 262 TH/MM3 Mean Platelet Volume 9.4 FL Neutrophils (%) (Auto) 72.8 % Lymphocytes (%) (Auto) 12.3 % Monocytes (%) (Auto) 11.2 % Eosinophils (%) (Auto) 3.1 % Basophils (%) (Auto) 0.6 % Neutrophils # (Auto) 7.2 TH/MM3 Lymphocytes # (Auto) 1.2 TH/MM3 Monocytes # (Auto) 1.1 TH/MM3 Eosinophils # (Auto) 0.3 TH/MM3 Basophils # (Auto) 0.1 TH/MM3 CBC Comment DIFF FINAL Differential Comment Sodium Level 139 MEQ/L Potassium Level 3.4 MEQ/L Chloride Level 98 MEQ/L Carbon Dioxide Level 35.5 MEQ/L Anion Gap 6 MEQ/L Blood Urea Nitrogen 23 MG/DL Creatinine 1.09 MG/DL Estimat Glomerular Filtration 47 ML/MIN Rate Random Glucose 91 MG/DL Calcium Level 8.4 MG/DL Magnesium Level 2.1 MG/DL Total Bilirubin 0.7 MG/DL Aspartate Amino Transf 30 U/L (AST/SGOT) Alanine Aminotransferase 23 U/L (ALT/SGPT) Alkaline Phosphatase 65 U/L Total Protein 5.6 GM/DL Albumin 2.5 GM/DL Imaging Last 48 hours Impressions Chest X-Ray 10/29/16 0000 Signed Impressions: Service Date/Time: Saturday, October 29, 2016 08:10 - CONCLUSION: Stable chest with minimal bilateral pleural effusions. Ralf Payne MD FACR Assessment and Plan Problem List: (1) NSTEMI (non-ST elevated myocardial infarction) Assessment and Plan: Hemodynamics stabilizing. (2) Cardiogenic shock Assessment and Plan: Resolved. (3) Respiratory failure (4) Acute pulmonary edema Assessment and Plan: Resolved. (5) Arteriosclerotic heart disease (ASHD) (6) Ischemic cardiomyopathy (7) Severe left ventricular systolic dysfunction (8) Stented coronary artery Assessment and Plan Excellent UO. Will D/C IV diuretics. Start spironolactone PO. Adjusted doses of Coreg and losartan so BP tolerates both. D/C Garnica catheter. Replace K to 4.0. Continue PT Transfer to step down today. See orders. Discussed plans with staffing assistant, and the patient.. Prognosis fair. Alex Seth MD Oct 30, 2016 08:07
[2016-10-30] MEDS: CLOPIDOGREL 75 MG TAB PO SCH (08:14)
[2016-10-30] MEDS: FAMOTIDINE 20 MG TAB PO SCH (08:14)
[2016-10-30] MEDS: LOSARTAN 25 MG TAB PO SCH (08:14)
[2016-10-30] MEDS: CARVEDILOL 3.125 MG TAB PO SCH ×2 (08:15→21:00)
[2016-10-30] MEDS: DOCUSATE SODIUM 100 MG CAP PO SCH ×2 (08:15→23:08)
[2016-10-30] MEDS: SENNOSIDES 8.6 MG TAB PO SCH ×2 (08:15→23:07)
[2016-10-30] MEDS: SODIUM CHLORIDE 0.9% FLUSH 5 ML FLUSH FLUSH SCH ×2 (08:15→23:08)
[2016-10-30] MEDS: POLYETHYLENE GLYCOL 17 GM PKG PO SCH (08:15)
[2016-10-30] MEDS: ASPIRIN EC 81 MG TABEC PO SCH (08:15)
[2016-10-30] MEDS ORDERED: SPIRONOLACTONE 25 MG TAB PO SCH (09:00)
--- NOTE | 2016-10-30 17:36 | HHI.PR ---
Subjective Remarks As per RN the patient had Garnica catheter removed today. Only had one episode of voiding. Patient was tired and not sleep well Denies chest pain/shortness of breath Fevers or chills Slightly tachycardic. Currently on nasal cannula at 4 L. Objective Vitals Vital Signs Date Time Temp Pulse Resp B/P Pulse Ox O2 Delivery O2 Flow Rate FiO2 10/30/16 17:00 96 10/30/16 16:00 96 10/30/16 15:00 90 10/30/16 12:00 110 10/30/16 11:00 98.3 107 17 117/83 98 10/30/16 11:00 90 10/30/16 11:00 98 Nasal Cannula 4.00 10/30/16 10:00 100 10/30/16 09:32 101 10/30/16 09:32 98.1 101 18 103/72 97 10/30/16 09:23 94 Nasal Cannula 5.00 10/30/16 08:00 95 Nasal Cannula 4.00 Humidified 10/30/16 08:00 97.7 86 20 94/53 95 10/30/16 07:00 83 10/30/16 04:00 97.7 81 20 83/46 9 10/30/16 04:00 81 10/30/16 03:30 99 Nasal Cannula 4.00 Humidified 10/30/16 00:00 99 Nasal Cannula 4.00 Humidified 10/30/16 00:00 98.2 95 20 101/58 94 10/29/16 23:00 96 10/29/16 20:35 98 Nasal Cannula 5.00 10/29/16 20:00 99 Nasal Cannula 5.00 Humidified 10/29/16 20:00 95 10/29/16 20:00 98.0 95 18 100/57 99 I/O 10/29/16 10/29/16 10/29/16 10/30/16 10/30/16 10/30/16 07:00 15:00 23:00 07:00 15:00 23:00 Intake Total 580 ml 650 ml 420 ml 480 ml Output Total 1200 ml 610 ml 950 ml 250 ml Balance -620 ml 40 ml -530 ml 230 ml Intake Oral 480 ml 650 ml 420 ml 480 ml IV Total 100 ml Output Urine Total 1200 ml 610 ml 950 ml 250 ml # Bowel Movements 1 4 0 1 Result Diagram: 10/30/16 0558 10/30/16 0558 Imaging Last Impressions Chest X-Ray 10/29/16 0000 Signed Impressions: Service Date/Time: Saturday, October 29, 2016 08:10 - CONCLUSION: Stable chest with minimal bilateral pleural effusions. Ralf Payne MD FACR Objective Remarks GENERAL: 89-year-old female, appears stated age, lying in bed currently on VM HEENT: Pupils equal, round about 3 mm's bilaterally and reactive. Positive arcus senilis.. Mucous membranes are moist and pink NECK: Trachea is midline. Right IJ is clean dry and intact. CHEST: Few crackles appreciated right greater than left. No wheezing CARDIOVASCULAR: RRR. S1, S2. No S4. No murmur ABDOMEN: Soft, nontender, nondistended. Positive bowel sounds are appreciated. MUSCULOSKELETAL: 1+ upper and lower extremity edema noted. NEUROLOGICAL: Cranial nerves grossly intact. Strength is equal and symmetric bilaterally. Normal sensation. Procedures None. Medications and IVs Current Medications Medications (Trade) Dose Ordered Sig/Izabella Route Start Time Stop Time Status Last Admin (Nitrostat Sl) 0.4 mg Q5M PRN SL 10/21/16 22:45 10/22/16 06:15 (NS Flush) 2 ml UNSCH PRN FLUSH 10/22/16 00:45 10/29/16 10:09 (NS Flush) 2 ml BID FLUSH 10/22/16 09:00 10/30/16 08:15 (Zofran Inj) 4 mg Q6H PRN IVP 10/22/16 00:45 10/22/16 05:37 (Dulcolax Supp) 10 mg DAILY PRN DE 10/22/16 00:45 ([place] 5-325 Mg) 1 tab Q4H PRN PO 10/22/16 00:45 (Morphine Inj) 2 mg Q3H PRN IV 10/22/16 00:45 10/22/16 13:13 (Ecotrin Ec) 81 mg DAILY PO 10/22/16 09:00 10/30/16 08:15 (Lipitor) 40 mg HS PO 10/22/16 21:00 10/29/16 21:27 (Cozaar) 12.5 mg DAILY PO 10/23/16 09:00 10/30/16 08:14 (Pill Splitter) 1 ea UNSCH PRN OTHER 10/22/16 21:00 (Plavix) 75 mg DAILY PO 10/23/16 09:00 10/30/16 08:14 (Heparin Inj) 5,000 units Q8HR SQ 10/23/16 14:00 10/30/16 13:56 (Tylenol) 650 mg Q6H PRN PO 10/25/16 07:30 (Colace) 100 mg BID PO 10/25/16 09:00 10/29/16 21:27 Miscellaneous Information 1 Q361D XX 10/25/16 07:30 (Chlorhexidine 2% Cloth) 3 pack Taper DAILY@04 TOP 10/26/16 04:00 10/22/17 03:59 10/30/16 04:00 (Chlorhexidine 2% Cloth) 3 pack UNSCH PRN TOP 10/25/16 07:30 (Pepcid) 20 mg DAILY PO 10/25/16 09:00 10/30/16 08:14 (Peridex 0.12% Liq) 15 ml BID@08,20 MT 10/25/16 20:00 (Senokot) 17.2 mg Q12HR PO 10/26/16 09:00 10/29/16 21:26 (Miralax) 17 gm DAILY PO 10/26/16 09:00 10/28/16 09:37 (Glycerin Adult Supp) 2 gm DAILY PRN RECTAL 10/26/16 09:00 (Haldol Inj) 2 mg Q6H PRN IV 10/28/16 09:00 (Aldactone) 25 mg DAILY PO 10/30/16 09:00 10/30/16 08:16 (Coreg) 3.125 mg Q12HR PO 10/30/16 09:00 10/30/16 08:15 Date of Insertion: Oct 24, 2016 Line: Central Venous Catheter Side: Right Location: Internal, Jugular A/P Problem List: (1) Chest pain ICD Code: R07.9 Status: Acute (2) Hypoxia ICD Code: R09.02 Status: Acute (3) Leukocytosis ICD Code: D72.829 Status: Acute Assessment and Plan Neuro/Psych: History dementia? Delirium Acetaminophen for fever. --Morphine as needed for pain management Respiratory: Acute hypoxic respiratory failure - improving Chest x-ray on showed stable chest with minimal bilateral pleural effusions --Patient has been treated with IV Bumex. Diuretics discontinued today as per cardiology recommendations --BiPAP PRN As needed duo nebs --IS, EzPAP, Acapella Cardiovascular: Cardiogenic shock -resolved NSTEMI s/p PCI with BMS x 2 to mid-LAD Severe left ventricular systolic dysfunction Elevated triglycerides Low HDL -- Status post cardiac catheterization which revealed 100% stenosis LAD with PCI 2 -- DEMETRIO 10/22 revealed EF 25-30%. Hypokinesis of the anterior and anterior lateral myocardium. -- Currently on aspirin 81 mg daily and Plavix 75 mg daily. -- On Lipitor 40 mg per daily for dyslipidemia. Elevated triglyceride/low HDL lipid panel -- Vasopressors used to treat shock. IABP removed 10/24 --Started on Coreg 3.125 BID 10/27, increase to 6.25 twice a day. Start losartan 12.5 mg daily. -- 10/30 Patient started on spironolactone. Renal: Acute kidney injury- resolving. Continue Garnica with hourly urine outputs -- Strict I/Os -- Bumex 1 mg IV every 12 ---> discontinued 10/30 FEN/GI: Acute protein calorie malnutritionmoderate. Hypopotassemia Heart healthy diet Daily BMP -- Replace K to 4.0 Heme/ID: Anemia secondary to acute blood loss Leukocytosis and fever Status post 3 units PRBCs since admission Daily CBC --WBC platelets have normalized Pertinent cultures 10/23 - sputum - no growth 10/23 - urine - no growth 10/23 - blood cultures 2 - no growth Zosyn/vancomycin Discontinued 10/26. Endocrine: Hyperglycemia of critical illness -- SSI if needed to maintain euglycemia Prophylaxis: GI Prophylaxis Pepcid 20 mg by mouth daily Malcom Espino MD Oct 30, 2016 17:36
[2016-10-30] MEDS ORDERED: POTASSIUM CHLORIDE 10 MEQ CONTROLLED RELEASE TAB PO ONE (17:45)
[2016-10-30] MEDS: ATORVASTATIN 40 MG TAB PO SCH (23:08)
[2016-10-31] VITALS (23 sets, daily range): BP systolic 106–128; BP diastolic 70–93; PULSE 90–115; RESP 18–22; TEMP 97–98.4; O2SAT 82–100
[2016-10-31] MEDS: CHLORHEXIDINE GLUCONATE 2 % 1 PACK (2 CLOTHS) TOP SCH ×2 (04:00→21:44)
--- NOTE | 2016-10-31 05:04 | HHI.PR ---
Addendum to Inpatient Note Addendum Reason: Additional Documentation Additional Information S: Residents responded to [facility] heard overhead. Per nursing staff present at bedside, patient became short of breath when straining to use the bathroom on bedside toilet. [facility] was called due to patient's acute shortness of breath and concern for hypoxia. Patient was transferred to cardiac intermediate care from CVICU 10/30; patient had been treated for cardiogenic shock and respiratory failure with BiPAP and diuresis. Cardiogenic shock was secondary to NSTEMI. O: At time of present evaluation, patient was on Ventimask Gen: Patient anxious, short of breath Respiratory: tachypnea, ~25 bpm. Breath sounds present but diminished significantly bilaterally in upper and lower lobes. No audible wheezes. -Saturations initially on Ventimask at ~83%; sats were quickly increased to ~ 97%. Patient was transitioned to non-rebreather. Cardiovascular: Tachycardia to ~110 bpm. On telemetry, patient seemed to skip ventricular beats. Pt with pacemaker. LE's with bilateral mild edema. Neuro: Awake, alert, oriented. Somewhat anxious, able to answer questions A/P: Shortness of breath Impression: Suspect possibly secondary to increased pulmonary edema. Unknown whether bronchoconstriction is contributing to symptoms. Patient was taken off of Bumex for diuresis 10/30. Plan (discussed with Dr. Stevens via phone) -Patient restarted on BIPAP -Will obtain CXR to assess fluid status -Will determine further care based on CXR results and continued responsiveness to BiPAP Seen and discussed with Dr. Self Remarks Patient with decreased tachypnea and more comfortable on BIPAP; and O2 sat persistent >95% Rolly Muhammad MD R2 Oct 31, 2016 05:04
--- NOTE | 2016-10-31 05:57 | RADRPT ---
EXAM DATE/TIME: 10/31/2016 05:29 [facility] COMPARISON: CHEST SINGLE AP, October 29, 2016, 8:10. INDICATIONS : Shortness of breath. MEDICAL HISTORY : Congestive heart failure. Stroke. Hypertension. SURGICAL HISTORY : Pacemaker. ENCOUNTER: Subsequent ACUITY: 1 week PAIN SCORE: Non-responsive. LOCATION: Bilateral chest FINDINGS: Pulmonary edema and [id number] bilateral pleural effusions slightly worse in the interim. No p neumothorax seen. Mild cardiomegaly stable. Left subclavian transvenous cardiac pacer with 2 leads again seen. There is a right internal jugular central venous catheter again noted, tip in the superior vena cava. CONCLUSION: Slight worsening of pulmonary edema/effusions. Shyam Hernandez MD on October 31, 2016 at 5:53 Board Certified Radiologist. This report was verified electronically.
[2016-10-31] MEDS ORDERED: FUROSEMIDE 40 MG/4 ML VIAL IV PUSH ONE ×2 (06:30→21:00)
[2016-10-31] MEDS: HEPARIN SODIUM - SQ 10,000 UNITS/ML VIAL SQ SCH ×3 (06:53→21:36)
[2016-10-31] MEDS: CHLORHEXIDINE 0.12% (ORAL KIT) 15 ML CUP MT SCH ×2 (08:00→20:00)
--- NOTE | 2016-10-31 08:25 | HHI.PR ---
Subjective Remarks Follow-up heart failure. Increased dyspnea and worsening hypoxia early this morning when she used the commode. Initially placed on BiPAP. After receiving Lasix 40 mg IV she had improvement now tolerating 2 L nasal cannula. Discussed with RN Objective Vitals Vital Signs Date Time Temp Pulse Resp B/P Pulse Ox O2 Delivery O2 Flow Rate FiO2 10/31/16 08:00 100 Bi-Pap 40 10/31/16 08:00 97.0 100 22 106/73 100 10/31/16 05:55 98.2 96 19 109/72 100 10/31/16 05:54 100 Nasal Cannula 4.00 10/31/16 04:25 99 50 10/31/16 04:12 82 6.00 50 10/30/16 22:30 99 Nasal Cannula 2.00 10/30/16 21:23 100 Nasal Cannula 4.00 10/30/16 17:50 98.2 96 19 109/72 100 10/30/16 17:00 96 10/30/16 16:00 96 10/30/16 15:00 100 Nasal Cannula 4.00 10/30/16 15:00 90 10/30/16 12:00 110 10/30/16 11:00 98.3 107 17 117/83 98 10/30/16 11:00 90 10/30/16 11:00 98 Nasal Cannula 4.00 10/30/16 10:00 100 10/30/16 09:32 101 10/30/16 09:32 98.1 101 18 103/72 97 10/30/16 09:23 94 Nasal Cannula 5.00 I/O 10/30/16 10/30/16 10/30/16 10/31/16 10/31/16 10/31/16 07:00 15:00 23:00 07:00 15:00 23:00 Intake Total 420 ml 480 ml 240 ml 360 ml Output Total 950 ml 250 ml 570 ml Balance -530 ml 230 ml 240 ml -210 ml Intake Oral 420 ml 480 ml 240 ml 360 ml Output Urine Total 950 ml 250 ml 570 ml # Voids 3 2 # Bowel Movements 0 1 1 Result Diagram: 10/30/16 0558 10/30/16 0558 Imaging Last Impressions Chest X-Ray 10/31/16 0000 Signed Impressions: Service Date/Time: Monday, October 31, 2016 05:29 - CONCLUSION: Slight worsening of pulmonary edema/effusions. Shyam Hernandez MD Objective Remarks GENERAL: 89-year-old female, appears stated age, lying in bed currently on NC HEENT: Pupils equal, round about 3 mm's bilaterally and reactive. Positive arcus senilis.. Mucous membranes are moist and pink NECK: Trachea is midline. Right IJ is clean dry and intact. Cant tell if JVD distended CHEST: Few crackles appreciated bibasal. No wheezing CARDIOVASCULAR: RRR. S1, S2. No S4. No murmur ABDOMEN: Soft, nontender, nondistended. Positive bowel sounds are appreciated. MUSCULOSKELETAL: 1+ upper and lower extremity edema noted. NEUROLOGICAL: Cranial nerves grossly intact. Strength is equal and symmetric bilaterally. Normal sensation. Procedures None. Date of Insertion: Oct 24, 2016 Line: Central Venous Catheter Side: Right Location: Internal, Jugular A/P Problem List: (1) Chest pain ICD Code: R07.9 Status: Acute (2) Hypoxia ICD Code: R09.02 Status: Acute (3) Leukocytosis ICD Code: D72.829 Status: Acute Assessment and Plan History dementia? Delirium Acetaminophen for fever. --Morphine as needed for pain management --Improving Respiratory: Acute hypoxic respiratory failure -recurrent Chest x-ray on showed stable chest with minimal bilateral pleural effusions --Patient has been treated with IV Bumex. --BiPAP PRN As needed duo nebs --IS, EzPAP, Acapella --Worse today. Continue IV diuresis with Lasix and monitor renal function. I/ O and monitor weight Cardiovascular: Cardiogenic shock -resolved NSTEMI s/p PCI with BMS x 2 to mid-LAD Severe left ventricular systolic dysfunction Elevated triglycerides Low HDL -- Status post cardiac catheterization which revealed 100% stenosis LAD with PCI 2 -- DEMETRIO 10/22 revealed EF 25-30%. Hypokinesis of the anterior and anterior lateral myocardium. -- Currently on aspirin 81 mg daily and Plavix 75 mg daily. -- On Lipitor 40 mg per daily for dyslipidemia. Elevated triglyceride/low HDL lipid panel -- Vasopressors used to treat shock. IABP removed 10/24 --Coreg Coreg 3.125 BID 10/27 and losartan 12.5 mg daily. -- 10/30 Patient started on spironolactone which has been increased. Renal: Acute kidney injury- resolving. Continue Garnica with hourly urine outputs -- Strict I/Os -- Bumex 1 mg IV every 12 ---> discontinued 10/30 FEN/GI: Acute protein calorie malnutritionmoderate. Hypopotassemia Heart healthy diet Daily BMP -- Replace K to 4.0 Heme/ID: Anemia secondary to acute blood loss Leukocytosis and fever Status post 3 units PRBCs since admission Monitor CBC --WBC platelets have normalized Pertinent cultures 10/23 - sputum - no growth 10/23 - urine - no growth 10/23 - blood cultures 2 - no growth Zosyn/vancomycin Discontinued 10/26. Endocrine: Hyperglycemia of critical illness -- SSI if needed to maintain euglycemia Prophylaxis: GI Prophylaxis Pepcid 20 mg by mouth daily -Subcutaneous heparin Connor Peoples MD Oct 31, 2016 08:25
[2016-10-31] MEDS: ASPIRIN EC 81 MG TABEC PO SCH (08:47)
[2016-10-31] MEDS: LOSARTAN 25 MG TAB PO SCH (08:47)
[2016-10-31] MEDS: DOCUSATE SODIUM 100 MG CAP PO SCH ×2 (08:47→21:35)
[2016-10-31] MEDS: CARVEDILOL 3.125 MG TAB PO SCH ×2 (08:47→21:36)
[2016-10-31] MEDS: FAMOTIDINE 20 MG TAB PO SCH (08:47)
[2016-10-31] MEDS: CLOPIDOGREL 75 MG TAB PO SCH (08:47)
[2016-10-31] MEDS: SODIUM CHLORIDE 0.9% FLUSH 5 ML FLUSH FLUSH SCH ×2 (08:49→21:37)
[2016-10-31] MEDS: SENNOSIDES 8.6 MG TAB PO SCH ×2 (08:49→21:36)
[2016-10-31] MEDS: POLYETHYLENE GLYCOL 17 GM PKG PO SCH (08:49)
[2016-10-31] MEDS: SPIRONOLACTONE 25 MG TAB PO SCH ×2 (08:49→21:36)
[2016-10-31] MEDS ORDERED: POTASSIUM CHLORIDE 20 MEQ CONTROLLED RELEASE TAB PO ONE (09:00)
--- NOTE | 2016-10-31 09:07 | PD.CARD.PN ---
Subjective Subjective Remarks SOB requiring increase O2 delivery last night. IV Lasix givent his AM with good response. Denies CP or SOB now at rest. Mild confusion noted. Objective Medications Current Medications Medications (Trade) Dose Ordered Sig/Izabella Route PRN Reason Start Time Stop Time Status Last Admin Dose Admin Nitroglycerin (Nitrostat Sl) 0.4 mg Q5M PRN SL CHEST PAIN 10/21/16 22:45 10/22/16 06:15 IV Flush (NS Flush) 2 ml UNSCH PRN FLUSH FLUSH AFTER USING IV ACCESS 10/22/16 00:45 10/29/16 10:09 IV Flush (NS Flush) 2 ml BID FLUSH 10/22/16 09:00 10/31/16 08:49 Ondansetron HCl (Zofran Inj) 4 mg Q6H PRN IVP NAUSEA OR VOMITING 10/22/16 00:45 10/22/16 05:37 Bisacodyl (Dulcolax Supp) 10 mg DAILY PRN [place] CONSTIPATION 10/22/16 00:45 Acetaminophen/ Hydrocodone Bitart ([place] 5-325 Mg) 1 tab Q4H PRN PO PAIN SCALE 3 TO 5 10/22/16 00:45 Morphine Sulfate (Morphine Inj) 2 mg Q3H PRN IV Pain 6-10 10/22/16 00:45 10/22/16 13:13 Aspirin (Ecotrin Ec) 81 mg DAILY PO 10/22/16 09:00 10/31/16 08:47 Atorvastatin Calcium (Lipitor) 40 mg HS PO 10/22/16 21:00 10/30/16 23:08 Losartan Potassium (Cozaar) 12.5 mg DAILY PO 10/23/16 09:00 10/31/16 08:47 Miscellaneous (Pill Splitter) 1 ea UNSCH PRN OTHER SEE LABEL COMMENTS 10/22/16 21:00 Clopidogrel Bisulfate (Plavix) 75 mg DAILY PO 10/23/16 09:00 10/31/16 08:47 Heparin Sodium (Porcine) (Heparin Inj) 5,000 units Q8HR SQ 10/23/16 14:00 10/31/16 06:53 Acetaminophen (Tylenol) 650 mg Q6H PRN PO FEVER >100F, pain 1-3 10/25/16 07:30 Docusate Sodium (Colace) 100 mg BID PO 10/25/16 09:00 10/31/16 08:47 Miscellaneous Information 1 Q361D XX 10/25/16 07:30 Chlorhexidine Gluconate (Chlorhexidine 2% Cloth) Taper DAILY@04 TOP 10/26/16 04:00 10/22/17 03:59 10/30/16 04:00 Chlorhexidine Gluconate (Chlorhexidine 2% Cloth) 3 pack UNSCH PRN TOP HYGIENIC CARE 10/25/16 07:30 Famotidine (Pepcid) 20 mg DAILY PO 10/25/16 09:00 10/31/16 08:47 Chlorhexidine Gluconate (Peridex 0.12% Liq) 15 ml BID@08,20 MT 10/25/16 20:00 Sennosides (Senokot) 17.2 mg Q12HR PO 10/26/16 09:00 10/30/16 23:07 Polyethylene Glycol (Miralax) 17 gm DAILY PO 10/26/16 09:00 10/28/16 09:37 Glycerin (Glycerin Adult Supp) 2 gm DAILY PRN RECTAL CONSTIPATION 10/26/16 09:00 Haloperidol Lactate (Haldol Inj) 2 mg Q6H PRN IV agitation 10/28/16 09:00 Carvedilol (Coreg) 3.125 mg Q12HR PO 10/30/16 09:00 10/31/16 08:47 Spironolactone (Aldactone) 25 mg BID PO 10/31/16 09:00 10/31/16 08:49 Potassium Chloride (KCl) 40 meq ONCE ONCE PO 10/31/16 09:00 10/31/16 09:01 UNV Potassium Chloride (KCl) 20 meq Q12HR PO 10/31/16 21:00 UNV Vital Signs / I&O Vital Signs Date Time Temp Pulse Resp B/P Pulse Ox O2 Delivery O2 Flow Rate FiO2 10/31/16 08:23 98 Nasal Cannula 2.00 10/31/16 08:00 100 Bi-Pap 40 10/31/16 08:00 97.0 100 22 106/73 100 10/31/16 05:55 98.2 96 19 109/72 100 10/31/16 05:54 100 Nasal Cannula 4.00 10/31/16 04:25 99 50 10/31/16 04:12 82 6.00 50 10/30/16 22:30 99 Nasal Cannula 2.00 10/30/16 21:23 100 Nasal Cannula 4.00 10/30/16 17:50 98.2 96 19 109/72 100 10/30/16 17:00 96 10/30/16 16:00 96 10/30/16 15:00 100 Nasal Cannula 4.00 10/30/16 15:00 90 10/30/16 12:00 110 10/30/16 11:00 98.3 107 17 117/83 98 10/30/16 11:00 90 10/30/16 11:00 98 Nasal Cannula 4.00 10/30/16 10:00 100 10/30/16 09:32 101 10/30/16 09:32 98.1 101 18 103/72 97 10/30/16 09:23 94 Nasal Cannula 5.00 I/O 10/30/16 10/30/16 10/30/16 10/31/16 10/31/16 10/31/16 07:00 15:00 23:00 07:00 15:00 23:00 Intake Total 420 ml 480 ml 240 ml 360 ml Output Total 950 ml 250 ml 570 ml Balance -530 ml 230 ml 240 ml -210 ml Intake Oral 420 ml 480 ml 240 ml 360 ml Output Urine Total 950 ml 250 ml 570 ml # Voids 3 2 # Bowel Movements 0 1 1 Physical Exam Awake and alert. No distress. Lungs:CTA. Hear: S1/S2 no murmur. Ext: Warm , well perfused. Both groins stable. No hematoma. Neuro intact. Mild confusion. Poor memory. Laboratory Laboratory Tests Test 10/27/16 10/30/16 04:45 05:58 Phosphorus Level 2.7 MG/DL Total Creatine Kinase 270 U/L Creatine Kinase MB 5.7 NG/ML Creatine Kinase MB % 2.1 % White Blood Count 9.8 TH/MM3 Red Blood Count 3.01 MIL/MM3 Hemoglobin 9.4 GM/DL Hematocrit 27.6 % Mean Corpuscular Volume 91.6 FL Mean Corpuscular Hemoglobin 31.3 PG Mean Corpuscular Hemoglobin 34.2 % Concent Red Cell Distribution Width 13.5 % Platelet Count 262 TH/MM3 Mean Platelet Volume 9.4 FL Neutrophils (%) (Auto) 72.8 % Lymphocytes (%) (Auto) 12.3 % Monocytes (%) (Auto) 11.2 % Eosinophils (%) (Auto) 3.1 % Basophils (%) (Auto) 0.6 % Neutrophils # (Auto) 7.2 TH/MM3 Lymphocytes # (Auto) 1.2 TH/MM3 Monocytes # (Auto) 1.1 TH/MM3 Eosinophils # (Auto) 0.3 TH/MM3 Basophils # (Auto) 0.1 TH/MM3 CBC Comment DIFF FINAL Differential Comment Sodium Level 139 MEQ/L Potassium Level 3.4 MEQ/L Chloride Level 98 MEQ/L Carbon Dioxide Level 35.5 MEQ/L Anion Gap 6 MEQ/L Blood Urea Nitrogen 23 MG/DL Creatinine 1.09 MG/DL Estimat Glomerular Filtration 47 ML/MIN Rate Random Glucose 91 MG/DL Calcium Level 8.4 MG/DL Magnesium Level 2.1 MG/DL Total Bilirubin 0.7 MG/DL Aspartate Amino Transf 30 U/L (AST/SGOT) Alanine Aminotransferase 23 U/L (ALT/SGPT) Alkaline Phosphatase 65 U/L Total Protein 5.6 GM/DL Albumin 2.5 GM/DL Imaging Last 48 hours Impressions Chest X-Ray 10/31/16 0000 Signed Impressions: Service Date/Time: Monday, October 31, 2016 05:29 - CONCLUSION: Slight worsening of pulmonary edema/effusions. Shyam Hernandez MD Assessment and Plan Problem List: (1) NSTEMI (non-ST elevated myocardial infarction) (2) Cardiogenic shock Assessment and Plan: Resolved. (3) Respiratory failure (4) Acute pulmonary edema Assessment and Plan: Mildly decompensated. (5) Arteriosclerotic heart disease (ASHD) (6) Ischemic cardiomyopathy (7) Severe left ventricular systolic dysfunction (8) Stented coronary artery Assessment and Plan Excellent UO. Continue IV diuretics today. Increase spironolactone 25 mg PO BID , Continue current doses of Coreg and losartan as BP tolerates both. Follow I&O's, daily weights closely. Replace K to 4.0. Continue PT Plans for inpatient rehab placement when more stable. See orders. Discussed plans with therapeutic support staff, and the patient.. Prognosis remains fair. Alex Seth MD Oct 31, 2016 09:07
[2016-10-31 12:25] LABS: BASOPHIL # 0.1 TH/MM3 (0-0.2); BASOPHIL % 0.6 % (0.0-2.0); EOSINOPHIL # 0.3 TH/MM3 (0-0.4); EOSINOPHIL % 2.8 % (0.0-4.0); HEMATOCRIT 30.3 % (35.0-46.0); LYMPH % 12.7 % (9.0-44.0); LYMPHOCYTE # 1.2 TH/MM3 (1.0-4.8); MEAN CELL VOLUME 91.2 FL (80.0-100.0); MEAN CORPUSCULAR HEMOGLOBIN 30.8 PG (27.0-34.0); MEAN CORPUSCULAR HGB CONC 33.8 % (32.0-36.0); MONO % 10.8 % (0.0-8.0); NEUT % 73.1 % (16.0-70.0); PLATELET COUNT 324 TH/MM3 (150-450); RED BLOOD COUNT 3.32 MIL/MM3 (4.00-5.30); RED CELL DISTRIBUTION WIDTH 13.8 % (11.6-17.2); WHITE BLOOD COUNT 9.6 TH/MM3 (4.0-11.0)
[2016-10-31 12:27] LABS: HEMO FLAGS AUTO DIFF
[2016-10-31 12:48] LABS: ANION GAP 5 MEQ/L (5-15); AST (GOT) 35 U/L (15-37); BICARBONATE 33.8 MEQ/L (21.0-32.0); BLOOD UREA NITROGEN 20 MG/DL (7-18); CHLORIDE 97 MEQ/L (98-107); GLOMERULAR FILTRATION RATE 45 ML/MIN (>89); MAGNESIUM 2.3 MG/DL (1.5-2.5); SODIUM (NA) 136 MEQ/L (136-145)
[2016-10-31 12:51] LABS: ALKALINE PHOSPHATASE 71 U/L (45-117); ALT (GPT) 24 U/L (10-53); TOTAL BILIRUBIN ADULT 0.7 MG/DL (0.2-1.0)
[2016-10-31 13:31] LABS: PLATELET ESTIMATE SMEAR NORMAL (NORMAL); PLATELET MORPHOLOGY NORMAL (NORMAL); SCAN/DIFF AUTO DIFF CONFIRMED
[2016-10-31] MEDS ORDERED: POTASSIUM CHLORIDE 20 MEQ CONTROLLED RELEASE TAB PO SCH (21:00)
[2016-10-31] MEDS: ATORVASTATIN 40 MG TAB PO SCH (21:37)
[2016-11-01] VITALS (28 sets, daily range): BP systolic 91–105; BP diastolic 51–69; PULSE 82–111; RESP 16–20; TEMP 97.6–98.7; O2SAT 94–99
[2016-11-01] MEDS: HEPARIN SODIUM - SQ 10,000 UNITS/ML VIAL SQ SCH ×3 (06:08→21:19)
[2016-11-01 07:29] LABS: BICARBONATE 32.3 MEQ/L (21.0-32.0); MAGNESIUM 2.3 MG/DL (1.5-2.5); POTASSIUM 4.6 MEQ/L (3.5-5.1)
[2016-11-01] MEDS: CHLORHEXIDINE 0.12% (ORAL KIT) 15 ML CUP MT SCH (08:00)
--- NOTE | 2016-11-01 08:08 | PD.CARD.PN ---
Subjective Subjective Remarks Slowly improving hemodynamocs. Occassional anxiety per temporary staff accountant. Appears depressed. No distress. Denies CP or SOB this AM. Objective Medications Current Medications Medications (Trade) Dose Ordered Sig/Izabella Route PRN Reason Start Time Stop Time Status Last Admin Dose Admin Nitroglycerin (Nitrostat Sl) 0.4 mg Q5M PRN SL CHEST PAIN 10/21/16 22:45 10/22/16 06:15 IV Flush (NS Flush) 2 ml UNSCH PRN FLUSH FLUSH AFTER USING IV ACCESS 10/22/16 00:45 10/29/16 10:09 IV Flush (NS Flush) 2 ml BID FLUSH 10/22/16 09:00 10/31/16 21:37 Ondansetron HCl (Zofran Inj) 4 mg Q6H PRN IVP NAUSEA OR VOMITING 10/22/16 00:45 10/22/16 05:37 Bisacodyl (Dulcolax Supp) 10 mg DAILY PRN [place] CONSTIPATION 10/22/16 00:45 Acetaminophen/ Hydrocodone Bitart ([place] 5-325 Mg) 1 tab Q4H PRN PO PAIN SCALE 3 TO 5 10/22/16 00:45 Morphine Sulfate (Morphine Inj) 2 mg Q3H PRN IV Pain 6-10 10/22/16 00:45 10/22/16 13:13 Aspirin (Ecotrin Ec) 81 mg DAILY PO 10/22/16 09:00 10/31/16 08:47 Atorvastatin Calcium (Lipitor) 40 mg HS PO 10/22/16 21:00 10/31/16 21:37 Losartan Potassium (Cozaar) 12.5 mg DAILY PO 10/23/16 09:00 10/31/16 08:47 Miscellaneous (Pill Splitter) 1 ea UNSCH PRN OTHER SEE LABEL COMMENTS 10/22/16 21:00 Clopidogrel Bisulfate (Plavix) 75 mg DAILY PO 10/23/16 09:00 10/31/16 08:47 Heparin Sodium (Porcine) (Heparin Inj) 5,000 units Q8HR SQ 10/23/16 14:00 11/01/16 06:08 Acetaminophen (Tylenol) 650 mg Q6H PRN PO FEVER >100F, pain 1-3 10/25/16 07:30 Docusate Sodium (Colace) 100 mg BID PO 10/25/16 09:00 10/31/16 21:35 Miscellaneous Information 1 Q361D XX 10/25/16 07:30 Chlorhexidine Gluconate (Chlorhexidine 2% Cloth) Taper DAILY@04 TOP 10/26/16 04:00 10/22/17 03:59 10/30/16 04:00 Chlorhexidine Gluconate (Chlorhexidine 2% Cloth) 3 pack UNSCH PRN TOP HYGIENIC CARE 10/25/16 07:30 Famotidine (Pepcid) 20 mg DAILY PO 10/25/16 09:00 10/31/16 08:47 Chlorhexidine Gluconate (Peridex 0.12% Liq) 15 ml BID@08,20 MT 10/25/16 20:00 Sennosides (Senokot) 17.2 mg Q12HR PO 10/26/16 09:00 10/31/16 21:36 Polyethylene Glycol (Miralax) 17 gm DAILY PO 10/26/16 09:00 10/28/16 09:37 Glycerin (Glycerin Adult Supp) 2 gm DAILY PRN RECTAL CONSTIPATION 10/26/16 09:00 Haloperidol Lactate (Haldol Inj) 2 mg Q6H PRN IV agitation 10/28/16 09:00 Carvedilol (Coreg) 3.125 mg Q12HR PO 10/30/16 09:00 10/31/16 21:36 Spironolactone (Aldactone) 25 mg BID PO 10/31/16 09:00 10/31/16 21:36 Furosemide (Lasix) 40 mg DAILY PO 11/01/16 09:00 UNV Potassium Chloride (KCl) 10 meq Q12HR PO 11/01/16 09:00 UNV Lorazepam (Ativan) 0.5 mg Q8HR PRN SL ANXIETY 11/01/16 08:00 UNV Vital Signs / I&O Vital Signs Date Time Temp Pulse Resp B/P Pulse Ox O2 Delivery O2 Flow Rate FiO2 11/01/16 06:00 95 11/01/16 06:00 95 30 11/01/16 05:00 101 11/01/16 04:00 95 11/01/16 04:00 Bi-Pap 11/01/16 04:00 98.1 96 20 104/69 98 11/01/16 03:00 90 11/01/16 02:00 94 BiPAP 30 11/01/16 02:00 98 11/01/16 01:58 94 30 11/01/16 01:00 97 11/01/16 00:00 Bi-Pap 11/01/16 00:00 97.6 91 20 91/64 97 11/01/16 00:00 94 10/31/16 23:20 98 30 10/31/16 23:00 100 10/31/16 22:00 94 10/31/16 21:00 94 10/31/16 20:00 98.4 115 20 128/93 98 10/31/16 20:00 100 10/31/16 20:00 Bi-Pap 10/31/16 19:15 97 30 10/31/16 19:00 107 10/31/16 18:00 111 10/31/16 17:00 104 10/31/16 16:00 97.4 103 19 112/70 99 10/31/16 16:00 90 10/31/16 16:00 Nasal Cannula 2.00 40 10/31/16 15:00 106 10/31/16 14:00 100 10/31/16 13:00 99 10/31/16 12:00 100 10/31/16 12:00 97.2 96 18 107/70 98 10/31/16 12:00 Nasal Cannula 2.00 40 10/31/16 11:00 94 10/31/16 10:00 99 10/31/16 09:00 103 10/31/16 08:23 98 Nasal Cannula 2.00 I/O 10/31/16 10/31/16 10/31/16 11/01/16 11/01/16 11/01/16 07:00 15:00 23:00 07:00 15:00 23:00 Intake Total 360 ml 240 ml 461 ml Output Total 570 ml 1100 ml Balance -210 ml -860 ml 461 ml Intake Oral 360 ml 240 ml 461 ml Output Urine Total 570 ml 1100 ml # Voids 2 3 4 # Bowel Movements 3 1 0 Physical Exam Awake and alert. No distress. Lungs:CTA. Hear: S1/S2 no murmur. Ext: Warm , well perfused. Both groins stable. No hematoma. Neuro intact. Mild confusion. Poor memory. Laboratory Laboratory Tests Test 10/31/16 11/01/16 12:13 06:35 White Blood Count 9.6 TH/MM3 Red Blood Count 3.32 MIL/MM3 Hemoglobin 10.2 GM/DL Hematocrit 30.3 % Mean Corpuscular Volume 91.2 FL Mean Corpuscular Hemoglobin 30.8 PG Mean Corpuscular Hemoglobin 33.8 % Concent Red Cell Distribution Width 13.8 % Platelet Count 324 TH/MM3 Mean Platelet Volume 9.2 FL Neutrophils (%) (Auto) 73.1 % Lymphocytes (%) (Auto) 12.7 % Monocytes (%) (Auto) 10.8 % Eosinophils (%) (Auto) 2.8 % Basophils (%) (Auto) 0.6 % Neutrophils # (Auto) 7.0 TH/MM3 Lymphocytes # (Auto) 1.2 TH/MM3 Monocytes # (Auto) 1.0 TH/MM3 Eosinophils # (Auto) 0.3 TH/MM3 Basophils # (Auto) 0.1 TH/MM3 CBC Comment AUTO DIFF Differential Comment AUTO DIFF CONFIRMED Platelet Estimate NORMAL Platelet Morphology Comment NORMAL Sodium Level 136 MEQ/L 138 MEQ/L Potassium Level 4.0 MEQ/L 4.6 MEQ/L Chloride Level 97 MEQ/L 98 MEQ/L Carbon Dioxide Level 33.8 MEQ/L 32.3 MEQ/L Anion Gap 5 MEQ/L 8 MEQ/L Blood Urea Nitrogen 20 MG/DL 16 MG/DL Creatinine 1.14 MG/DL 1.25 MG/DL Estimat Glomerular Filtration 45 ML/MIN 40 ML/MIN Rate Random Glucose 98 MG/DL 94 MG/DL Calcium Level 8.7 MG/DL 9.0 MG/DL Phosphorus Level 3.7 MG/DL Magnesium Level 2.3 MG/DL 2.3 MG/DL Total Bilirubin 0.7 MG/DL Aspartate Amino Transf 35 U/L (AST/SGOT) Alanine Aminotransferase 24 U/L (ALT/SGPT) Alkaline Phosphatase 71 U/L Total Protein 6.2 GM/DL Albumin 2.8 GM/DL Imaging Last 48 hours Impressions Chest X-Ray 10/31/16 0000 Signed Impressions: Service Date/Time: Monday, October 31, 2016 05:29 - CONCLUSION: Slight worsening of pulmonary edema/effusions. Shyam Hernandez MD Assessment and Plan Problem List: (1) NSTEMI (non-ST elevated myocardial infarction) (2) Cardiogenic shock (3) Respiratory failure (4) Acute pulmonary edema (5) Arteriosclerotic heart disease (ASHD) (6) Ischemic cardiomyopathy (7) Severe left ventricular systolic dysfunction (8) Stented coronary artery Assessment and Plan Excellent UO. Start Lasix 40 mg PO daily. Continue spironolactone 25 mg PO BID , Continue current doses of Coreg and losartan as BP tolerates both. Follow I&O's, daily weights closely. O2 sats are good. Potassium level 4.6 today. Will decrease Kdur to 10 meq BID. Check BMP in AM 2/ 3. Continue PT Patient was on fluoxetine 20 mg daily at home will start 10 mg daily as tolerates for anxiety and depression. Ativan 0.5 mg SL PRN also. Plans for inpatient rehab placement in 1-2 days. See orders. Discussed plans with temporary staff accountant, and the patient.. Prognosis remains fair. Alex Seth MD Nov 01, 2016 08:08
[2016-11-01] MEDS: POLYETHYLENE GLYCOL 17 GM PKG PO SCH (09:00)
[2016-11-01] MEDS: DOCUSATE SODIUM 100 MG CAP PO SCH ×2 (09:00→21:00)
[2016-11-01] MEDS: SENNOSIDES 8.6 MG TAB PO SCH ×2 (09:00→21:00)
[2016-11-01] MEDS: CARVEDILOL 3.125 MG TAB PO SCH ×2 (09:26→21:00)
[2016-11-01] MEDS: LOSARTAN 25 MG TAB PO SCH (09:26)
[2016-11-01] MEDS: FLUoxetine HCL 10 MG CAP PO SCH (09:26)
[2016-11-01] MEDS: FAMOTIDINE 20 MG TAB PO SCH (09:26)
[2016-11-01] MEDS: FUROSEMIDE 40 MG TAB PO SCH (09:26)
[2016-11-01] MEDS: SPIRONOLACTONE 25 MG TAB PO SCH ×2 (09:26→21:00)
[2016-11-01] MEDS: LORazepam 0.5 MG TAB SL PRN ×2 (09:26→21:19)
[2016-11-01] MEDS: ASPIRIN EC 81 MG TABEC PO SCH (09:27)
[2016-11-01] MEDS: SODIUM CHLORIDE 0.9% FLUSH 5 ML FLUSH FLUSH SCH ×2 (09:27→21:17)
[2016-11-01] MEDS: CLOPIDOGREL 75 MG TAB PO SCH (09:27)
[2016-11-01] MEDS: POTASSIUM CHLORIDE 10 MEQ CONTROLLED RELEASE TAB PO SCH ×2 (09:28→21:18)
--- NOTE | 2016-11-01 13:38 | HHI.PR ---
Subjective Remarks F/u CHF. Doing ok on NC. Needed BIPAP last night. Dw RN to update med rec Objective Vitals Vital Signs Date Time Temp Pulse Resp B/P Pulse Ox O2 Delivery O2 Flow Rate FiO2 11/01/16 12:00 97.9 100 16 96/62 99 11/01/16 12:00 Nasal Cannula 2.00 30 11/01/16 12:00 99 11/01/16 11:00 99 11/01/16 10:00 102 11/01/16 09:00 109 11/01/16 08:28 97 Nasal Cannula 2.00 11/01/16 08:00 Nasal Cannula 2.00 11/01/16 08:00 98.7 111 16 93/60 97 11/01/16 08:00 98 11/01/16 07:00 90 11/01/16 06:00 95 11/01/16 06:00 95 30 11/01/16 05:00 101 11/01/16 04:00 95 11/01/16 04:00 Bi-Pap 11/01/16 04:00 98.1 96 20 104/69 98 11/01/16 03:00 90 11/01/16 02:00 94 BiPAP 30 11/01/16 02:00 98 11/01/16 01:58 94 30 11/01/16 01:00 97 11/01/16 00:00 Bi-Pap 11/01/16 00:00 97.6 91 20 91/64 97 11/01/16 00:00 94 10/31/16 23:20 98 30 10/31/16 23:00 100 10/31/16 22:00 94 10/31/16 21:00 94 10/31/16 20:00 98.4 115 20 128/93 98 10/31/16 20:00 100 10/31/16 20:00 Bi-Pap 10/31/16 19:15 97 30 10/31/16 19:00 107 10/31/16 18:00 111 10/31/16 17:00 104 10/31/16 16:00 97.4 103 19 112/70 99 10/31/16 16:00 90 10/31/16 16:00 Nasal Cannula 2.00 40 10/31/16 15:00 106 10/31/16 14:00 100 I/O 210/31/16 10/31/16 11/01/16 11/01/16 11/01/16 07:00 15:00 23:00 07:00 15:00 23:00 Intake Total 360 ml 240 ml 461 ml Output Total 570 ml 1100 ml Balance -210 ml -860 ml 461 ml Intake Oral 360 ml 240 ml 461 ml Output Urine Total 570 ml 1100 ml # Voids 2 3 4 # Bowel Movements 3 1 0 Result Diagram: 10/31/16 1213 11/01/16 0635 Objective Remarks GENERAL: 89-year-old female, appears stated age, lying in bed currently on NC HEENT: Pupils equal, round about 3 mm's bilaterally and reactive. Positive arcus senilis.. Mucous membranes are moist and pink NECK: Trachea is midline. Right IJ is clean dry and intact. Cant tell if JVD distended CHEST: Decreased breath sounds. No wheezing CARDIOVASCULAR: RRR. S1, S2. No S4. No murmur ABDOMEN: Soft, nontender, nondistended. Positive bowel sounds are appreciated. MUSCULOSKELETAL: 1+ upper and lower extremity edema noted. NEUROLOGICAL: Cranial nerves grossly intact. Strength is equal and symmetric bilaterally. Normal sensation. Procedures None. Date of Insertion: Oct 24, 2016 Line: Central Venous Catheter Side: Right Location: Internal, Jugular A/P Problem List: (1) Chest pain ICD Code: R07.9 Status: Acute (2) Hypoxia ICD Code: R09.02 Status: Acute (3) Leukocytosis ICD Code: D72.829 Status: Acute Assessment and Plan History dementia? Delirium Acetaminophen for fever. --Morphine as needed for pain management --Improving --Depression started on fluoxetine Respiratory: Acute hypoxic respiratory failure -recurrent Chest x-ray on showed stable chest with minimal bilateral pleural effusions --Patient has been treated with IV Bumex. --BiPAP PRN As needed duo nebs --IS, EzPAP, Acapella --Improved today. Continue diuresis with Lasix and Aldactone and monitor renal function. I/O and monitor weight Cardiovascular: Cardiogenic shock -resolved NSTEMI s/p PCI with BMS x 2 to mid-LAD Severe left ventricular systolic dysfunction Elevated triglycerides Low HDL -- Status post cardiac catheterization which revealed 100% stenosis LAD with PCI 2 -- DEMETRIO 1/23 revealed EF 25-30%. Hypokinesis of the anterior and anterior lateral myocardium. -- Currently on aspirin 81 mg daily and Plavix 75 mg daily. -- On Lipitor 40 mg per daily for dyslipidemia. Elevated triglyceride/low HDL lipid panel -- Vasopressors used to treat shock. IABP removed 10/24 --Coreg Coreg 3.125 BID 10/27 and losartan 12.5 mg daily. -- 10/30 Patient started on spironolactone which has been increased. Renal: Acute kidney injury- resolving. Continue Garnica with hourly urine outputs -- Strict I/Os -- Bumex 1 mg IV every 12 ---> discontinued 10/30 FEN/GI: Acute protein calorie malnutritionmoderate. Hypopotassemia Heart healthy diet Daily BMP -- Replace K to 4.0 Heme/ID: Anemia secondary to acute blood loss Leukocytosis and fever Status post 3 units PRBCs since admission Monitor CBC --WBC platelets have normalized Pertinent cultures 10/23 - sputum - no growth 10/23 - urine - no growth 10/23 - blood cultures 2 - no growth Zosyn/vancomycin Discontinued 10/26. Endocrine: Hyperglycemia of critical illness -- SSI if needed to maintain euglycemia Prophylaxis: GI Prophylaxis Pepcid 20 mg by mouth daily -Subcutaneous heparin Discharge Planning Discharge to rehabilitation in the morning Connor Peoples MD Nov 01, 2016 13:38
[2016-11-01] MEDS ORDERED: SPIR25 PO (13:42)
[2016-11-01] MEDS ORDERED: FLUO-1 PO (13:42)
[2016-11-01] MEDS ORDERED: COZA25TA PO (13:42)
[2016-11-01] MEDS ORDERED: CARV3.125 PO (13:42)
[2016-11-01] MEDS ORDERED: FURO1TAB60 PO (13:42)
[2016-11-01] MEDS ORDERED: LIPI40TA PO (13:42)
[2016-11-01] MEDS ORDERED: ASPI81TA11 PO (13:42)
[2016-11-01] MEDS ORDERED: LORA-392 SL (13:42)
[2016-11-01] MEDS ORDERED: PLAV75TA29 PO (13:42)
--- NOTE | 2016-11-01 13:43 | HHI.DCPOC ---
Discharge Care Plan Diagnosis: (1) Respiratory failure (2) Cardiogenic shock Your Health Problems Are: Difficulty with ADL Exercise Tolerance Goals to Promote Your Health * To prevent worsening of your condition and complications * To maintain your health at the optimal level Directions to Meet Your Goals Take your medications as prescribed Follow your dietary instruction Follow activity as directed Keep your appointments as scheduled Take your immunizations and boosters as scheduled If your symptoms worsen call your PCP, if no PCP go to Urgent Care Center or Emergency Room Smoking is Dangerous to Your Health. Avoid second hand smoke Call the 24-hour hour crisis hotline for domestic abuse at Connor Peoples MD Nov 01, 2016 13:43
[2016-11-01] MEDS: ATORVASTATIN 40 MG TAB PO SCH (21:18)
[2016-11-02] VITALS (23 sets, daily range): BP systolic 92–118; BP diastolic 63–82; PULSE 77–100; RESP 18–20; TEMP 97.7–98; O2SAT 95–99
[2016-11-02] MEDS: CHLORHEXIDINE GLUCONATE 2 % 1 PACK (2 CLOTHS) TOP SCH (04:00)
[2016-11-02] MEDS: HEPARIN SODIUM - SQ 10,000 UNITS/ML VIAL SQ SCH ×3 (06:16→20:59)
[2016-11-02 07:27] LABS: BICARBONATE 27.7 MEQ/L (21.0-32.0)
[2016-11-02 07:30] LABS: POTASSIUM 4.7 MEQ/L (3.5-5.1)
--- NOTE | 2016-11-02 07:44 | PD.CARD.PN ---
Subjective Subjective Remarks Feeling better. Less depressed today. Anxiety better. Denies CP or SOB. Objective Medications Current Medications Medications (Trade) Dose Ordered Sig/Izabella Route PRN Reason Start Time Stop Time Status Last Admin Dose Admin Nitroglycerin (Nitrostat Sl) 0.4 mg Q5M PRN SL CHEST PAIN 10/21/16 22:45 10/22/16 06:15 IV Flush (NS Flush) 2 ml UNSCH PRN FLUSH FLUSH AFTER USING IV ACCESS 10/22/16 00:45 10/29/16 10:09 IV Flush (NS Flush) 2 ml BID FLUSH 10/22/16 09:00 11/01/16 21:17 Ondansetron HCl (Zofran Inj) 4 mg Q6H PRN IVP NAUSEA OR VOMITING 10/22/16 00:45 10/22/16 05:37 Bisacodyl (Dulcolax Supp) 10 mg DAILY PRN [place] CONSTIPATION 10/22/16 00:45 Acetaminophen/ Hydrocodone Bitart ([place] 5-325 Mg) 1 tab Q4H PRN PO PAIN SCALE 3 TO 5 10/22/16 00:45 Morphine Sulfate (Morphine Inj) 2 mg Q3H PRN IV Pain 6-10 10/22/16 00:45 10/22/16 13:13 Aspirin (Ecotrin Ec) 81 mg DAILY PO 10/22/16 09:00 11/01/16 09:27 Atorvastatin Calcium (Lipitor) 40 mg HS PO 10/22/16 21:00 11/01/16 21:18 Miscellaneous (Pill Splitter) 1 ea UNSCH PRN OTHER SEE LABEL COMMENTS 10/22/16 21:00 Clopidogrel Bisulfate (Plavix) 75 mg DAILY PO 10/23/16 09:00 11/01/16 09:27 Heparin Sodium (Porcine) (Heparin Inj) 5,000 units Q8HR SQ 10/23/16 14:00 11/02/16 06:16 Acetaminophen (Tylenol) 650 mg Q6H PRN PO FEVER >100F, pain 1-3 10/25/16 07:30 Docusate Sodium (Colace) 100 mg BID PO 10/25/16 09:00 10/31/16 21:35 Miscellaneous Information 1 Q361D XX 10/25/16 07:30 Chlorhexidine Gluconate (Chlorhexidine 2% Cloth) Taper DAILY@04 TOP 10/26/16 04:00 10/22/17 03:59 10/30/16 04:00 Chlorhexidine Gluconate (Chlorhexidine 2% Cloth) 3 pack UNSCH PRN TOP HYGIENIC CARE 10/25/16 07:30 Famotidine (Pepcid) 20 mg DAILY PO 10/25/16 09:00 11/01/16 09:26 Chlorhexidine Gluconate (Peridex 0.12% Liq) 15 ml BID@08,20 MT 10/25/16 20:00 Sennosides (Senokot) 17.2 mg Q12HR PO 10/26/16 09:00 10/31/16 21:36 Polyethylene Glycol (Miralax) 17 gm DAILY PO 10/26/16 09:00 10/28/16 09:37 Glycerin (Glycerin Adult Supp) 2 gm DAILY PRN RECTAL CONSTIPATION 10/26/16 09:00 Haloperidol Lactate (Haldol Inj) 2 mg Q6H PRN IV agitation 10/28/16 09:00 Carvedilol (Coreg) 3.125 mg Q12HR PO 10/30/16 09:00 11/01/16 09:26 Spironolactone (Aldactone) 25 mg BID PO 10/31/16 09:00 11/01/16 09:26 Furosemide (Lasix) 40 mg DAILY PO 11/01/16 09:00 11/01/16 09:26 Potassium Chloride (KCl) 10 meq Q12HR PO 11/01/16 09:00 11/01/16 21:18 Lorazepam (Ativan) 0.5 mg Q8HR PRN SL ANXIETY 11/01/16 08:00 11/01/16 21:19 Fluoxetine HCl (PROzac) 10 mg DAILY PO 11/01/16 09:00 11/01/16 09:26 Vital Signs / I&O Vital Signs Date Time Temp Pulse Resp B/P Pulse Ox O2 Delivery O2 Flow Rate FiO2 11/02/16 06:00 96 11/02/16 05:00 99 11/02/16 04:00 91 11/02/16 03:00 97.7 97 18 118/74 95 11/02/16 03:00 95 Nasal Cannula 2.00 11/02/16 03:00 97 11/02/16 02:00 93 2/3/17 01:00 93 11/02/16 00:00 94 11/01/16 23:30 97.6 94 16 99/51 96 11/01/16 23:30 96 Nasal Cannula 2.00 11/01/16 23:00 92 11/01/16 22:00 100 11/01/16 21:00 82 11/01/16 20:00 100 11/01/16 20:00 98.2 100 16 105/67 98 11/01/16 20:00 98 Nasal Cannula 2.00 11/01/16 19:12 99 Nasal Cannula 2.00 11/01/16 19:00 100 11/01/16 18:00 108 11/01/16 17:00 108 11/01/16 16:00 100 11/01/16 16:00 98.2 100 16 92/56 99 11/01/16 16:00 Nasal Cannula 2.00 30 11/01/16 15:00 100 11/01/16 14:00 99 11/01/16 13:00 97 11/01/16 12:00 97.9 100 16 96/62 99 11/01/16 12:00 Nasal Cannula 2.00 30 11/01/16 12:00 99 11/01/16 11:00 99 11/01/16 10:00 102 11/01/16 09:00 109 11/01/16 08:28 97 Nasal Cannula 2.00 11/01/16 08:00 Nasal Cannula 2.00 11/01/16 08:00 98.7 111 16 93/60 97 11/01/16 08:00 98 I/O 11/01/16 11/01/16 11/01/16 11/02/16 11/02/16 11/02/16 07:00 15:00 23:00 07:00 15:00 23:00 Intake Total 461 ml 900 ml 240 ml Output Total 600 ml Balance 461 ml 900 ml -360 ml Intake Oral 461 ml 900 ml 240 ml Output Urine Total 600 ml # Voids 4 4 # Bowel Movements 0 1 0 Physical Exam Awake and alert. No distress. Lungs:CTA. Hear: S1/S2 no murmur. Ext: Warm , well perfused. Both groins stable. No hematoma. Neuro intact. Mild confusion. Poor memory. Laboratory Laboratory Tests Test 11/02/16 06:00 Sodium Level 134 MEQ/L Potassium Level 4.7 MEQ/L Chloride Level 99 MEQ/L Carbon Dioxide Level 27.7 MEQ/L Anion Gap 7 MEQ/L Blood Urea Nitrogen 18 MG/DL Creatinine 1.29 MG/DL Estimat Glomerular Filtration 39 ML/MIN Rate Random Glucose 80 MG/DL Calcium Level 8.8 MG/DL Assessment and Plan Problem List: (1) NSTEMI (non-ST elevated myocardial infarction) (2) Cardiogenic shock Assessment and Plan: Resolved. (3) Respiratory failure (4) Acute pulmonary edema Assessment and Plan: Resolved (5) Arteriosclerotic heart disease (ASHD) (6) Ischemic cardiomyopathy (7) Severe left ventricular systolic dysfunction (8) Stented coronary artery Assessment and Plan Slowly improving on PO meds. Increase Losartan 12.5 mg BID as BP tolerates. Continue current doses of Coreg. Follow I&O's, daily weights closely. O2 sats are good. Will decrease Kdur to 10 meq QD. Check BMP in AM 2/4. Continue PT Patient was on fluoxetine 20 mg daily at home will start 10 mg daily as tolerates for anxiety and depression. Ativan 0.5 mg SL PRN also. Plans for inpatient rehab placement in 1-2 days. See orders. Discussed plans with staff rn, and the patient.. Dr. Cope covering me over the weekend. If discharged I will se her back in the office in 2 weeks, Prognosis remains fair. Discussed Condition With Alex Melara MD Nov 02, 2016 07:44
[2016-11-02] MEDS: CHLORHEXIDINE 0.12% (ORAL KIT) 15 ML CUP MT SCH ×2 (07:58→20:00)
[2016-11-02] MEDS: POLYETHYLENE GLYCOL 17 GM PKG PO SCH (09:00)
[2016-11-02] MEDS: DOCUSATE SODIUM 100 MG CAP PO SCH ×2 (09:03→20:56)
[2016-11-02] MEDS: LOSARTAN 25 MG TAB PO SCH ×2 (09:03→20:57)
[2016-11-02] MEDS: CLOPIDOGREL 75 MG TAB PO SCH (09:03)
[2016-11-02] MEDS: FLUoxetine HCL 10 MG CAP PO SCH (09:03)
[2016-11-02] MEDS: SENNOSIDES 8.6 MG TAB PO SCH ×2 (09:03→20:58)
[2016-11-02] MEDS: SPIRONOLACTONE 25 MG TAB PO SCH ×2 (09:04→20:56)
[2016-11-02] MEDS: POTASSIUM CHLORIDE 10 MEQ CONTROLLED RELEASE TAB PO SCH (09:04)
[2016-11-02] MEDS: ASPIRIN EC 81 MG TABEC PO SCH (09:04)
[2016-11-02] MEDS: FAMOTIDINE 20 MG TAB PO SCH (09:04)
[2016-11-02] MEDS: FUROSEMIDE 40 MG TAB PO SCH (09:04)
[2016-11-02] MEDS: CARVEDILOL 3.125 MG TAB PO SCH ×2 (09:04→20:57)
[2016-11-02] MEDS: SODIUM CHLORIDE 0.9% FLUSH 5 ML FLUSH FLUSH SCH ×2 (09:05→20:55)
[2016-11-02] MEDS ORDERED: COZA25TA PO (09:06)
[2016-11-02] MEDS ORDERED: POTA-243 PO (09:06)
--- NOTE | 2016-11-02 14:44 | HHI.PR ---
Subjective Remarks F/U CHF. Doing better did not use BIPAP. Dw RN who will call pt's pharmacy to update medication list and cards who recommended dc in am if stable. Objective Vitals Vital Signs Date Time Temp Pulse Resp B/P Pulse Ox O2 Delivery O2 Flow Rate FiO2 11/02/16 14:35 96 11/02/16 13:07 96 11/02/16 12:09 96 11/02/16 11:45 98.0 94 20 95/66 98 11/02/16 11:40 98 11/02/16 11:40 Nasal Cannula 2.00 30 11/02/16 10:23 77 11/02/16 09:44 99 Nasal Cannula 2.00 11/02/16 08:35 98.0 100 20 103/63 99 11/02/16 07:50 Nasal Cannula 2.00 30 11/02/16 06:00 96 11/02/16 05:00 99 11/02/16 04:00 91 11/02/16 03:00 97.7 97 18 118/74 95 11/02/16 03:00 95 Nasal Cannula 2.00 11/02/16 03:00 97 11/02/16 02:00 93 11/02/16 01:00 93 11/02/16 00:00 94 11/01/16 23:30 97.6 94 16 99/51 96 11/01/16 23:30 96 Nasal Cannula 2.00 11/01/16 23:00 92 11/01/16 22:00 100 11/01/16 21:00 82 11/01/16 20:00 100 11/01/16 20:00 98.2 100 16 105/67 98 11/01/16 20:00 98 Nasal Cannula 2.00 11/01/16 19:12 99 Nasal Cannula 2.00 11/01/16 19:00 100 11/01/16 18:00 108 11/01/16 17:00 108 11/01/16 16:00 100 11/01/16 16:00 98.2 100 16 92/56 99 11/01/16 16:00 Nasal Cannula 2.00 30 11/01/16 15:00 100 I/O 11/01/16 11/01/16 11/01/16 11/02/16 11/02/16 11/02/16 07:00 15:00 23:00 07:00 15:00 23:00 Intake Total 461 ml 900 ml 240 ml Output Total 600 ml Balance 461 ml 900 ml -360 ml Intake Oral 461 ml 900 ml 240 ml Output Urine Total 600 ml # Voids 4 4 # Bowel Movements 0 1 0 Result Diagram: 10/31/16 1213 11/02/16 0600 Objective Remarks GENERAL: 89-year-old female, appears stated age, lying in bed currently on NC HEENT: Pupils equal, round about 3 mm's bilaterally and reactive. Positive arcus senilis.. Mucous membranes are moist and pink NECK: Trachea is midline. Right IJ is clean dry and intact. Cant tell if JVD distended CHEST: Decreased breath sounds. No wheezing CARDIOVASCULAR: RRR. S1, S2. No S4. No murmur ABDOMEN: Soft, nontender, nondistended. Positive bowel sounds are appreciated. MUSCULOSKELETAL: 1+ upper and lower extremity edema noted. NEUROLOGICAL: Cranial nerves grossly intact. Strength is equal and symmetric bilaterally. Normal sensation. Procedures None. Date of Insertion: Oct 24, 2016 Line: Central Venous Catheter Side: Right Location: Internal, Jugular A/P Problem List: (1) Chest pain ICD Code: R07.9 Status: Acute (2) Hypoxia ICD Code: R09.02 Status: Acute (3) Leukocytosis ICD Code: D72.829 Status: Acute Assessment and Plan History dementia? Delirium dementia Acetaminophen for fever. --Morphine as needed for pain management --Improving --stable on fluoxetine Respiratory: Acute hypoxic respiratory failure -recurrent Chest x-ray on showed stable chest with minimal bilateral pleural effusions --Patient has been treated with IV Bumex. --BiPAP PRN As needed duo nebs --IS, EzPAP, Acapella --Improved. Continue diuresis with Lasix and Aldactone and monitor renal function. I/O and monitor weight Cardiovascular: Cardiogenic shock -resolved NSTEMI s/p PCI with BMS x 2 to mid-LAD Severe left ventricular systolic dysfunction Elevated triglycerides Low HDL -- Status post cardiac catheterization which revealed 100% stenosis LAD with PCI 2 -- DEMETRIO 10/22 revealed EF 25-30%. Hypokinesis of the anterior and anterior lateral myocardium. -- Currently on aspirin 81 mg daily and Plavix 75 mg daily. -- On Lipitor 40 mg per daily for dyslipidemia. Elevated triglyceride/low HDL lipid panel -- Vasopressors used to treat shock. IABP removed 10/24 --Coreg Coreg 3.125 BID 10/27 and increase losartan 12.5 mg 2 twice a day -- 10/30 Patient started on spironolactone which has been increased. Renal: Acute kidney injury- resolving. Continue Garnica with hourly urine outputs -- Strict I/Os -- Bumex 1 mg IV every 12 ---> discontinued 10/30 FEN/GI: Acute protein calorie malnutritionmoderate. Hypopotassemia Heart healthy diet Daily BMP -- Replace K to 4.0 Heme/ID: Anemia secondary to acute blood loss Leukocytosis and fever Status post 3 units PRBCs since admission Monitor CBC --WBC platelets have normalized Pertinent cultures 10/23 - sputum - no growth 10/23 - urine - no growth /24 - blood cultures 2 - no growth Zosyn/vancomycin Discontinued 10/26. Endocrine: Hyperglycemia of critical illness -- SSI if needed to maintain euglycemia Prophylaxis: GI Prophylaxis Pepcid 20 mg by mouth daily -Subcutaneous heparin Discharge Planning Discharge to rehabilitation in the morning Connor Peoples MD Nov 02, 2016 14:44
[2016-11-02] MEDS: ATORVASTATIN 40 MG TAB PO SCH (20:58)
[2016-11-03] VITALS (17 sets, daily range): BP systolic 101–115; BP diastolic 64–73; PULSE 86–103; RESP 16–18; TEMP 97.3–98.1; O2SAT 96–100
[2016-11-03] MEDS: HEPARIN SODIUM - SQ 10,000 UNITS/ML VIAL SQ SCH (05:11)
[2016-11-03] MEDS: CHLORHEXIDINE 0.12% (ORAL KIT) 15 ML CUP MT SCH (08:00)
[2016-11-03 08:07] LABS: BICARBONATE 30.5 MEQ/L (21.0-32.0); POTASSIUM 3.8 MEQ/L (3.5-5.1)
[2016-11-03] MEDS: DOCUSATE SODIUM 100 MG CAP PO SCH (08:11)
[2016-11-03] MEDS: ASPIRIN EC 81 MG TABEC PO SCH (08:11)
[2016-11-03] MEDS: FUROSEMIDE 40 MG TAB PO SCH (08:11)
[2016-11-03] MEDS: POTASSIUM CHLORIDE 10 MEQ CONTROLLED RELEASE TAB PO SCH (08:12)
[2016-11-03] MEDS: SENNOSIDES 8.6 MG TAB PO SCH (08:12)
[2016-11-03] MEDS: SPIRONOLACTONE 25 MG TAB PO SCH (08:12)
[2016-11-03] MEDS: CLOPIDOGREL 75 MG TAB PO SCH (08:12)
[2016-11-03] MEDS: FAMOTIDINE 20 MG TAB PO SCH (08:12)
[2016-11-03] MEDS: FLUoxetine HCL 10 MG CAP PO SCH (08:12)
[2016-11-03] MEDS: LOSARTAN 25 MG TAB PO SCH (08:13)
[2016-11-03] MEDS: CARVEDILOL 3.125 MG TAB PO SCH (08:13)
[2016-11-03] MEDS: POLYETHYLENE GLYCOL 17 GM PKG PO SCH (08:13)
[2016-11-03] MEDS: SODIUM CHLORIDE 0.9% FLUSH 5 ML FLUSH FLUSH SCH (08:13)
--- NOTE | 2016-11-03 08:32 | HHI.PR ---
Subjective Remarks F/U CHF. Improving PERSON on NC no BIPAP dw RN to update home med list before dc Objective Vitals Vital Signs Date Time Temp Pulse Resp B/P Pulse Ox O2 Delivery O2 Flow Rate FiO2 11/03/16 07:30 97.3 91 18 101/69 97 11/03/16 07:00 103 11/03/16 06:00 92 11/03/16 05:00 94 11/03/16 04:00 92 11/03/16 04:00 99 Nasal Cannula 2.00 11/03/16 04:00 98.1 94 16 107/68 99 11/03/16 03:00 86 11/03/16 02:00 86 11/03/16 01:00 96 11/03/16 00:00 97 Nasal Cannula 2.00 11/03/16 00:00 97.8 100 18 115/73 97 11/03/16 00:00 100 11/02/16 23:00 90 11/02/16 22:00 92 11/02/16 21:00 96 11/02/16 20:00 98.0 96 18 92/66 97 11/02/16 20:00 96 11/02/16 20:00 97 Nasal Cannula 2.00 11/02/16 18:03 100 11/02/16 17:43 98 Nasal Cannula 2.00 11/02/16 17:13 99 11/02/16 16:02 98.0 97 18 102/82 98 11/02/16 16:02 Nasal Cannula 2.00 30 11/02/16 16:02 97 11/02/16 14:35 96 11/02/16 13:07 96 11/02/16 12:09 96 11/02/16 11:45 98.0 94 20 95/66 98 11/02/16 11:40 98 11/02/16 11:40 Nasal Cannula 2.00 30 11/02/16 10:23 77 11/02/16 09:44 99 Nasal Cannula 2.00 11/02/16 08:35 98.0 100 20 103/63 99 I/O 11/02/16 11/02/16 11/02/16 11/03/16 11/03/16 11/03/16 07:00 15:00 23:00 07:00 15:00 23:00 Intake Total 240 ml 600 ml 180 ml Output Total 600 ml 300 ml Balance -360 ml 600 ml -120 ml Intake Oral 240 ml 600 ml 180 ml IV Total 0 ml Output Urine Total 600 ml 300 ml # Voids 3 2 # Bowel Movements 0 0 Result Diagram: 10/31/16 1213 11/03/16 0530 Objective Remarks GENERAL: 89-year-old female, appears stated age, lying in bed currently on NC HEENT: Pupils equal, round about 3 mm's bilaterally and reactive. Positive arcus senilis.. Mucous membranes are moist and pink NECK: Trachea is midline. CHEST: Decreased breath sounds. No wheezing CARDIOVASCULAR: RRR. S1, S2. No S4. No murmur ABDOMEN: Soft, nontender, nondistended. Positive bowel sounds are appreciated. MUSCULOSKELETAL: 1+ upper and lower extremity edema noted. NEUROLOGICAL: Cranial nerves grossly intact. Strength is equal and symmetric bilaterally. Normal sensation. Procedures Cardiac cath Date of Insertion: Oct 24, 2016 Line: Central Venous Catheter Side: Right Location: Internal, Jugular A/P Problem List: (1) Chest pain ICD Code: R07.9 Status: Acute (2) Hypoxia ICD Code: R09.02 Status: Acute (3) Leukocytosis ICD Code: D72.829 Status: Acute Assessment and Plan Acute hypoxic respiratory failure -recurrent Chest x-ray on showed stable chest with minimal bilateral pleural effusions --Patient has been treated with IV Bumex. --BiPAP PRN As needed duo nebs --IS, EzPAP, Acapella --Improved. Continue diuresis with Lasix and Aldactone and monitor renal function. I/O and monitor weight Cardiovascular: Cardiogenic shock -resolved NSTEMI s/p PCI with BMS x 2 to mid-LAD Severe left ventricular systolic dysfunction Elevated triglycerides Low HDL -- Status post cardiac catheterization which revealed 100% stenosis LAD with PCI 2 -- DEMETRIO 10/22 revealed EF 25-30%. Hypokinesis of the anterior and anterior lateral myocardium. -- Currently on aspirin 81 mg daily and Plavix 75 mg daily. -- On Lipitor 40 mg per daily for dyslipidemia. Elevated triglyceride/low HDL lipid panel -- Vasopressors used to treat shock. IABP removed 10/24 --Coreg Coreg 3.125 BID 10/27 and losartan 12.5 mg 2 twice a day -- 10/30 Patient started on spironolactone which has been increased. Renal: Acute kidney injury- resolving. Continue Garnica with hourly urine outputs -- Strict I/Os -- Bumex 1 mg IV every 12 ---> discontinued 10/30 FEN/GI: Acute protein calorie malnutritionmoderate. Hypopotassemia Heart healthy diet Daily BMP -- Replace K to 4.0 Heme/ID: Anemia secondary to acute blood loss Leukocytosis and fever Status post 3 units PRBCs since admission Monitor CBC --WBC platelets have normalized Pertinent cultures 10/23 - sputum - no growth 10/23 - urine - no growth 24 - blood cultures 2 - no growth Zosyn/vancomycin Discontinued 10/26. Endocrine: Hyperglycemia of critical illness -- SSI if needed to maintain euglycemia Delirium History dementia? Resolved Depression --stable on fluoxetine Respiratory: Prophylaxis: GI Prophylaxis Pepcid 20 mg by mouth daily -Subcutaneous heparin Discharge Planning Discharge to rehabilitation, stable Connor Peoplse MD Nov 03, 2016 08:32 Connor Peoples MD Nov 03, 2016 08:32
--- NOTE | 2016-11-03 08:32 | HHI.DS ---
Discharge Summary Admission Date Oct 30, 2016 at 14:34 Discharge Date: Nov 03, 2016 Admitting Diagnosis CP RO AL, ho CAD (1) Chest pain ICD Code: R07.9 Diagnosis: Principal (2) Hypoxia ICD Code: R09.02 Diagnosis: Principal (3) Leukocytosis ICD Code: D72.829 Diagnosis: Secondary (4) Cardiogenic shock ICD Code: R57.0 Diagnosis: Principal (5) Respiratory failure ICD Code: J96.90 Diagnosis: Principal (6) NSTEMI (non-ST elevated myocardial infarction) ICD Code: I21.4 Diagnosis: Principal Procedures None. Brief History - From Admission This is an 89-year-old female with a PMH of HTN, CAD, Pacemaker and Dementia who is brought to the ER secondary to complaints of chest pain and SOB starting earlier today. EKG per EMS noted to be abnormal, that time STEMI Alert, however EKG similar to previous and STEMI Alert cancelled. Pt poor historian, but reports generalized weakness w/ complaints of SOB x2 days. Denies fever or chills. Today had episode of chest pain, currently resolved. On arrival, BP 119/73, HR 74, O2 sat 92% on RA, Afebrile. WBC 14.4. Chemistry unremarkable. Troponin negative. BNP 269. CXR with no acute findings. UA pending. CBC/BMP: 10/31/16 1213 11/03/16 0530 Significant Findings Laboratory Tests Test 10/31/16 11/01/16 11/02/16 11/03/16 12:13 06:35 06:00 05:30 Red Blood Count 3.32 MIL/MM3 (4.00-5.30) Hemoglobin 10.2 GM/DL (11.6-15.3) Hematocrit 30.3 % (35.0-46.0) Neutrophils (%) (Auto) 73.1 % (16.0-70.0) Monocytes (%) (Auto) 10.8 % (0.0-8.0) Monocytes # (Auto) 1.0 TH/MM3 (0-0.9) Chloride Level 97 MEQ/L (98-107) Carbon Dioxide Level 33.8 MEQ/L 32.3 MEQ/L (21.0-32.0) (21.0-32.0) Blood Urea Nitrogen 20 MG/DL (7-18) Creatinine 1.14 MG/DL 1.25 MG/DL 1.29 MG/DL 1.25 MG/DL (0.50-1.00) (0.50-1.00) (0.50-1.00) (0.50-1.00) Estimat Glomerular Filtration 45 ML/MIN (>89) 40 ML/MIN (>89) 39 ML/MIN (>89) 40 ML/MIN (>89) Rate Total Protein 6.2 GM/DL (6.4-8.2) Albumin 2.8 GM/DL (3.4-5.0) Sodium Level 134 MEQ/L (136-145) Imaging Last Impressions Chest X-Ray 10/31/16 0000 Signed Impressions: Service Date/Time: Monday, October 31, 2016 05:29 - CONCLUSION: Slight worsening of pulmonary edema/effusions. Shyam Hernandez MD PE at Discharge GENERAL: 89-year-old female, appears stated age, lying in bed currently on NC HEENT: Pupils equal, round about 3 mm's bilaterally and reactive. Positive arcus senilis.. Mucous membranes are moist and pink NECK: Trachea is midline. Right IJ is clean dry and intact. Cant tell if JVD distended CHEST: Decreased breath sounds. No wheezing CARDIOVASCULAR: RRR. S1, S2. No S4. No murmur ABDOMEN: Soft, nontender, nondistended. Positive bowel sounds are appreciated. MUSCULOSKELETAL: 1+ upper and lower extremity edema noted. NEUROLOGICAL: Cranial nerves grossly intact. Strength is equal and symmetric bilaterally. Normal sensation. Hospital Course Acute hypoxic respiratory failure -recurrent Chest x-ray on showed stable chest with minimal bilateral pleural effusions --Patient has been treated with IV Bumex. --BiPAP PRN As needed duo nebs --IS, EzPAP, Acapella --Improved. Continue diuresis with Lasix and Aldactone and monitor renal function. I/O and monitor weight Cardiovascular: Cardiogenic shock -resolved NSTEMI s/p PCI with BMS x 2 to mid-LAD Severe left ventricular systolic dysfunction Elevated triglycerides Low HDL -- Status post cardiac catheterization which revealed 100% stenosis LAD with PCI 2 -- DEMETRIO 10/22 revealed EF 25-30%. Hypokinesis of the anterior and anterior lateral myocardium. -- Currently on aspirin 81 mg daily and Plavix 75 mg daily. -- On Lipitor 40 mg per daily for dyslipidemia. Elevated triglyceride/low HDL lipid panel -- Vasopressors used to treat shock. IABP removed 10/24 --Coreg Coreg 3.125 BID 10/27 and losartan 12.5 mg 2 twice a day -- 10/30 Patient started on spironolactone which has been increased. Renal: Acute kidney injury- resolving. Continue Garnica with hourly urine outputs -- Strict I/Os -- Bumex 1 mg IV every 12 ---> discontinued 10/30 FEN/GI: Acute protein calorie malnutritionmoderate. Hypopotassemia Heart healthy diet Daily BMP -- Replace K to 4.0 Heme/ID: Anemia secondary to acute blood loss Leukocytosis and fever Status post 3 units PRBCs since admission Monitor CBC --WBC platelets have normalized Pertinent cultures 10/23 - sputum - no growth 10/23 - urine - no growth 10/23 - blood cultures 2 - no growth Zosyn/vancomycin Discontinued 10/26. Endocrine: Hyperglycemia of critical illness -- SSI if needed to maintain euglycemia Delirium History dementia? Resolved Depression --stable on fluoxetine Respiratory: Prophylaxis: GI Prophylaxis Pepcid 20 mg by mouth daily -Subcutaneous heparin Pt Condition on Discharge: Stable Discharge Disposition: Discharge to SNF Discharge Time: > 30 minutes Discharge Instructions DIET: Follow Instructions for: Heart Healthy Diet Activities you can perform: Regular-No Restrictions Activities to Avoid: Driving Follow up Referrals: Cardiology - 2 Weeks PCP Follow-up - 1 Week New Medications: Spironolactone (Aldactone) 25 Mg Tab 25 MG PO BIDPC Prevent Heart Failure #[address] (Aspirin EC) 81 Mg Tabdr 81 MG PO DAILY Prevent Blood Clot #30 TAB Atorvastatin (Lipitor) 40 Mg Tab 40 MG PO HS Control Inflammation #30 TAB Carvedilol (Coreg) 3.125 Mg Tab 3.125 MG PO Q12HR Blood Pressure Management #60 TAB Clopidogrel (Plavix) 75 Mg Tab 75 MG PO DAILY Prevent Blood Clot #30 TAB Fluoxetine (Prozac) 10 Mg Cap 10 MG PO DAILY Control Depression #30 CAP Furosemide (Lasix) 40 Mg Tab 40 MG PO DAILY Prevent Heart Failure #30 TAB Lorazepam (Ativan) 0.5 Mg Tab 0.5 MG SL Q8HR PRN ANXIETY #10 TAB Losartan (Cozaar) 25 Mg Tab 12.5 MG PO BID Blood Pressure Management #60 TAB Potassium Chloride ER (Klor-Con 10) 10 Meq Tab 10 MEQ PO DAILY Electrolyte Replacement #30 TAB Continued Medications: Arformoterol Neb (Brovana Neb) 15 Mcg/2 Ml Vial 1 NEBULE NEB BID Maintenance treatment of bronchoconstriction in COPD. Broncospasm #60 NEBULE Budesonide (Nasal) (Budesonide) 32 Mcg/Act Josie 0.25 MG BID Calcium Carbonate (Calcium) 600 Mg Tab BID Cetirizine (Zyrtec Allergy) 10 Mg Tab 10 MG PO DAILY Allergies Ref 0 TAB Cyanocobalamin ER (Vitamin B-12 ER) 2,000 Mcg Tab 2000 MCG PO DAILY Nutritional Supplement #1 Ref 0 BOTTLE Multiple Vitamins W/ Minerals (Multi For Her) 1 Cap Cap [place]-3 Fatty Acids ([place] Point-3 1000 mg) 1 Cap Cap Ranitidine (Ranitidine) 150 Mg Cap 150 MG PO BID #60 Ref 0 CAP Connor Peoples MD Nov 03, 2016 08:32
[2016-11-03] MEDS ORDERED: METO50TA11 PO (10:07)
[2016-11-03] MEDS ORDERED: CALC600T25 (10:07)
[2016-11-03] MEDS ORDERED: OMEG1000 (10:07)
[2016-11-03] MEDS ORDERED: FURO20TA PO (10:07)
[2016-11-03] MEDS ORDERED: RANI150C PO (10:07)
[2016-11-03] MEDS ORDERED: ESTR1.5T2 (10:07)
[2016-11-03] MEDS ORDERED: MULTCAP (10:07)
[2016-11-03] MEDS ORDERED: VITA20004 PO (10:07)
[2016-11-03] MEDS ORDERED: ZYRT10TA PO (10:07)
[2016-11-03] MEDS ORDERED: BUDE1SUS2 (10:07)
[2016-11-03] MEDS ORDERED: FLUO1TAB17 (10:07)
[2016-11-03] MEDS ORDERED: ASPI81CH CHEW (10:07)
[2016-11-03] MEDS ORDERED: FORM20NE INH (10:07)
[2016-11-03] MEDS ORDERED: LOSA50TA PO (10:07)
[2016-11-03] MEDS ORDERED: BROV15NE NEB (10:07)
--- NOTE | 2016-11-03 10:59 | PD.CARD.PN ---
Subjective Subjective Remarks Feels better no cp or sob Objective Vital Signs / I&O Vital Signs Date Time Temp Pulse Resp B/P Pulse Ox O2 Delivery O2 Flow Rate FiO2 11/03/16 10:00 98 11/03/16 09:24 96 Nasal Cannula 2.00 11/03/16 09:00 94 11/03/16 08:00 90 11/03/16 07:30 97 Nasal Cannula 2.00 11/03/16 07:30 97.3 91 18 101/69 97 11/03/16 07:00 103 11/03/16 06:00 92 11/03/16 05:00 94 11/03/16 04:00 92 11/03/16 04:00 99 Nasal Cannula 2.00 11/03/16 04:00 98.1 94 16 107/68 99 11/03/16 03:00 86 11/03/16 02:00 86 11/03/16 01:00 96 11/03/16 00:00 97 Nasal Cannula 2.00 11/03/16 00:00 97.8 100 18 115/73 97 11/03/16 00:00 100 11/02/16 23:00 90 11/02/16 22:00 92 11/02/16 21:00 96 11/02/16 20:00 98.0 96 18 92/66 97 11/02/16 20:00 96 11/02/16 20:00 97 Nasal Cannula 2.00 11/02/16 18:03 100 11/02/16 17:43 98 Nasal Cannula 2.00 11/02/16 17:13 99 11/02/16 16:02 98.0 97 18 102/82 98 11/02/16 16:02 Nasal Cannula 2.00 30 11/02/16 16:02 97 11/02/16 14:35 96 11/02/16 13:07 96 11/02/16 12:09 96 11/02/16 11:45 98.0 94 20 95/66 98 11/02/16 11:40 98 11/02/16 11:40 Nasal Cannula 2.00 30 I/O 11/02/16 11/02/16 11/02/16 11/03/16 11/03/16 11/03/16 07:00 15:00 23:00 07:00 15:00 23:00 Intake Total 240 ml 600 ml 180 ml Output Total 600 ml 300 ml Balance -360 ml 600 ml -120 ml Intake Oral 240 ml 600 ml 180 ml IV Total 0 ml Output Urine Total 600 ml 300 ml # Voids 3 2 # Bowel Movements 0 0 Physical Exam GENERAL: Well-nourished, well-developed patient in no apparent distress. SKIN: Warm and dry. NECK: JVD normal - less than or equal to 5 cm H20. CARDIOVASCULAR: Regular rate and rhythm without murmurs, gallops or rubs. RESPIRATORY: Normal breath sounds - equal bilaterally. No accessory muscle use. No wheezes, rales or rubs. PERIPHERY: No cyanosis or edema. Laboratory Laboratory Tests Test 11/03/16 05:30 Sodium Level 137 MEQ/L Potassium Level 3.8 MEQ/L Chloride Level 100 MEQ/L Carbon Dioxide Level 30.5 MEQ/L Anion Gap 7 MEQ/L Blood Urea Nitrogen 14 MG/DL Creatinine 1.25 MG/DL Estimat Glomerular Filtration 40 ML/MIN Rate Random Glucose 81 MG/DL Calcium Level 8.9 MG/DL Assessment and Plan Problem List: (1) NSTEMI (non-ST elevated myocardial infarction) Assessment and Plan: Stable denies cp or sob (2) Cardiogenic shock (3) Respiratory failure (4) Acute pulmonary edema (5) Arteriosclerotic heart disease (ASHD) (6) Ischemic cardiomyopathy (7) Severe left ventricular systolic dysfunction (8) Stented coronary artery Dion Cope MD Nov 03, 2016 10:59
[2016-11-03] MEDS ORDERED: ARFORMOTEROL NEB SCH (20:00)
[2016-11-03] MEDS ORDERED: RANITIDINE HCL 150 MG TAB PO SCH (21:00)
[2016-11-04] MEDS ORDERED: CETIRIZINE HCL 10 MG TAB PO SCH (09:00)
== END 2016-11-03 15:00 | DRG 270 ==
LOC: NEPE 22:19 → NEDA 10-22 00:09 → INTOOBSV 10-22 00:09 → HCIS 10-22 05:09 → HCVR 10-22 16:05 → HCIN 10-30 09:34 → OBSVTOIN 10-30 14:34
PROVIDERS: ADMIT Internal Medicine; ATTEND Internal Medicine
PROC: 5A02210 Assistance with Cardiac Output using Balloon Pump, Continuous (ICD-10-PCS; principal; 2016-10-26)
PROC: 027034Z Dilation of Coronary Artery, One Artery with Drug-eluting Intraluminal Device, Percutaneous Approach (ICD-10-PCS; 2016-10-26)
PROC: 4A023N7 Measurement of Cardiac Sampling and Pressure, Left Heart, Percutaneous Approach (ICD-10-PCS; 2016-10-26)
PROC: B2111ZZ Fluoroscopy of Multiple Coronary Arteries using Low Osmolar Contrast (ICD-10-PCS; 2016-10-26)
PROC: B2151ZZ Fluoroscopy of Left Heart using Low Osmolar Contrast (ICD-10-PCS; 2016-10-26)
PROC: B246ZZ4 Ultrasonography of Right and Left Heart, Transesophageal (ICD-10-PCS; 2016-10-26)
PROC: 02HV33Z Insertion of Infusion Device into Superior Vena Cava, Percutaneous Approach (ICD-10-PCS; 2016-10-26)
PROC: 0BH17EZ Insertion of Endotracheal Airway into Trachea, Via Natural or Artificial Opening (ICD-10-PCS; 2016-10-26)
PROC: 03HY32Z Insertion of Monitoring Device into Upper Artery, Percutaneous Approach (ICD-10-PCS; 2016-10-26)
PROC: 30233N1 Transfusion of Nonautologous Red Blood Cells into Peripheral Vein, Percutaneous Approach (ICD-10-PCS; 2016-10-26)
PROC: 5A1945Z Respiratory Ventilation, 24-96 Consecutive Hours (ICD-10-PCS; 2016-10-26)
DX: I21.4 Non-ST elevation (NSTEMI) myocardial infarction (principal); J96.01 Acute respiratory failure with hypoxia; R57.0 Cardiogenic shock; I50.1 Left ventricular failure, unspecified; N17.9 Acute kidney failure, unspecified; E87.2 Acidosis; D62 Acute posthemorrhagic anemia; I11.0 Hypertensive heart disease with heart failure; I97.610 Postprocedural hemorrhage of a circulatory system organ or structure following a cardiac catheterization; E44.0 Moderate protein-calorie malnutrition; F03.90 Unspecified dementia, unspecified severity, without behavioral disturbance, psychotic disturbance, mood disturbance, and anxiety; I25.10 Atherosclerotic heart disease of native coronary artery without angina pectoris; E78.00 Pure hypercholesterolemia, unspecified; E66.3 Overweight; D72.829 Elevated white blood cell count, unspecified; I25.5 Ischemic cardiomyopathy; R00.0 Tachycardia, unspecified; R73.9 Hyperglycemia, unspecified; R50.9 Fever, unspecified; E87.6 Hypokalemia; E78.1 Pure hyperglyceridemia; F41.9 Anxiety disorder, unspecified; F32.9 Major depressive disorder, single episode, unspecified; Y84.0 Cardiac catheterization as the cause of abnormal reaction of the patient, or of later complication, without mention of misadventure at the time of the procedure; Z66 Do not resuscitate; Y92.230 Patient room in hospital as the place of occurrence of the external cause; Z68.32 Body mass index [BMI] 32.0-32.9, adult; Z82.49 Family history of ischemic heart disease and other diseases of the circulatory system; Z87.891 Personal history of nicotine dependence; Z95.0 Presence of cardiac pacemaker
CPT/HCPCS: 31500; 33967; 36430; 36556; 36600; 71010; 76937; 80048; 80053; 80061; 80076; 81001; 82310; 82435; 82550; 82552; 82565; 82805; 82947; 83036; 83690; 83735; 83880; 84100; 84132; 84155; 84295; 84443; 84484; 84520; 85002; 85007; 85014; 85025; 85027; 85610; 85730; 86850; 86900; 86901; 86920; 87040; 87070; 87086; 87205; 87641; 92928; 93005; 93306; 93312; 93320; 93325; 93458; 94002; 94003; 94150; 94640; 94664; 94667; 94668; C1725; C1769; C1874; C1887; C1893; C9399; G0378; G8987-GP; G8988-GP; J0171; J1250; J1265; J1644; J1940; J2060; J2250; J2270; J2370; J2405; J2543; J3010; J3246; J3370; J3475; J3480; J7030; J7040; J7050; P9016; P9047

== ENCOUNTER 2017-02-04 19:58 | Inpatient (IN) | payer MEDICARE, OTHER ==
[~2017-02-04] VITALS: Ht 152.4 cm; Wt 68.4 kg
[2017-02-04] MEDS: DOCUSATE SODIUM 100 MG CAP PO SCH ×2 (09:00→21:00)
[2017-02-04 19:55] VITALS: O2SAT 98
[~2017-02-04 19:58] MED LIST changes: -ASPI-130 PO; +ASPI81CH CHEW; +ASPI81TA11 PO; +BROV15NE NEB; +BUDE1SUS2; -CALC1TAB26 PO; +CALC600T25; +CARV3.125 PO; -CIPR500T4 PO; +COZA25TA PO; -COZA50TA PO; +ESTR1.5T2; -ESTR3TAB PO; -FISH100020 PO; -FLAG500T PO; +FLUO-1 PO; +FLUO1TAB17; -FLUO20TA20 PO; +FORM20NE INH; +FURO1TAB60 PO; -FURO1TAB93 PO; +FURO20TA PO; +LIPI40TA PO; +LORA-392 SL; +LOSA50TA PO; +METO50TA11 PO; +MULTCAP; +OMEG1000; -ONDA4; +PLAV75TA29 PO; +POTA-243 PO; -POTA-267 PO; +RANI150C PO; +SPIR25 PO; -TAB-TAB PO; -TOPR50TA PO; -VITA10002 PO; +VITA20004 PO; -WAL-10TA2 PO; +ZYRT10TA PO
[2017-02-04 20:00] VITALS: BP 128/79; PULSE 90; RESP 40; TEMP 97.9; O2SAT 98
[2017-02-04] MEDS ORDERED: SODIUM CHLORIDE 0.9% FLUSH 10 ML FLUSH IVF PRN (20:00)
--- NOTE | 2017-02-04 20:09 | PD ---
HPI Chief Complaint: shortness of breath Time Seen by Provider: 20:00 Travel History International Travel<30 days: No Contact w/Intl Traveler<30days: No History of Present Illness HPI The patient is an 89 year old female who presents to the [facility] emergency department with a history of sudden onset of severe shortness of breath prior to arrival. The patient reports having a tightening sensation with wheezing. The patient reports that over the last 2 days she has had increased dyspnea on exertion. She denies having any increased lower extremity edema. She does have a history of congestive heart failure and coronary artery disease with reportedly having coronary artery bypass grafting and pacemaker placement in the past. She denies having any chest pain. She does arrive with conversational dyspnea, tripoding, accessory muscle use, and paroxysmal abdominal breathing. She is having difficulty providing any history. She is diaphoretic on exam. The patient en route to this facility was noted to have wheezing by ambulance services. IV access was obtained prior to arrival and the patient was given Solu-Medrol 125 mg IV, 2 albuterol nebulizer treatments. The patient's O2 saturations en route have been 98-99%. Unfortunate, otherwise the patient's history is limited based on the patient's respiratory distress. The patient's history will be obtained from reviewing the patient's electronic medical record. [facility] Past Medical History Narrative Medical The patient's past medical history is significant for coronary artery disease, history of myocardial infarction, history of congestive heart failure, history of COPD, history of irregular heartbeat status post pacemaker placement, history of hyperlipidemia, hypertension, acid reflux, anxiety disorder, allergic rhinitis. The patient was admitted September 2016 and underwent a cardiac catheterization which revealed a significant lesion to the mid LAD. The patient had a complicated course during her hospitalization requiring emergent intubation during cardiac catheterization for hypotension and hypoxia. The patient had 2 bare metal stents placed in the LAD. The patient had an aortic balloon pump placed due to cardiogenic shock. The patient eventually began to improve and was able to be extubated. Blood Disorders: No Anxiety: No Depression: No Heart Rhythm Problems: Yes (PACEMAKER) Cancer: No Cardiovascular Problems: Yes (PACEMAKER) High Cholesterol: No Chemotherapy: No Chest Pain: No Congestive Heart Failure: No Diabetes: No Diminished Hearing: No Endocrine: No Gastrointestinal Disorders: No GERD: No Glaucoma: No Genitourinary: No Headaches: Yes Hepatitis: No Hiatal Hernia: No Hypertension: Yes Immune Disorder: No Implanted Vascular Access Dvce: Yes Musculoskeletal: No Neurologic: Yes Psychiatric: No Reproductive: Yes (HYSTERECTOMY, RECTOCELE) Respiratory: Yes (SOB) Integumentary: No Myocardial Infarction: No Radiation Therapy: No Thyroid Disease: No Ulcer: No Past Surgical History Narrative Surgical The patient's past surgical history is significant for pacemaker placement, rectocele repair, hysterectomy, appendectomy, left breast cyst resection. Abdominal Surgery: Yes (RECTO JAKOB SURGERY) AICD: No Appendectomy: Yes Arteriovenous Shunt: No Body Medical Devices: PACEMAKER Cardiac Surgery: Yes (PACEMAKER) Cholecystectomy: No Ear Surgery: No Endocrine Surgery: No Eye Surgery: No Genitourinary Surgery: No Gynecologic Surgery: Yes (HYSTERECTOMY) Hysterectomy: Yes Insulin Pump: No Joint Replacement: No Oral Surgery: No Pacemaker: Yes (1988) Thoracic Surgery: Yes (PACEMAKER) Other Surgery: Yes (LEFT BREAST CYST,RECTOCELE) Social History Alcohol Use: Yes (1 GLASS WINE WITH DINNER) Tobacco Use: No Substance Use: No Allergies-Medications (Allergen,Severity, Reaction): Coded Allergies: Amlodipine (Verified Allergy, Severe, 10/21/16) Benazepril (Verified Allergy, Severe, 10/21/16) Uncoded Allergies: LOTREL (Allergy, Severe, RASH, 02/17/08) Reported Meds & Prescriptions Reported Meds & Active Scripts Active Klor-Con 10 (Potassium Chloride) 10 Meq Tab 10 Meq PO DAILY Cozaar (Losartan Potassium) 25 Mg Tab 12.5 Mg PO BID Aldactone (Spironolactone) 25 Mg Tab 25 Mg PO BIDPC Ativan (Lorazepam) 0.5 Mg Tab 0.5 Mg SL Q8HR PRN Lasix (Furosemide) 40 Mg Tab 40 Mg PO DAILY Prozac (Fluoxetine HCl) 10 Mg Cap 10 Mg PO DAILY Plavix (Clopidogrel Bisulfate) 75 Mg Tab 75 Mg PO DAILY Coreg (Carvedilol) 3.125 Mg Tab 3.125 Mg PO Q12HR Lipitor (Atorvastatin Calcium) 40 Mg Tab 40 Mg PO HS Aspirin EC (Aspirin) 81 Mg Tabdr 81 Mg PO DAILY Reported Zyrtec Allergy (Cetirizine HCl) 10 Mg Tab 10 Mg PO DAILY Vitamin B-12 ER (Cyanocobalamin) 2,000 Mcg Tab 2,000 Mcg PO DAILY Ranitidine (Ranitidine HCl) 150 Mg Cap 150 Mg PO BID Woodward-3 1000 mg (Woodward-3 Fatty Acids) 1 Cap Cap Calcium (Calcium Carbonate) 600 Mg Tab BID Budesonide (Budesonide (Nasal)) 32 Mcg/Act Josie 0.25 Mg BID Brovana Neb (Arformoterol Neb) 15 Mcg/2 Ml Vial 1 Nebule NEB BID Maintenance treatment of bronchoconstriction in COPD. Review of Systems Except as stated in HPI: all other systems reviewed are Neg General / Constitutional: No: Fever Eyes: No: Visual changes HENT: No: Headaches Cardiovascular: Positive: Chest Pain or Discomfort (chest tightness), Dyspnea on exertion Respiratory: Positive: Cough, Shortness of Breath Gastrointestinal: No: Nausea, Vomiting, Diarrhea, Abdominal Pain Genitourinary: No: Dysuria Musculoskeletal: No: Pain Skin: No Rash Neurologic: No: Weakness, Focal Abnormalities, Change in Mentation, Slurred Speech Psychiatric: No: Depression Endocrine: No: Polydipsia Hematologic/Lymphatic: No: Easy Bruising Physical Exam Narrative General: The patient is a well-developed well-nourished female who is short of breath on arrival, diaphoretic, with conversational dyspnea, tripoding, accessory muscle use, and paroxysmal abdominal breathing. Head and Neck exam: Head is normocephalic atraumatic. Eyes: EOMI, pupils are equal round and reactive to light. Nose: Midline septum with pink mucous membranes Mouth: Dentition unremarkable. Moist mucus membranes. Posterior oropharynx is not erythematous. No tonsillar hypertrophy. Uvula midline. Airway patent. Neck: No palpable lymphadenopathy. No nuchal rigidity. No thyromegaly. Cardiovascular: Irregularly irregular with an intermittently paced rhythm noted on telemetry without murmurs, gallops, or rubs. Lungs: Expiratory wheezes audible throughout bilateral lung garza, no rhonchi, no crackles. The patient is tachypneic with a respiratory rate in the 30s. The patient has accessory muscle use. The patient has paroxysmal abdominal breathing and conversational dyspnea. Abdomen: Soft, without tenderness to palpation in all 4 quadrants of the abdomen. No guarding, rebound, or rigidity. Normal bowel sounds are audible. No tenderness on palpation of McBurney's point. Extremities: No clubbing, cyanosis, or edema. 2+ pulses in all 4 extremities. Back: No spinous process tenderness to palpation. No costovertebral angle tenderness to palpation. No calf tenderness on palpation. Neurologic Exam: Grossly nonfocal. Skin Exam: No rash noted. Intact skin that is warm and slightly diaphoretic on arrival. Data Data Last Documented VS Vital Signs Date Time Temp Pulse Resp B/P Pulse Ox O2 Delivery O2 Flow Rate FiO2 02/04/17 20:10 40 100 BiPAP 02/04/17 20:10 95 128/79 02/04/17 20:00 97.9 02/04/17 19:55 50 Orders Complete Blood Count With Diff (02/04/17 20:00) Comprehensive Metabolic Panel (02/04/17 20:00) B-Type Natriuretic Peptide (02/04/17 20:00) Act Partial Throm Time (Ptt) (02/04/17 20:00) Prothrombin Time / Inr (Pt) (02/04/17 20:00) Magnesium (Mg) (02/04/17 20:00) Ckmb (Isoenzyme) Profile (02/04/17 20:00) Troponin I (02/04/17 20:00) Arterial Blood Gas (Abg) (02/04/17 20:00) Urinalysis - C+S If Indicated (02/04/17 20:00) Blood Culture (02/04/17 20:00) Iv Access Insert/Monitor (02/04/17 20:00) Electrocardiogram (02/04/17 20:00) Ecg Monitoring (02/04/17 20:00) Oximetry (02/04/17 20:00) Oxygen Administration (02/04/17 20:00) Chest, Single Ap (02/04/17 20:00) Sodium Chloride 0.9% Flush (Ns Flush) (02/04/17 20:00) Albuterol-Ipratropium Neb (Duoneb Neb) (02/04/17 20:00) Resp Bipap / Cpap Non Invas Vt (02/04/17 20:00) Lactic Acid Sepsis Protocol (02/04/17 20:00) Furosemide Inj (Lasix Inj) (02/04/17 21:15) Aspirin Chew (Aspirin Chew) (02/05/17 09:00) Nitroglycerin 2% Oint (Nitroglycerin 2% (5/8/17 21:15) Urinary Catheter Insert/Apply (02/04/17 21:11) Aspirin Chew (Aspirin Chew) (02/04/17 21:59) Aspirin Chew (Aspirin Chew) (02/04/17 22:15) Admit Order (Ed Use Only) (02/04/17 22:18) Labs Laboratory Tests Test 02/04/17 02/04/17 02/04/17 20:10 21:35 22:00 White Blood Count 13.5 TH/MM3 Red Blood Count 3.97 MIL/MM3 Hemoglobin 11.6 GM/DL Hematocrit 35.8 % Mean Corpuscular Volume 90.3 FL Mean Corpuscular Hemoglobin 29.3 PG Mean Corpuscular Hemoglobin 32.4 % Concent Red Cell Distribution Width 14.0 % Platelet Count 382 TH/MM3 Mean Platelet Volume 9.7 FL Neutrophils (%) (Auto) 71.1 % Lymphocytes (%) (Auto) 15.5 % Monocytes (%) (Auto) 10.9 % Eosinophils (%) (Auto) 1.8 % Basophils (%) (Auto) 0.7 % Neutrophils # (Auto) 9.6 TH/MM3 Lymphocytes # (Auto) 2.1 TH/MM3 Monocytes # (Auto) 1.5 TH/MM3 Eosinophils # (Auto) 0.2 TH/MM3 Basophils # (Auto) 0.1 TH/MM3 CBC Comment DIFF FINAL Differential Comment Prothrombin Time 11.0 SEC Prothromb Time International 1.0 RATIO Ratio Activated Partial 25.4 SEC Thromboplast Time Sodium Level 135 MEQ/L Potassium Level 3.5 MEQ/L Chloride Level 97 MEQ/L Carbon Dioxide Level 25.2 MEQ/L Anion Gap 13 MEQ/L Blood Urea Nitrogen 18 MG/DL Creatinine 1.40 MG/DL Estimat Glomerular Filtration 35 ML/MIN Rate Random Glucose 196 MG/DL Lactic Acid Level 3.6 mmol/L Calcium Level 8.8 MG/DL Magnesium Level 2.0 MG/DL Total Bilirubin 0.8 MG/DL Aspartate Amino Transf 27 U/L (AST/SGOT) Alanine Aminotransferase 18 U/L (ALT/SGPT) Alkaline Phosphatase 97 U/L Total Creatine Kinase 50 U/L Troponin I LESS THAN 0.02 NG/ML B-Type Natriuretic Peptide 1053 PG/ML Total Protein 7.5 GM/DL Albumin 3.2 GM/DL Blood Gas Puncture Site LT RADIAL Blood Gas Patient Temperature 98.6 Blood Gas HCO3 25 mmol/L Blood Gas Base Excess 1.2 mmol/L Blood Gas Oxygen Saturation 96 % Arterial Blood pH 7.40 Arterial Blood Partial 42 mmHg Pressure CO2 Arterial Blood Partial 85 mmHG Pressure O2 Arterial Blood Oxygen Content 15.9 Vol % Arterial Blood 0.7 % Carboxyhemoglobin Arterial Blood Methemoglobin 0.6 % Blood Gas Hemoglobin 11.8 G/DL Oxygen Delivery Device BIPAP Blood Gas Ventilator Setting IPAP=12 EPAP=6 Blood Gas Inspired Oxygen 40 % Urine Color YELLOW Urine Turbidity HAZY Urine pH 5.0 Urine Specific Davis 1.017 Urine Protein TRACE mg/dL Urine Glucose (UA) NEG mg/dL Urine Ketones TRACE mg/dL Urine Occult Blood TRACE Urine Nitrite NEG Urine Bilirubin NEG Urine Urobilinogen LESS THAN 2.0 MG/DL Urine Leukocyte Esterase NEG Urine RBC 8 /hpf Urine WBC 1 /hpf Urine Squamous Epithelial 1 /hpf Cells Urine Calcium Oxalate Crystals RARE /hpf Urine Bacteria RARE /hpf Urine Hyaline Casts 51 /lpf Urine Mucus FEW /lpf Microscopic Urinalysis Comment CULT NOT INDICATED MDM Medical Decision Making Medical Screen Exam Complete: Yes Emergency Medical Condition: Yes Medical Record Reviewed: Yes Interpretation(s) Last Impressions Chest X-Ray 02/04/171999 Signed Impressions: Service Date/Time: Saturday, February 04, 2017 20:28 - CONCLUSION: CHF Shyam Sky MD Differential Diagnosis CHF exacerbation, versus acute coronary syndrome, versus pneumonia, versus COPD exacerbation Narrative Course During the course of the patients emergency department visit, the patients history, examination, and differential diagnosis were reviewed with the patient. The patient had IV access obtained and blood work sent for analysis. The patient was placed on a quality assurance monitor chassis with oximetry and blood pressure monitoring. An EKG was done on arrival. The patient's EKG reveals evidence of atrial fibrillation with intermittently paced rhythm, right bundle branch block , no other acute ST segment changes. Heart rate is 62. The patient was initially provided assistance with her breathing by BiPAP. The patient was given DuoNeb nebs 3. The patients laboratory studies were reviewed and remarkable for a white count of 13.5, hemoglobin 11.6, platelets 382 with 71.1 neutrophils, 10.9 monocytes, CMP is remarkable for sodium of 135, chloride 97, creatinine 1.40, glucose 196, CPK 50, troponin I less than 0.02, BNP is 1053, albumin 3.2, PT 11, PTT 25.4, urinalysis shows trace ketones trace occult blood a RBCs rare calcium oxalate crystals, rare bacteria, culture not indicated. Radiology studies were reviewed and remarkable for pulmonary edema consistent with congestive heart failure exacerbation. The patient was given Lasix 60 mg IV. The patient had a Garnica catheter placed to gravity. The patient was given a half inch of Nitropaste the chest wall, aspirin 162 mg by mouth 1. An ABG on BiPAP shows a pH of 7.4, PCO2 42, PO2 85, bicarbonate 25. The patient's BiPAP will be weaned as tolerated. The patient appears to be more comfortable on BiPAP, respiratory distress is greatly improved. The patients results were discussed with the patient, including the plan of care. I explained that further testing and/ or monitoring is indicated based on the patients history, examination, and/ or laboratory findings. Therefore, I recommended admission for additional evaluation. The patient expressed understanding and was agreeable with this plan. The patient was admitted to the hospital in guarded condition and sent to a bed under the care of the [facility].. Critical Care Narrative Aggregate critical care time was 40 minutes. Time to perform other separately billable procedures was not included in the critical care time. My time did not include minutes spent treating any other patients simultaneously or on activities that did not directly contribute to the patient's treatment. The services I provided to this patient were to treat and/or prevent clinically significant deterioration that could result in: Respiratory failure, versus cardiovascular collapse, versus cardiac arrhythmia I provided critical care services requiring my management, as noted below: Chart data review, documentation time, medication orders and management, vital sign assessments/reviewing monitor data, ordering and reviewing lab tests, ordering and interpreting/reviewing x-rays and diagnostic studies, care of the patient and discussion of the patient with the admitting physicians. Physician Communication Physician Communication The patient's case was discussed with who did agree to admit the patient for further evaluation and treatment at this time. Diagnosis Primary Impression: Acute exacerbation of congestive heart failure Qualified Code: I50.9 - Acute on chronic congestive heart failure, unspecified congestive heart failure type Admitting Information Admitting Physician Requests: Admit Rebecca Medeiros MD February 04, 2017 20:09
[2017-02-04 20:10] VITALS: BP 128/79; PULSE 95; RESP 40; O2SAT 100
[2017-02-04] MEDS: RESP: ALBUTEROL 2.5 MG/IPRATROPIUM 0.5 MG NEB (SCH) INH ×2 (20:11→20:12)
[2017-02-04 20:48] LABS: AUTOMATED NEUTROPHIL # 9.6 TH/MM3 (1.8-7.7); BASOPHIL # 0.1 TH/MM3 (0-0.2); BASOPHIL % 0.7 % (0.0-2.0); EOSINOPHIL # 0.2 TH/MM3 (0-0.4); EOSINOPHIL % 1.8 % (0.0-4.0); HEMATOCRIT 35.8 % (35.0-46.0); HEMO FLAGS DIFF FINAL; LYMPH % 15.5 % (9.0-44.0); LYMPHOCYTE # 2.1 TH/MM3 (1.0-4.8); MEAN CELL VOLUME 90.3 FL (80.0-100.0); MEAN CORPUSCULAR HEMOGLOBIN 29.3 PG (27.0-34.0); MEAN CORPUSCULAR HGB CONC 32.4 % (32.0-36.0); MONO % 10.9 % (0.0-8.0); NEUT % 71.1 % (16.0-70.0); PLATELET COUNT 382 TH/MM3 (150-450); RED BLOOD COUNT 3.97 MIL/MM3 (4.00-5.30); WHITE BLOOD COUNT 13.5 TH/MM3 (4.0-11.0)
--- NOTE | 2017-02-04 20:51 | RADRPT ---
EXAM DATE/TIME: 02/04/2017 20:28 [facility] COMPARISON: CHEST SINGLE AP, October 31, 2016, 5:29. INDICATIONS : Short of breath MEDICAL HISTORY : Congestive heart failure. Stroke. Hypertension. SURGICAL HISTORY : Pacemaker. ENCOUNTER: Initial ACUITY: 1 day PAIN SCORE: 0/10 LOCATION: Bilateral chest FINDINGS: Pacemaker device is noted with control pack over the left chest. Bilateral perihilar and basilar pare nchymal opacities and pleural effusions are noted. Cardiac contours are largely obscured. CONCLUSION: CHF Shyam Sky MD on February 04, 2017 at 20:48 Board Certified Radiologist. This report was verified electronically.
[2017-02-04 20:54] LABS: APTT (PATIENT) 25.4 SEC (24.3-30.1)
[2017-02-04 21:13] LABS: ANION GAP 13 MEQ/L (5-15); AST (GOT) 27 U/L (15-37); BICARBONATE 25.2 MEQ/L (21.0-32.0); BLOOD UREA NITROGEN 18 MG/DL (7-18); CHLORIDE 97 MEQ/L (98-107); GLOMERULAR FILTRATION RATE 35 ML/MIN (>89); POTASSIUM 3.5 MEQ/L (3.5-5.1); SODIUM (NA) 135 MEQ/L (136-145)
[2017-02-04] MEDS ORDERED: NITROGLYCERIN 2% OINT 1 GM PACKET TOPICAL ONE (21:15)
[2017-02-04] MEDS ORDERED: FUROSEMIDE 40 MG/4 ML VIAL IV PUSH ONE (21:15)
[2017-02-04 21:18] LABS: ALKALINE PHOSPHATASE 97 U/L (45-117); ALT (GPT) 18 U/L (10-53); TOTAL BILIRUBIN ADULT 0.8 MG/DL (0.2-1.0)
[2017-02-04 21:24] LABS: CREATINE KINASE 50 U/L (26-192)
[2017-02-04] MEDS ORDERED: ASPIRIN 81 MG CHEW TAB ONE (21:59)
[2017-02-04] MEDS ORDERED: ASPIRIN 81 MG CHEW TAB CHEW ONE (22:15)
[2017-02-04 22:30] VITALS: O2SAT 97
[2017-02-04 22:36] LABS: LACTIC ACID GHOST NOT REPORTABLE
[2017-02-04 23:00] LABS: BACTERIA, URINE RARE /hpf; BLOOD, URINE TRACE (NEG); CALCIUM OXALATE CRYSTALS,URINE RARE /hpf; COMMENT (UR) CULT NOT INDICATED; CULTURE IF INDICATED CULT NOT INDICATED; GLUCOSE,URINE NEG (NEG); HYALINE CAST, URINE 51 /lpf (RARE); KETONE, URINE TRACE mg/dL (NEG); MUCUS URINE FEW /lpf (OCC); NITRITE,URINE NEG (NEG); SQUAMOUS EPITHELIAL CELL URINE 1 /hpf (0-5); URINE COLOR YELLOW (YELLW/STRAW)
[2017-02-04] MEDS ORDERED: SODIUM CHLORIDE 0.9% FLUSH 10 ML FLUSH IV FLUSH PRN (23:15)
[2017-02-04] MEDS ORDERED: NALOXONE HCL 0.4 MG/ML AMP IV PRN (23:15)
[2017-02-04] MEDS ORDERED: ACETAMINOPHEN 325 MG TAB PO PRN (23:15)
[2017-02-04] MEDS ORDERED: ONDANSETRON HCL 4 MG/2 ML VIAL IVP PRN (23:15)
[2017-02-04 23:39] LABS: BLOOD GAS BASE EXCESS 1.2 mmol/L (-2-2); BLOOD GAS CARBOXYHEMOGLOBIN 0.7 % (0-4); BLOOD GAS HCO3 25 mmol/L (22-26); BLOOD GAS METHEMOGLOBIN 0.6 % (0-2); BLOOD GAS O2 HGB SATURATION 96 % (90-100); BLOOD GAS OXYGEN CONTENT 15.9 Vol % (12.0-20.0); BLOOD GAS PCO2 42 mmHg (38-42); BLOOD GAS PO2 85 mmHG (61-120); BLOOD GAS TOTAL HGB 11.8 G/DL (12.0-16.0); CRITICAL VALUE NO; DRAW SITE LT RADIAL; FIO2 40 %; NUMBER OF ARTERIAL PUNCTURES 1; OXYGEN DEVICE BIPAP; STAT YES; TEMP CORR TO 98.6; ULNAR PULSE PRESENT; VENT SETTINGS IPAP=12 EPAP=6
[2017-02-04 23:45] VITALS: BP 110/73; PULSE 104; RESP 20; TEMP 97.9; O2SAT 97
[2017-02-05] VITALS (34 sets, daily range): BP systolic 89–121; BP diastolic 51–82; PULSE 75–107; RESP 17–20; TEMP 97.4–98.3; O2SAT 94–99
--- NOTE | 2017-02-05 02:26 | HHI.HP ---
[facility] No Primary Care Physician Admission Diagnosis CHF exacerbation on Bipap Diagnoses: Chief Complaint: SOB Travel History International Travel<30 Days: No Contact w/Intl Traveler <30 Da: No Traveled to Known Affected Are: No History of Present Illness This is an 89 year old female patient with a past medical history which includes : HTN, GERD, anxiety/depression, PACs s/p pacemaker placement, systolic CHF, and recent cardiogenic shock with NSTEMI with stent placement 09/2016. Patient is a poor historian and only able to provide limited health information, therefore information gathered from prior charting. Patient presents to the ER today due to sudden onset of severe shortness of breath prior to arrival. The patient reports that over the last 2 days she has had increased dyspnea on exertion. She denies having any increased lower extremity edema. She does have a history of systolic congestive heart failure last echocardiogram 09/2016 showed EF of 25-30% and coronary artery disease with coronary artery stent 2016 and pacemaker placement in the past. She denies having any chest pain. Per ER note on arrival patient was having conversational dyspnea, tripoding, accessory muscle use, and paroxysmal abdominal breathing. Patient was diaphoretic on exam. At this time patient reports SOB has improved and she is able to rest comfortably with 3L NC. Patient denies cough, BLE edema, weight gain, change in diet, change in medication, fevers or chills. Review of Systems ROS Limitations: Poor Historian Except as stated in HPI: all other systems reviewed are Neg Past Family Social History Past Medical History Hypertension GERD Anxiety/depression PACs, status post pacemaker placement CAD s/p cardiac stent Past Surgical History Hysterectomy Rectocele repair Pacemaker placement Colonoscopy cardiac stent Reported Medications Klor-Con 10 (Potassium Chloride) 10 Meq Tab 10 Meq PO DAILY Cozaar (Losartan Potassium) 25 Mg Tab 12.5 Mg PO BID Aldactone (Spironolactone) 25 Mg Tab 25 Mg PO BIDPC Ativan (Lorazepam) 0.5 Mg Tab 0.5 Mg SL Q8HR PRN Lasix (Furosemide) 40 Mg Tab 40 Mg PO DAILY Prozac (Fluoxetine HCl) 10 Mg Cap 10 Mg PO DAILY Plavix (Clopidogrel Bisulfate) 75 Mg Tab 75 Mg PO DAILY Coreg (Carvedilol) 3.125 Mg Tab 3.125 Mg PO Q12HR Lipitor (Atorvastatin Calcium) 40 Mg Tab 40 Mg PO HS Aspirin EC (Aspirin) 81 Mg Tabdr 81 Mg PO DAILY Zyrtec Allergy (Cetirizine HCl) 10 Mg Tab 10 Mg PO DAILY Vitamin B-12 ER (Cyanocobalamin) 2,000 Mcg Tab 2,000 Mcg PO DAILY Ranitidine (Ranitidine HCl) 150 Mg Cap 150 Mg PO BID Perforomist Neb (Formoterol Fumarate) 20 Mcg/2 Ml Neb 1 Nebule INH BID Yulan-3 1000 mg (Yulan-3 Fatty Acids) 1 Cap Cap Multi For Her (Multiple Vitamins W/ Minerals) 1 Cap Cap Metoprolol Succinate ER 24 HR (Metoprolol Succinate) 50 Mg Tab 50 Mg PO DAILY Losartan (Losartan Potassium) 50 Mg Tab 50 Mg PO DAILY Furosemide 20 Mg Tab 20 Mg PO DAILY Fluoxetine HCl (Fluoxetine HCl (Pmdd)) 20 Mg Tab Estropipate 1.5 Mg Tab Calcium (Calcium Carbonate) 600 Mg Tab BID Budesonide (Budesonide (Nasal)) 32 Mcg/Act Josie 0.25 Mg BID Brovana Neb (Arformoterol Neb) 15 Mcg/2 Ml Vial 1 Nebule NEB BID Maintenance treatment of bronchoconstriction in COPD. Aspirin 81 Mg Chew 81 Mg CHEW DAILY Allergies: Coded Allergies: Amlodipine (Verified Allergy, Severe, 10/21/16) Benazepril (Verified Allergy, Severe, 10/21/16) Uncoded Allergies: LOTREL (Allergy, Severe, RASH, 02/17/08) Active Ordered Medications Current Medications Medications (Trade) Dose Ordered Sig/Izabella Route Start Time Stop Time Status Last Admin (Aspirin Chew) 162 mg DAILY CHEW 02/05/17 09:00 (NS Flush) 2 ml UNSCH PRN IV FLUSH 02/04/17 23:15 (NS Flush) 2 ml BID IV FLUSH 02/05/17 09:00 (Tylenol) 650 mg Q4H PRN PO 02/04/17 23:15 (Zofran Inj) 4 mg Q6H PRN IVP 02/04/17 23:15 (Colace) 100 mg Q12H PO 02/04/17 09:00 (Heparin Inj) 5,000 units Q8H SQ 02/05/17 06:00 (Narcan Inj) 0.4 mg UNSCH PRN IV 02/04/17 23:15 (KCl) 20 meq DAILY PO 02/05/17 09:00 (Lasix Inj) 40 mg DAILY IV PUSH 02/05/17 09:00 (Plavix) 75 mg DAILY PO 02/05/17 09:00 Family History Mother secondary to diabetes Father secondary to lung cancer Social History Currently lives alone planning on moving to [place] to be closer to family ETOH use reports occasionally drinks 1 glass of wine Quit smoking over 40 years ago Physical Exam Vital Signs Vital Signs Date Time Temp Pulse Resp B/P Pulse Ox O2 Delivery O2 Flow Rate FiO2 02/05/17 02:00 100 02/05/17 01:00 100 02/05/17 00:50 99 40 02/05/17 00:20 98 3.00 02/05/17 00:00 98.0 107 20 105/64 97 02/05/17 00:00 97 Nasal Cannula 3.00 02/04/17 23:45 97.9 104 20 110/73 97 BiPAP 02/04/17 22:30 97 40 02/04/17 20:10 40 100 BiPAP 02/04/17 20:10 95 40 128/79 100 BiPAP 02/04/17 20:10 100 BiPAP 02/04/17 20:00 97.9 90 40 128/79 98 02/04/17 19:55 98 50 Physical Exam GENERAL: This is a well-nourished, well-developed patient, in no apparent distress. SKIN: No rashes, ecchymoses or lesions. Cool and dry. HEAD: Atraumatic. Normocephalic. No temporal or scalp tenderness. EYES: Extraocular motions intact. No scleral icterus. No injection or drainage. CARDIOVASCULAR: Regular rate and rhythm without murmurs, gallops, or rubs. RESPIRATORY: Right sided crackles GASTROINTESTINAL: Abdomen soft, non-tender, nondistended. No guarding. MUSCULOSKELETAL: Extremities without clubbing, cyanosis, or edema. No joint tenderness, effusion, or edema noted. No calf tenderness. Negative Homans sign bilaterally. NEUROLOGICAL: Awake and alert. Motor and sensory grossly within normal limits. 4 out of 5 muscle strength in all muscle groups. Normal speech. Laboratory Laboratory Tests Test 02/04/17 02/04/17 02/04/17 02/04/17 20:10 21:35 22:00 23:10 White Blood Count 13.5 Red Blood Count 3.97 Hemoglobin 11.6 Hematocrit 35.8 Mean Corpuscular Volume 90.3 Mean Corpuscular Hemoglobin 29.3 Mean Corpuscular Hemoglobin 32.4 Concent Red Cell Distribution Width 14.0 Platelet Count 382 Mean Platelet Volume 9.7 Neutrophils (%) (Auto) 71.1 Lymphocytes (%) (Auto) 15.5 Monocytes (%) (Auto) 10.9 Eosinophils (%) (Auto) 1.8 Basophils (%) (Auto) 0.7 Neutrophils # (Auto) 9.6 Lymphocytes # (Auto) 2.1 Monocytes # (Auto) 1.5 Eosinophils # (Auto) 0.2 Basophils # (Auto) 0.1 CBC Comment DIFF FINAL Differential Comment Prothrombin Time 11.0 Prothromb Time International 1.0 Ratio Activated Partial 25.4 Thromboplast Time Sodium Level 135 Potassium Level 3.5 Chloride Level 97 Carbon Dioxide Level 25.2 Anion Gap 13 Blood Urea Nitrogen 18 Creatinine 1.40 Estimat Glomerular Filtration 35 Rate Random Glucose 196 Lactic Acid Level 3.6 1.1 Calcium Level 8.8 Magnesium Level 2.0 Total Bilirubin 0.8 Aspartate Amino Transf 27 (AST/SGOT) Alanine Aminotransferase 18 (ALT/SGPT) Alkaline Phosphatase 97 Total Creatine Kinase 50 Troponin I LESS THAN 0.02 B-Type Natriuretic Peptide 1053 Total Protein 7.5 Albumin 3.2 Blood Gas Puncture Site LT RADIAL Blood Gas Patient Temperature 98.6 Blood Gas HCO3 25 Blood Gas Base Excess 1.2 Blood Gas Oxygen Saturation 96 Arterial Blood pH 7.40 Arterial Blood Partial 42 Pressure CO2 Arterial Blood Partial 85 Pressure O2 Arterial Blood Oxygen Content 15.9 Arterial Blood 0.7 Carboxyhemoglobin Arterial Blood Methemoglobin 0.6 Blood Gas Hemoglobin 11.8 Oxygen Delivery Device BIPAP Blood Gas Ventilator Setting IPAP=12 EPAP=6 Blood Gas Inspired Oxygen 40 Urine Color YELLOW Urine Turbidity HAZY Urine pH 5.0 Urine Specific [place] 1.017 Urine Protein TRACE Urine Glucose (UA) NEG Urine Ketones TRACE Urine Occult Blood TRACE Urine Nitrite NEG Urine Bilirubin NEG Urine Urobilinogen LESS THAN 2.0 Urine Leukocyte Esterase NEG Urine RBC 8 Urine WBC 1 Urine Squamous Epithelial 1 Cells Urine Calcium Oxalate Crystals RARE Urine Bacteria RARE Urine Hyaline Casts 51 Urine Mucus FEW Microscopic Urinalysis Comment CULT NOT INDICATED Date/Time Procedure Status Source Growth 02/04/17 20:20 Aerobic Blood Culture Received Blood Peripheral Pending 02/04/17 20:20 Anaerobic Blood Culture Received Blood Peripheral Pending Result Diagram: 02/04/17200902/04/172009 Imaging Last Impressions Chest X-Ray 02/04/171999 Signed Impressions: Service Date/Time: Saturday, February 04, 2017 20:28 - CONCLUSION: CHF Shyam Sky MD Assessment and Plan Problem List: (1) CHF exacerbation ICD Code: I50.9 Status: Acute Assessment and Plan This is an 89 year old female patient with a past medical history which includes : HTN, GERD, anxiety/depression, PACs s/p pacemaker placement, systolic CHF, and recent cardiogenic shock with NSTEMI with stent placement 09/2016. Patient presents to the ER today due to sudden onset of severe shortness of breath prior to arrival. The patient reports that over the last 2 days she has had increased dyspnea on exertion. She denies having any increased lower extremity edema. She does have a history of systolic congestive heart failure last echocardiogram 09/2016 showed EF of 25-30% and coronary artery disease with coronary artery stent 09/2016 and pacemaker placement in the past. She denies having any chest pain. Per ER note on arrival patient was having conversational dyspnea, tripoding, accessory muscle use, and paroxysmal abdominal breathing. Patient was diaphoretic on exam. Acute on chronic systolic CHF was given Lasix 60mg IV in ER continue Lasix 40 mg IV daily consult cardiology patient known to Dr. Seth Echocardiogram ordered and pending HTN- Monitor trend awaiting RN to complete home medication reconciliation CAD with recent stent placement- continue Plavix DVT prophylaxis with heparin subQ Discussed with ER provider, nursing and patient Written by Kizzy Cortes, acting as scribe for Dr. Scott on 02/05/17 at 03 :24. This note was transcribed by scribe [Kizzy Cortes]. I, Dr. Clarice Scott personally performed the history, physical exam, and medical decision making; and confirmed the accuracy of the information in the transcribed note. Authenticated by Dr. Clarice Scott on 02/05/17 at 0105. Physician Certification 2 Midnight Certification Type: Admission for Inpatient Services Order for Inpatient Services The services are ordered in accordance with Medicare regulations or non- Medicare payer requirements, as applicable. In the case of services not specified as inpatient-only, they are appropriately provided as inpatient services in accordance with the 2-midnight benchmark. Estimated LOS (days): 3 days is the estimated time the patient will need to remain in the hospital, assuming treatment plan goals are met and no additional complications. Post-Hospital Plan: Not yet determined Problem Qualifiers (1) CHF exacerbation: Qualified Code: I50.23 - Acute on chronic systolic congestive heart failure Kizzy Cortes February 05, 2017 02:26 Clarice Scott MD February 05, 2017 07:51
[2017-02-05] MEDS ORDERED: RESP: ALBUTEROL 2.5 MG/IPRATROPIUM 0.5 MG NEB (PRN) NEB (03:00)
[2017-02-05 05:26] LABS: AUTOMATED NEUTROPHIL # 8.8 TH/MM3 (1.8-7.7); BASOPHIL % 0.1 % (0.0-2.0); HEMATOCRIT 33.2 % (35.0-46.0); HEMO FLAGS DIFF FINAL; LYMPH % 3.3 % (9.0-44.0); LYMPHOCYTE # 0.3 TH/MM3 (1.0-4.8); MEAN CELL VOLUME 89.6 FL (80.0-100.0); MEAN CORPUSCULAR HEMOGLOBIN 29.5 PG (27.0-34.0); MEAN CORPUSCULAR HGB CONC 32.9 % (32.0-36.0); MONO % 0.8 % (0.0-8.0); NEUT % 95.8 % (16.0-70.0); PLATELET COUNT 310 TH/MM3 (150-450); RED CELL DISTRIBUTION WIDTH 14.2 % (11.6-17.2); WHITE BLOOD COUNT 9.1 TH/MM3 (4.0-11.0)
[2017-02-05 05:57] LABS: BICARBONATE 29.2 MEQ/L (21.0-32.0); POTASSIUM 4.1 MEQ/L (3.5-5.1)
[2017-02-05] MEDS: HEPARIN SODIUM - SQ 10,000 UNITS/ML VIAL SQ SCH ×2 (06:19→14:14)
[2017-02-05] MEDS ORDERED: PILL SPLITTER OTHER PRN (08:30)
[2017-02-05] MEDS: CLOPIDOGREL 75 MG TAB PO SCH (08:58)
[2017-02-05] MEDS: DOCUSATE SODIUM 100 MG CAP PO SCH ×2 (08:58→20:19)
[2017-02-05] MEDS: POTASSIUM CHLORIDE 10 MEQ CONTROLLED RELEASE TAB PO SCH (08:58)
[2017-02-05] MEDS: SODIUM CHLORIDE 0.9% FLUSH 10 ML FLUSH IV FLUSH SCH ×2 (08:58→20:18)
[2017-02-05] MEDS: CARVEDILOL 3.125 MG TAB PO SCH ×2 (08:58→20:19)
[2017-02-05] MEDS: ASPIRIN 81 MG CHEW TAB CHEW SCH (08:58)
[2017-02-05] MEDS ORDERED: ASPIRIN 81 MG CHEW TAB CHEW SCH (09:00)
[2017-02-05] MEDS ORDERED: FUROSEMIDE 40 MG/4 ML VIAL IV PUSH SCH ×2 (09:00)
[2017-02-05] MEDS ORDERED: SPIRONOLACTONE 25 MG TAB PO SCH (09:00)
[2017-02-05] MEDS ORDERED: POTASSIUM CHLORIDE 20 MEQ CONTROLLED RELEASE TAB PO SCH (09:00)
[2017-02-05] MEDS ORDERED: SACUBITRIL/VALSARTAN 24 MG-26 MG TAB PO SCH (09:00)
--- NOTE | 2017-02-05 09:22 | MB ---
cc: KELSIE CALABRESE M.D., JOANNE D. M.D. DATE OF CONSULTATION February 05, 2017 REASON FOR CONSULTATION Congestive heart failure. REFERRING PHYSICIAN Dr. Sofia Zepeda HISTORY Ms. Quiñones is an 89-year-old white female well-known to me with history of ischemic cardiomyopathy, severe left ventricular dysfunction, chronic systolic congestive heart failure, who presented to the hospital yesterday because of progressive shortness of breath over the past few days. The patient has early dementia and has trouble with her memory and lives alone. Her family has been helping her with her medications and she does not think she missed any medications over the past week. I saw her in the office on January 07 and she was doing quite well. She complains of some orthopnea and PND type symptoms and exertional dyspnea. She was given 60 mg of IV furosemide in the emergency room yesterday and had good diuresis according to the nursing staff and is feeling much better this morning. She was on BiPap last night is now on nasal cannula. The patient also tells me that she may have had an oxygen saturation evaluation at home recently by Dr. Zepeda and was prescribed some home oxygen therapy but the details of that are not currently available to me. I had referred her to cardiac rehab phase II when I saw her in December but she never started that program. PAST MEDICAL HISTORY 1. Longstanding hypertension. 2. COPD with chronic dyspnea. 3. Chronic systolic congestive heart failure. 4. 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 5. Hypercholesterolemia. 6. Myocardial infarction in September of 2016 with subsequent cardiogenic shock requiring intraaortic balloon pump support. She underwent PCIs and drug-eluting stent implant in the mid-LAD at that time on October 22, 2016. She had a prolonged hospital course, subsequently recovered and was discharged. MEDICATIONS AT HOME 1. Carvedilol 6.25 mg b.i.d. 2. Cozaar 12.5 mg b.i.d. 3. Aspirin 81 mg daily. 4. Plavix 75 mg daily. 5. Lasix 40 mg daily. 6. Lipitor 40 mg daily. 7. Fish oil supplements 1000 mg daily. 8. Aldactone 25 mg daily. 9. Fluoxetine 10 mg daily. 10. Cetirizine 10 mg daily. 11. Brovana inhaler daily. 12. Zyrtec p.r.n. 13. Ranitidine p.r.n. 14. Multivitamins daily. 15. Calcium plus D 600 mg daily. 16. Vitamin B12 1000 mg daily. 17. Iron sulfate 325 mg t.i.d. 18. Lorazepam 0.5 mg p.r.n. 19. She was placed on nitro paste 1/2 inch chest wall. 20. On arrival she was given 60 mg of intravenous furosemide last night and has a 40 mg IV dose ordered daily. 21. She was restarted on Plavix 75 mg a day. 22. Aspirin 162 mg daily. 23. She is being given heparin 5000 units subcu q.8 hours. 24. DuoNeb nebulizers q.2 hours. ALLERGIES LOTREL causes rash. LAURA INHIBITORS. SURGICAL HISTORY 1. Regular oophorectomy. 2. Appendectomy in 1948. 3. Hysterectomy in 1958. 4. Left breast cyst removed in 1950. 5. Pacemaker implant in 1998. 6. Cardiac catheterization and PCI in September, as mentioned above. FAMILY HISTORY Noncontributory. SOCIAL HISTORY The patient is , living alone, retired nurse's aide. Denies tobacco use. Was a cigarette smoker but quit about 50 years ago. Consumes occasional alcohol. Does some mild exercise and activities. REVIEW OF SYSTEMS Denies lower extremity edema or claudication. Denies fevers, chills, night sweats, nausea, vomiting or diarrhea. Denies bleeding or clotting disorders. Except for that mentioned in the HPI her complete 12-point review of systems is otherwise negative. PHYSICAL EXAMINATION GENERAL: An elderly overweight white female lying in bed in mild respiratory distress. VITAL SIGNS: Blood pressure 102/68 mmHg, heart rate is 88 and regular, respiratory rate 20, temperature 98.3, oxygen saturation 99% on 3 liters nasal cannula. HEAD: Normocephalic and atraumatic. EYES: Pupils equal, round, react to light. Sclerae anicteric. Extraocular moments intact. NECK: The neck is supple. There is no adenopathy. There is jugular venous distension noted at 45 degrees. Carotid upstrokes are normal. No bruits. Thyroid exam is normal. LUNGS: Bibasilar crackles with decreased breath sounds throughout. HEART: PMI is slightly displaced and diffuse. S1 and S2 are normal and S3 is heard. No murmurs or rubs. ABDOMEN: Bowel sounds present, soft, nontender. No hepatosplenomegaly, masses or bruits. EXTREMITIES: No cyanosis, clubbing or edema. Perfusion is adequate in the upper and lower extremities. There are no femoral bruits. EKG On arrival yesterday at 07:57 p.m. shows sinus rhythm with first-degree AV block, old anterior septal infarct, abnormal EKG. CHEST X-RAY From 20:28 last night shows congestive heart failure. LABORATORY DATA CBC: White count 9.1, hemoglobin 10.9, hematocrit 33.2, platelet count 310,000. Coags were normal. Chemistries this morning: Sodium 139, potassium 4.1, chloride 100, CO2 29.2, BUN 20, creatinine 1.18, glucose 132. Her BNP from last night was 1053 with a troponin-I of less than 0.02, total CPK of 50. IMPRESSION 1. Acute on chronic systolic congestive heart failure. 2. Ischemic cardiomyopathy with severe left ventricular dysfunction. Ejection fraction during cardiac catheterization back on October 22, 2016, was estimate at 25-30%. 3. History of symptomatic bradycardia and permanent pacemaker implant. 4. Hypertensive heart disease, well-controlled. 5. Status post [id number] myocardial infarction in September 2016. 6. Hypercholesterolemia. 7. COPD with chronic dyspnea. 8. Advanced age. 9. Early dementia. RECOMMENDATIONS The patient will be restarted on her carvedilol and I will switch her Cozaar over to Entresto as tolerated by blood pressure. Resume Aldactazide and continue intravenous Lasix for today and hopefully switch her over to oral Lasix tomorrow. She has had some mild hypotension and I am not sure how much of these medications she is going to tolerate, but we will try to maximize it as best possible. It is still unclear whether she has missed some of her medication doses at home due to her poor memory. She is in the process of moving to [place] to be closer to some of her family in an assisted-living up there. I will continue to follow her with you with further recommendations as needed. Thank you for allowing me to participate in the care of this patient. MD HIEU Castro/JANES /7:59 AM /8:52 AM
[2017-02-05] MEDS: SPIRONOLACTONE 25 MG TAB PO SCH ×2 (10:42→17:59)
--- NOTE | 2017-02-05 15:26 | EC ---
Study Study Date:02/05/2017 STUDY CONCLUSIONS SUMMARY - Left ventricle: There is anteroapical akinesis and thinning consistent with scar. The cavity size was normal. Wall thickness was normal. Systolic function was moderately reduced. The estimated ejection fraction was in the range of 35% to 40%. - Mitral valve: Moderate to severe regurgitation. - Pulmonary arteries: Systolic pressure was moderately increased. PA peak pressure: 51mm Hg (S). - Pericardium, extracardiac: There was a pleural effusion. If LV function is below 40, please consider prescribing an ACEI or ARB or document rationale for non-use. PROCEDURE DATA STUDY STATUS: Elective. Procedure: Transthoracic echocardiography. Image quality was good. Scanning was performed from the parasternal, apical, and subcostal acoustic windows. Study completion: The patient tolerated the procedure well. Transthoracic echocardiography. M-mode, complete 2D, complete spectral Doppler, and color Doppler. Patient status: Inpatient. CARDIAC ANATOMY LEFT VENTRICLE: There is anteroapical akinesis and thinning consistent with scar. The cavity size was normal. Wall thickness was normal. Systolic function was moderately reduced. The estimated ejection fraction was in the range of 35% to 40%. AORTIC VALVE: Trileaflet; normal thickness leaflets. Doppler: Transvalvular velocity was within the normal range. There was no stenosis. No regurgitation. AORTA: Aortic root: The aortic root was normal in size. MITRAL VALVE: Structurally normal valve. Doppler: Transvalvular velocity was within the normal range. There was no evidence for stenosis. Moderate to severe regurgitation. Peak gradient: 3mm Hg (D). LEFT ATRIUM: The atrium was normal in size. RIGHT VENTRICLE: The cavity size was normal. Wall thickness was normal. PULMONIC VALVE: Doppler: Transvalvular velocity was within the normal range. There was no evidence for stenosis. No regurgitation. TRICUSPID VALVE: Structurally normal valve. Doppler: Transvalvular velocity was within the normal range. No regurgitation. PULMONARY ARTERY: The main pulmonary artery was normal-sized. Systolic pressure was moderately increased. RIGHT ATRIUM: The atrium was normal in size. PERICARDIUM: There was a pleural effusion. SYSTEMIC VEINS: Inferior vena cava: The vessel was normal in size. BASIC MEASUREMENTS ADULT NORMAL Left ventricle LV internal dimension, ED, chordal level, *53.1 mm 43-52 PLAX LV internal dimension, ES, chordal level, *45 mm 23-38 PLAX Fractional shortening, chordal level, PLAX *15 % >29 LV posterior wall thickness, ED 7.49 mm IVS/LVPW ratio, ED *1.33 <1.3 Ventricular septum Septal thickness, ED 9.98 mm Aortic valve Leaflet separation 20 mm 15-26 Right ventricle RV internal dimension, ED, PLAX 29.2 mm 19-38 BASIC MEASUREMENTS ADULT NORMAL Aortic valve Leaflet separation 20 mm 15-26 Aorta Root diameter, ED 29 mm 20-37 DOPPLER MEASUREMENTS ADULT NORMAL Main pulmonary artery Pressure, S *51 mm Hg =30 Mitral valve Peak E-wave velocity 79.6 cm/s Peak A-wave velocity 79.6 cm/s Peak gradient, D 3 mm Hg Peak E/A ratio 1 Maximal regurgitant velocity 413 cm/s Tricuspid valve Regurgitant peak velocity 240 cm/s Peak RV-RA gradient, S 23 mm Hg Maximal regurgitant velocity 240 cm/s Systemic veins Estimated CVP 10 mm Hg Right ventricle RV pressure, S *51 mm Hg <30 LEGEND: Mean values are shown as u=mean value. Asterisk (*) daniels values outside specified normal range. Prepared and signed by Yecenia Knight [id number]
--- NOTE | 2017-02-05 15:43 | HHI.PR ---
Subjective Remarks Late entry. Patient seen at ~0800 today. She states that her breathing is improving. Denies chest pain. Objective Vitals Vital Signs Date Time Temp Pulse Resp B/P Pulse Ox O2 Delivery O2 Flow Rate FiO2 02/05/17 14:29 75 02/05/17 13:41 92/70 02/05/17 13:00 96 02/05/17 12:30 90/64 02/05/17 12:00 92 02/05/17 11:15 97.7 84 19 89/56 95 02/05/17 11:00 78 02/05/17 10:40 94 21 02/05/17 10:40 94 02/05/17 10:15 95/51 02/05/17 10:00 78 02/05/17 09:00 98/58 02/05/17 09:00 98 02/05/17 08:00 90 02/05/17 07:00 98 Nasal Cannula 3.00 02/05/17 07:00 86 02/05/17 07:00 97.9 101 19 121/82 99 02/05/17 06:00 88 02/05/17 05:00 94 02/05/17 04:00 99 02/05/17 04:00 98.3 96 20 102/68 99 02/05/17 03:00 98 02/05/17 02:00 100 02/05/17 01:20 96 Nasal Cannula 3.00 02/05/17 01:00 100 02/05/17 00:50 99 40 02/05/17 00:20 98 3.00 02/05/17 00:00 98.0 107 20 105/64 97 02/05/17 00:00 97 Nasal Cannula 3.00 02/04/17 23:45 97.9 104 20 110/73 97 BiPAP 02/04/17 22:30 97 40 02/04/17 20:10 40 100 BiPAP 02/04/17 20:10 95 40 128/79 100 BiPAP 02/04/17 20:10 100 BiPAP 02/04/17 20:00 97.9 90 40 128/79 98 02/04/17 19:55 98 50 I/O 02/04/17 02/04/17 02/04/17 02/05/17 02/05/17 02/05/17 07:00 15:00 23:00 07:00 15:00 23:00 Intake Total 240 ml Output Total 775 ml Balance -535 ml Intake Oral 240 ml Output Urine Total 775 ml # Bowel Movements 0 Result Diagram: 02/05/1745002/05/17 045 Imaging Last Impressions Chest X-Ray 02/04/171999 Signed Impressions: Service Date/Time: Saturday, February 04, 2017 20:28 - CONCLUSION: CHF Shyam Sky MD Objective Remarks Gen: No acute distress. Heart: RRR Lungs: Crackles in both bases, R>L. Abd: Soft, NT/ND. Ext: No edema. Procedures None Urinary Catheter: Yes Assessment to: Continue Garnica insert reason: Measure Accurate Output Vascular Central Line Catheter: No A/P Problem List: (1) CHF exacerbation ICD Code: I50.9 Status: Acute Assessment and Plan 1. Acute exacerbation of systolic CHF: Appreciate cardiology recommendations. Continue diuresis. BP has been low, so will be cautious with diuretics. Echocardiogram pending. 2. Hypertension: BP running low. Monitor. 3. CAD with recent stent placement: Continue Plavix. 4. DVT prophylaxis: Heparin. Problem Qualifiers (1) CHF exacerbation: Qualified Code: I50.23 - Acute on chronic systolic congestive heart failure Russ Crouch MD February 05, 2017 15:43
[2017-02-05] MEDS ORDERED: SODIUM CHLOR 0.9% 1000 ML INJ 1,000 ML IV SCH (17:00)
--- NOTE | 2017-02-05 17:22 | EKG ---
Date Performed: 02/04/2017 Time Performed: 19:57:24 PTAGE: 89 years EKG: ATRIAL FIBRILLATION WITH ABERRANT CONDUCTION OR VENTRICULAR PREMATURE COMPLEXES INDETERMINA TE AXIS RIGHT BUNDLE BRANCH BLOCK ANTEROSEPTAL MYOCARDIAL INFARCTION ABNORMAL ECG INTERPRETATION BASE D ON A DEFAULT AGE OF 40 YEARS Compared to PREVIOUS TRACING , previously present paced rhythm is no longer present. PREVIOUS TRACING : 10/21/2016 22.24 DOCTOR: Dion Cope Interpretating Date/Time 02/05/2017 17:21:26
[2017-02-06] VITALS (25 sets, daily range): BP systolic 85–109; BP diastolic 53–78; PULSE 70–114; RESP 16–20; TEMP 97.5–98.7; O2SAT 90–99
[2017-02-06] MEDS: HEPARIN SODIUM - SQ 10,000 UNITS/ML VIAL SQ SCH ×4 (00:54→21:55)
[2017-02-06 06:56] LABS: BICARBONATE 28.1 MEQ/L (21.0-32.0); POTASSIUM 3.6 MEQ/L (3.5-5.1)
[2017-02-06] MEDS ORDERED: FUROSEMIDE 40 MG TAB PO SCH (09:00)
[2017-02-06] MEDS ORDERED: SACUBITRIL/VALSARTAN 24 MG-26 MG TAB PO SCH (09:00)
--- NOTE | 2017-02-06 09:15 | PD.CARD.PN ---
Subjective Subjective Remarks No CP or SOB. Ambulating with assistance. O2 sats good on RA. BP low. Objective Medications Current Medications Medications (Trade) Dose Ordered Sig/Izabella Route PRN Reason Start Time Stop Time Status Last Admin Dose Admin Sodium Chloride (NS Flush) 2 ml UNSCH PRN IV FLUSH FLUSH AFTER USING IV ACCESS 02/04/17 23:15 Sodium Chloride (NS Flush) 2 ml BID IV FLUSH 02/05/17 09:00 02/05/17 20:18 Acetaminophen (Tylenol) 650 mg Q4H PRN PO TEMP > 100.4 02/04/17 23:15 Ondansetron HCl (Zofran Inj) 4 mg Q6H PRN IVP NAUSEA OR VOMITING 02/04/17 23:15 Docusate Sodium (Colace) 100 mg Q12H PO 02/04/17 09:00 02/05/17 20:19 Heparin Sodium (Porcine) (Heparin Inj) 5,000 units Q8H SQ 02/05/17 06:00 02/06/17 05:47 Naloxone HCl (Narcan Inj) 0.4 mg UNSCH PRN IV SEE LABEL COMMENTS 02/04/17 23:15 Clopidogrel Bisulfate (Plavix) 75 mg DAILY PO 02/05/17 09:00 02/05/17 08:58 Carvedilol (Coreg) 3.125 mg Q12HR PO 02/05/17 09:00 02/05/17 20:19 Aspirin (Aspirin Chew) 81 mg DAILY CHEW 02/05/17 09:00 02/05/17 08:58 Spironolactone (Aldactone) 12.5 mg BID@,18 PO 02/05/17 09:00 Hold 02/05/17 17:59 Potassium Chloride (KCl) 10 meq DAILY PO 02/05/17 09:00 02/05/17 08:58 Miscellaneous (Pill Splitter) 1 ea UNSCH PRN OTHER SEE LABEL COMMENTS 02/05/17 08:30 Furosemide (Lasix) 40 mg DAILY PO 02/06/17 09:00 Hold Sacubitril/ Valsartan (Entresto 24-26 Mg) 1 tab DAILY PO 02/06/17 09:00 Hold Vital Signs / I&O Vital Signs Date Time Temp Pulse Resp B/P Pulse Ox O2 Delivery O2 Flow Rate FiO2 02/06/17 08:00 95 Room Air 02/06/17 08:00 97.5 92 16 100/63 95 02/06/17 07:05 114 02/06/17 06:00 91 02/06/17 05:00 96 02/06/17 04:00 97 Nasal Cannula 1.00 02/06/17 04:00 93 02/06/17 04:00 97.7 92 20 85/56 97 02/06/17 03:00 92 02/06/17 02:00 95 02/06/17 01:00 102 02/06/17 00:00 76 02/06/17 00:00 98 Nasal Cannula 1.00 02/06/17 00:00 98.7 96 20 91/60 98 02/05/17 23:00 101 02/05/17 22:00 98 02/05/17 21:13 98 Nasal Cannula 1.00 02/05/17 21:00 98 02/05/17 20:15 97 Nasal Cannula 1.00 02/05/17 20:00 96 Room Air 02/05/17 20:00 97.6 106 20 97/59 96 02/05/17 20:00 106 02/05/17 19:00 101 02/05/17 18:12 94 02/05/17 17:54 82 02/05/17 16:38 104 02/05/17 15:48 78 02/05/17 15:40 97.4 91 17 94/63 97 02/05/17 14:29 75 02/05/17 13:41 92/70 02/05/17 13:00 96 02/05/17 12:30 90/64 02/05/17 12:00 92 02/05/17 11:15 97.7 84 19 89/56 95 02/05/17 11:00 78 02/05/17 10:40 94 21 02/05/17 10:40 94 02/05/17 10:15 95/51 02/05/17 10:00 78 I/O 02/05/17 02/05/17 02/05/17 02/06/17 02/06/17 02/06/17 07:00 15:00 23:00 07:00 15:00 23:00 Intake Total 240 ml 500 ml 240 ml Output Total 775 ml 200 ml 200 ml Balance -535 ml 300 ml 40 ml Intake Oral 240 ml 500 ml 240 ml Output Urine Total 775 ml 200 ml 200 ml # Bowel Movements 0 0 Physical Exam VSS, afeb No JVD Lungs: CTA Heart: RRR, S3, 1/6 syst. murmur apex Ext: No edema. Neuro: non focal Laboratory Laboratory Tests Test 02/06/17 04:33 Sodium Level 135 MEQ/L Potassium Level 3.6 MEQ/L Chloride Level 98 MEQ/L Carbon Dioxide Level 28.1 MEQ/L Anion Gap 9 MEQ/L Blood Urea Nitrogen 33 MG/DL Creatinine 1.38 MG/DL Estimat Glomerular Filtration 36 ML/MIN Rate Random Glucose 115 MG/DL Calcium Level 9.0 MG/DL Imaging Echo report reviewed. EF 35-40% Mod-severe MR Assessment and Plan Problem List: (1) Ischemic cardiomyopathy (2) Acute on chronic systolic (congestive) heart failure (3) Chronic kidney disease (CKD) stage G3b/A1, moderately decreased glomerular filtration rate (GFR) between 30-44 mL/min/1.73 square meter and albuminuria creatinine ratio less than 30 mg/g Assessment and Plan Slowly improving. BP low so need to hold Entresto/LAURA/ARB. Hold Lasix and Aldactone this AM as well. Maintain neutral fluid balance. D/C khan cath. D/C O2. Cardiac rehab after discharge orderd. Increase activity as tolerates. Home in 24-48 hours if stable. Code Status Full Discussed Condition With Discussed with patient and residential treatment staff. Alex Seth MD February 06, 2017 09:14
[2017-02-06] MEDS: POTASSIUM CHLORIDE 10 MEQ CONTROLLED RELEASE TAB PO SCH (09:25)
[2017-02-06] MEDS: SODIUM CHLORIDE 0.9% FLUSH 10 ML FLUSH IV FLUSH SCH ×2 (09:26→22:01)
[2017-02-06] MEDS: CLOPIDOGREL 75 MG TAB PO SCH (09:26)
[2017-02-06] MEDS: ASPIRIN 81 MG CHEW TAB CHEW SCH (09:26)
[2017-02-06] MEDS: CARVEDILOL 3.125 MG TAB PO SCH ×2 (09:26→21:00)
[2017-02-06] MEDS: DOCUSATE SODIUM 100 MG CAP PO SCH ×2 (09:26→21:00)
--- NOTE | 2017-02-06 10:14 | HHI.PR ---
Subjective Remarks Follow-up acute on chronic CHF exacerbation/hypotension 02/06/17-patient seen and examined, denies any chest pain or shortness of breath. BP low and renal indices worsening. Patient with 1 positive blood culture Objective Vitals Vital Signs Date Time Temp Pulse Resp B/P Pulse Ox O2 Delivery O2 Flow Rate FiO2 02/06/17 08:00 95 Room Air 02/06/17 08:00 97.5 92 16 100/63 95 02/06/17 07:05 114 02/06/17 06:00 91 02/06/17 05:00 96 02/06/17 04:00 97 Nasal Cannula 1.00 02/06/17 04:00 93 02/06/17 04:00 97.7 92 20 85/56 97 02/06/17 03:00 92 02/06/17 02:00 95 02/06/17 01:00 102 02/06/17 00:00 76 02/06/17 00:00 98 Nasal Cannula 1.00 02/06/17 00:00 98.7 96 20 91/60 98 02/05/17 23:00 101 02/05/17 22:00 98 02/05/17 21:13 98 Nasal Cannula 1.00 02/05/17 21:00 98 02/05/17 20:15 97 Nasal Cannula 1.00 02/05/17 20:00 96 Room Air 02/05/17 20:00 97.6 106 20 97/59 96 02/05/17 20:00 106 02/05/17 19:00 101 02/05/17 18:12 94 02/05/17 17:54 82 02/05/17 16:38 104 02/05/17 15:48 78 02/05/17 15:40 97.4 91 17 94/63 97 02/05/17 14:29 75 02/05/17 13:41 92/70 02/05/17 13:00 96 02/05/17 12:30 90/64 02/05/17 12:00 92 02/05/17 11:15 97.7 84 19 89/56 95 02/05/17 11:00 78 02/05/17 10:40 94 21 02/05/17 10:40 94 02/05/17 10:15 95/51 I/O 5/9/17 502/05/17 02/06/17 02/06/17 02/06/17 07:00 15:00 23:00 07:00 15:00 23:00 Intake Total 240 ml 500 ml 240 ml Output Total 775 ml 200 ml 200 ml Balance -535 ml 300 ml 40 ml Intake Oral 240 ml 500 ml 240 ml Output Urine Total 775 ml 200 ml 200 ml # Bowel Movements 0 0 Result Diagram: 02/05/17 0451 02/06/17 0433 Imaging Last Impressions Chest X-Ray 02/04/171999 Signed Impressions: Service Date/Time: Saturday, February 04, 2017 20:28 - CONCLUSION: CHF Shyam Sky MD Objective Remarks GENERAL: NAD SKIN: Warm and dry. HEAD: Normocephalic. EYES: No scleral icterus. No injection or drainage. NECK: Supple, trachea midline. No JVD or lymphadenopathy. CARDIOVASCULAR: Regular rate and rhythm without murmurs, gallops, or rubs. RESPIRATORY: Breath sounds equal bilaterally. No accessory muscle use. GASTROINTESTINAL: Abdomen soft, non-tender, nondistended. MUSCULOSKELETAL: No cyanosis, or edema. BACK: Nontender without obvious deformity. No CVA tenderness. Procedures None A/P Problem List: (1) Acute on chronic systolic (congestive) heart failure ICD Code: I50.23 Status: Acute (2) Hypotension due to medication ICD Code: I95.2 Status: Acute (3) ARF (acute renal failure) ICD Code: N17.9 Status: Acute (4) Bacteremia due to Gram-positive bacteria ICD Code: R78.81 Status: Acute Assessment and Plan 89 year-old female with 1. Acute on chronic exacerbation of systolic CHF: Appreciate cardiology recommendations. Secondary to low BP, will hold Lasix, Aldactone,Entresto as well as Coreg. Echocardiogram with EF 30-35% 2. Hypertension: However secondary to low BP will hold oral antihypertensive medications 3. Hypotension due to medication: Hold all oral antihypertensive medications 4. CAD with recent stent placement: Continue Plavix. 5. Acute renal failure: Secondary to medication side effect, consider 250ml NS bolus, hold all nephrotoxic drugs and monitor BUN and creatinine 6. Bacteremia due to gram-positive cocci?1#4 positive blood culture, likely contaminant. Repeat blood culture and treat accordingly. Hold on starting any antibiotics 7. DVT prophylaxis: Heparin. Phani Barrow MD February 06, 2017 10:14
[2017-02-06] MEDS: SPIRONOLACTONE 25 MG TAB PO SCH (17:14)
[2017-02-07] VITALS (19 sets, daily range): BP systolic 87–114; BP diastolic 55–72; PULSE 82–108; RESP 16–20; TEMP 97.4–98; O2SAT 94–100
[2017-02-07] MEDS: HEPARIN SODIUM - SQ 10,000 UNITS/ML VIAL SQ SCH ×2 (05:25→15:09)
[2017-02-07 05:40] LABS: AUTOMATED NEUTROPHIL # 8.4 TH/MM3 (1.8-7.7); BASOPHIL % 0.4 % (0.0-2.0); EOSINOPHIL # 0.3 TH/MM3 (0-0.4); EOSINOPHIL % 2.5 % (0.0-4.0); HEMATOCRIT 32.4 % (35.0-46.0); HEMO FLAGS DIFF FINAL; LYMPH % 10.8 % (9.0-44.0); LYMPHOCYTE # 1.2 TH/MM3 (1.0-4.8); MEAN CELL VOLUME 88.2 FL (80.0-100.0); MEAN CORPUSCULAR HEMOGLOBIN 30.2 PG (27.0-34.0); MEAN CORPUSCULAR HGB CONC 34.3 % (32.0-36.0); MONO % 11.3 % (0.0-8.0); PLATELET COUNT 349 TH/MM3 (150-450); RED BLOOD COUNT 3.68 MIL/MM3 (4.00-5.30); RED CELL DISTRIBUTION WIDTH 13.9 % (11.6-17.2); WHITE BLOOD COUNT 11.2 TH/MM3 (4.0-11.0)
[2017-02-07 06:00] LABS: BICARBONATE 29.3 MEQ/L (21.0-32.0); POTASSIUM 3.7 MEQ/L (3.5-5.1)
[2017-02-07] MEDS: CLOPIDOGREL 75 MG TAB PO SCH (08:52)
[2017-02-07] MEDS: ASPIRIN 81 MG CHEW TAB CHEW SCH (08:53)
[2017-02-07] MEDS: CARVEDILOL 3.125 MG TAB PO SCH ×2 (08:54→08:55)
[2017-02-07] MEDS: DOCUSATE SODIUM 100 MG CAP PO SCH (08:54)
[2017-02-07] MEDS: SODIUM CHLORIDE 0.9% FLUSH 10 ML FLUSH IV FLUSH SCH (08:54)
[2017-02-07] MEDS ORDERED: SPIRONOLACTONE 25 MG TAB PO SCH (09:00)
[2017-02-07] MEDS ORDERED: POTASSIUM CHLORIDE 10 MEQ CONTROLLED RELEASE TAB PO SCH (09:00)
[2017-02-07] MEDS ORDERED: FUROSEMIDE 40 MG TAB PO SCH (09:00)
--- NOTE | 2017-02-07 10:09 | HHI.PR ---
Subjective Remarks Follow-up acute on chronic CHF exacerbation/hypotension 02/06/17-patient seen and examined, denies any chest pain or shortness of breath. BP low and renal indices worsening. Patient with 1 positive blood culture 02/07/17-patient seen and examined, no acute event overnight. BP still soft. Creatinine improving. Denies any shortness of breath Objective Vitals Vital Signs Date Time Temp Pulse Resp B/P Pulse Ox O2 Delivery O2 Flow Rate FiO2 02/07/17 07:43 99 Nasal Cannula 1.00 02/07/17 06:17 82 02/07/17 05:03 104 02/07/17 04:15 82 02/07/17 03:19 87 02/07/17 03:19 97 Nasal Cannula 3.00 02/07/17 03:19 97.8 105 18 97/72 97 02/07/17 02:11 94 02/07/17 01:24 82 02/07/17 00:00 95 02/07/17 00:00 98.0 104 16 87/55 100 02/07/17 00:00 100 Nasal Cannula 3.00 02/06/17 22:00 98 02/06/17 21:00 85 02/06/17 20:00 101 02/06/17 19:20 95 02/06/17 19:20 99 Nasal Cannula 3.00 02/06/17 19:20 97.9 106 18 87/53 99 02/06/17 18:03 96 02/06/17 17:00 98 02/06/17 16:46 94 Nasal Cannula 1.00 02/06/17 16:00 94 02/06/17 15:06 99 Nasal Cannula 1.00 02/06/17 15:04 97.9 95 16 109/78 99 02/06/17 15:01 103 02/06/17 14:00 93 02/06/17 13:00 92 02/06/17 12:15 70 02/06/17 11:32 Nasal Cannula 1.00 02/06/17 11:00 99 Nasal Cannula 1.00 02/06/17 11:00 81 02/06/17 11:00 97.5 95 16 91/60 99 I/O 02/06/17 02/06/17 02/06/17 02/07/17 02/07/17 02/07/17 07:00 15:00 23:00 07:00 15:00 23:00 Intake Total 240 ml 720 ml 240 ml Output Total 200 ml 100 ml 300 ml Balance 40 ml 620 ml -60 ml Intake Oral 240 ml 720 ml 240 ml Output Urine Total 200 ml 100 ml 300 ml # Voids 2 2 # Bowel Movements 0 1 1 Result Diagram: 02/07/175 02/07/17 0455 Objective Remarks GENERAL: NAD and sitting in a chair SKIN: Warm and dry. HEAD: Normocephalic. EYES: No scleral icterus. No injection or drainage. NECK: Supple, trachea midline. No JVD or lymphadenopathy. CARDIOVASCULAR: Regular rate and rhythm without murmurs, gallops, or rubs. RESPIRATORY: Breath sounds equal bilaterally. No accessory muscle use. GASTROINTESTINAL: Abdomen soft, non-tender, nondistended. MUSCULOSKELETAL: No cyanosis, or edema. BACK: Nontender without obvious deformity. No CVA tenderness. Procedures None A/P Problem List: (1) Acute on chronic systolic (congestive) heart failure ICD Code: I50.23 Status: Acute (2) Hypotension due to medication ICD Code: I95.2 Status: Acute (3) ARF (acute renal failure) ICD Code: N17.9 Status: Acute (4) Bacteremia due to Gram-positive bacteria ICD Code: R78.81 Status: Acute Assessment and Plan 89 year-old female with 1. Acute on chronic exacerbation of systolic CHF: Appreciate cardiology recommendations. Secondary to low BP, continue to hold Lasix, Aldactone, Entresto as well as Coreg. Echocardiogram with EF 30-35% 2. Hypertension: However secondary to low BP continue to hold oral antihypertensive medications 3. Hypotension due to medication: Hold all oral antihypertensive medications 4. CAD with recent stent placement: Continue Plavix. 5. Acute renal failure: Secondary to medication side effect. Cr improving hold all nephrotoxic drugs and monitor BUN and creatinine 6. Bacteremia due to gram-positive cocci?1#4 positive blood culture, likely contaminant. Repeat blood culture NTD and treat accordingly. Hold on starting any antibiotics 7. DVT prophylaxis: Heparin. Phani Barrow MD February 07, 2017 10:09
--- NOTE | 2017-02-07 11:14 | PD.CARD.PN ---
Subjective Subjective Remarks Doing well. O2 sats good on RA. No CP. Ambulating in hallway with assistance. BP will not tolerate LAURA/ARB. Objective Medications Current Medications Medications (Trade) Dose Ordered Sig/Izabella Route PRN Reason Start Time Stop Time Status Last Admin Dose Admin Sodium Chloride (NS Flush) 2 ml UNSCH PRN IV FLUSH FLUSH AFTER USING IV ACCESS 02/04/17 23:15 Sodium Chloride (NS Flush) 2 ml BID IV FLUSH 02/05/17 09:00 02/07/17 08:54 Acetaminophen (Tylenol) 650 mg Q4H PRN PO TEMP > 100.4 02/04/17 23:15 Ondansetron HCl (Zofran Inj) 4 mg Q6H PRN IVP NAUSEA OR VOMITING 02/04/17 23:15 Docusate Sodium (Colace) 100 mg Q12H PO 02/04/17 09:00 02/07/17 08:54 Heparin Sodium (Porcine) (Heparin Inj) 5,000 units Q8H SQ 02/05/17 06:00 02/07/17 05:25 Naloxone HCl (Narcan Inj) 0.4 mg UNSCH PRN IV SEE LABEL COMMENTS 02/04/17 23:15 Clopidogrel Bisulfate (Plavix) 75 mg DAILY PO 02/05/17 09:00 02/07/17 08:52 Carvedilol (Coreg) 3.125 mg Q12HR PO 02/05/17 09:00 02/06/17 09:26 Aspirin (Aspirin Chew) 81 mg DAILY CHEW 02/05/17 09:00 02/07/17 08:53 Miscellaneous (Pill Splitter) 1 ea UNSCH PRN OTHER SEE LABEL COMMENTS 02/05/17 08:30 Sacubitril/ Valsartan (Entresto 24-26 Mg) 1 tab DAILY PO 02/06/17 09:00 Hold Potassium Chloride (KCl) 10 meq BID PO 02/07/17 09:00 02/07/17 08:54 Furosemide (Lasix) 40 mg DAILY PO 02/07/17 09:00 02/07/17 08:53 Vital Signs / I&O Vital Signs Date Time Temp Pulse Resp B/P Pulse Ox O2 Delivery O2 Flow Rate FiO2 02/07/17 08:30 97.6 92 18 100/56 99 02/07/17 08:30 99 Nasal Cannula 1.50 02/07/17 07:43 99 Nasal Cannula 1.00 02/07/17 06:17 82 02/07/17 05:03 104 02/07/17 04:15 82 02/07/17 03:19 87 02/07/17 03:19 97 Nasal Cannula 3.00 02/07/17 03:19 97.8 105 18 97/72 97 02/07/17 02:11 94 02/07/17 01:24 82 02/07/17 00:00 95 02/07/17 00:00 98.0 104 16 87/55 100 02/07/17 00:00 100 Nasal Cannula 3.00 02/06/17 22:00 98 02/06/17 21:00 85 02/06/17 20:00 101 02/06/17 19:20 95 02/06/17 19:20 99 Nasal Cannula 3.00 02/06/17 19:20 97.9 106 18 87/53 99 02/06/17 18:03 96 02/06/17 17:00 98 02/06/17 16:46 94 Nasal Cannula 1.00 02/06/17 16:00 94 02/06/17 15:06 99 Nasal Cannula 1.00 02/06/17 15:04 97.9 95 16 109/78 99 02/06/17 15:01 103 02/06/17 14:00 93 02/06/17 13:00 92 02/06/17 12:15 70 02/06/17 11:32 Nasal Cannula 1.00 I/O 02/06/17 02/06/17 02/06/17 02/07/17 02/07/17 02/07/17 07:00 15:00 23:00 07:00 15:00 23:00 Intake Total 240 ml 720 ml 240 ml Output Total 200 ml 100 ml 300 ml Balance 40 ml 620 ml -60 ml Intake Oral 240 ml 720 ml 240 ml Output Urine Total 200 ml 100 ml 300 ml # Voids 2 2 # Bowel Movements 0 1 1 Physical Exam VSS, afeb No JVD Lungs: CTA Heart: RRR, S3, 1/6 syst. murmur apex Ext: No edema. Neuro: non focal Laboratory Laboratory Tests Test 02/07/17 04:55 White Blood Count 11.2 TH/MM3 Red Blood Count 3.68 MIL/MM3 Hemoglobin 11.1 GM/DL Hematocrit 32.4 % Mean Corpuscular Volume 88.2 FL Mean Corpuscular Hemoglobin 30.2 PG Mean Corpuscular Hemoglobin 34.3 % Concent Red Cell Distribution Width 13.9 % Platelet Count 349 TH/MM3 Mean Platelet Volume 9.6 FL Neutrophils (%) (Auto) 75.0 % Lymphocytes (%) (Auto) 10.8 % Monocytes (%) (Auto) 11.3 % Eosinophils (%) (Auto) 2.5 % Basophils (%) (Auto) 0.4 % Neutrophils # (Auto) 8.4 TH/MM3 Lymphocytes # (Auto) 1.2 TH/MM3 Monocytes # (Auto) 1.3 TH/MM3 Eosinophils # (Auto) 0.3 TH/MM3 Basophils # (Auto) 0.0 TH/MM3 CBC Comment DIFF FINAL Differential Comment Sodium Level 135 MEQ/L Potassium Level 3.7 MEQ/L Chloride Level 97 MEQ/L Carbon Dioxide Level 29.3 MEQ/L Anion Gap 9 MEQ/L Blood Urea Nitrogen 36 MG/DL Creatinine 1.28 MG/DL Estimat Glomerular Filtration 39 ML/MIN Rate Random Glucose 94 MG/DL Calcium Level 8.6 MG/DL Assessment and Plan Problem List: (1) Ischemic cardiomyopathy (2) Acute on chronic systolic (congestive) heart failure Assessment and Plan: Compensated (3) Chronic kidney disease (CKD) stage G3b/A1, moderately decreased glomerular filtration rate (GFR) between 30-44 mL/min/1.73 square meter and albuminuria creatinine ratio less than 30 mg/g Assessment and Plan BP lwon't tolerate Entresto/LAURA/ARB and spironolactone. Lasix restareted today AM. Maintain neutral fluid balance. O2 prn sats < 90. Cardiac rehab after discharge orderd. Increase activity as tolerates. Home today. Code Status Full Discussed Condition With Patient and staffing specialist. Appt. made for Saturday with me in office. Check BNP, BMP Saturday. Alex Seth MD February 07, 2017 11:13
[2017-02-07] MEDS ORDERED: FURO40TA PO (13:56)
[2017-02-07] MEDS ORDERED: CARV3.125 PO (13:56)
[2017-02-07] MEDS ORDERED: Aspirin Chew CHEW (13:56)
--- NOTE | 2017-02-07 15:01 | HHI.DS ---
Discharge Summary Admission Date February 04, 2017 at 22:20 Discharge Date: February 07, 2017 Admitting Diagnosis CHF exacerbation on Bipap (1) Acute on chronic systolic (congestive) heart failure ICD Code: I50.23 (2) Hypotension due to medication ICD Code: I95.2 (3) ARF (acute renal failure) ICD Code: N17.9 (4) Bacteremia due to Gram-positive bacteria ICD Code: R78.81 Procedures None Brief History - From Admission This is an 89 year old female patient with a past medical history which includes : HTN, GERD, anxiety/depression, PACs s/p pacemaker placement, systolic CHF, and recent cardiogenic shock with NSTEMI with stent placement 09/2016. Patient is a poor historian and only able to provide limited health information, therefore information gathered from prior charting. Patient presents to the ER today due to sudden onset of severe shortness of breath prior to arrival. The patient reports that over the last 2 days she has had increased dyspnea on exertion. She denies having any increased lower extremity edema. She does have a history of systolic congestive heart failure last echocardiogram 09/2016 showed EF of 25-30% and coronary artery disease with coronary artery stent 2016 and pacemaker placement in the past. She denies having any chest pain. Per ER note on arrival patient was having conversational dyspnea, tripoding, accessory muscle use, and paroxysmal abdominal breathing. Patient was diaphoretic on exam. At this time patient reports SOB has improved and she is able to rest comfortably with 3L NC. Patient denies cough, BLE edema, weight gain, change in diet, change in medication, fevers or chills. CBC/BMP: 02/07/17 0455 02/07/17 0455 Significant Findings Laboratory Tests Test 02/04/17 02/04/17 02/04/17 02/05/17 20:10 21:35 22:00 04:51 White Blood Count 13.5 TH/MM3 (4.0-11.0) Red Blood Count 3.97 MIL/MM3 3.70 MIL/MM3 (4.00-5.30) (4.00-5.30) Neutrophils (%) (Auto) 71.1 % 95.8 % (16.0-70.0) (16.0-70.0) Monocytes (%) (Auto) 10.9 % (0.0-8.0) Neutrophils # (Auto) 9.6 TH/MM3 8.8 TH/MM3 (1.8-7.7) (1.8-7.7) Monocytes # (Auto) 1.5 TH/MM3 (0-0.9) Sodium Level 135 MEQ/L (136-145) Chloride Level 97 MEQ/L (98-107) Creatinine 1.40 MG/DL 1.18 MG/DL (0.50-1.00) (0.50-1.00) Estimat Glomerular Filtration 35 ML/MIN (>89) 43 ML/MIN (>89) Rate Random Glucose 196 MG/DL 132 MG/DL (74-106) (74-106) Lactic Acid Level 3.6 mmol/L (0.4-2.0) Troponin I LESS THAN 0.02 NG/ML (0.02-0.05) B-Type Natriuretic Peptide 1053 PG/ML (0-100) Albumin 3.2 GM/DL (3.4-5.0) Blood Gas Hemoglobin 11.8 G/DL (12.0-16.0) Urine Turbidity HAZY (CLEAR) Urine Ketones TRACE mg/dL (NEG) Urine Occult Blood TRACE (NEG) Urine RBC 8 /hpf (0-3) Urine Calcium Oxalate Crystals RARE /hpf (NONE) Urine Bacteria RARE /hpf (NONE) Urine Mucus FEW /lpf (OCC) Hemoglobin 10.9 GM/DL (11.6-15.3) Hematocrit 33.2 % (35.0-46.0) Lymphocytes (%) (Auto) 3.3 % (9.0-44.0) Lymphocytes # (Auto) 0.3 TH/MM3 (1.0-4.8) Blood Urea Nitrogen 20 MG/DL (7-18) Test 02/06/17 02/07/17 04:33 04:55 Sodium Level 135 MEQ/L 135 MEQ/L (136-145) (136-145) Blood Urea Nitrogen 33 MG/DL (7-18) 36 MG/DL (7-18) Creatinine 1.38 MG/DL 1.28 MG/DL (0.50-1.00) (0.50-1.00) Estimat Glomerular Filtration 36 ML/MIN (>89) 39 ML/MIN (>89) Rate Random Glucose 115 MG/DL (74-106) White Blood Count 11.2 TH/MM3 (4.0-11.0) Red Blood Count 3.68 MIL/MM3 (4.00-5.30) Hemoglobin 11.1 GM/DL (11.6-15.3) Hematocrit 32.4 % (35.0-46.0) Neutrophils (%) (Auto) 75.0 % (16.0-70.0) Monocytes (%) (Auto) 11.3 % (0.0-8.0) Neutrophils # (Auto) 8.4 TH/MM3 (1.8-7.7) Monocytes # (Auto) 1.3 TH/MM3 (0-0.9) Chloride Level 97 MEQ/L (98-107) Imaging Last Impressions Chest X-Ray 02/04/171999 Signed Impressions: Service Date/Time: Saturday, February 04, 2017 20:28 - CONCLUSION: CHF Shyam Sky MD PE at Discharge GENERAL: NAD and sitting in a chair SKIN: Warm and dry. HEAD: Normocephalic. EYES: No scleral icterus. No injection or drainage. NECK: Supple, trachea midline. No JVD or lymphadenopathy. CARDIOVASCULAR: Regular rate and rhythm without murmurs, gallops, or rubs. RESPIRATORY: Breath sounds equal bilaterally. No accessory muscle use. GASTROINTESTINAL: Abdomen soft, non-tender, nondistended. MUSCULOSKELETAL: No cyanosis, or edema. BACK: Nontender without obvious deformity. No CVA tenderness. Hospital Course 1. Acute on chronic exacerbation of systolic CHF: Appreciate cardiology recommendations. Secondary to low BP, continue to hold Lasix, Aldactone, Entresto as well as Coreg. Echocardiogram with EF 30-35% 2. Hypertension: However secondary to low BP continue to hold oral antihypertensive medications 3. Hypotension due to medication: Hold all oral antihypertensive medications 4. CAD with recent stent placement: Continue Plavix. 5. Acute renal failure: Secondary to medication side effect. Cr improving hold all nephrotoxic drugs and monitor BUN and creatinine 6. Bacteremia due to gram-positive cocci?1#4 positive blood culture, likely contaminant. Repeat blood culture NTD and treat accordingly. Hold on starting any antibiotics 7. DVT prophylaxis: Heparin. Pt Condition on Discharge: Stable Discharge Disposition: Discharge Home Discharge Time: <= 30 minutes Discharge Instructions DIET: Follow Instructions for: Heart Healthy Diet Activities you can perform: Regular-No Restrictions Follow up Referrals: Cardiology PCP Follow-up - 1 Week New Medications: Carvedilol (Coreg) 3.125 Mg Tab 3.125 MG PO Q12HR Blood Pressure Management #60 TAB Furosemide (Furosemide) 40 Mg Tab 40 MG PO DAILY Blood Pressure Management #30 TAB ([Aspirin Chew]) 81 MG CHEW 81 MG CHEW DAILY Prevent Blood Clot #30 TAB.CHEW Continued Medications: Aspirin DR (Aspirin EC) 81 Mg Tabdr 81 MG PO DAILY Prevent Blood Clot #30 TAB Atorvastatin (Lipitor) 40 Mg Tab 40 MG PO HS Control Inflammation #30 TAB Budesonide (Nasal) (Budesonide) 32 Mcg/Act Josie 0.25 MG BID Calcium Carbonate (Calcium) 600 Mg Tab BID Carvedilol (Coreg) 3.125 Mg Tab 3.125 MG PO Q12HR Blood Pressure Management #60 TAB Cetirizine (Zyrtec Allergy) 10 Mg Tab 10 MG PO DAILY Allergies Ref 0 TAB Clopidogrel (Plavix) 75 Mg Tab 75 MG PO DAILY Prevent Blood Clot #30 TAB Cyanocobalamin ER (Vitamin B-12 ER) 2,000 Mcg Tab 2000 MCG PO DAILY Nutritional Supplement #1 Ref 0 BOTTLE Fluoxetine (Prozac) 10 Mg Cap 10 MG PO DAILY Control Depression #30 CAP Furosemide (Lasix) 40 Mg Tab 40 MG PO DAILY Prevent Heart Failure #30 TAB Lorazepam (Ativan) 0.5 Mg Tab 0.5 MG SL Q8HR PRN ANXIETY #10 TAB [place]-3 Fatty Acids ([place]-3 1000 mg) 1 Cap Cap Potassium Chloride ER (Klor-Con 10) 10 Meq Tab 10 MEQ PO DAILY Electrolyte Replacement #30 TAB Ranitidine (Ranitidine) 150 Mg Cap 150 MG PO BID #60 Ref 0 CAP Phani Barrow MD February 07, 2017 15:01
== END 2017-02-07 16:09 | disposition home or self-care (01) | DRG 292 ==
LOC: NEPC 19:58 → NEDA 22:20 → HCIN 02-05 00:29
PROVIDERS: ADMIT Hospitalist; ATTEND Hospitalist
DX: I50.23 Acute on chronic systolic (congestive) heart failure (principal); I13.0 Hypertensive heart and chronic kidney disease with heart failure and stage 1 through stage 4 chronic kidney disease, or unspecified chronic kidney disease; N17.9 Acute kidney failure, unspecified; I95.2 Hypotension due to drugs; I25.810 Atherosclerosis of coronary artery bypass graft(s) without angina pectoris; I48.91 Unspecified atrial fibrillation; J44.9 Chronic obstructive pulmonary disease, unspecified; B96.89 Other specified bacterial agents as the cause of diseases classified elsewhere; I45.10 Unspecified right bundle-branch block; Z95.1 Presence of aortocoronary bypass graft; N18.9 Chronic kidney disease, unspecified; E78.5 Hyperlipidemia, unspecified; I25.5 Ischemic cardiomyopathy; I25.2 Old myocardial infarction; K21.9 Gastro-esophageal reflux disease without esophagitis; Z79.82 Long term (current) use of aspirin; Z87.891 Personal history of nicotine dependence; Z95.0 Presence of cardiac pacemaker; Z95.5 Presence of coronary angioplasty implant and graft
CPT/HCPCS: 36600; 51702; 71010; 80048; 80053; 81001; 82550; 82805; 83605; 83735; 83880; 84484; 85025; 85610; 85730; 87040; 87186; 87205; 93005; 93306; 94002; 94003; 94150; 94640; 94664; 96374; J1644; J1940; J7030

== ENCOUNTER → 2017-02-11 | Outpatient (CLI) | payer MEDICARE, OTHER ==
[~2017-02-11] MED LIST changes: -ASPI81CH CHEW; +Aspirin Chew CHEW; -ESTR1.5T2; -FLUO1TAB17; -FORM20NE INH; +FURO40TA PO; -LOSA50TA PO; -METO50TA11 PO; -MULTCAP; +PANT40TA3 PO
[2017-02-11 12:56] LABS: BICARBONATE 32.9 MEQ/L (21.0-32.0)
== END ==
LOC: CLAB 11:53
PROVIDERS: ATTEND Internal Medicine Interventional Cardiology
DX: I25.10 Atherosclerotic heart disease of native coronary artery without angina pectoris (principal); I50.9 Heart failure, unspecified
CPT/HCPCS: 36415; 80048; 83880

== ENCOUNTER → 2017-02-26 | Outpatient (CLI) | payer MEDICARE, OTHER ==
[2017-02-26 10:41] LABS: BICARBONATE 26.2 MEQ/L (21.0-32.0); POTASSIUM 4.2 MEQ/L (3.5-5.1)
== END ==
LOC: CLAB 09:20
PROVIDERS: ATTEND Internal Medicine Interventional Cardiology
DX: I25.9 Chronic ischemic heart disease, unspecified (principal); I50.22 Chronic systolic (congestive) heart failure; R60.0 Localized edema
CPT/HCPCS: 36415; 80048; 83880

== ENCOUNTER 2017-03-15 14:45 | Inpatient (IN) | payer MEDICARE, OTHER ==
[2017-03-14 22:45] VITALS: BP 80/50
[2017-03-15] VITALS (7 sets, daily range): BP systolic 80–112; BP diastolic 50–68; PULSE 62–103; RESP 14–17; TEMP 97.2–98; O2SAT 95–100
[~2017-03-15] VITALS: Ht 152.4 cm; Wt 61.5 kg
[~2017-03-15 14:45] MED LIST changes: -FURO20TA PO; -PANT40TA3 PO
--- NOTE | 2017-03-15 15:14 | PD ---
HPI Chief Complaint: GI Complaint Time Seen by Provider: 15:10 Travel History International Travel<30 days: No Contact w/Intl Traveler<30days: No Traveled to known affect area: No History of Present Illness HPI Patient comes emergency Department after reportedly being found to have a UTI labs done by her primary care doctor who is out of the office today and patient was told of the emergency department for treatment. Patient's family also noted patient had bright red blood per rectum times one episode today. Patient is on Plavix and aspirin. Patient denies any other known episodes of this or darkening of stool. Patient states she just feels tired and has dyspnea on exertion that is unchanged from previous hospital stay. Patient reports she is taking her medications as prescribed. Family is also concerned states that patient does not eat or drink much. Denies any chest pain, fevers, nausea, vomiting, or abdominal pain. PFSH Past Medical History Hx Anticoagulant Therapy: Yes (PLAVIX) Arthritis: Yes (FINGERS) Asthma: No Autoimmune Disease: No Blood Disorders: No Anxiety: No Depression: No Heart Rhythm Problems: Yes (PACEMAKER) Cancer: No Cardiovascular Problems: Yes (STENT,CHF) High Cholesterol: No Chemotherapy: No Chest Pain: No Congestive Heart Failure: Yes COPD: No Cerebrovascular Accident: No Diabetes: No Diminished Hearing: No Endocrine: No Gastrointestinal Disorders: No GERD: No Glaucoma: No Genitourinary: No Headaches: Yes Hepatitis: No Hiatal Hernia: No Hypertension: Yes Immune Disorder: No Implanted Vascular Access Dvce: Yes Kidney Stones: No Musculoskeletal: No Neurologic: Yes Psychiatric: No Reproductive: Yes (HYSTERECTOMY, RECTOCELE REPAIR) Respiratory: Yes (SOB) Integumentary: No Migraines: No Myocardial Infarction: No Radiation Therapy: No Renal Failure: No Seizures: No Sickle Cell Disease: No Sleep Apnea: No Thyroid Disease: No Ulcer: No Past Surgical History Abdominal Surgery: Yes (RECTO JAKOB SURGERY, Appendectomy) AICD: No Appendectomy: Yes Arteriovenous Shunt: No Body Medical Devices: PACEMAKER Cardiac Surgery: Yes (PACEMAKER) Cholecystectomy: No Ear Surgery: No Endocrine Surgery: No Eye Surgery: No Genitourinary Surgery: No Gynecologic Surgery: Yes (HYSTERECTOMY, RECTOCELE REPAIR) Hysterectomy: Yes Insulin Pump: No Joint Replacement: No Oral Surgery: No Pacemaker: Yes (1988) Thoracic Surgery: Yes (PACEMAKER) Other Surgery: Yes (LEFT BREAST CYST,RECTOCELE) Social History Alcohol Use: Yes (1 GLASS WINE WITH DINNER) Tobacco Use: No Substance Use: No Allergies-Medications (Allergen,Severity, Reaction): Coded Allergies: Amlodipine (Verified Allergy, Severe, 03/15/17) Benazepril (Verified Allergy, Severe, 03/15/17) Uncoded Allergies: LOTREL (Allergy, Severe, RASH, 02/17/08) Reported Meds & Prescriptions Reported Meds & Active Scripts Active Coreg (Carvedilol) 3.125 Mg Tab 3.125 Mg PO Q12HR Furosemide 40 Mg Tab 40 Mg PO DAILY Klor-Con 10 (Potassium Chloride) 10 Meq Tab 10 Meq PO DAILY Aldactone (Spironolactone) 25 Mg Tab 25 Mg PO BIDPC Ativan (Lorazepam) 0.5 Mg Tab 0.5 Mg SL Q8HR PRN Lasix (Furosemide) 40 Mg Tab 40 Mg PO DAILY Prozac (Fluoxetine HCl) 10 Mg Cap 10 Mg PO DAILY Plavix (Clopidogrel Bisulfate) 75 Mg Tab 75 Mg PO DAILY Coreg (Carvedilol) 3.125 Mg Tab 3.125 Mg PO Q12HR Lipitor (Atorvastatin Calcium) 40 Mg Tab 40 Mg PO HS Aspirin EC (Aspirin) 81 Mg Tabdr 81 Mg PO DAILY Reported Vitamin B-12 ER (Cyanocobalamin) 2,000 Mcg Tab 2,000 Mcg PO DAILY [place]-3 1000 mg ([place]-3 Fatty Acids) 1 Cap Cap Calcium (Calcium Carbonate) 600 Mg Tab BID Review of Systems Except as stated in HPI: all other systems reviewed are Neg Physical Exam Narrative GENERAL: Well-developed, overly nourished, in no acute distress, and non-ill appearing. SKIN: Focused skin assessment warm and dry. HEAD: Atraumatic. Normocephalic. EYES: Pupils equal and round. EOMI. No scleral icterus. No injection or drainage. ENT: No nasal bleeding or discharge. Mucous membranes pink and moist. NECK: Trachea midline. Supple. No nuclear rigidity. CARDIOVASCULAR: Regular rate and rhythm. No murmur appreciated. RESPIRATORY: No accessory muscle use. No respiratory distress. Clear to auscultation. Breath sounds equal bilaterally. Patient speaking in full sentences without difficulty. GASTROINTESTINAL: Abdomen soft, non-tender, nondistended, and without guarding. Hepatic and splenic margins not palpable. Normal bowel sounds 4. No pulsatile mass. MUSCULOSKELETAL: No obvious deformities. No clubbing. No cyanosis. Trace edema bilateral lower extremities. Full range of motion. NEUROLOGICAL: Awake and alert. No obvious cranial nerve deficits. Motor grossly within normal limits. Normal speech. PSYCHIATRIC: Appropriate mood and affect; insight and judgment normal. Data Data Last Documented VS Vital Signs Date Time Temp Pulse Resp B/P Pulse Ox O2 Delivery O2 Flow Rate FiO2 03/15/17 15:16 14 03/15/17 15:16 100 Nasal Cannula 2 03/15/17 15:16 97 112/64 03/15/17 14:48 97.2 Orders Complete Blood Count With Diff (03/15/17 15:05) Comprehensive Metabolic Panel (03/15/17 15:05) Lipase (03/15/17 15:05) Prothrombin Time / Inr (Pt) (03/15/17 15:05) Act Partial Throm Time (Ptt) (03/15/17 15:05) Urinalysis - C+S If Indicated (03/15/17 15:05) Type And Screen (03/15/17 15:05) Chest, Single Ap (03/15/17 15:05) Ecg Monitoring (03/15/17 15:05) Iv Access Insert/Monitor (03/15/17 15:05) Oximetry (03/15/17 15:05) Sodium Chloride 0.9% Flush (Ns Flush) (03/15/17 15:15) B-Type Natriuretic Peptide (03/15/17 15:11) Oxygen Administration (03/15/17 15:11) Electrocardiogram (03/15/17 15:11) Magnesium (Mg) (03/15/17 15:15) Admit Order (Ed Use Only) (03/15/17 18:00) Labs Laboratory Tests Test 03/15/17 03/15/17 15:15 17:15 White Blood Count 12.1 TH/MM3 Red Blood Count 4.02 MIL/MM3 Hemoglobin 11.9 GM/DL Hematocrit 35.2 % Mean Corpuscular Volume 87.4 FL Mean Corpuscular Hemoglobin 29.7 PG Mean Corpuscular Hemoglobin 33.9 % Concent Red Cell Distribution Width 14.9 % Platelet Count 397 TH/MM3 Mean Platelet Volume 9.1 FL Neutrophils (%) (Auto) 80.3 % Lymphocytes (%) (Auto) 6.6 % Monocytes (%) (Auto) 11.6 % Eosinophils (%) (Auto) 0.6 % Basophils (%) (Auto) 0.9 % Neutrophils # (Auto) 9.7 TH/MM3 Lymphocytes # (Auto) 0.8 TH/MM3 Monocytes # (Auto) 1.4 TH/MM3 Eosinophils # (Auto) 0.1 TH/MM3 Basophils # (Auto) 0.1 TH/MM3 CBC Comment AUTO DIFF Differential Comment AUTO DIFF CONFIRMED Platelet Estimate NORMAL Platelet Morphology Comment NORMAL Keratocytes 1+ Prothrombin Time 11.9 SEC Prothromb Time International 1.1 RATIO Ratio Activated Partial 29.9 SEC Thromboplast Time Sodium Level 132 MEQ/L Potassium Level 4.5 MEQ/L Chloride Level 96 MEQ/L Carbon Dioxide Level 25.8 MEQ/L Anion Gap 10 MEQ/L Blood Urea Nitrogen 22 MG/DL Creatinine 1.21 MG/DL Estimat Glomerular Filtration 42 ML/MIN Rate Random Glucose 92 MG/DL Calcium Level 9.0 MG/DL Magnesium Level 1.8 MG/DL Total Bilirubin 0.6 MG/DL Aspartate Amino Transf 27 U/L (AST/SGOT) Alanine Aminotransferase 13 U/L (ALT/SGPT) Alkaline Phosphatase 101 U/L B-Type Natriuretic Peptide 401 PG/ML Total Protein 7.2 GM/DL Albumin 2.7 GM/DL Lipase 216 U/L Blood Type A POSITIVE Antibody Screen NEGATIVE Urine Color YELLOW Urine Turbidity CLEAR Urine pH 5.0 Urine Specific [place] 1.008 Urine Protein NEG mg/dL Urine Glucose (UA) NEG mg/dL Urine Ketones TRACE mg/dL Urine Occult Blood TRACE Urine Nitrite NEG Urine Bilirubin NEG Urine Urobilinogen LESS THAN 2.0 MG/DL Urine Leukocyte Esterase TRACE Urine RBC LESS THAN 1 /hpf Urine WBC LESS THAN 1 /hpf Urine Amorphous Sediment OCC Urine Hyaline Casts 13 /lpf Microscopic Urinalysis Comment CULT NOT INDICATED MDM Medical Decision Making Medical Screen Exam Complete: Yes Emergency Medical Condition: Yes Interpretation(s) EKG reviewed by Dr. Box shows a paced rhythm with ventricular rate of 97. No STEMI. Chest x-ray read by the radiologist shows: 1. Cardiomegaly with right basilar effusion. 2. Overall appearance of the chest has improved compared to previous study dated 02/04/17. Differential Diagnosis GI bleed, laterally abnormality, UTI, anemia, CHF exacerbation, other Narrative Course Patient was seen exam. Patient was placed on engine monitor and IV was established. Initial laboratory left studies were ordered. Labs and radiological studies were reviewed. Patient is hemodynamically stable , but heme positive stool with reported bright red blood per rectum this morning by family. Patient on Plavix and aspirin. Will place patient in observation for further treatment and evaluation. Discussed all findings and plan of care with patient and family. Patient is agreeable for admission. All questions were answered. Discussed patient with Dr. Box, who is in agreement with plan of care and disposition. HemaPrompt Point of Care Internal Pos. & Neg. Controls: Passed Fecal Specimen Occult Blood: Positive Comment Verbal consent was obtained. Digital rectal exam was performed. Stool specimen applied and test interpreted between 1 and 3 minutes of application and the result was positive. Internal Controls: Both positive and negative controls were validated. workday director was present during this exam. Physician Communication Physician Communication [address] Foster, who is agreeable to admit the patient. Diagnosis Primary Impression: Hematochezia Admitting Information Admitting Physician Requests: Observation Condition: Stable Jeremiah Diaz Mar 15, 2017 15:14
[2017-03-15] MEDS ORDERED: SODIUM CHLORIDE 0.9% FLUSH 10 ML FLUSH IVF PRN (15:15)
[2017-03-15 16:13] LABS: AUTOMATED NEUTROPHIL # 9.7 TH/MM3 (1.8-7.7); BASOPHIL # 0.1 TH/MM3 (0-0.2); BASOPHIL % 0.9 % (0.0-2.0); EOSINOPHIL # 0.1 TH/MM3 (0-0.4); EOSINOPHIL % 0.6 % (0.0-4.0); HEMATOCRIT 35.2 % (35.0-46.0); LYMPH % 6.6 % (9.0-44.0); LYMPHOCYTE # 0.8 TH/MM3 (1.0-4.8); MEAN CELL VOLUME 87.4 FL (80.0-100.0); MEAN CORPUSCULAR HEMOGLOBIN 29.7 PG (27.0-34.0); MEAN CORPUSCULAR HGB CONC 33.9 % (32.0-36.0); MONO % 11.6 % (0.0-8.0); NEUT % 80.3 % (16.0-70.0); PLATELET COUNT 397 TH/MM3 (150-450); RED BLOOD COUNT 4.02 MIL/MM3 (4.00-5.30); RED CELL DISTRIBUTION WIDTH 14.9 % (11.6-17.2); WHITE BLOOD COUNT 12.1 TH/MM3 (4.0-11.0)
[2017-03-15 16:18] LABS: HEMO FLAGS AUTO DIFF
[2017-03-15 16:21] LABS: APTT (PATIENT) 29.9 SEC (24.3-30.1); INTERNATIONAL NORMALIZED RATIO 1.1 RATIO; PROTHROMBIN TIME - PATIENT 11.9 SEC (9.8-11.6)
[2017-03-15 16:38] LABS: ANION GAP 10 MEQ/L (5-15); AST (GOT) 27 U/L (15-37); BICARBONATE 25.8 MEQ/L (21.0-32.0); BLOOD UREA NITROGEN 22 MG/DL (7-18); CHLORIDE 96 MEQ/L (98-107); GLOMERULAR FILTRATION RATE 42 ML/MIN (>89); POTASSIUM 4.5 MEQ/L (3.5-5.1); SODIUM (NA) 132 MEQ/L (136-145)
[2017-03-15 16:41] LABS: ALKALINE PHOSPHATASE 101 U/L (45-117); ALT (GPT) 13 U/L (10-53); TOTAL BILIRUBIN ADULT 0.6 MG/DL (0.2-1.0)
[2017-03-15 17:09] LABS: MAGNESIUM 1.8 MG/DL (1.5-2.5)
--- NOTE | 2017-03-15 17:29 | RADRPT ---
EXAM DATE/TIME: 03/15/2017 15:28 [facility] COMPARISON: CHEST SINGLE AP, February 04, 2017, 20:28. INDICATIONS : Short of breath MEDICAL HISTORY : CHF,GI complaints, Blood in stool SURGICAL HISTORY : Pacemaker. ENCOUNTER: Initial ACUITY: 1 day PAIN SCORE: Non-responsive. LOCATION: Bilateral chest FINDINGS: The examination demonstrates a moderate-sized pleural effusion on the right. It is similar to prior e xam. The appearance of the left lung is significantly improved. The atelectasis and effusion have resolved since previous. There is a transvenous pacer in good position. The visualized bony structures are grossly intact. CONCLUSION: 1. Cardiomegaly with right basilar effusion. 2. Overall appearance of the chest has improved compared to previous study dated 02/04/17. Booker Payne MD on March 15, 2017 at 17:26 Board Certified Radiologist. This report was verified electronically.
[2017-03-15 17:33] LABS: SCAN/DIFF AUTO DIFF CONFIRMED
[2017-03-15 17:34] LABS: PLATELET ESTIMATE SMEAR NORMAL (NORMAL); PLATELET MORPHOLOGY NORMAL (NORMAL)
[2017-03-15 17:36] LABS: KERATOCYTES 1+ (NORMAL)
[2017-03-15 17:48] LABS: BLOOD, URINE TRACE (NEG); COMMENT (UR) CULT NOT INDICATED; CULTURE IF INDICATED CULT NOT INDICATED; GLUCOSE,URINE NEG (NEG); HYALINE CAST, URINE 13 /lpf (RARE); KETONE, URINE TRACE mg/dL (NEG); NITRITE,URINE NEG (NEG); URINE COLOR YELLOW (YELLW/STRAW)
[2017-03-15] MEDS ORDERED: LORazepam 0.5 MG TAB SL PRN (18:45)
--- NOTE | 2017-03-15 18:52 | HHI.HP ---
[facility] Primary Care Physician Sofia Zepeda MD Admission Diagnosis hematochezia Diagnoses: Chief Complaint: BRBPR Travel History International Travel<30 Days: No Contact w/Intl Traveler <30 Da: No Traveled to Known Affected Are: No History of Present Illness The patient is an 89-year-old female with a past medical history of CAD status post stent and CHF who is presenting to the hospital with bright red blood per rectum. The patient was found by her family this morning with bright red blood in her pajama shorts. They recall she might have had blood in her stool on another occasion recently. The patient does not have any abdominal pain. She does endorse increasing shortness of breath with ambulation. She has been very tired lately. She is on aspirin and Plavix because she received a cardiac stent in September. She denies a history of ulcers or GERD. She says she had a colonoscopy a long time ago. The patient endorses a weight loss recently from 136 pounds to 127 pounds. She was supposed to follow-up with her financial aid advisor this week but she rescheduled a couple of appointments. The patient says she was in the hospital last month for a heart failure exacerbation. The patient lives by herself but her family has been looking into assisted living facilities recently. Review of Systems Except as stated in HPI: all other systems reviewed are Neg Past Family Social History Past Medical History Hypertension GERD Anxiety/depression Status post pacemaker placement CAD s/p cardiac stent CHF HTN Chronic renal disease Past Surgical History Hysterectomy Rectocele repair Left breast cyst removal Allergies: Coded Allergies: Amlodipine (Verified Allergy, Severe, 03/15/17) Benazepril (Verified Allergy, Severe, 03/15/17) Uncoded Allergies: LOTREL (Allergy, Severe, RASH, 02/17/08) Active Ordered Medications Current Medications Medications (Trade) Dose Ordered Sig/[place] Route Start Time Stop Time Status Last Admin (NS Flush) 2 ml UNSCH PRN IVF 03/15/17 15:15 Family History Diabetes Lung cancer Social History The patient quit smoking many years ago. She does not drink. She lives alone. Physical Exam Vital Signs Vital Signs Date Time Temp Pulse Resp B/P Pulse Ox O2 Delivery O2 Flow Rate FiO2 03/15/17 15:16 14 03/15/17 15:16 100 Nasal Cannula 2 03/15/17 15:16 97 14 112/64 100 Nasal Cannula 2 03/15/17 15:16 98 14 112/64 100 Nasal Cannula 2 03/15/17 14:48 97.2 103 109/68 95 Physical Exam GENERAL: This is a well-nourished, well-developed patient, in no apparent distress. SKIN: No rashes, ecchymoses or lesions. Cool and dry. HEAD: Atraumatic. Normocephalic. No temporal or scalp tenderness. EYES: Pupils equal round and reactive. Extraocular motions intact. No scleral icterus. No injection or drainage. ENT: Nose without bleeding, purulent drainage or septal hematoma. Throat without erythema, tonsillar hypertrophy or exudate. Uvula midline. Airway patent. NECK: Trachea midline. No JVD or lymphadenopathy. Supple, nontender, no meningeal signs. CARDIOVASCULAR: Tachycardic without murmurs, gallops, or rubs. RESPIRATORY: Crackles at the right base. GASTROINTESTINAL: Abdomen soft, non-tender, nondistended. No hepato-splenomegaly , or palpable masses. No guarding. MUSCULOSKELETAL: Extremities without clubbing, cyanosis, or edema. No joint tenderness, effusion, or edema noted. NEUROLOGICAL: Awake and alert. Cranial nerves II through XII intact. Motor and sensory grossly within normal limits. Five out of 5 muscle strength in all muscle groups. Normal speech. PSYCH: Mood and affect appropriate. Laboratory Laboratory Tests Test 03/15/17 03/15/17 15:15 17:15 White Blood Count 12.1 Red Blood Count 4.02 Hemoglobin 11.9 Hematocrit 35.2 Mean Corpuscular Volume 87.4 Mean Corpuscular Hemoglobin 29.7 Mean Corpuscular Hemoglobin 33.9 Concent Red Cell Distribution Width 14.9 Platelet Count 397 Mean Platelet Volume 9.1 Neutrophils (%) (Auto) 80.3 Lymphocytes (%) (Auto) 6.6 Monocytes (%) (Auto) 11.6 Eosinophils (%) (Auto) 0.6 Basophils (%) (Auto) 0.9 Neutrophils # (Auto) 9.7 Lymphocytes # (Auto) 0.8 Monocytes # (Auto) 1.4 Eosinophils # (Auto) 0.1 Basophils # (Auto) 0.1 CBC Comment AUTO DIFF Differential Comment AUTO DIFF CONFIRMED Platelet Estimate NORMAL Platelet Morphology Comment NORMAL Keratocytes 1+ Prothrombin Time 11.9 Prothromb Time International 1.1 Ratio Activated Partial 29.9 Thromboplast Time Sodium Level 132 Potassium Level 4.5 Chloride Level 96 Carbon Dioxide Level 25.8 Anion Gap 10 Blood Urea Nitrogen 22 Creatinine 1.21 Estimat Glomerular Filtration 42 Rate Random Glucose 92 Calcium Level 9.0 Magnesium Level 1.8 Total Bilirubin 0.6 Aspartate Amino Transf 27 (AST/SGOT) Alanine Aminotransferase 13 (ALT/SGPT) Alkaline Phosphatase 101 B-Type Natriuretic Peptide 401 Total Protein 7.2 Albumin 2.7 Lipase 216 Blood Type A POSITIVE Antibody Screen NEGATIVE Urine Color YELLOW Urine Turbidity CLEAR Urine pH 5.0 Urine Specific [place] 1.008 Urine Protein NEG Urine Glucose (UA) NEG Urine Ketones TRACE Urine Occult Blood TRACE Urine Nitrite NEG Urine Bilirubin NEG Urine Urobilinogen LESS THAN 2.0 Urine Leukocyte Esterase TRACE Urine RBC LESS THAN 1 Urine WBC LESS THAN 1 Urine Amorphous Sediment OCC Urine Hyaline Casts 13 Microscopic Urinalysis Comment CULT NOT INDICATED Result Diagram: 03/15/17 1515 03/15/17 1515 Imaging Last Impressions Chest X-Ray 03/15/17 1505 Signed Impressions: Service Date/Time: Wednesday, March 15, 2017 15:28 - CONCLUSION: 1. Cardiomegaly with right basilar effusion. 2. Overall appearance of the chest has improved compared to previous study dated 02/04/17. Booker Payne MD Assessment and Plan Assessment and Plan Bright red blood per rectum The patient is on aspirin and Plavix as she had a drug-eluting cardiac stent placed in September. She may have had an additional episode of blood in her stool recently per family. She was found to be heme-positive in the emergency department. Hemoglobin is quite stable. She is hemodynamically stable. - Clear liquid diet, make nothing by mouth at midnight. - PPI IV twice a day. - Consult gastroenterology for further evaluation. - Continue aspirin and Plavix for now. Cardiology consult if needed. - Hold antihypertensives and diuretics. - Fluids if needed. - Follow CBC. CAD/ Chronic systolic CHF Status post stent in September. She is on aspirin and Plavix. She has chronic dyspnea but has been endorsing increased fatigue and shortness of breath recently. She has missed 2 appointments with her financial aid advisor over the past couple of weeks. - Continue aspirin and Plavix pending GI evaluation. - Hold antihypertensives and diuretics. - Cautious use of fluids if needed. - Monitor on telemetry. Leukocytosis The patient was told by her primary care that she had a UTI, however, UA here is unremarkable. Leukocytosis may be a stress reaction. Chest x-ray without obvious evidence of pneumonia. The patient is afebrile at this time. - Continue to monitor. Chronic renal disease/ Hyponatremia Values are closer baseline. - Continue to monitor. - Avoid nephrotoxic agents. PPx: SCDs Code Status DNR Discussed Condition With Pt, pt's family, Virgilio Whipple DO Mar 15, 2017 18:52
[2017-03-15] MEDS ORDERED: ACETAMINOPHEN 325 MG TAB PO PRN ×2 (19:00)
[2017-03-15] MEDS ORDERED: SENNOSIDES 8.6 MG TAB PO PRN (19:00)
[2017-03-15] MEDS ORDERED: SODIUM CHLORIDE 0.9% FLUSH 10 ML FLUSH IV FLUSH PRN (19:00)
[2017-03-15] MEDS ORDERED: NALOXONE HCL 0.4 MG/ML AMP IV PRN (19:00)
[2017-03-15] MEDS: SODIUM CHLORIDE 0.9% FLUSH 10 ML FLUSH IV FLUSH SCH (23:20)
[2017-03-15] MEDS: PANTOPRAZOLE SODIUM 40 MG VIAL IV PUSH SCH (23:21)
[2017-03-15] MEDS: ATORVASTATIN 40 MG TAB PO SCH (23:21)
[2017-03-16] VITALS (22 sets, daily range): BP systolic 78–126; BP diastolic 46–87; PULSE 62–119; RESP 17–25; TEMP 96.4–98; O2SAT 95–100
[2017-03-16 00:22] LABS: HEMATOCRIT 30.9 % (35.0-46.0); MEAN CELL VOLUME 86.7 FL (80.0-100.0); MEAN CORPUSCULAR HEMOGLOBIN 29.9 PG (27.0-34.0); MEAN CORPUSCULAR HGB CONC 34.5 % (32.0-36.0); PLATELET COUNT 344 TH/MM3 (150-450); RED BLOOD COUNT 3.56 MIL/MM3 (4.00-5.30); RED CELL DISTRIBUTION WIDTH 14.8 % (11.6-17.2); REVIEW FLAG FINAL; WHITE BLOOD COUNT 9.3 TH/MM3 (4.0-11.0)
[2017-03-16] MEDS ORDERED: SODIUM CHLOR 0.9% 250 ML INJ 250 ML IV ONE ×2 (01:15→02:45)
[2017-03-16] MEDS ORDERED: FUROSEMIDE 40 MG/4 ML VIAL IV PUSH ONE (04:15)
[2017-03-16] MEDS ORDERED: FUROSEMIDE 40 MG/4 ML VIAL ONE (04:15)
[2017-03-16 04:37] LABS: HEMO FLAGS DIFF FINAL; MEAN CELL VOLUME 86.7 FL (80.0-100.0); MEAN CORPUSCULAR HEMOGLOBIN 29.5 PG (27.0-34.0); PLATELET COUNT 355 TH/MM3 (150-450); RED BLOOD COUNT 3.78 MIL/MM3 (4.00-5.30); RED CELL DISTRIBUTION WIDTH 14.9 % (11.6-17.2); WHITE BLOOD COUNT 9.5 TH/MM3 (4.0-11.0)
[2017-03-16 04:40] LABS: ALT (GPT) 13 U/L (10-53); ANION GAP 12 MEQ/L (5-15); AST (GOT) 26 U/L (15-37); BICARBONATE 23.9 MEQ/L (21.0-32.0); BLOOD UREA NITROGEN 21 MG/DL (7-18); CHLORIDE 97 MEQ/L (98-107); GLOMERULAR FILTRATION RATE 50 ML/MIN (>89); POTASSIUM 4.3 MEQ/L (3.5-5.1); SODIUM (NA) 133 MEQ/L (136-145)
[2017-03-16 04:43] LABS: ALKALINE PHOSPHATASE 89 U/L (45-117); TOTAL BILIRUBIN ADULT 0.7 MG/DL (0.2-1.0)
--- NOTE | 2017-03-16 04:43 | RADRPT ---
EXAM DATE/TIME: 03/16/2017 04:18 [facility] COMPARISON: CHEST SINGLE AP, March 15, 2017, 15:28. INDICATIONS : Pt short of breath. MEDICAL HISTORY : Congestive heart failure. SURGICAL HISTORY : Pacemaker. ENCOUNTER: Subsequent ACUITY: 3 days PAIN SCORE: 6/10 LOCATION: Bilateral chest FINDINGS: A single view of the chest demonstrates cardiomegaly with pacer leads overlying right atrium and righ t ventricle. Small effusions. Mild edema pattern. CONCLUSION: 1. Pacer leads overlying right atrium and right ventricle. Interstitial edema pattern with small effu sions. Julio César Forde MD on March 16, 2017 at 4:41 Board Certified Radiologist. This report was verified electronically.
[2017-03-16 04:52] LABS: BLOOD GAS BASE EXCESS -5.3 mmol/L (-2-2); BLOOD GAS CARBOXYHEMOGLOBIN 0.3 % (0-4); BLOOD GAS HCO3 21 mmol/L (22-26); BLOOD GAS METHEMOGLOBIN 0.5 % (0-2); BLOOD GAS O2 HGB SATURATION 98 % (90-100); BLOOD GAS OXYGEN CONTENT 16.7 Vol % (12.0-20.0); BLOOD GAS PCO2 48 mmHg (38-42); BLOOD GAS PO2 147 mmHG (61-120); TEMP CORR TO 98.6
[2017-03-16 04:53] LABS: CRITICAL VALUE YES; DRAW SITE RT RADIAL; LITER FLOW 8 L/M; NUMBER OF ARTERIAL PUNCTURES 1; OXYGEN DEVICE NASAL CANNULA; STAT YES; ULNAR PULSE PRESENT
[2017-03-16 04:59] LABS: HEMATOCRIT 33.3 % (35.0-46.0)
--- NOTE | 2017-03-16 06:05 | HHI.PR ---
Addendum to Inpatient Note Addendum Reason: Additional Documentation Additional Information SANCHEZPAULAoDra was called at about 0400 for respiratory distress. The patient is seen in the CDU, denies chest pain but reports significant SOB. She is pale in appearance, tachypneic, and utilizing accessory muscles to breathe. Lung sounds with crackles bibasilarly with scattered faint inspiratory and expiratory wheezes. Patient received a total of 500 ccs in two separate 250 cc boluses of NS overnight for hypertension and has a history of CHF. Lasix 40 mg IV given; bp is 130's/80's at the bedside. Orders for Garnica catheter, CXR, stat CBC, CMP, and ABGs ordered. I placed a call to Dr. Anderson. Dr. Anderson indicates that he already spoke with Dr. Tamayo (ER doc who arrived for [facility] team prior to me) about the patient and will assume care of patient. Ameena aPcheco Mar 16, 2017 06:05
[2017-03-16 06:15] LABS: BLOOD GAS BASE EXCESS -5.7 mmol/L (-2-2); BLOOD GAS CARBOXYHEMOGLOBIN 0.9 % (0-4); BLOOD GAS HCO3 19 mmol/L (22-26); BLOOD GAS METHEMOGLOBIN 1.3 % (0-2); BLOOD GAS O2 HGB SATURATION 97 % (90-100); BLOOD GAS OXYGEN CONTENT 16.1 Vol % (12.0-20.0); BLOOD GAS PCO2 38 mmHg (38-42); BLOOD GAS PO2 158 mmHg (61-120); BLOOD GAS TOTAL HGB 11.6 G/DL (12.0-16.0); CRITICAL VALUE NO; OXYGEN DEVICE BIPAP; TEMP CORR TO 98.6
--- NOTE | 2017-03-16 06:15 | PD.CONS ---
[facility] Service Critical Care Medicine Consult Requested By Primary Care Physician Sofia Zepeda MD History of Present Illness All information is obtained from the medical records, patient is on facemask BiPAP unable to provide meaningful history: The patient is an 89-year-old female with a past medical history of CAD status post stent and CHF who is presenting to the hospital with bright red blood per rectum. The patient was found by her family this morning with bright red blood in her pajama shorts. They recall she might have had blood in her stool on another occasion recently. The patient does not have any abdominal pain. She does endorse increasing shortness of breath with ambulation. She has been very tired lately. She is on aspirin and Plavix because she received a cardiac stent in September. She denies a history of ulcers or GERD. She says she had a colonoscopy a long time ago. The patient endorses a weight loss recently from 136 pounds to 127 pounds. She was supposed to follow-up with her rigging up man this week but she rescheduled a couple of appointments. The patient says she was in the hospital last month for a heart failure exacerbation. The patient lives by herself but her family has been looking into assisted living facilities recently. Low, so she received bolus of IV fluids. Shortly after that she developed respiratory distress with x-ray confirming pulmonary vascular congestion and fluid overload. She was placed on the BiPAP machine and was given some Lasix with improvement in oxygenation. She is admitted to ICU with lower GI bleed and respiratory distress due to fluid overload. Review of Systems ROS Unobtainable patient on facemask BiPAP Past Family Social History Allergies: Coded Allergies: Amlodipine (Verified Allergy, Severe, 03/15/17) Benazepril (Verified Allergy, Severe, 03/15/17) Uncoded Allergies: LOTREL (Allergy, Severe, RASH, 02/17/08) Past Medical History Hypertension GERD Anxiety/depression Status post pacemaker placement CAD s/p cardiac stent CHF HTN Chronic renal disease Past Surgical History Hysterectomy Rectocele repair Left breast cyst removal Reported Medications Reported Meds & Active Scripts Active Coreg (Carvedilol) 3.125 Mg Tab 3.125 Mg PO Q12HR Furosemide 40 Mg Tab 40 Mg PO DAILY Klor-Con 10 (Potassium Chloride) 10 Meq Tab 10 Meq PO DAILY Aldactone (Spironolactone) 25 Mg Tab 25 Mg PO BIDPC Ativan (Lorazepam) 0.5 Mg Tab 0.5 Mg SL Q8HR PRN Lasix (Furosemide) 40 Mg Tab 40 Mg PO DAILY Prozac (Fluoxetine HCl) 10 Mg Cap 10 Mg PO DAILY Plavix (Clopidogrel Bisulfate) 75 Mg Tab 75 Mg PO DAILY Coreg (Carvedilol) 3.125 Mg Tab 3.125 Mg PO Q12HR Lipitor (Atorvastatin Calcium) 40 Mg Tab 40 Mg PO HS Aspirin EC (Aspirin) 81 Mg Tabdr 81 Mg PO DAILY Reported Vitamin B-12 ER (Cyanocobalamin) 2,000 Mcg Tab 2,000 Mcg PO DAILY [place]-3 1000 mg ([place]-3 Fatty Acids) 1 Cap Cap Calcium (Calcium Carbonate) 600 Mg Tab BID Active Ordered Medications Current Medications Medications (Trade) Dose Ordered Sig/Izabella Route PRN Reason Start Time Stop Time Status Last Admin Dose Admin Aspirin (Ecotrin Ec) 81 mg DAILY PO 03/16/17 12:00 Atorvastatin Calcium (Lipitor) 40 mg HS PO 03/15/17 21:00 03/15/17 23:21 Clopidogrel Bisulfate (Plavix) 75 mg DAILY PO 03/16/17 12:00 Cyanocobalamin (Vitamin B12) 2,000 mcg DAILY PO 03/16/17 09:00 Fluoxetine HCl (PROzac) 10 mg DAILY PO 03/16/17 09:00 Lorazepam (Ativan) 0.5 mg Q8HR PRN SL ANXIETY 03/15/17 18:45 Sodium Chloride (NS Flush) 2 ml UNSCH PRN IV FLUSH FLUSH AFTER USING IV ACCESS 03/15/17 19:00 Sodium Chloride (NS Flush) 2 ml BID IV FLUSH 03/15/17 21:00 03/15/17 23:20 Acetaminophen (Tylenol) 650 mg Q4H PRN PO TEMP > 100.4 03/15/17 19:00 Acetaminophen (Tylenol) 650 mg Q6H PRN PO PAIN SCALE 1 TO 2 03/15/17 19:00 Naloxone HCl (Narcan Inj) 0.4 mg UNSCH PRN IV SEE LABEL COMMENTS 03/15/17 19:00 Sennosides (Senokot) 17.2 mg Q12H PRN PO MODERATE - SEVERE CONSTIPATION 03/15/17 19:00 Pantoprazole Sodium (Protonix Inj) 40 mg Q12H IV PUSH 03/15/17 21:00 03/15/17 23:21 Family History Noncontributory Social History With smoking many years ago negative for alcohol or illicit drug abuse Physical Exam Vital Signs Vital Signs Date Time Temp Pulse Resp B/P Pulse Ox O2 Delivery O2 Flow Rate FiO2 03/16/17 04:54 95 Bi-Pap 45 03/16/17 04:50 96.4 119 20 126/87 96 03/16/17 04:45 99 45 03/16/17 04:15 99 15.00 100 03/16/17 04:00 95 8.00 03/16/17 02:34 101 22 90/57 99 03/16/17 01:00 90 79/51 78/46 03/16/17 00:18 98.0 102 17 84/58 100 03/16/17 00:00 98 03/15/17 22:45 80/50 03/15/17 22:37 97 17 85/50 98 03/15/17 22:00 62 03/15/17 21:44 98.0 99 17 95/61 100 03/15/17 20:22 97.8 100 14 104/58 98 03/15/17 15:16 14 03/15/17 15:16 100 Nasal Cannula 2 03/15/17 15:16 97 14 112/64 100 Nasal Cannula 2 03/15/17 15:16 98 14 112/64 100 Nasal Cannula 2 03/15/17 14:48 97.2 103 109/68 95 Physical Exam GENERAL: Elderly woman on facemask BiPAP SKIN: Warm and dry. HEAD: Normocephalic. EYES: No scleral icterus. No injection or drainage. NECK: Supple, trachea midline. No JVD or lymphadenopathy. CARDIOVASCULAR: Regular rate and rhythm without murmurs, gallops, or rubs. RESPIRATORY: Breath sounds equal bilaterally. No accessory muscle use. GASTROINTESTINAL: Abdomen soft, non-tender, nondistended. MUSCULOSKELETAL: No cyanosis, or edema. BACK: Nontender without obvious deformity. No CVA tenderness. EXTREMITIES: No clubbing cyanosis or edema Laboratory Laboratory Tests Test 03/15/17 03/15/17 03/15/17 03/16/17 15:15 17:15 23:57 03:35 White Blood Count 12.1 9.3 9.5 Red Blood Count 4.02 3.56 3.78 Hemoglobin 11.9 10.7 11.2 Hematocrit 35.2 30.9 33.3 Mean Corpuscular Volume 87.4 86.7 86.7 Mean Corpuscular Hemoglobin 29.7 29.9 29.5 Mean Corpuscular Hemoglobin 33.9 34.5 34.0 Concent Red Cell Distribution Width 14.9 14.8 14.9 Platelet Count 397 344 355 Mean Platelet Volume 9.1 8.8 9.1 Neutrophils (%) (Auto) 80.3 Lymphocytes (%) (Auto) 6.6 Monocytes (%) (Auto) 11.6 Eosinophils (%) (Auto) 0.6 Basophils (%) (Auto) 0.9 Neutrophils # (Auto) 9.7 Lymphocytes # (Auto) 0.8 Monocytes # (Auto) 1.4 Eosinophils # (Auto) 0.1 Basophils # (Auto) 0.1 CBC Comment AUTO DIFF DIFF FINAL Differential Comment AUTO DIFF CONFIRMED Platelet Estimate NORMAL Platelet Morphology Comment NORMAL Keratocytes 1+ Prothrombin Time 11.9 Prothromb Time International 1.1 Ratio Activated Partial 29.9 Thromboplast Time Sodium Level 132 133 Potassium Level 4.5 4.3 Chloride Level 96 97 Carbon Dioxide Level 25.8 23.9 Anion Gap 10 12 Blood Urea Nitrogen 22 21 Creatinine 1.21 1.04 Estimat Glomerular Filtration 42 50 Rate Random Glucose 92 75 Calcium Level 9.0 8.5 Magnesium Level 1.8 Total Bilirubin 0.6 0.7 Aspartate Amino Transf 27 26 (AST/SGOT) Alanine Aminotransferase 13 13 (ALT/SGPT) Alkaline Phosphatase 101 89 B-Type Natriuretic Peptide 401 Total Protein 7.2 6.5 Albumin 2.7 2.4 Lipase 216 Blood Type A POSITIVE Antibody Screen NEGATIVE Urine Color YELLOW Urine Turbidity CLEAR Urine pH 5.0 Urine Specific [place] 1.008 Urine Protein NEG Urine Glucose (UA) NEG Urine Ketones TRACE Urine Occult Blood TRACE Urine Nitrite NEG Urine Bilirubin NEG Urine Urobilinogen LESS THAN 2.0 Urine Leukocyte Esterase TRACE Urine RBC LESS THAN 1 Urine WBC LESS THAN 1 Urine Amorphous Sediment OCC Urine Hyaline Casts 13 Microscopic Urinalysis Comment CULT NOT INDICATED Test 03/16/17 04:10 Blood Gas Puncture Site RT RADIAL Blood Gas Patient Temperature 98.6 Blood Gas HCO3 21 Blood Gas Base Excess -5.3 Blood Gas Oxygen Saturation 98 Arterial Blood pH 7.26 Arterial Blood Partial 48 Pressure CO2 Arterial Blood Partial 147 Pressure O2 Arterial Blood Oxygen Content 16.7 Arterial Blood 0.3 Carboxyhemoglobin Arterial Blood Methemoglobin 0.5 Blood Gas Hemoglobin 12.0 Oxygen Delivery Device NASAL CANNULA Blood Gas Liter Flow 8 Result Diagram: 03/16/17 0335 03/16/17 0335 Imaging Last 24 hours Impressions Chest X-Ray 03/16/17 0000 Signed Impressions: Service Date/Time: Thursday, March 16, 2017 04:18 - CONCLUSION: 1. Pacer leads overlying right atrium and right ventricle. Interstitial edema pattern with small effusions. Julio César Forde MD Chest X-Ray 03/15/17 1505 Signed Impressions: Service Date/Time: Wednesday, March 15, 2017 15:28 - CONCLUSION: 1. Cardiomegaly with right basilar effusion. 2. Overall appearance of the chest has improved compared to previous study dated 02/04/17. Booker Payne MD Assessment and Plan Assessment and Plan Respiratory distress - History of CHF - Fluid overload - Continue BiPAP machine - Gentle diuresis - Improving Bright red blood per rectum/GI bleed - H&H seems to be stable - GI consult pending - IV Protonix CAD/ Chronic systolic CHF - Status post coronary stent in September. - aspirin and Plavix. - Hold antihypertensives due to borderline blood pressure. - Cautious use of fluids if needed. - Monitor on telemetry. Chronic renal disease/ Hyponatremia - Continue to monitor urine output electrolytes and creatinine level - Avoid nephrotoxic agents DVT GI prophylaxis - Teds SCDs - Hold pharmacological DVT prophylaxis due to GI bleed - IV pantoprazole Critical Care: The total critical care time was 35 minutes. Time to perform other separately billable procedures was not included in the critical care time. Art Anderson MD Mar 16, 2017 06:15
[2017-03-16 06:16] LABS: VENT SETTINGS SEE COMMENTS
[2017-03-16 06:17] LABS: DRAW SITE RT RADIAL; FIO2 45 %; NUMBER OF ARTERIAL PUNCTURES 1; STAT NO; ULNAR PULSE PRESENT
[2017-03-16 09:16] LABS: BLOOD, URINE NEG (NEG); COMMENT (UR) CATH-CULT NOT IND; CULTURE IF INDICATED CATH CULTURE NOT IND; GLUCOSE,URINE NEG (NEG); KETONE, URINE TRACE mg/dL (NEG); MUCUS URINE FEW /lpf (OCC); NITRITE,URINE NEG (NEG); SQUAMOUS EPITHELIAL CELL URINE <1 /hpf (0-5); URINE COLOR YELLOW (YELLW/STRAW)
[2017-03-16 09:17] LABS: HYALINE CAST, URINE 3 /lpf (RARE)
[2017-03-16] MEDS ORDERED: CHLORHEXIDINE GLUCONATE 2 % 1 PACK (2 CLOTHS)(extra cloths) TOPICAL PRN (09:30)
[2017-03-16] MEDS: PANTOPRAZOLE SODIUM 40 MG VIAL IV PUSH SCH ×2 (10:22→21:08)
[2017-03-16] MEDS: SODIUM CHLORIDE 0.9% FLUSH 10 ML FLUSH IV FLUSH SCH ×2 (10:24→21:08)
[2017-03-16] MEDS: CYANOCOBALAMIN 1,000 MCG TAB PO SCH ×2 (10:24→11:09)
[2017-03-16] MEDS: FLUoxetine HCL 10 MG CAP PO SCH (11:09)
[2017-03-16] MEDS ORDERED: CLOPIDOGREL 75 MG TAB PO SCH (12:00)
[2017-03-16] MEDS ORDERED: ASPIRIN EC 81 MG TABEC PO SCH (12:00)
--- NOTE | 2017-03-16 13:07 | EKG ---
Date Performed: 03/16/2017 Time Performed: 04:14:14 PTAGE: 89 years EKG: ELECTRONIC VENTRICULAR PACEMAKER ABNORMAL RHYTHM ECG PREVIOUS TRACING : 03/15/2017 15.39 Compared to prior tracing no significant change DOCTOR: Bayron Butt Interpretating Date/Time 03/16/2017 13:05:43
--- NOTE | 2017-03-16 13:31 | EKG ---
Date Performed: 03/15/2017 Time Performed: 15:39:27 PTAGE: 89 years EKG: ELECTRONIC VENTRICULAR PACEMAKER ABNORMAL RHYTHM ECG PREVIOUS TRACING : 02/04/2017 19.57 COMPARED WITH PREVIOUS EKG PACEMAKER RHYTHM IS NEW DOCTOR: Bayron Butt Interpretating Date/Time 03/16/2017 13:29:07
--- NOTE | 2017-03-16 15:07 | MB ---
cc: MANSOOR JIMENEZ M.D. DATE OF CONSULTATION: 03/16/2017. REASON FOR CONSULTATION: Bright red blood per rectum. HISTORY OF PRESENT ILLNESS: Thank you for the consultation. This is an 89-year-old lady who has a history of coronary artery disease status post stent placement with congestive heart failure. The patient was doing okay until yesterday when she was found to have bright red blood per rectum on her underwear and she was brought by her family. The patient stated that the blood was bright and on the outside. She does not have any abdominal pain. She does not have any diarrhea. No nausea or vomiting. No other GI symptoms. She had a colonoscopy in the past a long time ago but she does not remember when or the findings. The patient has had some weight loss recently about 9 pounds. She has been stable since admission yesterday. PAST MEDICAL HISTORY: Past medical history significant for: 1. Coronary artery disease. 2. Congestive heart failure. 3. Hypertension. 4. Chronic renal disease. 5. Pacemaker. 6. Anxiety. 7. Depression. 8. Hypertension. 9. Reflux symptoms. PAST SURGICAL HISTORY: 1. Breast cyst removal with rectocele repair. 2. Hysterectomy. ALLERGIES: 1. BENADRYL. 2. AMLODIPINE. MEDICATIONS: Reviewed in the chart. FAMILY HISTORY: Significant for lung cancer and diabetes. SOCIAL HISTORY: Used to smoke but quit a few years ago and no alcohol or drugs. PHYSICAL EXAMINATION: GENERAL: Alert and oriented and in no acute distress. VITAL SIGNS: Stable. HEAD, EYES, EARS, NOSE, THROAT: Pupils are round and reactive to light. NECK: The neck is supple. CHEST: Clear. CARDIAC: Regular rate and rhythm at this time. ABDOMEN: The abdomen is soft and nondistended. Positive bowel sounds. EXTREMITIES: No edema, clubbing or cyanosis. NEUROLOGIC: Neurologically intact. PSYCHIATRIC: Psychologically appropriate. LABORATORY DATA: White count on admission was 12.1 and today it is 9.5, hemoglobin 11.9 and today it is 11.2. Platelet count 335,000. INR 1.1. Liver function tests normal. Creatinine is 1.04. ASSESSMENT AND PLAN: A pleasant 89-year-old lady who had some bright red blood per rectum of questionable etiology, could be diverticulosis or hemorrhoids but also malignancy cannot be ruled out. I had a discussion with the patient. She stated that she does not want to have any procedure done at this time. I talked to her son, Mr. Eliezer Quiñones, her power of workers compensation defense attorney. and he will also concurs with his mons wishes as far as not doing any procedures and just continue supportive care. I recommend packed RBCs if needed and again, supportive care and if she starts having severe active bleeding and she changes her mind, then please let us know and we will be happy to see her again. MD MEGHA Brown/MAURI /1:16 PM /2:59 PM
[2017-03-16] MEDS: ATORVASTATIN 40 MG TAB PO SCH (21:08)
[2017-03-17] VITALS (29 sets, daily range): BP systolic 86–120; BP diastolic 50–73; PULSE 88–110; RESP 19–28; TEMP 97–98.2; O2SAT 96–100
[2017-03-17] MEDS: CHLORHEXIDINE GLUCONATE 2 % 1 PACK (2 CLOTHS)(taper/protocol) TOPICAL SCH ×2 (04:00→21:23)
[2017-03-17 05:43] LABS: MEAN CELL VOLUME 87.8 FL (80.0-100.0); PLATELET COUNT 324 TH/MM3 (150-450); RED BLOOD COUNT 3.76 MIL/MM3 (4.00-5.30); RED CELL DISTRIBUTION WIDTH 15.1 % (11.6-17.2); REVIEW FLAG FINAL; WHITE BLOOD COUNT 10.1 TH/MM3 (4.0-11.0)
[2017-03-17 06:23] LABS: BICARBONATE 25.8 MEQ/L (21.0-32.0); MAGNESIUM 1.8 MG/DL (1.5-2.5); POTASSIUM 3.8 MEQ/L (3.5-5.1)
[2017-03-17] MEDS: CYANOCOBALAMIN 1,000 MCG TAB PO SCH (09:33)
[2017-03-17] MEDS: FLUoxetine HCL 10 MG CAP PO SCH (09:33)
[2017-03-17] MEDS: PANTOPRAZOLE SODIUM 40 MG VIAL IV PUSH SCH (09:33)
[2017-03-17] MEDS: SODIUM CHLORIDE 0.9% FLUSH 10 ML FLUSH IV FLUSH SCH ×2 (09:34→21:23)
--- NOTE | 2017-03-17 10:48 | HHI.PR ---
Subjective Remarks poor po appetite- per granddaughter feels that patient is depressed- patient feels that she is not hungry because she does not have much to do very pleasant and cooperative- oriented + BM- soft chocolate colored, pasty stools this am at bedside telemetry- paced rhythm Objective Vitals Vital Signs Date Time Temp Pulse Resp B/P Pulse Ox O2 Delivery O2 Flow Rate FiO2 03/17/17 10:00 94 03/17/17 10:00 93 22 102/61 99 03/17/17 09:31 95 25 94/59 99 03/17/17 09:00 98 23 99 03/17/17 08:00 92 03/17/17 08:00 97.0 93 20 106/64 96 03/17/17 07:00 96 Nasal Cannula 2.00 03/17/17 06:00 95 03/17/17 05:00 91 03/17/17 04:26 96 19 106/61 99 03/17/17 04:26 96 03/17/17 04:00 97.8 03/17/17 03:00 90 21 99/55 100 03/17/17 03:00 90 03/17/17 02:00 96 23 105/66 98 03/17/17 02:00 96 03/17/17 01:00 93 21 94/57 100 03/17/17 01:00 93 03/17/17 00:00 97 03/17/17 00:00 97.5 97 28 93/50 100 03/16/17 23:00 91 03/16/17 23:00 91 19 107/59 98 03/16/17 22:00 91 03/16/17 22:00 91 86/54 97 03/16/17 21:00 95 85/51 100 03/16/17 21:00 95 03/16/17 20:05 99 Nasal Cannula 2.00 03/16/17 20:00 91 03/16/17 20:00 97.4 91 22 90/51 98 03/16/17 19:00 93 23 92/52 99 03/16/17 19:00 98 Nasal Cannula 2.00 03/16/17 19:00 93 03/16/17 18:00 78 25 101/62 99 03/16/17 18:00 78 03/16/17 17:00 91 19 103/55 100 03/16/17 16:00 97.8 87 23 99/56 99 03/16/17 16:00 87 03/16/17 14:00 88 03/16/17 12:00 88 03/16/17 12:00 97.6 88 18 96/60 98 I/O 03/16/17 03/16/17 03/16/17 03/17/17 03/17/17 03/17/17 07:00 15:00 23:00 07:00 15:00 23:00 Intake Total 90 ml 120 ml 120 ml Output Total 100 ml 350 ml 120 ml 170 ml Balance -100 ml -260 ml 0 ml -50 ml Intake Oral 90 ml 120 ml 120 ml IV Total 0 ml Output Urine Total 100 ml 350 ml 120 ml 170 ml # Bowel Movements 1 Result Diagram: 03/17/17 0447 03/17/17 0447 Imaging Last Impressions Chest X-Ray 03/16/17 0000 Signed Impressions: Service Date/Time: Thursday, March 16, 2017 04:18 - CONCLUSION: 1. Pacer leads overlying right atrium and right ventricle. Interstitial edema pattern with small effusions. Julio César Forde MD Objective Remarks awake and alert, not in distress, pleasant fragile looking, oriented x 3 anicteric lungs- decreased breath sounds and vocal fremiti on right base to mid regular rhythm abdomen soft, nontender extremities no edema, no calf swelling neuro exam- non focal khan in place Date of Removal: Mar 17, 2017 A/P Assessment and Plan 89 years old female admitted for GI bleeding - received BT and went into acute pulmonary edema Acute Respiratory Failure/ distress due to acute fluid overload - History of ischemic cardiomyopathy estimated EF of 25-30% History of Bradycardia symptomatic- S/PM- telemetry paced - decrease 02 requirement- now on NC 2L - received IV diuresis - start Lasix at 20 mg po daily (at home was on 40 mm daily - soft BPs CAD/ Chronic systolic CHF - Status post coronary stent in September. - aspirin and Plavix.- Continue aspirin and Plavix for now. Cardiology consult if needed. - Follow CBC. - Hold antihypertensives due to borderline blood pressure. - Cautious use of fluids if needed. - Monitor on telemetry. GI bleeding - Bright red blood per rectum/GI bleed-- now stools brown/pasty- no bright red blood or melena- p - H&H stable. Recheck CBC in am - GI ff- no plans for scope - IV Protonix- change to po - start regular heart healthy diet Chronic renal disease/ Hyponatremia - Continue to monitor urine output electrolytes and creatinine level - Avoid nephrotoxic agents - khan in place- DC DVT GI prophylaxis - Teds SCDs - Hold pharmacological DVT prophylaxis due to GI bleed - po PPI Transfer to medical floor Leukocytosis The patient was told by her primary care that she had a UTI, however, UA here is unremarkable. Leukocytosis may be a stress reaction. Chest x-ray without obvious evidence of pneumonia. The patient is afebrile at this time. - Continue to monitor. PPx: SCDs Code Status DNR Transfer to [facility] Alecia Loya MD Mar 17, 2017 10:48
--- NOTE | 2017-03-17 15:19 | HHI.GIFU ---
Subjective Remarks Patient sitting on commode denies any further rectal bleeding has had 2 or 3 bowel movements still refusing colonoscopy Objective Vitals I&O Vital Signs Date Time Temp Pulse Resp B/P Pulse Ox O2 Delivery O2 Flow Rate FiO2 03/17/17 14:00 104 97/53 100 03/17/17 14:00 100 03/17/17 13:00 102 109/61 100 03/17/17 12:00 97.4 97 25 99/57 98 03/17/17 12:00 97 03/17/17 11:09 88 21 96/51 99 03/17/17 11:00 93 24 97 03/17/17 10:00 94 03/17/17 10:00 93 22 102/61 99 03/17/17 09:31 95 25 94/59 99 03/17/17 09:00 98 23 99 03/17/17 08:00 92 03/17/17 08:00 97.0 93 20 106/64 96 03/17/17 07:25 98 Nasal Cannula 2.00 03/17/17 07:00 96 Nasal Cannula 2.00 03/17/17 06:00 95 03/17/17 05:00 91 03/17/17 04:26 96 19 106/61 99 03/17/17 04:26 96 03/17/17 04:00 97.8 03/17/17 03:00 90 21 99/55 100 03/17/17 03:00 90 03/17/17 02:00 96 23 105/66 98 03/17/17 02:00 96 03/17/17 01:00 93 21 94/57 100 03/17/17 01:00 93 03/17/17 00:00 97 03/17/17 00:00 97.5 97 28 93/50 100 03/16/17 23:00 91 03/16/17 23:00 91 19 107/59 98 03/16/17 22:00 91 03/16/17 22:00 91 86/54 97 03/16/17 21:00 95 85/51 100 03/16/17 21:00 95 03/16/17 20:05 99 Nasal Cannula 2.00 03/16/17 20:00 91 03/16/17 20:00 97.4 91 22 90/51 98 03/16/17 19:00 93 23 92/52 99 03/16/17 19:00 98 Nasal Cannula 2.00 03/16/17 19:00 93 03/16/17 18:00 78 25 101/62 99 03/16/17 18:00 78 03/16/17 17:00 91 19 103/55 100 03/16/17 16:00 97.8 87 23 99/56 99 03/16/17 16:00 87 I/O 03/16/17 03/16/17 03/16/17 03/17/17 03/17/17 03/17/17 07:00 15:00 23:00 07:00 15:00 23:00 Intake Total 90 ml 120 ml 120 ml 300 ml Output Total 100 ml 350 ml 120 ml 170 ml 175 ml Balance -100 ml -260 ml 0 ml -50 ml 125 ml Intake Oral 90 ml 120 ml 120 ml 300 ml IV Total 0 ml Output Urine Total 100 ml 350 ml 120 ml 170 ml 175 ml # Bowel Movements 1 2 Laboratory Laboratory Tests Test 03/17/17 04:47 White Blood Count 10.1 Red Blood Count 3.76 Hemoglobin 10.9 Hematocrit 33.0 Mean Corpuscular Volume 87.8 Mean Corpuscular Hemoglobin 29.0 Mean Corpuscular Hemoglobin 33.0 Concent Red Cell Distribution Width 15.1 Platelet Count 324 Mean Platelet Volume 8.9 Sodium Level 135 Potassium Level 3.8 Chloride Level 98 Carbon Dioxide Level 25.8 Anion Gap 11 Blood Urea Nitrogen 22 Creatinine 1.14 Estimat Glomerular Filtration 45 Rate Random Glucose 83 Calcium Level 8.5 Phosphorus Level 2.9 Magnesium Level 1.8 Imaging Last Impressions Chest X-Ray 03/16/17 0000 Signed Impressions: Service Date/Time: Thursday, March 16, 2017 04:18 - CONCLUSION: 1. Pacer leads overlying right atrium and right ventricle. Interstitial edema pattern with small effusions. Julio César Forde MD Physical Exam NECK: Neck is supple. CHEST: Chest is clear to auscultation and percussion. CARDIAC: Regular rate and rhythm with no murmur gallop or rubs. ABDOMEN: Soft, nondistended, nontender; no hepatosplenomegaly; bowel sounds are present in all four quadrants. EXTREMITIES: No clubbing, cyanosis, or edema. SKIN: Normal; no rash; no jaundice. VETERINARY ATTENDANT: No focal deficits; alert and oriented times three. Assessment and Plan Plan Bright red blood per rectum No active bleeding Patient stable hemodynamically At this point she is declining any further GI workup I would continue with current supportive care Please reconsult as needed But for now we will sign off Neville Best MD Mar 17, 2017 15:19
[2017-03-17] MEDS: FUROSEMIDE 20 MG TAB PO SCH (15:20)
[2017-03-17] MEDS: PANTOPRAZOLE SOD 40 MG DELAYED RELEASE TAB PO SCH (21:23)
[2017-03-17] MEDS: ATORVASTATIN 40 MG TAB PO SCH (21:23)
[2017-03-18] VITALS (16 sets, daily range): BP systolic 82–118; BP diastolic 50–71; PULSE 76–105; RESP 17–35; TEMP 97.8–98.9; O2SAT 95–99
[2017-03-18 06:24] LABS: AUTOMATED NEUTROPHIL # 6.4 TH/MM3 (1.8-7.7); BASOPHIL % 0.5 % (0.0-2.0); EOSINOPHIL # 0.1 TH/MM3 (0-0.4); EOSINOPHIL % 1.2 % (0.0-4.0); HEMATOCRIT 33.9 % (35.0-46.0); HEMO FLAGS DIFF FINAL; LYMPHOCYTE # 1.1 TH/MM3 (1.0-4.8); MEAN CELL VOLUME 87.3 FL (80.0-100.0); MEAN CORPUSCULAR HGB CONC 33.2 % (32.0-36.0); NEUT % 72.3 % (16.0-70.0); PLATELET COUNT 339 TH/MM3 (150-450); RED BLOOD COUNT 3.89 MIL/MM3 (4.00-5.30); RED CELL DISTRIBUTION WIDTH 14.8 % (11.6-17.2); WHITE BLOOD COUNT 8.9 TH/MM3 (4.0-11.0)
[2017-03-18 06:54] LABS: POTASSIUM 3.5 MEQ/L (3.5-5.1)
--- NOTE | 2017-03-18 08:56 | HHI.PR ---
Subjective Remarks resting comfortably with no acute distress. no further rectal bleed over night. no abdominal pain. family at the bedside. d/w the RN. Objective Vitals Vital Signs Date Time Temp Pulse Resp B/P Pulse Ox O2 Delivery O2 Flow Rate FiO2 03/18/17 04:00 97.9 92 18 87/50 99 03/18/17 04:00 92 03/18/17 03:00 93 22 87/50 98 03/18/17 03:00 93 03/18/17 02:00 93 03/18/17 02:00 93 25 82/53 98 03/18/17 01:00 96 29 86/51 99 03/18/17 01:00 96 03/18/17 00:00 98.0 101 21 86/54 99 03/18/17 00:00 101 03/17/17 23:00 108 03/17/17 23:00 108 25 86/53 98 03/17/17 22:00 97 03/17/17 22:00 97 20 89/56 98 03/17/17 21:00 102 03/17/17 21:00 102 26 93/54 99 03/17/17 20:00 98.2 103 24 103/59 100 03/17/17 20:00 103 03/17/17 19:06 98 Nasal Cannula 2.00 03/17/17 19:00 100 Nasal Cannula 2.00 03/17/17 19:00 101 03/17/17 19:00 101 95/59 98 03/17/17 18:00 104 111/69 99 03/17/17 18:00 104 03/17/17 17:14 110 120/73 96 03/17/17 17:00 109 03/17/17 16:00 97.2 100 100/59 100 03/17/17 16:00 102 03/17/17 15:00 97 95/52 98 03/17/17 14:00 104 97/53 100 03/17/17 14:00 100 03/17/17 13:00 102 109/61 100 03/17/17 12:00 97.4 97 25 99/57 98 03/17/17 12:00 97 03/17/17 11:09 88 21 96/51 99 03/17/17 11:00 93 24 97 03/17/17 10:00 94 03/17/17 10:00 93 22 102/61 99 03/17/17 09:31 95 25 94/59 99 03/17/17 09:00 98 23 99 I/O 03/17/17 03/17/17 03/17/17 03/18/17 03/18/17 03/18/17 07:00 15:00 23:00 07:00 15:00 23:00 Intake Total 120 ml 300 ml 240 ml Output Total 170 ml 175 ml 150 ml 100 ml Balance -50 ml 125 ml 90 ml -100 ml Intake Oral 120 ml 300 ml 240 ml Output Urine Total 170 ml 175 ml 150 ml 100 ml # Bowel Movements 2 0 1 Result Diagram: 03/18/17 0545 03/18/17 0545 Imaging Last Impressions Chest X-Ray 03/16/17 0000 Signed Impressions: Service Date/Time: Saturday, March 16, 2017 04:18 - CONCLUSION: 1. Pacer leads overlying right atrium and right ventricle. Interstitial edema pattern with small effusions. Julio César Forde MD Objective Remarks GENERAL: This is a well-nourished, well-developed patient, in no apparent distress. CARDIOVASCULAR: Regular rate and regular rhythm without murmurs, gallops, or rubs. RESPIRATORY: Clear to auscultation. Breath sounds equal bilaterally. No wheezes , rales, or rhonchi. GASTROINTESTINAL: Abdomen soft, non-tender, nondistended. Normal, active bowel sounds MUSCULOSKELETAL: Extremities without clubbing, cyanosis, or edema. NEURO: Alert & Oriented x4 to person, place, time, situation. Moves all ext x4 Procedures none Medications and IVs Current Medications Sodium Chloride (NS Flush) 2 ml UNSCH PRN IVF FLUSH AFTER USING IV ACCESS; Start 03/15/17 at 15:15; Stop 03/15/17 at 20:04; Status DC Aspirin (Ecotrin Ec) 81 mg DAILY PO ; Start 03/16/17 at 12:00; Status Hold Atorvastatin Calcium (Lipitor) 40 mg HS PO Last administered on 03/17/17 21:23 ; Start 03/15/17 at 21:00 Clopidogrel Bisulfate (Plavix) 75 mg DAILY PO ; Start 03/16/17 at 12:00; Status Hold Cyanocobalamin (Vitamin B12) 2,000 mcg DAILY PO Last administered on 03/17/17 09:33; Start 03/16/17 at 09:00 Fluoxetine HCl (PROzac) 10 mg DAILY PO Last administered on 03/17/17 09:33; Start 03/16/17 at 09:00 Lorazepam (Ativan) 0.5 mg Q8HR PRN SL ANXIETY; Start 03/15/17 at 18:45 Sodium Chloride (NS Flush) 2 ml UNSCH PRN IV FLUSH FLUSH AFTER USING IV ACCESS Last administered on 03/17/17 09:34; Start 03/15/17 at 19:00 Sodium Chloride (NS Flush) 2 ml BID IV FLUSH Last administered on 03/17/17 21: 23; Start 03/15/17 at 21:00 Acetaminophen (Tylenol) 650 mg Q4H PRN PO TEMP > 100.4; Start 03/15/17 at 19:00 Acetaminophen (Tylenol) 650 mg Q6H PRN PO PAIN SCALE 1 TO 2; Start 03/15/17 at 19:00 Naloxone HCl (Narcan Inj) 0.4 mg UNSCH PRN IV SEE LABEL COMMENTS; Start at 19:00 Sennosides (Senokot) 17.2 mg Q12H PRN PO MODERATE - SEVERE CONSTIPATION; Start 03/15/17 at 19:00 Pantoprazole Sodium 40 mg 40 mg Q12H IV PUSH Last administered on 03/17/17 09: 33; Start 03/15/17 at 21:00; Stop 03/17/17 at 11:08; Status DC Sodium Chloride 250 ml @ 250 mls/hr BOLUS ONCE IV Last administered on 01:22; Start 03/16/17 at 01:15; Stop 03/16/17 at 02:14; Status DC Sodium Chloride (NS 250 ml Inj) 250 ml @ 250 mls/hr BOLUS ONCE IV Last administered on 03/16/17 03:23; Start 03/16/17 at 02:45; Stop 03/16/17 at 03:44 ; Status DC Furosemide (Lasix Inj) 40 mg ONCE ONCE IV PUSH Last administered on 03/16/17 04:20; Start 03/16/17 at 04:15; Stop 03/16/17 at 04:22; Status DC Furosemide (Lasix Inj) 40 mg STK-MED ONCE .ROUTE ; Start 03/16/17 at 04:15; Stop 03/16/17 at 04:16; Status DC Miscellaneous Information Patient in critical care unit? Ass... Q361D .XX Last administered on 03/16/17 09:30; Start 03/16/17 at 09:30 Chlorhexidine Gluconate (Chlorhexidine 2% Cloth) 3 pack DAILY@04 TOPICAL Last administered on 03/17/17 21:23; Start 03/17/17 at 04:00; Stop 03/21/17 at 04:01 Chlorhexidine Gluconate (Chlorhexidine 2% Cloth) 3 pack UNSCH PRN TOPICAL HYGIENIC CARE; Start 03/16/17 at 09:30; Stop 03/21/17 at 09:27 Pantoprazole Sodium (Protonix) 40 mg Q12HR PO Last administered on 03/17/17 21 :23; Start 03/17/17 at 21:00 Furosemide (Lasix) 20 mg DAILY PO Last administered on 03/17/17 15:20; Start 03/17/17 at 12:00 Date of Removal: Mar 17, 2017 A/P Assessment and Plan A/P Acute Respiratory Failure/ distress due to acute fluid overload - History of ischemic cardiomyopathy estimated EF of 25-30% History of Bradycardia symptomatic- S/PM- - decrease 02 requirement- now on NC 2L; of note the patient is on home oxygen. - received IV diuresis - start Lasix at 20 mg po daily (at home was on 40 mm daily - soft BPs CAD/ Chronic systolic CHF - Status post coronary stent in September. - aspirin and Plavix.- Continue aspirin and Plavix if ok with GI. - Hold antihypertensives due to borderline blood pressure. - Cautious use of fluids if needed. - Monitor on telemetry. GI bleeding - Bright red blood per rectum/GI bleed-- now stools brown/pasty- no bright red blood or melena- - H&H stable. - GI ff- no plans for scope; patient declined- GI has signed off. - Protonix- changed to po Chronic renal disease/ Hyponatremia - Continue to monitor urine output electrolytes and creatinine level - Avoid nephrotoxic agents DVT GI prophylaxis - Teds SCDs - Hold pharmacological DVT prophylaxis due to GI bleed - po PPI for transfer to telemetry. Discharge Planning dc home with [facility] tomorrow if stable. Neil Mcdonnell MD Mar 18, 2017 08:56
--- NOTE | 2017-03-18 08:57 | HHI.FF ---
Face to Face Verification Diagnosis: (1) Rectal bleed (2) Ischemic cardiomyopathy Physical Therapy Order: Evaluate and Treat Home Health Nursing Order: Medical education Signs/symptoms of disease process Nursing assessment with vital signs I have seen patient Dione Quiñones on 03/18/17. My clinical findings support the need for the requested home health care services because: Ltd mobility - disease progression Patient has SOB I certify that my clinical findings support that this patient is homebound because: Unsteady gait/balance Neil Mcdonnell MD Mar 18, 2017 08:57
[2017-03-18] MEDS: FLUoxetine HCL 10 MG CAP PO SCH (09:00)
[2017-03-18] MEDS: FUROSEMIDE 20 MG TAB PO SCH (09:00)
[2017-03-18] MEDS: SODIUM CHLORIDE 0.9% FLUSH 10 ML FLUSH IV FLUSH SCH ×2 (09:00→19:41)
[2017-03-18] MEDS: CYANOCOBALAMIN 1,000 MCG TAB PO SCH (09:00)
[2017-03-18] MEDS: PANTOPRAZOLE SOD 40 MG DELAYED RELEASE TAB PO SCH ×2 (09:00→19:39)
--- NOTE | 2017-03-18 12:01 | HHI.FF ---
Face to Face Verification Diagnosis: (1) Ischemic cardiomyopathy (2) Rectal bleed Physical Therapy Order: Evaluate and Treat Occupational Therapy Order: Evaluate and Treat Home Health Nursing Order: Medical education Signs/symptoms of disease process Nursing assessment with vital signs Home Health Aide Order: To Assist In: Bathing and personal care, transportation engineering technician and meal prep Director Of Oncology Order: To Evaluate: Living conditions/environment I have seen patient Dione Quiñones on 03/18/17. My clinical findings support the need for the requested home health care services because: Ltd mobility - disease progression I certify that my clinical findings support that this patient is homebound because: Unsteady gait/balance Neil Mcdonnell MD Mar 18, 2017 12:01
[2017-03-18] MEDS: ATORVASTATIN 40 MG TAB PO SCH (19:39)
[2017-03-19] VITALS (11 sets, daily range): BP systolic 82–103; BP diastolic 51–64; PULSE 91–101; RESP 17–25; TEMP 98–98.3; O2SAT 94–100
[2017-03-19] MEDS: CHLORHEXIDINE GLUCONATE 2 % 1 PACK (2 CLOTHS)(taper/protocol) TOPICAL SCH (04:00)
--- NOTE | 2017-03-19 08:22 | HHI.PR ---
Subjective Remarks in no acute distress. denies chest pain or sob. no further GI bleed. d/w the RN . Objective Vitals Vital Signs Date Time Temp Pulse Resp B/P Pulse Ox O2 Delivery O2 Flow Rate FiO2 03/19/17 07:13 98 Nasal Cannula 2.00 03/19/17 04:00 91 03/19/17 04:00 98.0 91 17 97/60 100 03/19/17 00:00 98.0 101 23 94/56 99 03/19/17 00:00 101 03/18/17 20:00 102 03/18/17 20:00 97.8 101 26 99 03/18/17 19:06 99 Nasal Cannula 2.00 03/18/17 19:00 99 Nasal Cannula 2.00 03/18/17 16:00 84 03/18/17 16:00 98.9 105 25 118/71 96 03/18/17 15:00 95 19 92/60 98 03/18/17 14:00 94 33 89/55 99 03/18/17 13:00 101 27 101/65 97 03/18/17 12:00 88 03/18/17 12:00 76 20 86/50 99 03/18/17 11:00 98.7 100 29 93/61 95 03/18/17 10:00 88 35 97/54 99 03/18/17 10:00 88 35 97/54 99 03/18/17 09:00 98.0 97 23 108/66 98 I/O 03/18/17 03/18/17 03/18/17 03/19/17 03/19/17 03/19/17 07:00 15:00 23:00 07:00 15:00 23:00 Intake Total 280 ml 240 ml 240 ml Output Total 100 ml 375 ml 150 ml 300 ml Balance -100 ml -95 ml 90 ml -60 ml Intake Oral 280 ml 240 ml 240 ml IV Total 0 ml 0 ml Output Urine Total 100 ml 375 ml 150 ml 300 ml # Bowel Movements 1 1 0 0 Result Diagram: 03/18/17 0545 03/18/17 0545 Imaging Last Impressions Chest X-Ray 03/16/17 0000 Signed Impressions: Service Date/Time: Thursday, March 16, 2017 04:18 - CONCLUSION: 1. Pacer leads overlying right atrium and right ventricle. Interstitial edema pattern with small effusions. Julio César Forde MD Objective Remarks GENERAL: elderly female, in no apparent distress. CARDIOVASCULAR: Regular rate and regular rhythm without murmurs, gallops, or rubs. RESPIRATORY: Clear to auscultation. Breath sounds equal bilaterally. No wheezes , rales, or rhonchi. GASTROINTESTINAL: Abdomen soft, non-tender, nondistended. Normal, active bowel sounds MUSCULOSKELETAL: Extremities without clubbing, cyanosis, or edema. NEURO: Alert & Oriented x4 to person, place, time, situation. Moves all ext x4 Procedures none Medications and IVs Current Medications Sodium Chloride (NS Flush) 2 ml UNSCH PRN IVF FLUSH AFTER USING IV ACCESS; Start 03/15/17 at 15:15; Stop 03/15/17 at 20:04; Status DC Aspirin (Ecotrin Ec) 81 mg DAILY PO ; Start 03/16/17 at 12:00 Atorvastatin Calcium (Lipitor) 40 mg HS PO Last administered on 03/18/17 19:39 ; Start 03/15/17 at 21:00 Clopidogrel Bisulfate (Plavix) 75 mg DAILY PO ; Start 03/16/17 at 12:00 Cyanocobalamin (Vitamin B12) 2,000 mcg DAILY PO Last administered on 03/18/17 09:00; Start 03/16/17 at 09:00 Fluoxetine HCl (PROzac) 10 mg DAILY PO Last administered on 03/18/17 09:00; Start 03/16/17 at 09:00 Lorazepam (Ativan) 0.5 mg Q8HR PRN SL ANXIETY; Start 03/15/17 at 18:45 Sodium Chloride (NS Flush) 2 ml UNSCH PRN IV FLUSH FLUSH AFTER USING IV ACCESS Last administered on 03/17/17 09:34; Start 03/15/17 at 19:00 Sodium Chloride (NS Flush) 2 ml BID IV FLUSH Last administered on 03/18/17 19: 41; Start 03/15/17 at 21:00 Acetaminophen (Tylenol) 650 mg Q4H PRN PO TEMP > 100.4; Start 03/15/17 at 19:00 Acetaminophen (Tylenol) 650 mg Q6H PRN PO PAIN SCALE 1 TO 2; Start 03/15/17 at 19:00 Naloxone HCl (Narcan Inj) 0.4 mg UNSCH PRN IV SEE LABEL COMMENTS; Start at 19:00 Sennosides (Senokot) 17.2 mg Q12H PRN PO MODERATE - SEVERE CONSTIPATION; Start 03/15/17 at 19:00 Pantoprazole Sodium 40 mg 40 mg Q12H IV PUSH Last administered on 03/17/17 09: 33; Start 03/15/17 at 21:00; Stop 03/17/17 at 11:08; Status DC Sodium Chloride 250 ml @ 250 mls/hr BOLUS ONCE IV Last administered on 01:22; Start 03/16/17 at 01:15; Stop 03/16/17 at 02:14; Status DC Sodium Chloride (NS 250 ml Inj) 250 ml @ 250 mls/hr BOLUS ONCE IV Last administered on 03/16/17 03:23; Start 03/16/17 at 02:45; Stop 03/16/17 at 03:44 ; Status DC Furosemide (Lasix Inj) 40 mg ONCE ONCE IV PUSH Last administered on 03/16/17 04:20; Start 03/16/17 at 04:15; Stop 03/16/17 at 04:22; Status DC Furosemide (Lasix Inj) 40 mg STK-MED ONCE .ROUTE ; Start 03/16/17 at 04:15; Stop 03/16/17 at 04:16; Status DC Miscellaneous Information Patient in critical care unit? Ass... Q361D .XX Last administered on 03/16/17 09:30; Start 03/16/17 at 09:30 Chlorhexidine Gluconate (Chlorhexidine 2% Cloth) 3 pack DAILY@04 TOPICAL Last administered on 03/19/17 04:00; Start 03/17/17 at 04:00; Stop 03/21/17 at 04:01 Chlorhexidine Gluconate (Chlorhexidine 2% Cloth) 3 pack UNSCH PRN TOPICAL HYGIENIC CARE; Start 03/16/17 at 09:30; Stop 03/21/17 at 09:27 Pantoprazole Sodium (Protonix) 40 mg Q12HR PO Last administered on 03/18/17 19 :39; Start 03/17/17 at 21:00 Furosemide (Lasix) 20 mg DAILY PO Last administered on 03/18/17 09:00; Start 03/17/17 at 12:00 Date of Removal: Mar 17, 2017 A/P Assessment and Plan A/P Acute Respiratory Failure/ distress due to acute fluid overload - History of ischemic cardiomyopathy estimated EF of 25-30% History of Bradycardia symptomatic- S/PM- - decrease 02 requirement- now on NC 2L; of note the patient is on home oxygen. -continue Lasix at 20 mg po daily (at home was on 40 mm daily - soft BPs) CAD/ Chronic systolic CHF - Status post coronary stent in September. - aspirin and Plavix.- resume aspirin and Plavix- this was d/w GI and ( her quilt stuffer). - Hold antihypertensives due to borderline blood pressure. GI bleeding - Bright red blood per rectum/GI bleed-- now stools brown/pasty- no bright red blood or melena- - H&H stable. - GI ff- no plans for scope; patient declined- GI has signed off. - Protonix- changed to po Chronic renal disease/ Hyponatremia - Continue to monitor urine output electrolytes and creatinine level - Avoid nephrotoxic agents DVT GI prophylaxis - Teds SCDs - Hold pharmacological DVT prophylaxis due to GI bleed - po PPI Discharge Planning d/w the patient and now she agreed with rehab. case management will be consulted to assist with dc planning. dc to rehab when arrangements made. see med list. d/w the patient and RN. f/u; pcp and cardiology. time spent 35 min. Neil Mcdonnell MD Mar 19, 2017 08:22
[2017-03-19] MEDS ORDERED: FURO20TA PO (08:24)
[2017-03-19] MEDS ORDERED: LORA-392 SL (08:24)
[2017-03-19] MEDS ORDERED: PANT40TA3 PO (08:24)
--- NOTE | 2017-03-19 08:25 | HHI.DS ---
Discharge Summary Admission Date Mar 16, 2017 at 05:43 Discharge Date: Mar 19, 2017 Admitting Diagnosis hematochezia (1) Ischemic cardiomyopathy ICD Code: I25.5 Diagnosis: Principal (2) Rectal bleed ICD Code: K62.5 Diagnosis: Principal Procedures none Brief History - From Admission The patient is an 89-year-old female with a past medical history of CAD status post stent and CHF who is presenting to the hospital with bright red blood per rectum. The patient was found by her family this morning with bright red blood in her pajama shorts. They recall she might have had blood in her stool on another occasion recently. The patient does not have any abdominal pain. She does endorse increasing shortness of breath with ambulation. She has been very tired lately. She is on aspirin and Plavix because she received a cardiac stent in September. She denies a history of ulcers or GERD. She says she had a colonoscopy a long time ago. The patient endorses a weight loss recently from 136 pounds to 127 pounds. She was supposed to follow-up with her heading up machine operator this week but she rescheduled a couple of appointments. The patient says she was in the hospital last month for a heart failure exacerbation. The patient lives by herself but her family has been looking into assisted living facilities recently. CBC/BMP: 03/18/17 0545 03/18/17 0545 Significant Findings Laboratory Tests Test 03/17/17 03/18/17 04:47 05:45 Red Blood Count 3.76 MIL/MM3 3.89 MIL/MM3 (4.00-5.30) (4.00-5.30) Hemoglobin 10.9 GM/DL 11.3 GM/DL (11.6-15.3) (11.6-15.3) Hematocrit 33.0 % 33.9 % (35.0-46.0) (35.0-46.0) Sodium Level 135 MEQ/L 132 MEQ/L (136-145) (136-145) Blood Urea Nitrogen 22 MG/DL (7-18) Creatinine 1.14 MG/DL 1.01 MG/DL (0.50-1.00) (0.50-1.00) Estimat Glomerular Filtration 45 ML/MIN (>89) 52 ML/MIN (>89) Rate Neutrophils (%) (Auto) 72.3 % (16.0-70.0) Monocytes (%) (Auto) 14.0 % (0.0-8.0) Monocytes # (Auto) 1.2 TH/MM3 (0-0.9) Chloride Level 95 MEQ/L (98-107) Calcium Level 8.2 MG/DL (8.5-10.1) Imaging Last Impressions Chest X-Ray 03/16/17 0000 Signed Impressions: Service Date/Time: Saturday, March 16, 2017 04:18 - CONCLUSION: 1. Pacer leads overlying right atrium and right ventricle. Interstitial edema pattern with small effusions. Julio César Forde MD PE at Discharge GENERAL: elderly female, in no apparent distress. CARDIOVASCULAR: Regular rate and regular rhythm without murmurs, gallops, or rubs. RESPIRATORY: Clear to auscultation. Breath sounds equal bilaterally. No wheezes , rales, or rhonchi. GASTROINTESTINAL: Abdomen soft, non-tender, nondistended. Normal, active bowel sounds MUSCULOSKELETAL: Extremities without clubbing, cyanosis, or edema. NEURO: Alert & Oriented x4 to person, place, time, situation. Moves all ext x4 Hospital Course Acute Respiratory Failure/ distress due to acute fluid overload - History of ischemic cardiomyopathy estimated EF of 25-30% History of Bradycardia symptomatic- S/PM- - decrease 02 requirement- now on NC 2L; of note the patient is on home oxygen. -continue Lasix at 20 mg po daily (at home was on 40 mm daily - soft BPs) CAD/ Chronic systolic CHF - Status post coronary stent in September. - aspirin and Plavix.- resume aspirin and Plavix- this was d/w GI and ( her heading up machine operator). - Hold antihypertensives due to borderline blood pressure. GI bleeding - Bright red blood per rectum/GI bleed-- now stools brown/pasty- no bright red blood or melena- - H&H stable. - GI ff- no plans for scope; patient declined- GI has signed off. - Protonix- changed to po Chronic renal disease/ Hyponatremia - Continue to monitor urine output electrolytes and creatinine level - Avoid nephrotoxic agents DVT GI prophylaxis - Teds SCDs - Hold pharmacological DVT prophylaxis due to GI bleed - po PPI Pt Condition on Discharge: Fair Discharge Disposition: Discharge to SNF Discharge Time: > 30 minutes Discharge Instructions DIET: Follow Instructions for: Heart Healthy Diet Activities you can perform: Regular-No Restrictions Follow up Referrals: Cardiology PCP Follow-up New Medications: Furosemide (Furosemide) 20 Mg Tab 20 MG PO DAILY diuretic Days 30 Ref 0 TAB Pantoprazole (Pantoprazole) 40 Mg Tab 40 MG PO Q12HR ppi Days 30 Ref 0 TAB Continued Medications: Aspirin DR (Aspirin EC) 81 Mg Tabdr 81 MG PO DAILY Prevent Blood Clot #30 TAB Atorvastatin (Lipitor) 40 Mg Tab 40 MG PO HS Control Inflammation #30 TAB Calcium Carbonate (Calcium) 600 Mg Tab BID Clopidogrel (Plavix) 75 Mg Tab 75 MG PO DAILY Prevent Blood Clot #30 TAB Cyanocobalamin ER (Vitamin B-12 ER) 2,000 Mcg Tab 2000 MCG PO DAILY Nutritional Supplement #1 Ref 0 BOTTLE Fluoxetine (Prozac) 10 Mg Cap 10 MG PO DAILY Control Depression #30 CAP Lorazepam (Ativan) 0.5 Mg Tab 0.5 MG SL Q8HR PRN ANXIETY #10 Ref 0 TAB (This prescription has been renewed) [place]-3 Fatty Acids ([place]-3 1000 mg) 1 Cap Cap Potassium Chloride ER (Klor-Con 10) 10 Meq Tab 10 MEQ PO DAILY Electrolyte Replacement #30 TAB Discontinued Medications: Carvedilol (Coreg) 3.125 Mg Tab 3.125 MG PO Q12HR Blood Pressure Management #60 TAB Carvedilol (Coreg) 3.125 Mg Tab 3.125 MG PO Q12HR Blood Pressure Management #60 TAB Furosemide (Lasix) 40 Mg Tab 40 MG PO DAILY Prevent Heart Failure #30 TAB Furosemide (Furosemide) 40 Mg Tab 40 MG PO DAILY Blood Pressure Management #30 TAB Spironolactone (Aldactone) 25 Mg Tab 25 MG PO BIDPC Prevent Heart Failure #60 Ref 0 TAB Neil Mcdonnell MD Mar 19, 2017 08:25
--- NOTE | 2017-03-19 08:25 | HHI.DCPOC ---
Discharge Care Plan Diagnosis: (1) Rectal bleed (2) Ischemic cardiomyopathy Your Health Problems Are: Bleeding Tendency Shortness of Breath Goals to Promote Your Health * To prevent worsening of your condition and complications * To maintain your health at the optimal level Directions to Meet Your Goals Take your medications as prescribed Follow your dietary instruction Follow activity as directed Keep your appointments as scheduled Take your immunizations and boosters as scheduled If your symptoms worsen call your PCP, if no PCP go to Urgent Care Center or Emergency Room Smoking is Dangerous to Your Health. Avoid second hand smoke Call the 24-hour hour crisis hotline for domestic abuse at Neil Mcdonnell MD Mar 19, 2017 08:25
[2017-03-19 08:37] LABS: BLOOD, URINE SMALL (NEG); COMMENT (UR) CULT NOT INDICATED; CULTURE IF INDICATED CULT NOT INDICATED; GLUCOSE,URINE NEG (NEG); HYALINE CAST, URINE 3 /lpf (RARE); KETONE, URINE NEG (NEG); MUCUS URINE FEW /lpf (OCC); NITRITE,URINE NEG (NEG); PH, URINE 5.5 (5.0-8.5); SQUAMOUS EPITHELIAL CELL URINE <1 /hpf (0-5); URINE COLOR YELLOW (YELLW/STRAW)
[2017-03-19] MEDS: PANTOPRAZOLE SOD 40 MG DELAYED RELEASE TAB PO SCH (09:00)
[2017-03-19] MEDS: SODIUM CHLORIDE 0.9% FLUSH 10 ML FLUSH IV FLUSH SCH (09:00)
[2017-03-19] MEDS: FLUoxetine HCL 10 MG CAP PO SCH (09:00)
[2017-03-19] MEDS: CYANOCOBALAMIN 1,000 MCG TAB PO SCH (09:00)
[2017-03-19] MEDS: FUROSEMIDE 20 MG TAB PO SCH (09:00)
== END 2017-03-19 17:00 | DRG 377 ==
LOC: NEPE 14:45 → NEDA 18:02 → NEPGCP 21:38 → HIMN 03-16 04:30 → OBSVTOIN 03-16 05:43
PROVIDERS: ADMIT Internal Medicine; ATTEND Internal Medicine
PROC: 5A09357 Assistance with Respiratory Ventilation, Less than 24 Consecutive Hours, Continuous Positive Airway Pressure (ICD-10-PCS; principal; 2017-03-16)
DX: K62.5 Hemorrhage of anus and rectum (principal); J96.00 Acute respiratory failure, unspecified whether with hypoxia or hypercapnia; I95.9 Hypotension, unspecified; I13.0 Hypertensive heart and chronic kidney disease with heart failure and stage 1 through stage 4 chronic kidney disease, or unspecified chronic kidney disease; I50.22 Chronic systolic (congestive) heart failure; E87.1 Hypo-osmolality and hyponatremia; F41.9 Anxiety disorder, unspecified; E87.70 Fluid overload, unspecified; I25.5 Ischemic cardiomyopathy; F32.9 Major depressive disorder, single episode, unspecified; M19.90 Unspecified osteoarthritis, unspecified site; Z66 Do not resuscitate; I25.10 Atherosclerotic heart disease of native coronary artery without angina pectoris; N18.9 Chronic kidney disease, unspecified; Z95.0 Presence of cardiac pacemaker; Z79.01 Long term (current) use of anticoagulants; Z79.82 Long term (current) use of aspirin; Z95.5 Presence of coronary angioplasty implant and graft; Z99.81 Dependence on supplemental oxygen; Z87.891 Personal history of nicotine dependence
CPT/HCPCS: 36600; 71010; 80048; 80053; 81001; 82805; 83690; 83735; 83880; 84100; 85025; 85027; 85610; 85730; 86850; 86900; 86901; 87641; 93005; 94002; 99285; C9113; G0378; J1940; J7050